=== PATIENT | male | born 1950 | race Caucasian/White ===

== ENCOUNTER 2021-09-26 15:50 | Outpatient (CLI) | payer MEDICARE, SELFPAY ==
--- OUTSIDE RECORDS SUMMARY | 2021-09-26 15:53 | XMS_ITS | Encounter Summary ---
:1950 Author Organization [facility] Address [address] [place] [address] Care Team Providers Name Role Phone Unavailable Primary Care Provider Unavailable Reason for Visit Reason Comments Skin Check Appointment Request (Routine) - Closed Specialty Diagnoses / Procedures Referred By Contact Refer red To Contact Family Medicine Referral ID Status Reason Start Date Expiration Date Visits Requ ested Visits Authorized [id number] Closed 11/08/2019 11/07/2020 1 1 Encounter Details Date Type Department Care Team Description 01/30/2020 Office Visit Department of Dwight Ortega Nevi Multi ple (Primary Dx); Dermatology in [place] Keratosis Seborrheic [place], [place] [address] [phone] Social History Tobacco Use Types Packs/Day Years Used Date Smoking Tobacco: Never Smokeless Tobacco: Never Alcohol Use Standard Drinks/Week Comments Yes 2 (1 standard drink = 0.6 oz pure alcoho l) caffeine - none Alcohol Habits Answer Date Recorded How often do you have a drink containing alcohol? 2-4 times a month 07/18/2021 How many drinks containing alcohol do you have on a 1 or 2 07/18/2021 typical day when you are drinking? How often do you have six or more drinks on one Never 07/18/2021 occasion? Comment: caffeine - none 12/22/2017 Social Isolation Answer Date Recorded In a typical week, how many times do you More than three robles es a week 07/18/2021 talk on the phone with family, friends, or neighbors? How often do you get together with friends Twice a week 07/18/2021 or relatives? How often do you attend gnosticism or More than 4 times per year 07/18/2021 hoahaoism services? Do you belong to any clubs or Yes 07/18/2021 organizations such as gnosticism groups, unions, fraternal or athletic groups, or school groups? How often do you attend meetings of the More than 4 times pe r year 07/18/2021 clubs or organizations you belong to? Are you now , , , 07/18/2021 , never or living with a partner? Physical Activity Answer Date Recorded On average, how many days per week do you engage in moderate to 6 days 07/18/2021 strenuous exercise (like walking fast, running, jogging, dancing, swimming, biking, or other activities that cause a light or heavy sweat)? On average, how many minutes do you engage in exercise at th is 40 min 07/18/2021 level? Stress Answer Date Recorded Do you feel stress - tense, restless, nervous, or Only a lit tle 07/18/2021 anxious, or unable to sleep at night because your mind is troubled all the time - these days? Financial Resource Strain Answer Date Recorded How hard is it for you to pay for the very basics like Not h elena at all 07/18/2021 food, housing, medical care, and heating? Intimate Partner Violence Answer Date Recorded Within the last year, have you been afraid of your partner o r No 07/18/2021 ex-partner? Within the last year, have you been humiliated or emotionall y No 07/18/2021 abused in other ways by your partner or ex-partner? Within the last year, have you been kicked, hit, slapped, or No 07/18/2021 otherwise physically hurt by your partner or ex-partner? Within the last year, have you been raped or forced to have any No 07/18/2021 kind of sexual activity by your partner or ex-partner? Food Insecurity Answer Date Recorded Within the past 12 months, you worried that your food would Never true 07/18/2021 run out before you got money to buy more. Within the past 12 months, the food you bought just didn't N ever true 07/18/2021 last and you didn't have money to get more. Transportation Needs Answer Date Recorded In the past 12 months, has lack of transportation kept you f rom No 07/18/2021 medical appointments or from getting medications? In the past 12 months, has lack of transportation kept you f rom No 07/18/2021 meetings, work, or getting things needed for daily living? Housing Stability Answer Date Recorded In the last 12 months, was there a time when you were not ab le No 07/18/2021 to pay the mortgage or rent on time? In the last 12 months, how many places have you lived? 1 07/18/2021 In the last 12 months, was there a time when you did not hav e a No 07/18/[address] sleep or slept in a nursing home (including now)? Sex Assigned at Date Recorded Male 07/17/2021 8:23 PM CDT documented as of this encounter Progress Notes Dwight Ortega M.D. - 01/30/2020 3:30 PM CST SUBJECTIVE CHIEF COMPLAINT / REASON FOR VISIT Skin cancer screening exam HISTORY OF PRESENT ILLNESS Mr. Darwin Woo is a 69 y.o. male who presents today for a full skin cancer screening examination. The patient was last seen by me in Dermatology clinic on 10/10/2019 for a re-evaluation of a lesion involving the left lower cheek which we felt was compatible with a benign lentigo vs SK. The patient denies a personal history of skin cancer or family history for melanoma. His father does have a history of squamous cell carcinoma. He reports regular use of sunscreen. The patient denies any lesions of concern. Allergies Allergen Reactions ??? Amoxicillin Hives ??? Latex Other (see comments) ??? Penicillins Itching ??? Sulfa (Sulfonamide Antibiotics) Other (see comments) MEDICAL HISTORY No history of skin cancer FAMILY HISTORY No family history for melanoma Father had squamous cell carcinoma due to large sun exposure OBJECTIVE PHYSICAL EXAMINATION General: Awake, alert, in no acute distress, and with appropriate affect. Eyes: No scleral injection or icterus. No eyelid abnormalities. Lymph: No lower extremity edema. Skin: I have examined the scalp, face, neck, chest, abdomen, back, bilateral upper extremities, and bilateral lower extremities. Examination of the left lower cheek today reveals a 5 x 3.5 mm brown macule with slight asymmetry and slight papillomatous change compatible with a benign lentigo vs SK. This lesion does not look worrisome for skin cancer on clinical exam for dermoscopy. Examination of the right mid parietal scalp reveals a 6 x 6 mm flesh colored dermal papule with focal telangiectasia compatible with a dermal nevus which the patient states has been present for 10-15 years. He states it has bled previously but only after irritation from a comb or brush. Examination of the lower posterior scalp reveals a brown, slightly scaly irritated SK. Examination of the forehead and face reveals several benign dermal nevi, benign lentigines and SKs. Examination of face, trunk, and extremities reveals multiple benign appearing nevi and lentigines, and multiple SKs. Examination today reveals no suspicious lesions for skin cancer. ASSESSMENT / PLAN #1 Face, trunk, and extremities: Multiple benign appearing nevi and lentigines The ABCDE criteria for melanoma was reviewed with the patient. None of the patient's nevi reach the clinical threshold for biopsy. I recommend continued sun protection, self-skin examinations, and observation. Should any of the patient's nevi change in size, color, texture, or shape or develop symptoms such as itching or bleeding, I recommend an immediate return visit for reassessment. In particular,we will continue to clinically monitor the lentigo vs SK involving the left lower cheek. Photographstaken today clinically and on dermoscopy. Follow up in 4 months for a recheck of this lesion. Patient will call and schedule an appointment. #2 Face, trunk, and extremities: Seborrheic keratosis The benign nature of the skin lesion(s) was discussed with the patient. No treatment is required. I recommend continued observation. Should symptoms or changes develop related to this condition, I would recommend a return visit for reassessment. PATIENT EDUCATION: Ready to learn. No apparent learning barriers were identified. Learning preferences include listening. Explained diagnosis and treatment plan; patient/guardian of patient expressed understanding of thecontent. By signing my name below, I, Chantal Sahu, attest that this documentation has been prepared underthe direction and in the presence of Dwight Ortega M.D. Electronically Signed: trev Will. 01/30/2020. I, Dwight Ortega M.D., personally performed the services described in this documentation. All medical record entries made by the scribe were at my direction and in my presence. I have reviewed the chart and discharge instructions (if applicable) and agree that the record reflects my personal performance and is accurate and complete. Dwight Ortega M.D. 01/29. APPLICATION SUPPORT SPECIALIST documented in this encounter Plan of Treatment Not on filedocumented as of this encounter Visit Diagnoses Diagnosis Nevi Multiple - Primary Keratosis Seborrheic documented in this encounter
--- OUTSIDE RECORDS SUMMARY | 2021-09-26 15:53 | XMS_ITS | Encounter Summary ---
:1950 Author Organization [facility] Address [address] [place] [id number] Care Team Providers Name Role Phone Unavailable Primary Care Provider Unavailable Reason for Referral Outpatient (Routine) - Closed Specialty Diagnoses / Procedures Referred By Contact Refer red To Contact Dermatology Dwight Ortega M.D . [facility] [address] [place] [phone] Referral ID Status Reason Start Date Expiration Date Visits Requ ested Visits Authorized [id number] Closed 07/04/2019 07/03/2020 1 1 Scheduling Instructions Recheck skin lesion involving left lower cheek in 3-4 months. Reason for Visit Reason Comments Follow-up Outpatient (Routine) - Closed Specialty Diagnoses / Procedures Referred By Contact Refer red To Contact Dermatology Dwight Ortega M.D . [facility] [address] [place] [phone] Referral ID Status Reason Start Date Expiration Date Visits Requ ested Visits Authorized [id number] Closed 01/03/2019 01/03/2020 1 1 Encounter Details Date Type Department Care Team Description 07/04/2019 Office Visit Department of Dwight Ortega, Keratosis Seborrheic Dermatology in [place] (Primary Dx) [place], [place] [address] [place] [phone] Social History Tobacco Use Types Packs/Day Years [...] or relatives? How often do you attend baptist or More than 4 times per year 07/18/2021 restorationist services? Do you belong to any clubs or Yes 07/18/2021 organizations such as baptist groups, unions, fraternal or athletic groups, or [...] place to sleep or slept in a fdc (including now)? Sex Assigned at Date Recorded Male 07/17/2021 8:23 PM CDT documented as of this encounter Progress Notes Dwight Ortega M.D. - 07/04/2019 1:15 PM CDT SUBJECTIVE CHIEF COMPLAINT / REASON FOR VISIT Skin lesion involving left lower cheek HISTORY OF PRESENT ILLNESS Mr. Darwin Woo is a 68 y.o. male who presents today for evaluation of a skin lesion involving his left lower cheek. This was noticed during a visit December 2018 felt to represent a benign nevus or lentigo. The patient denies a history of skin cancer or family history for melanoma. Allergies Allergen Reactions ??? Amoxicillin Hives ??? Latex Other (see comments) ??? Penicillins Itching ??? Sulfa (Sulfonamide Antibiotics) Other (see comments) MEDICAL HISTORY No history of skin cancer FAMILY HISTORY No family history for melanoma OBJECTIVE PHYSICAL EXAMINATION General: Awake, alert, in no acute distress, and with appropriate affect. Skin: Limited skin exam done today. Examination of his left lower cheek today reveals a 5 x 3 mm brown macule slight papillomatous change and slight darker jagged edge. ASSESSMENT / PLAN #1 Left lower cheek: Benign lentigo versus SK I discussed that his skin lesion has features of both a benign lentigo or early seborrheic keratosis. Given my low index of suspicion for this being atypical, I have recommended continued observation with recheck in approximately 3-4 months or immediately if any changes occur. I do not feel that a biopsy is warranted at this time. He is very comfortable with this plan. PATIENT EDUCATION: Ready to learn. No apparent learning barriers were identified. Learning preferences include listening. Explained diagnosis and treatment plan; patient/guardian of patient expressed understanding of thecontent. documented in this encounter Plan of Treatment Scheduled Referrals Name Type Priority Associated Order Schedule Diagnoses Dermatology office Outpatient Referral Routine Ex pected: visit (clinic) 10/04/2019 (Approximate), Expires: 07/03/2022 documented as of this encounter Visit Diagnoses Diagnosis Keratosis Seborrheic - Primary documented in this encounter
--- OUTSIDE RECORDS SUMMARY | 2021-09-26 15:53 | XMS_ITS | Encounter Summary ---
:1950 Author Organization [facility] Address [address] [place] [address] Care Team Providers Name Role Phone Unavailable Primary Care Provider Unavailable Encounter Details Date Type Department Care Team Description 04/17/2020 Orders Only [facility] Sa kiera Cobos M.D. [address] [place], [place] [phone] (Wo rk) Social History Tobacco Use Types Packs/Day Years [...] or relatives? How often do you attend hindu or More than 4 times per year 07/18/2021 catholic services? Do you belong to any clubs or Yes 07/18/2021 organizations such as hindu groups, unions, fraternal or athletic groups, or [...] PM CDT documented as of this encounter Plan of Treatment Not on filedocumented as of this encounter Visit Diagnoses Not on filedocumented in this encounter
--- OUTSIDE RECORDS SUMMARY | 2021-09-26 15:53 | XMS_ITS | Encounter Summary ---
:1950 Author Organization [facility] Address [address] [place] [address] Care Team Providers Name Role Phone Unavailable Primary Care Provider Unavailable Reason for Referral Outpatient (Routine) - Closed Specialty Diagnoses / Procedures Referred By Contact Refer red To Contact Dermatology Dwight Ortega M.D . [facility] [address] [place] [phone] Referral ID Status Reason Start Date Expiration Date Visits Requ ested Visits Authorized [id number] Closed 04/29/2020 04/29/2021 1 1 Scheduling Instructions Punch biopsy left lower cheek lentigo. 3 0 minutes Reason for Visit Reason Comments Suspicious Skin Lesion Appointment Request (Routine) - Closed Specialty Diagnoses / Procedures Referred By Contact Refer red To Contact Dermatology Referral ID Status Reason Start Date Expiration Date Visits Requ ested Visits Authorized [id number] Closed 02/20/2020 02/19/2021 1 1 Encounter Details Date Type Department Care Team Description 04/29/2020 Office Visit Department of Dwight Ortega, Tumor Skin Uncertain Behavior (Primary Dx); [place] [address] [phone] Social History Tobacco Use Types Packs/Day Years [...] or relatives? How often do you attend taoist or More than 4 times per year 07/18/2021 baptism services? Do you belong to any clubs or Yes 07/18/2021 organizations such as taoist groups, unions, fraternal or athletic groups, or [...] place to sleep or slept in a long-term (including now)? Sex Assigned at Date Recorded Male 07/17/2021 8:23 PM CDT documented as of this encounter Progress Notes Dwight Ortega M.D. - 04/29/2020 3:00 PM CDT SUBJECTIVE CHIEF COMPLAINT / REASON FOR VISIT Recheck lesion involving the left lower cheek Skin lesions HISTORY OF PRESENT ILLNESS Darwin Woo is a pleasant 69 y.o. male who follows up for a recheck of a lesion involving the left lower cheek and a lesion involving the right upper lateral cheek. The patient was last seen by me in Dermatology clinic on 01/30/2020 and at that time we felt the nevus was compatible with a benign appearing nevus. MEDICAL HISTORY No history of skin cancer ?? FAMILY HISTORY No family history for melanoma Father had squamous cell carcinoma due to large sun exposure ?? OBJECTIVE PHYSICAL EXAMINATION General: Awake, alert, in no acute distress, and with appropriate affect. Skin: Limited skin exam done today. Examination of the left lower cheek today reveals a 5 x 3 mm brown macule with slight asymmetry and slight irregular pigmentation compatible with a lentigo vs SK. The patient states its been present for at least 2 years and he has not noticed any significant change. Examination of the right upper lateral cheek reveals a light brown uniformly colored verrucous papule compatible with a SK. ASSESSMENT / PLAN #1 Left lower cheek: Lentigo vs SK Photographs taken today. I discussed with him that there is slight irregular pigmentation on dermoscopy and asymmetry and showed him the photo. We discussed potential removal with a 6 mm punch biopsy which would result in a small scar versus continued observation and he is comfortable with having it removed. The patient will make a follow up appointment and return to the procedure clinic for a 6 mm punch biopsy. #2 Right upper lateral cheek: Seborrheic keratosis The benign nature of the [...] Dwight Ortega M.D. Electronically Signed: trev Will. 04/29 IDwight M.D., personally performed the services described in this documentation. All medical record entries made by the scribe were at my direction and in my presence. I have reviewed the chart and discharge instructions (if applicable) and agree that the record reflects my personal performance and is accurate and complete. Dwight Ortega M.D. 04/29 documented in this encounter Plan of Treatment Scheduled Referrals Name Type Priority Associated Order Schedule Diagnoses Dermatology office Outpatient Referral Routine Ex pected: visit (clinic) 05/07/2020 (Approximate), Expires: 04/30/2023 documented as of this encounter Visit Diagnoses Diagnosis Tumor Skin Uncertain Behavior - Primary Keratosis Seborrheic documented in this encounter
--- OUTSIDE RECORDS SUMMARY | 2021-09-26 15:53 | XMS_ITS | Encounter Summary ---
:1950 Author Organization [facility] Address [address] [place] [address] Care Team Providers Name Role Phone Elsewhere, Pcp Primary Care Provider Unavailable Reason for Referral Outpatient (Routine) - Closed Specialty Diagnoses / Procedures Referred By Contact Refer red To Contact Dermatology Dwight Ortega M.D . [facility] Region [address] [place] [address] Referral ID Status Reason Start Date Expiration Date Visits Requ ested Visits Authorized [id number] Closed 04/21/2021 04/21/2022 1 1 Scheduling Instructions Recheck left lower leg lesion ATTENDANT Reason for Visit Reason Comments Skin Check Appointment Request (Routine) - Closed Specialty Diagnoses / Procedures Referred By Contact Refer red To Contact Family Medicine Referral ID Status Reason Start Date Expiration Date Visits Requ ested Visits Authorized [id number] Closed 01/27/2021 01/27/2022 1 1 Encounter Details Date Type Department Care Team Description 04/21/2021 Office Visit Department of Dwight Ortega Tumor Skin Un certain Behavior (Primary Dx); Dermatology in Andrea Nye M.D. Nevi Multiple; [place], [place] [address] [facility] Keratosis Seborrheic; [address] [place] [address] [place] [address] [phone] Social History Tobacco Use Types Packs/Day Years [...] or relatives? How often do you attend temple or More than 4 times per year 07/18/2021 yazidi services? Do you belong to any clubs or Tenebril 07/18/2021 organizations such as temple groups, unions, fraternal or athletic groups, or [...] place to sleep or slept in a care home (including now)? Sex Assigned at Date Recorded Male 07/17/2021 8:23 PM CDT documented as of this encounter Progress Notes Dwight Ortega M.D. - 04/21/2021 8:30 AM CST SUBJECTIVE CHIEF COMPLAINT / REASON FOR VISIT Full skin cancer screening HISTORY OF PRESENT ILLNESS Darwin Woo is a pleasant 70 y.o. male who presents for a full skin cancer screening. The patient was last seen by me in Dermatology clinic on 08/12/20. He denies a personal history of skin cancer or family history for melanoma. He uses sunscreen. He would particularly like us to evaluate a lesion on the left ankle. He states that the lesion is a sebaceous cyst that has been present since he was a teenager but has recently started bleeding. MEDICAL HISTORY Negative for skin cancer FAMILY HISTORY Melanoma in father OBJECTIVE PHYSICAL EXAMINATION General: Awake, alert, in no acute distress, and with appropriate affect. Eyes: No scleral injection or icterus. No eyelid abnormalities. Lymph: No lower extremity edema. Skin: I have examined the scalp, face, neck, chest, abdomen, back, bilateral upper extremities, and bilateral lower extremities. Examination of the face, trunk and extremities reveals multiple benign-appearing nevi, lentigines and seborrheic keratoses. Examination of the left upper central forehead reveals an actinic keratosis. Examination of the right upper central forehead reveals a 7 x 7 mm telangiectatic macule, rule out basal cell carcinoma. Examination of the left triceps reveals a small excoriation. I recommend applying Vaseline. Follow up if not resolving. Examination of the left distal lateral valenzuela reveals a 4.5 x 3.5 mm pinkish firm papule, compatible with a dermatofibroma. Examination of the left distal dorsal 5th finger reveals a 3.5 x 3 mm blue macule compatible with gregoria ink pen trauma 50+ years ago. No changes. ASSESSMENT / PLAN #1 Right upper central forehead: Rule out basal cell carcinoma We recommend a shave biopsy of the right upper central forehead. Photograph taken today with patient's verbal consent. We will correspond as to the results and if any further treatment is needed. PROCEDURAL PAUSE: Procedural pause conducted to verify: correct patient identity, procedure to be performed, and as applicable, correct side and site, correct patient position, and availability of implants, special equipment or special requirements. PROCEDURE DETAILS: Shave biopsy. We explained the potential diagnosis and recommended that we obtain a biopsy. The risks and benefitsof the procedure were discussed, and the patient consented to these procedures. The patient denies any allergies to local anesthetics. Using 1% lidocaine with epinephrine for local anesthesia, a shave biopsy was obtained from the right upper central forehead. Biopsy submitted to Dermatopathology for H&E. Special stains will be performed as indicated. The bleeding was well controlled with application of aluminum chloride. Dressing was applied, and wound care instructions were explained. Biopsy results and any further recommendations will be communicated to the patient by letter. Patient given pamphlet [id number]. Discussed the risks, benefits, alternatives, and the necessity of other members of the healthcare team participating in the procedure. All questions answered and consent given. #2 Left distal lateral valenzuela: Dermatofibroma I discussed with patient that I favor a dermatofibroma over a cyst. It probably got irritated and bled. We discussed potential of doing a 6 mm punch biopsy but given my low index of suspicion as well as the fact that it is near the ankle and if it gets infected could cause issues for him involving theankle as well, I prefer observation. He is in agreement. The benign nature of the skin lesion(s) wasdiscussed with the patient. No treatment is required. I recommend continued observation. Should thislesion change in size, color, texture, or shape or develop symptoms such as itching or bleeding, I recommend an immediate return visit for reassessment. Follow-up in 3 months for recheck. #4 Face, trunk and extremities: Multiple nevi and lentigines The ABCDE criteria for melanoma was reviewed with the patient. None of the patient's nevi reach the clinical threshold for biopsy. I recommend continued sun protection, self-skin examinations, and observation. Should any of the patient's nevi change in size, color, texture, or shape or develop symptoms such as itching or bleeding, I recommend an immediate return visit for reassessment. #5 Face, trunk and extremities: Seborrheic keratosis The benign nature of the skin lesion(s) was discussed with the patient. No treatment is required. I recommend continued observation. Should this lesion change in size, color, texture, or shape or develop symptoms such as itching or bleeding, I recommend an immediate return visit for reassessment. PATIENT EDUCATION: Ready to learn. No apparent learning barriers were identified. Learning preferences include listening. Explained diagnosis and treatment plan; patient/guardian of patient expressed understanding of thecontent. By signing my name below, I, Naomi hCapa, attest that this documentation has been prepared under the direction and in the presence of Dwight Ortega M.D. Electronically Signed: trev Bower. 04/15/2021. 11:01 AM DIET ATTENDANT. Dwight Matias M.D., personally performed the services described in this documentation. All medical record entries made by the scribe were at my direction and in my presence. I have reviewed the chart and discharge instructions (if applicable) and agree that the record reflects my personal performance and is accurate and complete. Dwight Ortega M.D. ATTENDANT documented in this encounter Miscellaneous Notes Result Encounter Note - Dwight Ortega M.D. 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 Please send letter ATTENDANT documented in this encounter Plan of Treatment Scheduled Referrals Name Type Priority Associated Order Schedule Diagnoses Dermatology office Outpatient Referral Routine Ex pected: visit (clinic) 07/22/2021 (Approximate), Expires: 07/22/2022 documented as of this encounter Procedures Procedure Name Priority Date/Time Associated Comments Diagnosis DERMATOPATHOLOGY CONSULT Routine 04/21/2021 9:02 Tumor Skin Results for this AM DIET ATTENDANT Uncertain Behavior procedure are in the results section. documented in this encounter Results Dermatopathology Consult (04/21/2021 9:02 AM DIET ATTENDANT) Component Value Ref Test Analysis Performed Pathologis t Range Method Time At Signature 04/25/2021 PDRM 10:33 AM DIET ATTENDANT Report Sal Reynolds 04/25/2021 ADI electronically Sonja Herrera 10:33 AM signed by DIET ATTENDANT Gross Received in formalin labeled with the patient's name, 04/25/2021 PDRM Description: medical record number, and right forehead, upper cent ral 10:33 AM is a 0.7 x 0.4 x 0.1 cm pale babcock-grimm skin shave biopsy. No DIET ATTENDANT discrete lesion is grossly identified on the skin surface. Specimen is bisected longitudinally and submitted entirely in cassette A1. Grossed by SEUN. Interpetation FINAL DIAGNOSIS 04/25/2021 PDRM A. 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 Dwight Ortega M.D. LAB PATH DERM ORDERABLES Performing Organization Address City/State/[facility] Code Phon e Number [facility] - [address] [place], [place] [address] [facility] [place] [address] Laboratories-[facility] [address] documented in this encounter Visit Diagnoses Diagnosis Tumor Skin Uncertain Behavior - Primary Nevi Multiple Keratosis Seborrheic Dermatofibroma documented in this encounter Care Teams Arcade Attendant Relationship Specialty Start Date End Date Elsewhere, Pcp PCP - General Family Medicine 05/24/20 documented as of this encounter
--- OUTSIDE RECORDS SUMMARY | 2021-09-26 15:53 | XMS_ITS | Clinical Summary ---
:1950 Author Organization [facility] Address [address] [place] [address] Care Team Providers Name Role Phone Elsewhere, Pcp Primary Care Provider Unavailable Source Comments Patient records contain information from all sites at [facility]. For routine questions regarding patient records, call [phone] during business hours, M-F 8:00 AM - 5:00 PM Central Time. Record requests for emergency care only can be directed to [phone] at any time.[facility] Allergies Active Allergy Reactions Severity Noted Date Comments Amoxicillin Hives Medium 12/18/2008 Latex Other (see comments) 08/06/2008 Penicillins Itching 08/06/2008 Sulfa (Sulfonamide Antibiotics) Other (see comments) 1 02/18/2008 Medications Medication Sig Dispensed Refills Start Date End Date Status finasteride (PROSCAR) Take 5 mg by mouth 5 8 Active 5 mg tablet every evening. metFORMIN (GLUCOPHAGE) 500 mg 2 (two) 0 11/10/2017 Active 500 mg tablet times a day. rosuvastatin (CRESTOR) Take 10 mg by 3 09/23/2017 Active 10 mg tablet mouth at bedtime. potassium citrate 10 mEq 2 (two) 9 10/04/2017 Active (UROCIT-K) 10 mEq times a day. (1,080 mg) ER tablet rOPINIRole (REQUIP) Take 0.5 mg by 3 09/23/2017 Active 0.5 mg tablet mouth at bedtime. tamsulosin (FLOMAX) TAKE ONE CAPSULE 5 09/23/2017 Active 0.4 mg 24 hr capsule BY MOUTH DAILY AFTER MEAL. TAKE WITHIN 30 MINUTES AFTER THE SAME MEAL DAILY ZOLMitriptan (ZOMIG) 5 Take by mouth as 0 Active mg tablet needed. rizatriptan CREDIT RISK ANALYTICS MANAGER Take 10 mg by 0 Active (MAXALT-CREDIT RISK ANALYTICS MANAGER) 10 mg mouth as needed. disintegrating tablet OMEGA-3 FATTY Take by mouth. 0 A ctive ZBOMW-YDI-QKE ORAL naratriptan (AMERGE) 1 Take 5 mg by mouth 0 Active mg tablet as needed. multivitamin chewable Chew 1 tablet 0 Active tablet daily. mometasone (NASONEX) Administer 1 spray 0 Active 50 mcg/actuation nasal into affected spray nostril(s) as needed. fluvastatin XL (LESCOL Take 80 mg by 0 Active XL) 80 mg 24 hr tablet mouth at bedtime. aspirin 81 mg chewable Chew 1 tablet (81 0 8 Active tablet mg total) at bedtime. May resume when no blood in urine or bowel movement IBUPROFEN ORAL Take by mouth as 0 Active needed. naproxen sodium 220 mg Take 220 mg by 0 Active capsule mouth as needed. 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); Sonja Mclaughlin Keratosis Actin ic 07/02/2021 Ancillary Procedure 06/30/2021 Lab Express or Urgent Dwight Ortega Preproced ural Lab Exam; Care Sonja Nye Contact With An d (Suspected) Exposure To COVID-19 from Last 3 Months Immunizations Name Administration Dates Next Due Influenza, Quadrivalent, Adjuvanted, 11/23/2019 Preservative Free PCV13 08/31/2014 PPSV23 03/25/2017 RZV (SHINGRIX) 04/18/2019, 12/19/2018 SARS-COV-2 (COVID-19) - PFIZER (12 years 04/06/2020, 021 or older) Td Preservative Free (TENIVAC, DECAVAC) 02/21/2015 Tdap 01/16/2016, 02/21/2015 influenza high dose (65 years or older) 11/24/2018, 12/02/19 17 (PF) influenza vaccine quad (FLUZONE/FLUARIX) 04/06/2018, 017, 01/16/2016 (6 months and older)(PF) Family History Medical History Relation Name Comments Squamous cell carcinoma Father Relation Name Status Comments Father Social History Tobacco Use Types Packs/Day Years [...] or relatives? How often do you attend baptism or More than 4 times per year 07/18/2021 advent services? Do you belong to any clubs or Yes 07/18/2021 organizations such as baptism groups, unions, fraternal or athletic groups, or [...] place to sleep or slept in a chcf (including now)? Education Answer Date Recorded What is the highest level of school Master's degree (e.g., M A, MS, 07/17/2021 you have completed or the highest Anisa, MEd, CONFECTIONERY MAKER, PAULA) degree you have received? Sex Assigned at Date Recorded Male 07/17/2021 8:23 PM CDT Last Filed Vital Signs Vital Sign Reading Time Taken Comments Blood Pressure 128/75 07/02/2021 8:04 AM CDT Pulse 75 07/02/2021 8:04 AM CDT Temperature 36.2 ??C (97.2 ??F) 05/24/2020 11:26 AM CDT Respiratory Rate 11 12/28/2017 10:30 AM BRONZER Oxygen Saturation 99% 05/24/2020 11:26 AM CDT Inhaled Oxygen Concentration - - Weight 114 kg (250 lb 10.6 oz) 05/24/2020 11:26 AM CDT Height 188.8 cm (6' 2.33) 12/28/2017 7:05 AM BRONZER Body Mass Index 31.9 12/28/2017 7:05 AM BRONZER Plan of Treatment Health Maintenance Due Date Last Done Comments CT Colonography 1950 Cologuard 1950 Colonoscopy 1950 Colorectal Cancer Screening 1950 FIT 1950 Hepatitis C Screening 1950 Fasting Glucose for Diabetes 12/22/2020 12/22/2017 Screening Depression Screening (Annual 02/15/2021 PHQ-2) Influenza Vaccine (#1) 2021 12/12/2020, 11/23/2019, 11/24/2018, Additional history exists DTaP,Tdap,and Td Vaccines (3 - Td 01/15/2026 01/16/2016, , or Tdap) 02/21/2015 Pneumococcal vaccine (65+ years) Completed 03/25/2017, Zoster Vaccines Completed 04/18/2019, 12/19/2018 Fall Risk Screen (Annual) Completed 04/21/2021 COVID-19 Vaccine Completed 05/22/2021, 11/09/2020, 04/06/2020, Additional history exists Medical Devices Implanted Type Area Concrete Paver Device Shelf Model / Identifier Expiration Date Ser ial / Lot Mesh Or Patch Mesh or Groin Patch Procedures Procedure Name Priority Date/Time Associated Diagnosis Comme nts DERMATOLOGY IMAGE Routine 07/02/2021 12:00 Result s for this EXAM AM CDT procedure are i n the results section. SARS CORONAVIRUS-2 STAT 06/30/2021 8:34 AM Preprocedural La b Results for this RNA, V CDT Exam procedure are in Contact With And the results (Suspected) Exposure section . To COVID-19 from Last 3 Months Results Forehead, right 8 Cryosurgery-Dermatology Image Exam (07/02/2021 12:00 AM CDT) Specimen (Source) Anatomical Location Collection Method / Collectio n Time Received Time / Laterality Volume Narrative IIMS - 07/02/2021 8:49 AM CDT This order has been created and auto-finalized to support the import of images acquired without order. The clini jama documentation to support these images can be found on the encounter oralia t produced images. Provider Not In System IMG NON RAD IMAGING PROCEDUR ES Performing Organization Address City/State/[facility] Code Phon e Number IITN IITN NA SARS Coronavirus-2 RNA, V Asymptomatic (06/30/2021 8:34 AM CDT) [facility] Method Time Signature SARS-CoV-2 Swab, 06/30/2021 MKTO Specimen Nasopharynx 8:20 PM CDT Source SARS CoV-2 Undetected Undetected 06/30/2021 MKTO RNA, TMA 8:20 PM CDT Comment: SARS-CoV-2 RNA absent. This result does not rule out COVID-19 in the patient, as the sensitivity of the test depends o n the timing of the specimen collection and the quality of the specim en. Result should be correlated with patient's history and clinical presentat ion. ----ADDITIONAL INFORMATION---- This molecular amplification test was pe rformed using the Aptima SARS-CoV-2 assay ([employer] on the [employer] tem under emergency use authorization (EUA) by the U.S. Food and Drug Administ ration. Fact sheets for this EUA assay can be fo und at the following links: For Healthcare Providers: https://www.fd a.gov/media/484854/download For Patients: https://www.fda.gov/media/ 090287/download Specimen Anatomical Collection Method Collection Time Receive d Time (Source) Location / / Volume Laterality Varies 06/30/2021 8:34 AM 2:52 (Nasopharynx) CDT PM CDT Dwight Ortega M.D. LAB MICROBIOLOGY - GENERAL O RDERABLES Performing Organization Address City/State/ZIP Code Phon e Number [facility]- [address] [place] [address] [place] [address] System in [place] [address] [place] [address] from Last 3 Months Insurance Payer Benefit Plan / Subscriber ID Effective Dates Phone Addre ss Type Group MEDICARE MEDICARE A AND [id number] 2016-Presen [address] Medicare B t [place] [id number] AARP AARP [id number] 2018-Presen [phone] [id number] [place] [address] Care Teams Customer Pricing Manager Relationship Specialty Start Date End Date Elsewhere, Pcp PCP - General Family Medicine 05/24/20
--- OUTSIDE RECORDS SUMMARY | 2021-09-26 15:53 | XMS_ITS | Encounter Summary ---
:1950 Author Organization [facility] Address [address] [place] [address] Care Team Providers Name Role Phone Elsewhere, Pcp Primary Care Provider Unavailable Encounter Details Date Type Department Care Team Description 07/02/2021 Ancillary Procedure Department of Dermatology Social History Tobacco Use Types Packs/Day Years [...] or relatives? How often do you attend catholic or More than 4 times per year 07/18/2021 yazidi services? Do you belong to any clubs or Yes 07/18/2021 organizations such as catholic groups, unions, fraternal or athletic groups, or [...] minutes do you engage in exercise at is 40 min 07/18/2021 level? Stress Answer [...] place to sleep or slept in a correction (including now)? Sex Assigned at Date Recorded Male 07/17/2021 8:23 PM CDT documented as of this encounter Plan of Treatment Not on filedocumented as of this encounter Procedures Procedure Name Priority Date/Time Associated Comments Diagnosis DERMATOLOGY IMAGE Routine 07/02/2021 12:00 Result s for this EXAM AM CDT procedure are i n the results section. documented in this encounter Results Forehead, right 8 Cryosurgery-Dermatology Image Exam [...] RAD IMAGING PROCEDUR ES Performing Organization Address City/State/ZIP Code Phon e Number IIMS IIMS NA documented in this encounter Visit Diagnoses Not on filedocumented in this encounter Care Teams Photographic Press Screwmaker Relationship Specialty Start Date End Date Elsewhere, Pcp PCP - General Family Medicine 05/24/20 documented as of this encounter
--- OUTSIDE RECORDS SUMMARY | 2021-09-26 15:53 | XMS_ITS | Encounter Summary ---
:1950 Author Organization [facility] Address [address] [place] [address] Care Team Providers Name Role Phone Elsewhere, Pcp Primary Care Provider Unavailable Encounter Details Date Type Department Care Team Description 06/30/2021 Lab Urgent Care in [place] Amer N, Preprocedural Lab Exam; [place] Sonja Contact With And (Suspected) Exposure To COVID-[address] [place] [address] [place], [place] [phone] Social History Tobacco Use Types Packs/Day Years [...] or relatives? How often do you attend scientology or More than 4 times per year 07/18/2021 catholic services? Do you belong to any clubs or Yes 07/18/2021 organizations such as scientology groups, unions, fraternal or athletic groups, or [...] encounter Procedures Procedure Name Priority Date/Time Associated Diagnosis Comme nts SARS CORONAVIRUS-2 STAT 06/30/2021 8:34 AM Preprocedu ral Lab Exam Results for this RNA, V CDT Contact With And procedure a re in (Suspected) Exposure the res ults To COVID-19 section. documented in this encounter Results SARS Coronavirus-2 RNA, V Asymptomatic (06/30/2021 8:34 AM CDT) [facility] gist Method Time Signature SARS-CoV-2 Swab, 06/30/2021 MKTO [...] pe rformed using the Aptima SARS-CoV-2 assay ([employer] on the [employer] tem under emergency use authorization (EUA) by the U.S. Food and Drug Administ ration. Fact sheets for this EUA assay can be fo und at the following links: For Healthcare Providers: https://www.fd a.gov/media/776242/download For Patients: https://www.fda.gov/media/ 155160/download Specimen Anatomical Collection Method Collection Time Receive d Time (Source) Location / / Volume Laterality Varies 06/30/2021 8:34 AM 2:52 (Nasopharynx) CDT PM CDT Dwight Ortega M.D. LAB MICROBIOLOGY - GENERAL O RDERABLES Performing Organization Address City/State/ZIP Code Phon e Number [facility]- [address] [place] [phone] [place] [address] [place] [address] System in [place] [address] [place] [address] documented in this encounter Visit Diagnoses Diagnosis Preprocedural Lab Exam Contact With And (Suspected) Exposure To COVID-19 documented in this encounter Additional Health Concerns Infection Onset Date Last Indicated Resolved Time COVID19 Pending 06/27/2021 06/30/2021 06/30/2021 8:21 PM CDT documented as of this encounter Care Teams Aircraft Inspection Record Clerk Relationship Specialty Start Date End Date Elsewhere, Pcp PCP - General Family Medicine 05/24/20 documented as of this encounter
--- OUTSIDE RECORDS SUMMARY | 2021-09-26 15:53 | XMS_ITS | Encounter Summary ---
:1950 Author Organization [facility] Address [address] [place] [address] Care Team Providers Name Role Phone Elsewhere, Pcp Primary Care Provider Unavailable Encounter Details Date Type Department Care Team Description 04/21/2021 Ancillary Procedure Department of Dermatology Social History [...] or relatives? How often do you attend jainism or More than 4 times per year 07/18/2021 methodist services? Do you belong to any clubs or Yes 07/18/2021 organizations such as jainism groups, unions, fraternal or athletic groups, or [...] place to sleep or slept in a usp (including now)? Sex Assigned at Date Recorded Male 07/17/2021 8:23 PM CDT documented as of this encounter Plan of Treatment Not on filedocumented as of this encounter Procedures Procedure Name Priority Date/Time Associated Comments Diagnosis DERMATOLOGY IMAGE Routine 04/21/2021 9:00 AM Resu lts for this EXAM MAIL CENSOR procedure are i n the results section. documented in this encounter Results forehead, right 8-Dermatology Image Exam (04/21/2021 9:00 AM MAIL CENSOR) Specimen (Source) Anatomical Collection Method Collection Time Re ceived Time Location / / Volume Laterality 04/21/2021 8:58 AM MAIL CENSOR Narrative [facility] - 04/21/2021 9:01 AM MAIL CENSOR This order has been created and auto-finalized [...] on filedocumented in this encounter Care Teams Personnel Supervisor Relationship Specialty Start Date End Date Elsewhere, Pcp PCP - General Family Medicine 05/24/20 documented as of this encounter
--- OUTSIDE RECORDS SUMMARY | 2021-09-26 15:53 | XMS_ITS | Encounter Summary ---
:1950 Author Organization [facility] Address [address] [place] [address] Care Team Providers Name Role Phone Elsewhere, Pcp Primary Care Provider Unavailable Reason for Visit Reason Comments Skin Check had a punch biopsy on left s derek of face clear liquid still, little redness and swelling Appointment Request (Routine) - Closed Specialty Diagnoses / Procedures Referred By Contact Refer red To Contact Family Medicine Referral ID Status Reason Start Date Expiration Date Visits Requ ested Visits Authorized [id number] Closed 05/24/2020 05/24/2021 1 1 Encounter Details Date Type Department Care Team Description 05/24/2020 Office Visit Department of [facility] Brittnee Cabrera Af [facility] Skin Surgery Medicine, [place] E[facility] C.N.PJason, ([facility], in [address] [phone] Social History Tobacco Use Types Packs/Day Years [...] or relatives? How often do you attend jehovah's witness or More than 4 times per year 07/18/2021 pentecostalism services? Do you belong to any clubs or Yes 07/18/2021 organizations such as jehovah's witness groups, unions, fraternal or athletic groups, or [...] or slept in a chcf (including now)? Sex Assigned at Date Recorded Male 07/17/2021 8:23 PM CDT documented as of this encounter Last Filed Vital Signs Vital Sign Reading Time Taken Comments Blood Pressure 112/69 05/24/2020 11:26 AM CDT Pulse 61 05/24/2020 11:26 AM CDT Temperature 36.2 ??C (97.2 ??F) 05/24/2020 11:26 AM CDT Respiratory Rate - - Oxygen Saturation 99% 05/24/2020 11:26 AM CDT Inhaled Oxygen Concentration - - Weight 114 kg (250 lb 10.6 oz) 05/24/2020 11:26 AM CDT Height - - Body Mass Index 31.9 12/28/2017 7:05 AM SUPERINTENDENT MEASUREMENT documented in this encounter Progress Notes Brittnee Cabrera, EJ, C.N.P., D.N.P. - 05/24/2020 11:30 AM CDT SUBJECTIVE CHIEF COMPLAINT/REASON FOR VISIT Darwin Woo is a 69 y.o. male who presents for evaluation of Skin Check (had a punch biopsy on leftside of face clear liquid still, little redness and swelling ). HISTORY OF PRESENT ILLNESS Darwin Woo presents for evaluation of left skin punch biopsy site. Procedure was done approximately two weeks ago. He reported that one week ago he had some purulent drainage from the site that has since resolved. In the past several days it has become increasingly more erythematous with clear drainage. It is mildly warm to the touch per his report. Does not have any pain. OBJECTIVE PHYSICAL EXAMINATION Vital Signs: BP 112/69 (BP Location: Left arm, Patient Position: Sitting, Cuff Size: Large) Pulse 61 Temp 36.2 ??C (Temporal) Wt 114 kg SpO2 99% BMI 31.90 kg/m?? Body mass index is 31.9 kg/m??. General: No acute distress. Skin: Pea-sized area of erythema on left lower cheek without drainage, swelling or ASSESSMENT / PLAN 1. Aftercare Skin Surgery Discussed with patient there is minimal erythema and no signs of infection. Due to the increase in erythema, did recommend warm wet washcloth 3 times daily followed by mupirocin ointment. He was advised to follow-up with any worsening erythema, pain or purulent drainage. Patient was instructed to follow up in primary care if symptoms are worsening or there is no improvement over the next several days. Plan was discussed with patient and is in agreement with plan. All questions were answered, side effects of any/all new medications were discussed. Patient left in no acute distress. Ready to learn. No apparent learning barriers were identified. Learning preferences include listening. Explained diagnosis and treatment plan. Patient/Child/Caregiver expressed understanding of the content. Brittnee Cabrera APRN, C.N.P., D.N.P. Total time: 11 minutes documented in this encounter Plan of Treatment Not on filedocumented as of this encounter Visit Diagnoses Diagnosis Aftercare Skin Surgery - Primary documented in this encounter Care Teams Teacher Industrial Arts Relationship Specialty Start Date End Date Elsewhere, Pcp PCP - General Family Medicine 05/24/20 documented as of this encounter
--- OUTSIDE RECORDS SUMMARY | 2021-09-26 15:53 | XMS_ITS | Encounter Summary ---
:1950 Author Organization [facility] Address [address] [place] [address] Care Team Providers Name Role Phone Elsewhere, Pcp Primary Care Provider Unavailable Reason for Visit Reason Comments COVID Nurse Line Puncture Wound Encounter Details Date Type Department Care Team Description 05/24/2020 Nurse Triage Department of [facility] Jenny Bolton COV ID Nurse Line; [facility], [facility], in [place], [facility] [address] [place], [place] [address] [place] [id number] [place] [address] Social History Tobacco Use Types Packs/Day Years [...] or relatives? How often do you attend confucianism or More than 4 times per year 07/18/2021 yarsanism services? Do you belong to any clubs or Yes 07/18/2021 organizations such as confucianism groups, unions, fraternal or athletic groups, or [...] place to sleep or slept in a prison (including now)? Sex Assigned at Date Recorded Male 07/17/2021 8:23 PM CDT documented as of this encounter Miscellaneous Notes Telephone Encounter - Jenny Bolton R.N. - 05/24/2020 10:33 AM CDT COVID-19 Nurse Line Screening ASSESSMENT Region Select appropriate region: : [place] Age Pathway Select approprite pathway: : Adult Have you had close contact* with a person who has a LABORATORY CONFIRMED case of COVID-19 in the past 14 days?: No (Continue Screening) In the last 48 hours, have you had a fever* OR symptoms that are unrelated to a preexisting illness?: No symptoms noted (Continue Screening) Have you tested positive for COVID-19 in the last 90 days?: No (Continue Screening) Have you been advised to undergo testing or are you requesting testing?: No, testing not recommended(End Screening) Testing Recommendation Endpoint Is testing recommended? : Not recommended to test PLAN Endpoint recommendation: Screening negative, testing not indicated at this time Care Points: -Wash hands frequently with soap and water for at least 20 seconds -If soap and water are not available, use a hand power screwdriver operator -Avoid touching your eyes, nose and mouth. -Clean and disinfect high-touch surfaces routinely. -Wear a mask over your nose and mouth. A cloth face cover is not a substitute for social distancing -Continue to keep about 6 feet between yourself and others. -Avoid public areas and public transportation. -Find new ways to connect with family and friends, get support and share feelings. -Seek emergent care if any of the following occur Trouble breathing Bluish lips or face Persistent pain or pressure in the chest New confusion or inability to rouse. -Notify your regular care provider of any new or worsening symptoms. Asymptomatic without exposure Carepoints: Testing is not recommended at this time. If you become symptomatic, please call back for additional screening. Education: Patient/caregiver able to teach back Patient agreeable to plan of care: Yes The following references were used: [facility] novel coronavirus (COVID- 19) resources Telephone Encounter - Jenny Bolton R.N. - 05/24/2020 10:22 AM CDT Chief Complaint / Reason for Call Patient is a 69 y.o. male calling regarding COVID Nurse Line and Puncture Wound. Assessment Concern: Caller had a punch biopsy on his cheek 05/07/20. Redness resolved and wound healed. Calling today because 2 days after suture removal redness and warmthstarted around healed site and he is having small amount of clear fluid. Present for: About 1 week Home cares tried: Is keeping area clean and dry. Calling to request: An appointment The recommended disposition is See a health care provider within 24 hours. Warm transfer to [employer] for Jay. COVID screening is negative. Reason for Disposition ??? [1] Looks infected (spreading redness, pus) AND [2] no fever Protocols used: CUTS AND [id number] Care Advice Patient/Caregiver understands and will follow care advice?: Yes, able to teach back SEE PCP WITHIN 24 HOURS: * IF OFFICE WILL BE OPEN: You need to be seen within the next 24 hours. Call your doctor (or LICENSED HOME INSPECTOR/PA) when the office opens and make an appointment. * IF OFFICE WILL BE CLOSED AND NO PCP (PRIMARY CARE PROVIDER) SECOND-LEVEL TRIAGE: You need to be seen within the next 24 hours. A clinic or an urgent care center is often a good source of care if yourdoctor's office is closed or you can't get an appointment. CLEANSING: Wash the infected area with warm water and an antibacterial soap twice daily. ANTIBIOTIC OINTMENT: * Apply an ANTIBIOTIC OINTMENT (e.g., OTC Bacitracin), covered by a Band-Aid or dressing. Change daily or if it becomes wet. * Option: A TELFA dressing won't stick to the wound when it is removed. - * Option: Another option is to use a LIQUID SKIN BANDAGE that only needs to be applied once. Don't use antibiotic ointment if you use a liquid skin bandage. CALL BACK IF: * Fever occurs * You become worse. CARE ADVICE given per Cuts and Lacerations (Adult) guideline. documented in this encounter Plan of Treatment Not on filedocumented as of this encounter Visit Diagnoses Not on filedocumented in this encounter Care Teams Acid Plant Helper Relationship Specialty Start Date End Date Elsewhere, Pcp PCP - General Family Medicine 05/24/20 documented as of this encounter
--- OUTSIDE RECORDS SUMMARY | 2021-09-26 15:53 | XMS_ITS | Encounter Summary ---
:1950 Author Organization [facility] Address [address] [place] [address] Care Team Providers Name Role Phone Unavailable Primary Care Provider Unavailable Reason for Referral Outpatient (Routine) - Closed Specialty Diagnoses / Procedures Referred By Contact Refer red To Contact Dermatology Dwight Ortega M.D . 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 Reason for Visit Reason Comments Skin Check Appointment Request (Routine) - Closed Specialty Diagnoses / Procedures Referred By Contact Refer red To Contact Dermatology Referral ID Status Reason Start Date Expiration Date Visits Requ ested Visits Authorized [id number] Closed 09/14/2018 09/14/2019 1 Encounter Details Date Type Department Care Team Description 01/03/2019 Office Visit Department of Dwight Ortega, Keratosis Actinic (Primary Dx); Dermatology in [place] Keratosis Seborrheic; [place], [place] [address] [facility] Nevus Dermal; [address] [place] [address] [place] [phone] Social History Tobacco Use Types Packs/Day Years [...] or relatives? How often do you attend zoroastrian or More than 4 times per year 07/18/2021 islam services? Do you belong to any clubs or Yes 07/18/2021 organizations such as zoroastrian groups, unions, fraternal or athletic groups, or [...] place to sleep or slept in a jail (including now)? Sex Assigned at Date Recorded Male 07/17/2021 8:23 PM CDT documented as of this encounter Progress Notes Dwight Ortega M.D. - 01/03/2019 1:30 PM CST CHIEF COMPLAINT/REASON FOR VISIT Full skin cancer screening HISTORY OF PRESENT ILLNESS Mr. Darwin Woo is a 68 y.o. male who presents for a full skin cancer screening examination. The patient denies a personal history of skin cancer or family history for melanoma. His father has had both basal cell carcinoma and squamous cell carcinoma. He uses sunscreen. The patient has no other concerns today. Allergies Allergen Reactions ??? Amoxicillin Hives ??? Latex Other (see comments) ??? Penicillins Itching ??? Sulfa (Sulfonamide Antibiotics) Other (see comments) MEDICAL HISTORY Negative for skin cancer FAMILY HISTORY 1. Negative for melanoma 2. Basal cell carcinoma and squamous cell carcinoma in father PHYSICAL EXAM General: Awake, alert, in no acute distress, and with appropriate affect. Eyes: No scleral injection or icterus. No eyelid abnormalities. Lymph: No lower extremity edema. Skin: I have examined the scalp, face, neck, chest, abdomen, back, bilateral upper extremities, and bilateral lower extremities. Examination of the right upper forehead reveals an actinic keratosis. Examination of the face reveals a few benign-appearing dermal nevi. Examination of the trunk and extremities reveals several benign-appearing nevi, lentigines and seborrheic keratoses. Examination of the left lower cheek reveals a 2.5 mm x 5 mm brown uniformly pigmented nevus with a slight jagged edge. No suspicious lesions for skin cancer today. IMPRESSION/REPORT/PLAN #1 Right upper forehead: Actinic keratosis x1 CONSENT Discussed the risks, benefits, alternatives, and the necessity of other members of the healthcare team participating in the procedure. All questions answered and consent given. PROCEDURE INFORMATION Given the precancerous nature of this lesion(s), treatment is medically indicated. After discussion of the risks, benefits and alternatives to treatment with cryotherapy, informed consent was obtained.We treated a total of 1 lesion(s) with two 10-second freeze-thaw cycles of liquid nitrogen cryotherapy. The patient tolerated the procedure well. Aftercare instructions were provided in written and verbal form to the patient. Should any of these lesions recur, the patient should return for biopsy or further evaluation. Follow up in 1-2 months for recheck if these areas do not complete resolve. #2 Trunk and extremities: Multiple nevi and lentigines The ABCDE criteria for melanoma was reviewed with the patient. None of the patient's nevi reach the clinical threshold for biopsy. We will monitor the lesion involving the left lower cheek. I recommendcontinued sun protection, self-skin examinations, and observation. Should any of the patient's nevi change in size, color, texture, or shape or develop symptoms such as itching or bleeding, I recommendan immediate return visit for reassessment. Follow up in 6 months for a recheck of the stated lesion, or immediately if any new or changing lesions are noted. Otherwise repeat a full skin cancer screening in one year. #3 Trunk and extremities: Seborrheic keratosis The benign nature [...] thecontent. By signing my name below, I, Kings Ragland, attest that this documentation has been prepared under thedirection and in the presence of Dwight Ortega M.D. Electronically Signed: trev Morales. 01/03/2019. 1:36 PM. I, Dwight Ortega M.D., personally performed the services described in this documentation. All medical record entries made by the scribe were at my direction and in my presence. I have reviewed the chart and discharge instructions (if applicable) and agree that the record reflects my personal performance and is accurate and complete. Dwight Ortega M.D. . 01/03/2019. 4:34 PM. SHING WHEEL REPAIRER documented in this encounter Plan of Treatment Scheduled Referrals Name Type Priority Associated Order Schedule Diagnoses Dermatology office Outpatient Referral Routine Ex pected: visit (clinic) 07/04/2019 (Approximate), Expires: 01/03/2022 documented as of this encounter Visit Diagnoses Diagnosis Keratosis Actinic - Primary Keratosis Seborrheic Nevus Dermal Nevi Multiple documented in this encounter
--- OUTSIDE RECORDS SUMMARY | 2021-09-26 15:53 | XMS_ITS | Encounter Summary ---
:1950 Author Organization [facility] Address [address] [place] [address] Care Team Providers Name Role Phone Unavailable Primary Care Provider Unavailable Reason for Visit Reason Comments Follow-up Outpatient (Routine) - Closed Specialty Diagnoses / Procedures Referred By Contact Refer red To Contact Dermatology Dwight Ortega M.D . [facility] Region [address] [place] [phone] Referral ID Status Reason Start Date Expiration Date Visits Requ ested Visits Authorized [id number] Closed 07/04/2019 07/03/2020 1 1 Encounter Details Date Type Department Care Team Description 10/10/2019 Office Visit Department of Dwight Ortega, Keratosis Seborrheic Dermatology in [place] (Primary Dx) [place], [place] [address] [phone] Social History Tobacco Use Types Packs/Day Years [...] More than 4 times per year 07/18/2021 buddhist services? Do you belong to any clubs [...] place to sleep or slept in a snf (including now)? Sex Assigned at Date Recorded Male 07/17/2021 8:23 PM CDT documented as of this encounter Progress Notes Dwight Ortega M.D. - 10/10/2019 1:30 PM CDT SUBJECTIVE CHIEF COMPLAINT / REASON FOR VISIT Recheck skin lesion involving the left lower cheek HISTORY OF PRESENT ILLNESS Mr. Darwin Woo is a 69 y.o. male who presents today for reevaluation of a skin lesion involving the left lower cheek.This was noticed during a visit December 2018 felt to represent a benign lentigo. At his previous visit on 07/04/2019, examination of the left lower cheek was compatible with both a benign lentigo or early seborrheic keratosis. At that time I did not think a biopsy was warranted. He returns today for a recheck of the lesion. He does not feel that the lesion has changed. The patient denies a history of skin cancer. He regularly uses SPF 30 and practices sun avoidance. Allergies Allergen Reactions ??? Amoxicillin Hives ??? [...] macule with slight asymmetry and slight papillomatous change. ASSESSMENT / PLAN #1 Left lower cheek: Benign lentigo versus SK I discussed with him that this lesion either represents a benign lentigo or early seborrheic keratosis both of which are benign. Discussed the ABCDEs of monitoring for lentigo. Follow up immediately ifchanges are noticed during monthly self examination. Otherwise followup in 3-4 months. He will also s chedule a full skin cancer screening exam at that time. PATIENT EDUCATION: Ready to learn. No apparent learning barriers were identified. Learning preferences include listening. Explained diagnosis and treatment plan; patient/guardian of patient expressed understanding of thecontent. By signing my name below, I, Chantal Sahu, attest that this documentation has been prepared underthe direction and in the presence of Dwight Ortega M.D. Electronically Signed: trev Will. 10/10/2019. At 1:35 PM . IDwight M.D., personally performed the services described in this documentation. All medical record entries made by the scribe were at my direction and in my presence. I have reviewed the chart and discharge instructions (if applicable) and agree that the record reflects my personal performance and is accurate and complete. Dwight Ortega M.D. October 09 at 1335 . documented in this encounter Plan of Treatment Not on filedocumented as of this encounter Visit Diagnoses Diagnosis Keratosis Seborrheic - Primary documented in this encounter
--- OUTSIDE RECORDS SUMMARY | 2021-09-26 15:53 | XMS_ITS | Encounter Summary ---
:1950 Author Organization [facility] Address [address] [place] [address] Care Team Providers Name Role Phone Elsewhere, Pcp Primary Care Provider Unavailable Reason for Visit Reason Comments Skin Check Outpatient (Routine) - Closed Specialty Diagnoses / Procedures Referred By Contact Refer red To Contact Dermatology Dwight Ortega M.D . [facility] Region [address] [place], [place] [phone] Referral ID Status Reason Start Date Expiration Date Visits Requ ested Visits Authorized [id number] Closed 05/07/2020 05/07/2021 1 1 Encounter Details Date Type Department Care Team Description 08/12/2020 Office Visit Department of Dwight Ortega, Keratosis Seborrheic Inflamed (Primary Dx); Dermatology in [place], [place] [address] [facility] Keratosis Seborrheic [address] [phone] Social History Tobacco Use Types Packs/Day Years [...] or relatives? How often do you attend christianity or More than 4 times per year 07/18/2021 roman catholic services? Do you belong to any clubs or Yes 07/18/2021 organizations such as christianity groups, unions, fraternal or athletic groups, or [...] place to sleep or slept in a mcc (including now)? Sex Assigned at Date Recorded Male 07/17/2021 8:23 PM CDT documented as of this encounter Progress Notes Dwight Ortega M.D. - 08/12/2020 9:45 AM CDT SUBJECTIVE CHIEF COMPLAINT / REASON FOR VISIT Skin cancer screening exam HISTORY OF PRESENT ILLNESS Mr. Darwin Woo is a 69 y.o. male who presents today for a full skin cancer screening examination. The patient was last seen by me in Dermatology clinic on 05/07/2020 and a 6 mm punch biopsy was done of a lesion involving the lentigo vs SK involving the left jawline. Pathology report showed a SK. The patient denies a personal history of skin cancer or family history for melanoma. Today he would like an evaluation of a lesion involving his scalp. He states this is a newly occurring lesion which has been present for about 6 weeks and is changing in size. Allergies Allergen Reactions ??? Amoxicillin Hives ??? [...] bilateral lower extremities. Examination of the right frontal scalp reveals a light brown verrucous papule compatible with a SK that was initially irritated. Examination of scalp, face, trunk, and extremities reveals multiple benign appearing nevi and lentigines, and multiple SKs. Examination today reveals no suspicious lesions for skin cancer. ASSESSMENT / PLAN #1 Scalp, face, trunk, and extremities: Multiple benign appearing nevi [...] recommend an immediate return visit for reassessment. #2 Right frontal scalp: Irritated SK Given the irritated nature of lesion(s), treatment is medically indicated. After discussion of the risks, benefits and alternatives to treatment with cryotherapy, informed consent was obtained. We treated a total of 1 lesion(s) with two 61-39-rnmlml freeze-thaw cycles of liquid nitrogen cryotherapy. The patient tolerated the procedure well. Aftercare instructions were provided in written and verbal form to the patient. Should any of these lesions recur, the patient should return for biopsy or further evaluation. Discussed the risks, benefits, alternatives, and the necessity of other members of the healthcare team participating in the procedure. All questions answered and consent given. Follow-up immediately if changes occur during monthly self-skin exam. Otherwise follow up in 1 month if not resolved #3 Face, trunk, and extremities: Seborrheic keratosis The [...] Dwight Ortega M.D. Electronically Signed: trev Will. I, Dwight Ortega M.D., personally performed the services described in this documentation. All medical record entries made by the scribe were at my direction and in my presence. I have reviewed the chart and discharge instructions (if applicable) and agree that the record reflects my personal performance and is accurate and complete. Dwight Ortega M.D. documented in this encounter Plan of Treatment Not on filedocumented as of this encounter Visit Diagnoses Diagnosis Keratosis Seborrheic Inflamed - Primary Nevi Multiple Keratosis Seborrheic documented in this encounter Care Teams Housekeeping/Laundry Supervisor Relationship Specialty Start Date End Date Elsewhere, Pcp PCP - General Family Medicine 05/24/20 documented as of this encounter
--- OUTSIDE RECORDS SUMMARY | 2021-09-26 15:53 | XMS_ITS | Encounter Summary ---
:[address] [facility] Address [address] [place] [address] Care Team Providers Name Role Phone Unavailable Primary Care Provider Unavailable Encounter Details Date Type Department Care Team Description 12/31/2017 Documentation Department of Urology in Taras Garza M.D. [place], [place] [address] [facility] [address] [place] [phone] (Wo rk) Social History Tobacco Use Types [...] or relatives? How often do you attend restoration or More than 4 times per year 07/18/2021 yazidism services? Do you belong to any clubs or Yes 07/18/2021 organizations such as restoration groups, unions, fraternal or athletic groups, or [...] place to sleep or slept in a long term (including now)? Sex Assigned at Date Recorded Male 07/17/2021 8:23 PM CDT documented as of this encounter Progress Notes Taras Garza M.D. - 12/31/2017 8:21 AM CST I spoke to Mr. Woo this morning and gave him the results of his recent targeted prostate biopsy.Came back benign. Recommended repeat PSA in 6 mo- 1 year. He and his were a little anxious, so they would prefer 6 mo. He is going to get this done locally. At 1 year, would recommend another PSA and a MONIKA. He will let us know if he wants this to be done here or locally. 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
--- OUTSIDE RECORDS SUMMARY | 2021-09-26 15:53 | XMS_ITS | Encounter Summary ---
:1950 Author Organization [facility] Address [address] [place] [address] Care Team Providers Name Role Phone Elsewhere, Pcp Primary Care Provider Unavailable Reason for Visit Outpatient (Routine) - Closed Specialty Diagnoses / Procedures Referred By Contact Refer red To Contact Dermatology Diagnoses Squamous Cell Carcinoma In Situ Dwight Ortega M.D. [facility] Procedures ELISABETH MOHS 1-[address] sites [address] [place] [phone] Referral ID Status Reason Start Date Expiration Date Visits Requ ested Visits Authorized [id number] Closed 04/28/2021 04/28/2022 1 1 Encounter Details Date Type Department Care Team Description 07/02/2021 Procedure visit Department of Mitesh Mcmillan, Squamous Cell Carcinoma In Situ (Primary Dx); Dermatology in [place] [facility] [place], [place] [address] [facility] [address] [place] [phone] Social History Tobacco Use Types Packs/Day Years [...] or relatives? How often do you attend mu-ism or More than 4 times per year 07/18/2021 rastafarian services? Do you belong to any clubs or Yes 07/18/2021 organizations such as mu-ism groups, unions, fraFototwics or athletic groups, or school groups? How [...] Pulse 75 07/02/2021 8:04 AM CDT Temperature - - Respiratory Rate - - Oxygen Saturation - - Inhaled Oxygen Concentration - - Weight - - Height - - Body Mass Index - - documented in this encounter Consult Notes Leo Christopher M.D., M.B.A. - 07/02/2021 8:00 AM CDT SUBJECTIVE REFERRAL SOURCE Dwight Ortega M.D. CHIEF COMPLAINT/REASON FOR VISIT Squamous cell carcinoma in situ, right forehead HISTORY OF PRESENT ILLNESS Mr. Woo is a very pleasant 70 y.o. 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 Biopsy was obtained on 04/21/2021. The dermatologic surgery preoperative information sheet was reviewed. Pertinent responses include: Family history of skin cancer, diabetes on metformin. Remainder preoperative sheet negative. Daily aspirin: Yes Anticoagulation: No Tobacco use: No Alcohol use: Occasionally OBJECTIVE PHYSICAL EXAMINATION Vitals: BP 128/75, HR 75 General: No acute distress. Pleasant and cooperative. Alert and oriented. Skin: Examination limited to the face per patient request. On the right upper forehead is an 8 mm light pink well-healed scar. Adjacent to this scar is a 4-5 mm erythematous macule with overlying thin scale. 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 After reviewing the histology and evaluating the patient clinically, we discussed treatment options including observation, cryotherapy, Efudex, ED&C, and Mohs surgery. After discussion, we elected to proceed with cryotherapy. ?? Treated the biopsy site and surrounding skin with 2 rounds of cryotherapy in the standard fashion. ?? Recommend continued observation moving forward. #2 Actinic keratosis x1 Treated 1 actinic keratosis on the right upper forehead with 2 rounds of cryotherapy in the standardfashion INFORMED CONSENT Discussed the risks, benefits, alternatives, and the necessity of other members of the healthcare team participating in the procedure. All questions answered and consent given. Associated attestation - Mitesh Mcmillan M.D. - 07/02/2021 3:21 PM CDT I was present during all critical and adler portions of the procedure(s) and immediately available to furnish services the entire duration. See resident/fellow note for details. Minimal residual was visible on clinical exam, healed very well since biopsy, so we recommended cryotherapy today as per Dr. Christopher's note. Electronically signed by: Mitesh Mcmillan M.D. 07/02/21 3:21 PM CDT documented in this encounter Plan of Treatment Not on filedocumented as of this encounter Visit Diagnoses Diagnosis Squamous Cell Carcinoma In Situ - Primar y Keratosis [facility]inic documented in this encounter Care Teams Erp Engineer Relationship Specialty Start Date End Date Elsewhere, Pcp PCP - General Family Medicine 05/24/20 documented as of this encounter
--- OUTSIDE RECORDS SUMMARY | 2021-09-26 15:53 | XMS_ITS | Encounter Summary ---
:1950 Author Organization [facility] Address [address] [place] [address] Care Team Providers Name Role Phone Unavailable Primary Care Provider Unavailable Reason for Referral Outpatient (Routine) - Closed Specialty Diagnoses / Procedures Referred By Contact Refer red To Contact Dermatology Dwight Ortega M.D . [facility] Region [address] [place] [phone] Referral ID Status Reason Start Date Expiration Date Visits Requ ested Visits Authorized [id number] Closed 05/07/2020 05/07/2021 1 1 Scheduling Instructions Recheck skin lesions 3 months utpatient (Routine) - Closed Specialty Diagnoses / Procedures Referred By Contact Refer red To Contact Diagnoses Tumor Skin Uncertain Behavior [facility]. [facility] Procedures ELISABETH Suture removal [address] [place] [phone] Referral ID Status Reason Start Date Expiration Date Visits Requ ested Visits Authorized [id number] Closed 05/07/2020 05/07/2021 1 1 utpatient (Routine) - Closed Specialty Diagnoses / Procedures Referred By Contact Refer red To Contact Dermatology Dwight Ortega M.D . [facility] Region [address] [place] [phone] Referral ID Status Reason Start Date Expiration Date Visits Requ ested Visits Authorized [id number] Closed 05/07/2020 05/07/2021 1 1 Scheduling Instructions Please schedule for suture removal. Reason for Visit Reason Comments Biopsy Outpatient (Routine) - Closed Specialty Diagnoses / Procedures Referred By Contact Refer red To Contact Dermatology Dwight Ortega M.D . [facility] [address] [place], [place] [phone] Referral ID Status Reason Start Date Expiration Date Visits Requ ested Visits Authorized [id number] Closed 04/29/2020 04/29/2021 1 1 Encounter Details Date Type Department Care Team Description 05/07/2020 Office Visit Department of Dwihgt Ortega, Tumor Skin Uncertain Dermatology in [place] (Primary Dx) [address] [phone] Social History Tobacco Use Types Packs/Day [...] or relatives? How often do you attend muslim or More than 4 times per year 07/18/2021 methodist services? Do you belong to any clubs or Yes 07/18/2021 organizations such as muslim groups, unions, fraternal or athletic groups, or [...] encounter Progress Notes Dwight Ortega M.D. - 05/07/2020 3:30 PM CDT SUBJECTIVE CHIEF COMPLAINT / REASON FOR VISIT Return for punch biopsy HISTORY OF PRESENT ILLNESS Darwin Woo is a pleasant 69 y.o. male who follows up for a 6 mm punch biopsy of a nevus involving the left lower cheek. The patient was last seen by me in Dermatology clinic on 04/29/2020 and photographs were taken at that time. MEDICAL HISTORY No history of skin cancer ?? FAMILY HISTORY No family history for melanoma Father had squamous cell carcinoma due to large sun exposure ?? OBJECTIVE PHYSICAL EXAMINATION General: Awake, alert, in no acute distress, and with appropriate affect. Skin: Limited skin exam done today. Examination of the left jawline today reveals a 5 x 3 mm brown macule with slight asymmetry and slight irregular pigmentation compatible with a lentigo vs SK.?? ASSESSMENT / PLAN #1 Left jawline: Lentigo vs SK A 6 mm punch biopsy removing the nevus was done in clinic and submitted for pathology. I will correspond with patient as to the results and if any further treatment is needed. CONSENT Discussed the risks, benefits, alternatives, and the necessity of other members of the healthcare team participating in the procedure. All questions answered and consent given. UNIVERSAL PROTOCOL Procedural pause conducted to verify: correct patient identity, procedure to be performed, and as applicable, correct side and site, correct patient position, and availability of implants, special equipment, or special requirements. PROCEDURE INFORMATION Punch biopsy. We explained the potential diagnosis and recommended that we obtain a biopsy. The risks and benefitsof the procedure were discussed, and the patient consented to these procedures. Using 1% lidocaine with epinephrine for local anesthesia, a 6 mm punch biopsy was obtained from the left jawline. Biopsy submitted to Dermatopathology. Biopsy site closed with a top layer of 2, 5-0 nylon superficial sutures. The skin sutures need to be removed in 5-7 days. Dressing was applied, and wound care instructionswere explained. Biopsy results and any further recommendations will be communicated to the patient by letter. Patient given pamphlet [id number]. PATIENT EDUCATION: Ready to learn. No apparent learning barriers were identified. Learning preferences include listening. Explained diagnosis and treatment plan; patient/guardian of patient expressed understanding of thecontent. By signing my name below, I, Chantal Sauh, attest that this documentation has been prepared underthe direction and in the presence of Dwight Ortega M.D. Electronically Signed: trev Will. 05/07/2020 IDwight M.D., personally performed the services described in this documentation. All medical record entries made by the scribe were at my direction and in my presence. I have reviewed the chart and discharge instructions (if applicable) and agree that the record reflects my personal performance and is accurate and complete. Dwight Ortega M.D. 05/07 documented in this encounter Miscellaneous Notes Result Encounter Note - Dwight Ortega M.D. - 05/10/2020 3:25 PM CDT Benign lesion letter. [place] patient. Please send letter documented in this encounter Plan of Treatment Scheduled Orders Name Type Priority Associated Diagnoses Order S chedule ELISABETH Suture removal Dermatology Routine Tumor Skin Uncertain E xpected: 05/13/2020 Behavior (Approximate), Expires: 2023 Scheduled Referrals Name Type Priority Associated Order Schedule Diagnoses Dermatology nurse Outpatient Referral Routine Exp ected: visit (clinic) 05/13/2020 (Approximate), Expires: 05/08/2023 Dermatology office Outpatient Referral Routine Ex pected: visit (clinic) 08/07/2020 (Approximate), Expires: 05/08/2023 documented as of this encounter Procedures Procedure Name Priority Date/Time Associated Comments Diagnosis DERMATOPATHOLOGY CONSULT Routine 05/07/2020 4:04 Tumor Skin Results for this PM CDT Uncertain Behavior procedure are in the results section. documented in this encounter Results Dermatopathology Consult (05/07/2020 4:04 PM CDT) Component Value Ref Test Analysis Performed At [facility] gist Range Method Time Signature 05/10/2020 [facility] 9:21 AM CDT Report Emil Nye. 05/10/2020 [facility] electronically Sonja Hoyt 9:21 AM CDT signed by Gross Description: Received in formalin labeled with the patient's name, 05/10/2020 [facility] medical record number, and left jawline is a 0.6 cm in 9:21 AM CDT diameter brown skin punch biopsy, excised to the depth of 0.2 cm. ??Encompassing almost the entire skin surface is a [id number] slightly bosselated lesion with ill-defined and irregular borders. ??The specimen is bisected and submitted entirely in cassette A1. Grossed by AF. Interpetation FINAL DIAGNOSIS 05/10/2020 [facility] A. ??DermPath Consult Wet Tissue; Left jawline, Skin punch 9:21 AM CDT biopsy: ??Seborrheic keratosis Specimen Anatomical Collection Method Collection Time Receive d Time (Source) Location / / Volume Laterality Tissue 05/07/2020 4:04 PM CDT 10:04 AM CDT Narrative This result has an attachment that is no t available. Dwight Ortega M.D. LAB PATH DERM ORDERABLES Performing Organization Address City/State/ZIP Code Phon e Number [facility] - [address] [place], [place] [address] [place] [address] [facility] [address] documented in this encounter Visit Diagnoses Diagnosis Tumor Skin Uncertain Behavior - Primary documented in this encounter
--- OUTSIDE RECORDS SUMMARY | 2021-09-26 15:53 | XMS_ITS | Encounter Summary ---
:1950 Author Organization [facility] Address [address] [place] [address] Care Team Providers Name Role Phone Unavailable Primary Care Provider Unavailable Reason for Referral Outpatient (Routine) - Closed Specialty Diagnoses / Procedures Referred By Contact Refer red To Contact Diagnoses Tumor Skin Uncertain Behavior Dwight Ortega M.D. Procedures Suture Removal [address] [place], [place] [phone] Referral ID Status Reason Start Date Expiration Date Visits Requ ested Visits Authorized [id number] Closed 05/13/2020 05/13/2021 1 1 Reason for Visit Reason Comments Suture / Staple Removal Outpatient (Routine) - Closed Specialty Diagnoses / Procedures Referred By Contact Refer red To Contact Dermatology Dwight Ortega M.D . [facility] Region [address] [place], [place] [phone] Referral ID Status Reason Start Date Expiration Date Visits Requ ested Visits Authorized [id number] Closed 05/07/2020 05/07/2021 1 1 Encounter Details Date Type Department Care Team Description 05/13/2020 Nurse Only Department of Dwight Ortega M.D. [address] [place] [phone] Suture / Staple Dermatology in [place] Jalil Malloy L.P.N. [address] [phone] Social History Tobacco Use Types Packs/Day [...] or relatives? How often do you attend rastafari or More than 4 times per year 07/18/2021 sikhism services? Do you belong to any clubs or Yes 07/18/2021 organizations such as rastafari groups, unions, fraternal or athletic groups, or [...] place to sleep or slept in a skilled nursing (including now)? Sex Assigned at Date Recorded Male 07/17/2021 8:23 PM CDT documented as of this encounter Procedure Notes Jalil Malloy L.P.N. - 05/13/2020 9:15 AM CDTAssociated Order(s): Suture Removal Post-Procedure Diagnose(s): Tumor Skin Uncertain Behavior Suture Removal Date/Time: 05/13/2020 9:15 AM Performed by: Jalil Malloy L.P.NJason Authorized by: Kalaaji, Amer N, M.D. PROCEDURE DETAILS Wound appearance: No signs of infection, good wound healing, clean, nontender and good approximationof wound edges Number of sutures removed: 2 CONSENT Consent obtained: verbal PRE PROCEDURE DETAILS Sutures were placed at [facility] facility: yes Indicaton: scheduled suture removal SEDATION / ANESTHESIA Anesthesia method: none POST PROCEDURE DETAILS Procedure completed successfully: yes Complications: no immediate complications Post-removal: No dressing applied documented in this encounter Plan of Treatment Not on filedocumented as of this encounter Procedures Procedure Name Priority Date/Time Associated Diagnosis Comme nts SUTURE REMOVAL Routine 05/13/2020 9:15 AM Tumor Skin Uncertain Results for this CDT Behavior procedure are i n the results section . documented in this encounter Results SUTURE REMOVAL (05/13/2020 9:15 AM CDT) Narrative [facility] - 05/13/2020 9:15 AM CDT Jalil Mlaloy L.P.N. ? 05/13/2020 ??9:16 AM Suture Removal Date/Time: 05/13/2020 9:15 AM Performed by: Jalil Malloy L.PJasonNJason Authorized by: Dwight Ortega M.D. PROCEDURE DETAILS Wound appearance: ??No signs of infectio n, good wound healing, clean, nontender and good approximation of woun d edges Number of sutures removed: ??2 CONSENT Consent obtained: verbal PRE PROCEDURE DETAILS Sutures were placed at [facility] facility: ye s ?? Indicaton: scheduled suture removal ?? SEDATION / ANESTHESIA Anesthesia method: none POST PROCEDURE DETAILS Procedure completed successfully: yes ?? Complications: no immediate complication s ?? Post-removal: ??No dressing applied Dwight Ortega M.D. PROCEDURE/MINOR SURGICAL ORD ERABLES Performing Organization Address City/State/ZIP Code Phon e Number [facility] NA documented in this encounter Visit Diagnoses Diagnosis Tumor Skin Uncertain Behavior - Primary documented in this encounter
--- OUTSIDE RECORDS SUMMARY | 2021-09-26 15:53 | XMS_ITS | Encounter Summary ---
:1950 Author Organization [facility] Address [address] [place] [address] Care Team Providers Name Role Phone Unavailable Primary Care Provider Unavailable Encounter Details Date Type Department Care Team Description 01/30/2020 Ancillary Procedure Department of Dermatology Social History [...] or relatives? How often do you attend anabaptist or More than 4 times per year 07/18/2021 mandaeism services? Do you belong to any clubs or Yes 07/18/2021 organizations such as anabaptist groups, unions, fraternal or athletic groups, or [...] place to sleep or slept in a senior care (including now)? Sex Assigned at Date Recorded Male 07/17/2021 8:23 PM CDT documented as of this encounter Plan of Treatment Not on filedocumented as of this encounter Procedures Procedure Name Priority Date/Time Associated Comments Diagnosis DERMATOLOGY IMAGE Routine 01/30/2020 4:10 PM Resu lts for this EXAM [facility] [employer] [facility]ER procedure are i n the results section. documented in this encounter Results cheek, left jawline 37-Dermatology Image Exam (01/30/2020 4:10 PM [facility]) Specimen (Source) Anatomical Collection Method Collection Time Re ceived Time Location / / Volume Laterality 01/30/2020 4:08 PM [facility] Narrative [facility] - 01/30/2020 4:10 PM [facility] This order has been created and auto-finalized [...]
--- OUTSIDE RECORDS SUMMARY | 2021-09-26 15:53 | XMS_ITS | Encounter Summary ---
:1950 Author Organization [facility] Address [address] [place] [id number] Care Team Providers Name Role Phone Elsewhere, Pcp Primary Care Provider Unavailable Reason for Visit Reason Comments Follow-up Outpatient (Routine) - Closed Specialty Diagnoses / Procedures Referred By Contact Refer red To Contact Dermatology Dwight Ortega M.D . [facility] [address] [place] [address] Referral ID Status Reason Start Date Expiration Date Visits Requ ested Visits Authorized [id number] Closed 04/21/2021 04/21/2022 1 1 Encounter Details Date Type Department Care Team Description 07/22/2021 Office Visit Department of Dwight Ortega Cyst Epide rmal Dermatology in [place] (Primary Dx) [place], [place] [address] [phone] Social History Tobacco Use Types Packs/Day Years [...] or relatives? How often do you attend jewish or More than 4 times per year 07/18/2021 rastafari services? Do you belong to any clubs or Yes 07/18/2021 organizations such as jewish groups, unions, fraternal or athletic groups, or [...] slept in a care home (including now)? Education Answer Date Recorded What is the highest level of school Master's degree (e.g., M A, MS, 07/17/2021 you have completed or the highest Anisa, MEd, MARKETING OPERATIONS INTERN, PAULA) degree you have received? Sex Assigned at Date Recorded Male 07/17/2021 8:23 PM CDT documented as of this encounter Progress Notes Dwight Ortega M.D. - 07/22/2021 1:30 PM CDT SUBJECTIVE CHIEF COMPLAINT / REASON FOR VISIT Recheck lesion x 1 HISTORY OF PRESENT ILLNESS Darwin Woo is a pleasant 70 y.o. male who presents for a recheck of a lesion x 1 involving the left distal lateral valenzuela. The patient was last seen by me in Dermatology clinic on 04/21/21. He has a history of squamous cell carcinoma in situ involving the right upper central forehead, status post curettage and cryotherapy on 07/02/[address] Mcmillan at [facility]. He denies a personal history for melanoma. His father had melanoma. He uses sunscreen. He denies any new or changing lesions today. MEDICAL HISTORY 1. Right upper central forehead: History of squamous cell carcinoma in situ, status post curettage and cryotherapy on 07/02/[address] Mcmillan at [facility] 2. Negative for melanoma ?? FAMILY HISTORY Melanoma in father OBJECTIVE PHYSICAL EXAMINATION General: Awake, alert, in no acute distress, and with appropriate affect. Skin: Limited skin exam done today. Examination of the left distal lateral valenzuela reveals a 1 x 0.8 cm superficial mobile cystic dermal nodule, compatible with a probable cyst. He reports that the lesion has been present for about 60 years. ASSESSMENT / PLAN #1 Left distal lateral valenzuela: Probable cyst The benign nature of the skin lesion(s) was discussed with the patient. No treatment is required. Hestates that this lesion has been present for 60 years and has not changed. It is asymptomatic. I recommend continued observation. Should this lesion change in size, color, texture, or shape or develop symptoms such as itching or bleeding, I recommend an immediate return visit for reassessment. Follow up in 6-12 months for a full skin cancer screening. PATIENT EDUCATION: Ready to learn. No apparent learning barriers were identified. Learning preferences include listening. Explained diagnosis and treatment plan; patient/guardian of patient expressed understanding of thecontent. By signing my name below, I, Naomi Chapa, attest that this documentation has been prepared under the direction and in the presence of Dwight Ortega M.D. Electronically Signed: trev Bower. 07/22/2021. 1:18 PM CDT. I, Dwight Ortega M.D., personally performed the [...] as of this encounter Visit Diagnoses Diagnosis Cyst Epidermal - Primary documented in this encounter Care Teams Needle Control Cheniller Relationship Specialty Start Date End Date Elsewhere, Pcp PCP - General Family Medicine 05/24/20 documented as of this encounter
--- OUTSIDE RECORDS SUMMARY | 2021-09-26 15:53 | XMS_ITS | Encounter Summary ---
:1950 Author Organization [facility] Address [address] [place] [address] Care Team Providers Name Role Phone Unavailable Primary Care Provider Unavailable Encounter Details Date Type Department Care Team Description 04/29/2020 Ancillary Procedure Department of Dermatology Social History [...] or relatives? How often do you attend confucianist or More than 4 times per year 07/18/2021 shinto services? Do you belong to any clubs or Yes 07/18/2021 organizations such as confucianist groups, unions, fraternal or athletic groups, or [...] place to sleep or slept in a detention (including now)? Sex Assigned at Date Recorded Male 07/17/2021 8:23 PM CDT documented as of this encounter Plan of Treatment Not on filedocumented as of this encounter Procedures Procedure Name Priority Date/Time Associated Comments Diagnosis DERMATOLOGY IMAGE Routine 04/29/2020 3:05 PM Resu lts for this EXAM CDT procedure are i n the results section. documented in this encounter Results Cheek, left 11 13 25 27 37-Dermatology Image Exam (04/29/2020 3:05 PM CDT) Specimen (Source) Anatomical Collection Method Collection Time Re ceived Time Location / / Volume Laterality 04/29/2020 3:04 PM CDT Narrative [facility] - 04/29/2020 3:06 PM CDT This order has been created and [...]
--- OUTSIDE RECORDS SUMMARY | 2021-09-26 15:53 | XMS_ITS | Encounter Summary ---
:1950 Author Organization [facility] Address [address] [place] [address] Care Team Providers Name Role Phone Elsewhere, Pcp Primary Care Provider Unavailable Reason for Referral Outpatient (Routine) - Closed Specialty Diagnoses / Procedures Referred By Contact Refer red To Contact Dermatology Diagnoses Squamous Cell Carcinoma In Situ Dwight Ortega M.D. [facility] Procedures [facility] 1-[address] [place] [phone] Referral ID Status Reason Start Date Expiration Date Visits Requ ested Visits Authorized [id number] Closed 04/28/2021 04/28/2022 1 1 Encounter Details Date Type Department Care Team Description 04/28/2021 Orders Only Department of Dwight Ortega Encounter For Preprocedural Laboratory Examination (COVID-19) (Primary Dx); Dermatology in [place] Squamous Cell Carcinoma In Situ; [place], [place] [address] [facility] Contact With And (Suspected) Exposure To COVID-19 [address] [place] [phone] Social History Tobacco Use Types Packs/Day Years [...] or relatives? How often do you attend caodaism or More than 4 times per year 07/18/2021 christianity services? Do you belong to any clubs or Yes 07/18/2021 organizations such as caodaism groups, unions, fraternal or athletic groups, or [...] place to sleep or slept in a [place] (including now)? Sex Assigned at Date Recorded Male 07/17/2021 8:23 PM CDT documented as of this encounter Plan of Treatment Scheduled Orders Name Type Priority Associated Diagnoses [facility]4 sites Dermatology Routine Squamous Cell Carcinom a Expected: 05/12/2021, In Situ Expires: 2022 documented as of this encounter Visit Diagnoses Diagnosis Encounter For Preprocedural Laboratory E xamination (COVID-19) - Primary Squamous Cell Carcinoma In Situ Contact With And (Suspected) Exposure To COVID-19 documented in this encounter Care Teams Station Baggage Porter Relationship Specialty Start Date End Date Elsewhere, Pcp PCP - General Family Medicine 05/24/20 documented as of this encounter
--- OUTSIDE RECORDS SUMMARY | 2021-09-26 15:54 | XMS_ITS | Encounter Summary ---
:1950 Author Organization [facility] Address [address] [place] [address] Care Team Providers Name Role Phone Unavailable Primary Care Provider Unavailable Reason for Visit Auth/Cert Specialty Diagnoses / Procedures Referred By Contact Refer red To Contact Diagnoses Elevated Prostate-Specific Antigen Elevated Prostate-Specific Antigen` Procedures BIOPSY PROSTATE; Transperineal biopsy; targeted based on MRI; proceed as indicated Referral ID Status Reason Start Date Expiration Date Visits Requ ested Visits Authorized [id number] 1 1 Encounter Details Date Type Department Care Team Description 12/28/2017 Surgery Outpatient Procedure Aurelio Mahajan B [facility] PROSTATE, Center in [place] Transperineal biopsy, [place] [address] targeted based on MRI, [address] [place], [place] [phone] Social History Tobacco Use Types Packs/Day Years [...] or relatives? How often do you attend mormonism or More than 4 times per year 07/18/2021 hindu services? Do you belong to any clubs or Yes 07/18/2021 organizations such as mormonism groups, unions, fraternal or athletic groups, or [...] Sign Reading Time Taken Comments Blood Pressure 121/73 12/28/2017 7:45 AM [employer]CIENCES [employer]ACULTY MEMBER Pulse 73 12/28/2017 7:48 AM GEOSCIENCES FACULTY MEMBER Temperature 36.6 ??C (97.9 ??F) 12/28/2017 7:05 AM GEOSCIENCES FACULTY MEMBER Respiratory Rate 8 12/28/2017 7:48 AM GEOSCIENCES FACULTY MEMBER Oxygen Saturation 96% 12/28/2017 7:48 AM GEOSCIENCES FACULTY MEMBER Inhaled Oxygen Concentration - - Weight 105 kg (231 lb 4.2 oz) 12/28/2017 7:05 AM [employer]CIENCES FACULTY MEMBER Height 188.8 cm (6' 2.33) 12/28/2017 7:05 AM [employer]OSCIENCES FACULTY MEMBER Body Mass Index 29.43 12/28/2017 7:05 AM GEOSCIENCES FACULTY MEMBER documented in this encounter Discharge Instructions AttachmentsThe following attachments cannot be sent through Care Everywhere. About Your Ultrasound-Guided Prostate Biopsy (Mexican)documented in this encounter Medications at Time of Discharge Medication Sig Dispensed Refills Start Date End Date aspirin 81 mg chewable Chew 1 tablet (81 mg 0 tablet total) at bedtime. May resume when no blood in urine or bowel movement finasteride (PROSCAR) 5 Take 5 mg by mouth 5 10/2017 mg tablet every evening. fluvastatin XL (LESCOL Take 80 mg by mouth 0 XL) 80 mg 24 hr tablet at bedtime. metFORMIN (GLUCOPHAGE) 500 mg 2 (two) times 0 500 mg tablet a day. mometasone (NASONEX) 50 Administer 1 spray 0 mcg/actuation nasal into affected spray nostril(s) as needed. multivitamin chewable Chew 1 tablet daily. 0 tablet naratriptan (AMERGE) 1 Take 5 mg by mouth 0 mg tablet as needed. OMEGA-3 FATTY Take by mouth. 0 [id number]-[id number]-[id number] ORAL potassium citrate 10 mEq 2 (two) times 9 10/05/19 18 (UROCIT-K) 10 mEq (1,080 a day. mg) ER tablet rizatriptan DICTIONARY EDITOR Take 10 mg by mouth 0 (MAXALT-DICTIONARY EDITOR) 10 mg as needed. disintegrating tablet rOPINIRole (REQUIP) 0.5 Take 0.5 mg by mouth 3 mg tablet at bedtime. rosuvastatin (CRESTOR) Take 10 mg by mouth 3 10/2017 10 mg tablet at bedtime. tamsulosin (FLOMAX) 0.4 TAKE ONE CAPSULE BY 5 10/2017 mg 24 hr capsule MOUTH DAILY AFTER MEAL. TAKE WITHIN 30 MINUTES AFTER THE SAME MEAL DAILY ZOLMitriptan (ZOMIG) 5 Take by mouth as 0 mg tablet needed. acetaminophen (TYLENOL) Take 2 capsules 30 capsule 0 018 01/07/2018 500 mg capsule (1,000 mg total) by mouth every 6 (six) hours as needed for pain for up to 10 days. ciprofloxacin (CIPRO) Take 1 by mouth 2 2 tablet 0 018 05/24/2020 500 mg hours prior to tabletIndications: biopsy and repeat 10 Elevated hours after biopsy Prostate-Specific Antigen sodium/chloride/potass/c Take 1 tablet by 0 07/04/2019 itrate mouth 2 (two) times ([id number] a day. RATE ORAL) documented as of this encounter OR Notes Op Note - Hussein Stinson M.D., Pharm.D. - 12/28/2017 8:28 AM CST FULL OP NOTE Procedure(s): BIOPSY PROSTATE, Transperineal biopsy, targeted based on MRI, proceed as indicated. Surgeon(s): Aurelio Mahajan M.D. Lomas, Derek J, M.D., Pharm.D. Anesthesia Type: General Pre-Operative Diagnosis: Elevated Prostate-Specific Antigen [R97.20]. Post-Operative Diagnosis: Same as pre-operative diagnosis Findings: As expected Complications: None Description of Procedure: ADDITIONAL PRE-OPERATIVE DIAGNOSIS: Elevated PSA suspicious but not diagnostic for prostate adenocarcinoma; Abnormal MRI of prostate. PROCEDURE AND FINDINGS: After appropriate informed consent, pause and identification of patient by name and number he was prepared and draped with sterile technique in the dorsal lithotomy position. The linear endo-cavitary ultrasound brachytherapy transducer was placed per rectum using the appropriate stepper for the procedure. A series of cine and static images were taken of axial and sagittal view of the prostate and saved to the network. The prostate measured 5.0 cm in transverse dimension, 4.4 cm in AP dimension, and 5.5 cm in longitudinal dimension. The ultrasound characteristics of the prostate included: the presence of BPH nodules in the transitional zone. Where seen, the bladder appeared normal. A three dimensional ultrasound data set was then acquired with a sagittal sweep from right to left and sent a separate workstation for volume rendering and segmentation. Once image fusion maneuvers were carried out each of the targets was identified and a series of biopsies were taken through the perineum and labeled right transitional zone. The needle location was captured on the work station and saved to a three dimensional data set file. Yarding And Folding Machine Operator systematic biopsies were also taken and sent for permanent section analysis; each core location was captures with the fusion planning software. The ultrasound transducer was removed, pressure was applied to the perineum followed by antibiotic ointment and fluffs.There was no obvious hematoma or bleeding. The patient tolerated the procedure well and was awakenedfrom anesthesia and taken to the post-operative area in satisfactory condition. Specimens ID Type Source Tests Collected by Time A : Right Prostate Lobe Tissue Prostate SURGICAL PATHOLOGY Hussein Stinson M.D., Pharm.D. 12/28/20170841 B : Left Prostate Lobe Tissue Prostate SURGICAL PATHOLOGY Hussein Stinson M.D., Pharm.D. 12/28/2017 0842 C : Right Transition Zone, Prostate Tissue Prostate SURGICAL PATHOLOGY Hussein Stinson M.D., Pharm.D. 12/28/2017 0842 Drains * No drains in log * Estimated Blood Loss 0 mL Implants * No implants in log * Hussein Stinson M.D., Pharm.D. CIENCES FACULTY MEMBER documented in this encounter Plan of Treatment Not on filedocumented as of this encounter Procedures Procedure Name Priority Date/Time Associated Diagnosis Comme nts SURGICAL PATHOLOGY Routine 12/28/2017 8:41 AM Elevated Res ults for this GEOSCIENCES FACULTY MEMBER Prostate-Specific procedure are in Antigen the results section. BIOPSY PROSTATE 12/28/2017 7:36 AM Elevated GEOSCIENCES FACULTY MEMBER Prostate-Specific Antigen Special Needs Listing: [employer]ettman service. Re quests early case, gets migraines if NPO for long. documented in this encounter Results Surgical Pathology (12/28/2017 8:41 AM GEOSCIENCES FACULTY MEMBER) Component Value Ref Test Analysis Performed At [facility] Obviousidea Range Method Time Signature Gross Description A: ?? Received in formalin labeled with the patie nt's name, 12/29/2017 [facility] medical record number, and prostate, right lobe are 2:15 PM [facility]OSCIENCES FACULTY MEMBER [facility]ATORIES - multiple pale babcock-pink soft tissue cores and fragments, [facility] ranging from 0.1-1.7 cm in length. ??The specimens are CAMPUS submitted en toto in cassettes A1, three cores and A2, three cores and fragments. Grossed by ESTELA B: ?? Received in formalin labeled with the patient's name, medical record number, and prostate, left lobe are multiple pale babcock-pink soft tissue cores and fragments, ranging from 0.1-2.1 cm in length. ?? Specimens are submitted en toto in cassettes B1, four cores and B2, three cores and fragments. ??Grossed by ESTELA C: ?? Received in formalin labeled with the patient's name, medical record number, and prostate, right transition zone are four pale babcock soft tissue cores, ranging from 0.8-1.6 cm in length. Specimens are submitted en toto in cassettes C1 and C2, two cores in each cassette. Grossed by ESTELA Gibbons in [place] 12/29/2017 [facility] jannette Smith, 2:15 PM [facility] - Interpretation Lorenza.Jennifer [facility] Res[facility] Report Binh Ford M.D. [phone] 12/30/19 [facility] electronically I verify that I have examined all relevant slides/ma terials 2:15 PM [facility] - signed by for the specimen(s) and rendered or confirmed the diagnosi s. [facility] 12/29/2017 [facility] 2:15 PM [facility]OSCIENCES FACULTY [facility]BER [facility] - [facility] Interpretation FINAL DIAGNOSIS 12/29/2017 [facility] A. ??Prostate, right lobe, needle core biopsy: ??Benign 2:15 PM [facility] - prostatic tissue. [facility] B. ??Prostate, left lobe, needle core biopsy: ??Benign CAMPUS prostatic tissue. C. ??Prostate, right transition zone, needle core biopsy: Benign prostatic tissue. Specimen (Source) Anatomical Collection Method Collection Time Re ceived Time Location / / Volume Laterality Tissue (Prostate) 12/28/2017 8:41 AM GEOSCIENCES FACULTY MEMBER Tissue (Prostate) 12/28/2017 8:42 AM GEOSCIENCES FACULTY MEMBER Tissue (Prostate) 12/28/2017 8:42 AM GEOSCIENCES FACULTY MEMBER Narrative This result has an attachment that is no t available. Aurelio Mahajan M.D. LAB SURG PATH ORDERABLES Performing Organization Address City/State/ZIP Code Phon e Number [facility] - [address] [id number] [facility] documented in this encounter Visit Diagnoses Diagnosis Elevated Prostate-Specific Antigen - [facility] Elevated Prostate-Specific Antigen documented in this encounter Admitting Diagnoses Diagnosis Elevated Prostate-Specific Antigen documented in this encounter Administered Medications Inactive Administered Medications - up to 3 most recent administrations Medication Order MAR Action Action Date Dose Rate Site acetaminophen tablet 1,000 mg Given 12/28/2017 7:48 AM GEOSCIENCES FACULTY MEMBER 1,000 mg (TYLENOL) 1,000 mg, oral, Once, On Wed12/28/17 at 0745, For 1 dose, Pre-Op insulin aspart U-100 injection 0-8 Units (NovoLOG) 0-8 Units, subcutaneous, Every 2 hour SD N, high blood sugar, Nurse to determine and administer dose., Starting on Wed at 0656, For 2 doses, Pre-Op, Nurse to administer Aspart (Novolog) Insulin subc utaneous as needed every 2 hours for up to 2 doses per correction scale. First dose STAT. Do not administer a correction Insulin dose if glucose is greater than 140 mg/dL and a) It is within 2 hours of any rapid acting or short acting Insulin and/or b) the patient has consumed sugar or carbohydrate containing food or beverage within the past 4 hours. Contact provider managing diabetes to assess if correction sca le insulin should be administered. For glucose less than or e qual to 70 mg/dL - initiate treatment of hypoglycemia., Insulin Aspart: Correction Scale Insuli n (For Diabetes Mellitus diagnosis), 71 - 139: 0 units, 140 - 179 : 2 units, 180 - 219: 4 units, 220 - 259: 6 units, 260 - 299: 8 units, Greater than or equal to 30 0: Call provider managing diabetes lactated ringers Rate/Dose Verify 12/28/2017 7:51 AM GEOSCIENCES FACULTY MEMBER 20 mL/hr, intravenous, Continuous, Starting on Wed12/28/17 at 0745 New Bag 12/28/2017 7:47 AM GEOSCIENCES FACULTY MEMBER 20 mL/hr 20 mL/hr awszdysq-aswdmtwknk-vvztlckua 3.5 mg-400 Given 12/28/2017 9:05 A M 2 packets Other unit-5,000 unit ointment packet GEOSCIENCES FACULTY MEMBER (NEOSPORIN) As needed, Starting on Wed12/28/17 at 0905, Intra-Op documented in this encounter Active and Recently Administered Medications Times are shown in GEOSCIENCES FACULTY MEMBER. Scheduled Medication Order 12/26/2017 12/27/2017 12/28/2017 acetaminophen tablet 1,000 mg (TYLENOL) (COMPLETED) 07 (Given - Provider: Jenniffer Jewell R.N.) 1,000 mg, oral, Once, Wed12/28/17 at 0745, For 1 dose, Pre-Op ciprofloxacin in D5W IVPB 400 mg (CIPRO) (COMPLETED) 0816 (Given - Provider: Andra Burrows APRN, CRNA) 400 mg, intravenous, at 200 mL/hr, Admin ister over 60 Minutes, Once, e 12/28/17 at 0715, For 1 dose, Intra-Op, premix bag, Drug Monitoring Program: Pharmacist to adjust medication dosing based on lee ann cation and drug clearance factors., Indications: Prophylaxis, Diaz rgical gentamicin in NaCl 0.9 % (iso-osm) IVPB 120 mg (GARAMYCIN) (COMP LETED) 0803 (Given - Provider: Andra Burrows APRN, CRNA) 120 mg, intravenous, at 200 mL/hr, Admin ister over 30 Minutes, Once, e 12/28/17 at 0715, For 1 dose, Intra-Op, Preoperatively within 1 hour prior to surgical incision premix bag, Drug Monitoring Progr am: Pharmacist to adjust medication dosi ng based on indication and drug clearance factors., Indications: Prophylaxis, Surgical sodium phosphates enema 1 enema (FLEET) 0700 (Due) 1 enema, rectal, Once, Wed12/28/17 at 0700, For 1 dose, Pre-Op Continuous Medication Order 12/26/2017 12/27/2017 12/28/2017 lactated ringers 0747 (New Bag - Provider: Jenniffer Jewell RJasonNJason)0751 (Rate/Dose Verify - Provider: Andra Burrows APRN, BRISSA)0900 (Anesthesia Volume Adjustment - Provider: Andra Burrows APRN, CRNA)1100 (Stopped - Provider: Ghulam Mahajan RJasonNJason) 20 mL/hr, intravenous, at 20 mL/hr, Continuous, Starting Wed at 0745 PRN Medication Order 12/26/2017 12/27/2017 12/28/2017 insulin aspart U-100 injection 0-8 Units (NovoLOG) 0-8 Units, subcutaneous, Every 2 hour SD N, high blood sugar, Nurse to determine and administer dose., Starting Wed12/28/17 at 0656, For 2 doses, Pre-Op, Nurse to administer Aspart (Novolog) Insulin sub cutaneous as needed every 2 hours for up to 2 doses per correction scale. First dose STAT. Do not administer a correction Insulin dose if glucose is greater than 140 mg/dL and a) It is within 2 hours of any rapid acting or short acting Insuli n and/or b) the patient has consumed sugar or carbohydrate containing food or beverage within the past 4 hours. Contact provider managing diabetes to assess if co rrection scale insulin should be adminis tered. For glucose less than or equal to 70 mg/dL - initiate treatment of hypoglycemia., Insulin Aspart: Correction Scale Insulin (For Diabetes Mellitus diagnosis ), 71 - 139: 0 units, 140 - 179: 2 units , 180 - 219: 4 units, 220 - 259: 6 units, 260 - 299: 8 units, Greater than or equal to 300: Call provider managing diabetes aejrvhiz-jilyiouqzv-lnmmknzcc 3.5 mg-400 unit-5,000 unit ointment packet (NEOSPORIN) (CANCELED) 904 (Given - Pro vider: Rakel Keenan RJasonNJason - Comment: perineum) As needed, Starting 12/28/17 at 0905, Intra-Op documented in this encounter
--- OUTSIDE RECORDS SUMMARY | 2021-09-26 15:54 | XMS_ITS | Encounter Summary ---
:1950 Author Organization [facility] Address [address] [place] [address] Care Team Providers Name Role Phone Unavailable Primary Care Provider Unavailable Reason for Visit Auth/Cert Specialty Diagnoses / Procedures Referred By Contact Refer red To Contact Diagnoses Elevated Prostate-Specific Antigen Elevated Prostate-Specific Antigen` Procedures BIOPSY PROSTATE; Transperineal biopsy; targeted based on MRI; proceed as indicated Referral ID Status Reason Start Date Expiration Date Visits Requ ested Visits Authorized [id number] 1 1 Encounter Details Date Type Department Care Team Description 12/28/2017 Hospital Encounter Outpatient Procedure [facility]re [facility] in [place] Rose M.D. Prostate-Specific [place] [address] [facility] Antigen [address] [place] [phone] Social History Tobacco Use Types Packs/Day Years [...] or relatives? How often do you attend religion or More than 4 times per year 07/18/2021 gnosticism services? Do you belong to any clubs or Yes 07/18/2021 organizations such as religion groups, unions, fraternal or athletic groups, or [...] to sleep or slept in a senior living (including now)? Sex Assigned at Date Recorded Male 07/17/2021 8:23 PM CDT documented as of this encounter Last Filed Vital Signs Vital Sign Reading Time Taken Comments Blood Pressure 120/63 12/28/2017 10:00 AM PREMIUM REPRESENTATIVE Pulse 61 12/28/2017 10:30 AM PREMIUM REPRESENTATIVE Temperature 36.4 ??C (97.5 ??F) 12/28/2017 9:18 AM PREMIUM REPRESENTATIVE Respiratory Rate 11 12/28/2017 10:30 AM PREMIUM REPRESENTATIVE Oxygen Saturation 98% 12/28/2017 10:30 AM PREMIUM REPRESENTATIVE Inhaled Oxygen Concentration - - Weight 105 kg (231 lb 4.2 oz) 12/28/2017 7:05 AM PREMIUM REPRESENTATIVE Height 188.8 cm (6' 2.33) 12/28/2017 7:05 AM PREMIUM REPRESENTATIVE Body Mass Index 29.43 12/28/2017 7:05 AM PREMIUM REPRESENTATIVE documented in this encounter Discharge Instructions AttachmentsThe following attachments cannot be sent through Care Everywhere. About Your Ultrasound-Guided Prostate Biopsy (Frisian)documented in this encounter Medications at Time of [...] needed. OMEGA-3 FATTY Take by mouth. 0 GPBOR-DHF-MRE ORAL potassium citrate 10 mEq 2 (two) times 9 10/05/19 18 (UROCIT-K) 10 mEq (1,080 a day. mg) ER tablet rizatriptan FOREPART RASPER Take 10 mg by mouth 0 (MAXALT-FOREPART RASPER) 10 mg as needed. disintegrating tablet rOPINIRole [...] 0 07/04/2019 itrate mouth 2 (two) times ([id number]-MP-[id number]-CIT a day. RATE ORAL) documented as of [...] to a three dimensional data set file. Field Reporter systematic biopsies were also taken and sent [...] * No implants in log * Hussein [place], M.D., Pharm.D. IUM REPRESENTATIVE documented in this encounter Plan of Treatment Not on filedocumented as of this encounter Procedures Procedure Name Priority Date/Time Associated Diagnosis Comme nts SURGICAL PATHOLOGY Routine 12/28/2017 8:41 AM Elevated Res ults for this PREMIUM REPRESENTATIVE Prostate-Specific procedure are in Antigen the results section. BIOPSY PROSTATE 12/28/2017 7:36 AM Elevated PREMIUM REPRESENTATIVE Prostate-Specific Antigen Special Needs Listing: [employer] service. Re quests early case, gets migraines if NPO for long. documented in this encounter Results Surgical Pathology (12/28/2017 8:41 AM PREMIUM REPRESENTATIVE) Component Value Ref Test Analysis Performed At [facility] [employer] Range Method Time Signature Gross Description A: ?? Received in formalin labeled with the patie nt's name, 12/29/2017 [facility] medical record number, and prostate, right lobe are 2:15 PM PREMIUM REPRESENTATIVE LABORATORIES - multiple pale babcock-pink soft tissue cores and fragments, [facility] ranging from 0.1-1.7 cm in length. [...] Grossed by ESTELA Gibbons in [place] 12/29/2017 [facility] jannette Smith, 2:15 PM PREMIUM REPRESENTATIVE LABORATORIES - Interpretation M.Adonis.[facility] -Pathology [facility] Resident Report Binh Ford M.D. [phone] 12/30/19 18 [facility] electronically I verify that I have examined all relevant slides/ma terials 2:15 PM PREMIUM REPRESENTATIVE LABORATORIES - signed by for the specimen(s) and rendered or confirmed the diagnosi s. [facility] 12/29/2017 [facility] 2:15 PM PREMIUM REPRESENTATIVE LABORATORIES - [facility] Interpretation FINAL DIAGNOSIS 12/29/2017 [facility] A. ??Prostate, right lobe, needle core biopsy: ??Benign 2:15 PM PREMIUM REPRESENTATIVE LABORATORIES - prostatic tissue. [facility] B. ??Prostate, left lobe, needle core biopsy: ??Benign CAMPUS prostatic tissue. C. ??Prostate, right transition zone, needle core biopsy: Benign prostatic tissue. Specimen (Source) Anatomical Collection Method Collection Time Re ceived Time Location / / Volume Laterality Tissue (Prostate) 12/28/2017 8:41 AM PREMIUM REPRESENTATIVE Tissue (Prostate) 12/28/2017 8:42 AM PREMIUM REPRESENTATIVE Tissue (Prostate) 12/28/2017 8:42 AM PREMIUM REPRESENTATIVE Narrative This result has an attachment that is no t available. Aurelio Mahajan M.D. LAB SURG PATH ORDERABLES Performing Organization Address City/State/ZIP Code Phon e Number [facility]ATORIES - [address] [address] 05 [facility] documented in this encounter Visit Diagnoses Diagnosis Elevated Prostate-Specific Antigen - Annmarie ronna documented in this encounter Admitting Diagnoses Diagnosis Elevated Prostate-Specific Antigen documented in this encounter Administered Medications Inactive Administered Medications - up to 3 most recent administrations Medication Order MAR Action Action Date Dose Rate Site acetaminophen tablet 1,000 mg Given 12/28/2017 7:48 AM PREMIUM REPRESENTATIVE 1,000 mg (TYLENOL) 1,000 mg, oral, Once, On Wed12/28/17 at 0745, For 1 dose, Pre-Op insulin aspart U-100 injection 0-8 Units (NovoLOG) 0-8 Units, subcutaneous, Every 2 hour IA N, high blood sugar, Nurse to determine [...] lactated ringers Rate/Dose Verify 12/28/2017 7:51 AM PREMIUM REPRESENTATIVE 20 mL/hr, intravenous, Continuous, Starting on Wed12/28/17 at 0745 New Bag 12/28/2017 7:47 AM PREMIUM REPRESENTATIVE 20 mL/hr 20 mL/hr documented in this encounter Active and Recently Administered Medications Times are shown in PREMIUM REPRESENTATIVE. Scheduled Medication Order 12/26/2017 12/27/2017 12/28/2017 acetaminophen tablet 1,000 mg (TYLENOL) (COMPLETED) 747 (Given - Provider: Jenniffer Jewell R.N.) 1,000 mg, oral, Once, Wed12/28/17 at 0745, For 1 dose, Pre-Op ciprofloxacin in D5W IVPB 400 mg (CIPRO) (COMPLETED) 815 (Given - Provider: Andra Burrows APRN, BRISSA) 400 mg, intravenous, at 200 mL/hr, Admin ister over 60 Minutes, Once, e 12/28/17 at 0715, For 1 dose, Intra-Op, premix bag, Drug Monitoring Program: Pharmacist to adjust medication dosing based on lee ann cation and drug clearance factors., Indications: Prophylaxis, Diaz rgical gentamicin in NaCl 0.9 % (iso-osm) IVPB 120 mg (GARAMYCIN) (COMP LETED) 08 (Given - Provider: Andra Burrows APRN, BRISSA) 120 mg, intravenous, at 200 mL/hr, Admin [...] 0747 (New Bag - Provider: Jenniffer Jewell R.N.)0751 (Rate/Dose Verify - Provider: Andra Burrows APRN, BRISSA)0900 (Anesthesia Volume Adjustment - Provider: Andra Burrows APRN, BRISSA)1100 (Stopped - Provider: Ghulam Mahajan R.N.) 20 mL/hr, intravenous, at 20 mL/hr, Continuous, Starting Wed at 0745 PRN Medication Order 12/26/2017 12/27/2017 12/28/2017 insulin aspart U-100 injection 0-8 Units (NovoLOG) 0-8 Units, subcutaneous, Every 2 hour IA N, high blood sugar, Nurse to determine [...] equal to 300: Call provider managing diabetes lulgwtao-qkxzdwayjw-ecguglnpw 3.5 mg-400 unit-5,000 unit ointment packet (NEOSPORIN) (CANCELED) 0905 (Given - Pro vider: Rakel Keenan R.N. - Comment: perineum) As needed, Starting Wed12/28/17 at 0905, Intra-Op documented in this encounter
--- OUTSIDE RECORDS SUMMARY | 2021-09-26 15:54 | XMS_ITS | Encounter Summary ---
:1950 Author Organization [facility] Address [address] [place] [address] Care Team Providers Name Role Phone Unavailable Primary Care Provider Unavailable Reason for Visit Reason Comments Skin Check Appointment Request (Routine) - Closed Specialty Diagnoses / Procedures Referred By Contact Refer red To Contact Dermatology Referral ID Status Reason Start Date Expiration Date Visits Requ ested Visits Authorized [id number] Closed 09/27/2017 09/27/2018 1 Encounter Details Date Type Department Care Team Description 11/16/2017 Office Visit Department of Dwight Ortega Nevi Multi ple (Primary Dx); Dermatology in [place] [facility] Keratosis Seborrheic [place], [place] [address] [phone] Social History Tobacco Use Types Packs/Day Years Used Date Smoking Tobacco: Never Smokeless Tobacco: Never Alcohol Habits Answer Date Recorded How often do you have a drink containing alcohol? 2-4 times a month 07/18/2021 How many drinks containing alcohol do you have on a 1 or 2 07/18/2021 typical day when you are drinking? How often do you have six or more drinks on one Never 07/18/2021 occasion? Comment: Not asked Social Isolation Answer Date Recorded In a typical week, how many times do you More than three robles es a week 07/18/2021 talk on the phone with family, friends, or neighbors? How often do you get together with friends Twice a week 07/18/2021 or relatives? How often do you attend latter day or More than 4 times per year 07/18/2021 zoroastrian services? Do you belong to any clubs or Yes 07/18/2021 organizations such as latter day groups, unions, fraternal or athletic groups, or [...] encounter Progress Notes Dwight Ortega M.D. - 11/16/2017 1:30 PM CDT CHIEF COMPLAINT/REASON FOR VISIT Skin cancer screening exam HISTORY OF PRESENT ILLNESS Mr. Darwin Woo is a 67 y.o. male who presents today for a full skin cancer screening examination. I last saw the patient on 01/20/17 at the [facility]. The patient denies a history of skin cancer. His father has a history of non-melanoma skin cancer however he has no family history for melanoma. A few months ago, the patient noticed he had some swelling, itching and peeling on his frontal scalp where a verrucal keratosis was previously treated with liquid nitrogen. The symptoms on his frontalscalp have since resolved. The patient denies any lesions of concern today. Allergies Allergen Reactions ??? Amoxicillin Hives ??? Latex Other (see comments) ??? Penicillins Itching ??? Sulfa (Sulfonamide Antibiotics) Other (see comments) PAST MEDICAL HISTORY No history of skin cancer FAMILY HISTORY Father history of non-melanoma skin cancer No family history for melanoma PHYSICAL EXAM General: Awake, alert, in no acute distress, and with appropriate affect. Eyes: No scleral injection or icterus. No eyelid abnormalities. Lymph: No lower extremity edema. Skin: I have examined the scalp, face, neck, chest, abdomen, back, bilateral upper extremities, and bilateral lower extremities. Examination of the face reveals some dermal nevi and the occasional seborrheic keratosis. Examination of the frontal scalp reveals no lesion today. Examination of the trunk and extremities reveals several seborrheic keratoses. IMPRESSION/REPORT/PLAN #1 Multiple nevi The ABCDE criteria for melanoma was reviewed [...] for reassessment. Follow up in 6-12 months or immediately if any new or changing lesions are noted. #2 Face, trunk and extremities: Seborrheic Keratosis The benign nature of the skin lesions was discussed with the patient. No treatment is required. I recommend continued observation. Should symptoms or changes develop related to this condition, I would recommend a return visit for reassessment. PATIENT EDUCATION Ready to learn. No apparent learning barriers were identified. Learning preferences include listening. Explained diagnosis and treatment plan; patient/guardian of patient expressed understanding of thecontent. By signing my name below, I, Surendra Jackson, attest that this documentation has been prepared underthe direction and in the presence of Dwight Ortega M.D.. Electronically Signed: trev Lara. 11/16/2017. 2:12 PM . IDwight M.D., personally performed the services described in this documentation. All medical record entries made by the scribe were at my direction and in my presence. I have reviewed the chart and discharge instructions (if applicable) and agree that the record reflects my personal performance and is accurate and complete. Dwight Ortega M.D. . 11/16/2017. 4:47 PM. documented in this encounter Plan of Treatment Not on filedocumented as of this encounter Visit Diagnoses Diagnosis Nevi Multiple - Primary Keratosis Seborrheic documented in this encounter
--- OUTSIDE RECORDS SUMMARY | 2021-09-26 15:54 | XMS_ITS | Encounter Summary ---
:1950 Author Organization [facility] Address [address] [place] [id number] Care Team Providers Name Role Phone Unavailable Primary Care Provider Unavailable Reason for Referral Outpatient (Routine) - Closed Specialty Diagnoses / Procedures Referred By Contact Refer red To Contact General Surgery Diagnoses Abnormal Magnetic Resonance Imaging Prostate Claude Santiago M.D. [address] [address] Referral ID Status Reason Start Date Expiration Date Visits Requ ested Visits Authorized [id number] Closed 11/30/2017 11/30/2018 1 1 Encounter Details Date Type Department Care Team Description 11/30/2017 Clinical Communication Department of Urology Nathen Alexander in [place] Rose M.D. [address] [phone] Social History Tobacco Use Types Packs/Day Years [...] or relatives? How often do you attend orthodox or More than 4 times per year 07/18/2021 synagogue services? Do you belong to any clubs or Yes 07/18/2021 organizations such as orthodox groups, unions, fraternal or athletic groups, or [...] this encounter Miscellaneous Notes Telephone Encounter - Yuliana Torre - 12/01/2017 1:13 PM CDT Looks like SHAWN is needed, please advise on add on time for 12/27 for listing visit if needed. Thank you! Telephone Encounter - Claude Santiago M.D. - 11/30/2017 4:45 PM CDT I spoke with Mr. Woo regarding his outside MRI interpretation. This demonstrated a abnormal prostate lesion that was marked for targeted biopsy. Per discussion in clinic, we will proceed with a MRIfusion transperineal prostate biopsy. Patient has chosen December 28 for the date. He will need a p reoperative evaluation and urine culture before his biopsy which we will arrange for. We will arrange for his preoperative antibiotics and enema. All questions answered, patient expressed understanding and agreement with the plan. Telephone Encounter - Yuliana Torre - 11/30/2017 4:13 PM CDT Pt called stating that he received a phone call earlier about some dates for his procedure. He is hoping that this can be rescheduled to 12/28. Please advise if SHAWN and Listing visit are also needed and place any needed orders. Thank you! documented in this encounter Plan of Treatment Scheduled Referrals Name Type Priority Associated Order Schedule Diagnoses Preoperative Outpatient Referral Routine Abnormal Magnetic Exp ected: Evaluation SHAWN Resonance Imaging 12/01/19 18 Consult (Clinic) Prostate (Approximat e), Expires: 11/30/2020 documented as of this encounter Results Bacterial Culture, Aerobic + Susc, Urine (12/22/2017 1:35 PM NUCLEAR POWERPLANT MECHANIC HELPER) Patholo gist Method Time Signature Urine Culture No growth 12/23/2017 [facility] after 1 8:14 AM NUCLEAR POWERPLANT MECHANIC HELPER LABORATORIES - day [facility] . Specimen Anatomical Collection Method Collection Time Receive d Time (Source) Location / / Volume Laterality Urine (Urine, 12/22/2017 1:35 PM 12/23/19 18 2:39 Midstream) NUCLEAR POWERPLANT MECHANIC HELPER PM NUCLEAR POWERPLANT MECHANIC HELPER Comment: Specimen Source Site: Urine Claude Santiago M.D. LAB MICROBIOLOGY - GENERAL O RDERABLES Performing Organization Address City/State/ZIP Code Phon e Number [facility] - [address] [place], [place] [address] [facility] documented in this encounter Visit Diagnoses Diagnosis Abnormal Magnetic Resonance Imaging Pros santo - Primary documented in this encounter
--- OUTSIDE RECORDS SUMMARY | 2021-09-26 15:54 | XMS_ITS | Encounter Summary ---
:1950 Author Organization [facility] Address [address] [place] [address] Care Team Providers Name Role Phone Unavailable Primary Care Provider Unavailable Encounter Details Date Type Department Care Team Description 12/22/2017 Hospital Encounter Department of Claude Santiago Magnetic Laboratory Medicine Sonja Hua Resonanc e Imaging and Pathology, [facility] in [place], [place] [address] [place] [address] Social History Tobacco Use Types Packs/Day Years [...] or relatives? How often do you attend jain or More than 4 times per year 07/18/2021 scientologist services? Do you belong to any clubs or Yes 07/18/2021 organizations such as jain groups, unions, fraternal or athletic groups, or [...] place to sleep or slept in a [facility] (including now)? Sex Assigned at Date Recorded Male 07/17/2021 8:23 PM CDT documented as of this encounter Medications at Time of Discharge [...] needed. OMEGA-3 FATTY Take by mouth. 0 AZDJL-KEF-XTG ORAL potassium citrate 10 mEq 2 (two) times 9 10/05/19 18 (UROCIT-K) 10 mEq (1,080 a day. mg) ER tablet rizatriptan LIQUOR CLERK Take 10 mg by mouth 0 (MAXALT-LIQUOR CLERK) 10 mg as needed. disintegrating tablet rOPINIRole [...] for pain for up to 10 days. aspirin 81 mg chewable Chew 81 mg at 0 12/28/2017 tablet bedtime. ciprofloxacin (CIPRO) Take 1 by mouth 2 2 tablet 0 018 05/24/2020 500 mg hours prior to tabletIndications: biopsy and repeat 10 Elevated hours after biopsy Prostate-Specific Antigen sodium/chloride/potass/c Take 1 tablet by 0 07/04/2019 itrate mouth 2 (two) times (RTPFKN-ED-KVBXBCDAD-CIT a day. RATE ORAL) documented as of this encounter Plan of Treatment Not on filedocumented as of this encounter Procedures Procedure Name Priority Date/Time Associated Diagnosis Comme nts BACTERIAL CULTURE, Routine 12/22/2017 1:35 PM Abnormal Magneti c Results for this AEROBIC + SUSC, STAMPING DIE MAKER BENCH Resonance Imaging procedu re are in URINE Prostate the results section. documented in this encounter Results Bacterial Culture, Aerobic + Susc, Urine (12/22/2017 1:35 PM STAMPING DIE MAKER BENCH) [facility] gist Method Time Signature Urine Culture No growth 12/23/2017 [facility] after 1 8:14 AM STAMPING DIE MAKER BENCH LABORATORIES - [facility] . Specimen Anatomical Collection Method Collection Time Receive d Time (Source) Location / / Volume Laterality Urine (Urine, 12/22/2017 1:35 PM 12/23/19 18 2:39 Midstream) STAMPING DIE MAKER BENCH PM STAMPING DIE MAKER BENCH Comment: Specimen Source Site: Urine Claude Santiago M.D. LAB MICROBIOLOGY - GENERAL O RDERABLES Performing Organization Address City/State/ZIP Code Phon e Number [facility] - [address] [place], [place] [address] [facility] documented in this encounter Visit Diagnoses Diagnosis Abnormal Magnetic Resonance Imaging Pros santo documented in this encounter
--- OUTSIDE RECORDS SUMMARY | 2021-09-26 15:54 | XMS_ITS | Encounter Summary ---
:1950 Author Organization [facility] Address [address] [place] [address] Care Team Providers Name Role Phone Unavailable Primary Care Provider Unavailable Reason for Visit Auth/Cert Specialty Diagnoses / Procedures Referred By Contact Refer red To Contact Diagnoses Elevated Prostate-Specific Antigen Elevated Prostate-Specific Antigen` Procedures BIOPSY PROSTATE; Transperineal biopsy; targeted based on MRI; proceed as indicated Referral ID Status Reason Start Date Expiration Date Visits Requ ested Visits Authorized [id number] 1 1 Encounter Details Date Type Department Care Team Description 12/28/2017 Anesthesia Event Outpatient Procedure Clay Macedo APRN, CORK CUTTER [facility] in [place], Jaime Marina M.D. [place] [address] [place] [address] Anesthesia Record Procedure Summary Procedure Name Responsible Anesthesia Start Anesthesia Stop Anesthesiologist Time Time BIOPSY PROSTATE, Clay Macedo APRN, 12/28/17 [phone] Transperineal biopsy, CORK CUTTER targeted based on MRI, proceed as indicated. Events Date Time Event Comment 12/28/2017 0751 An Start Machine/Equipmen t Checked Infection Precautions Foll owed Procedure/Site Verified NPO Sta tus Verified Supine Standard ASA Mon itors Applied 0751 In Room 0757 An Induction 0759 An Intubation 0805 Turnover to Proceduralist 0828 Proc Start 0901 Proc Fin 0907 Turnover to ANE Staff 0910 Airway Removal Criteria Met 0910 Extubation/Airway Removed 0912 an stop data 0915 Out of Room 0915 An End I completed my h andoff to the receiving staff during [facility] we 1. Identified the patient 2. Ident ified the responsible provider 3. Revi ewed the pertinent medical history 4. Discussed the surgical course 5. Review ed intra-op anesthesia management and i ssues during anesthesia 6. Set expectati ons for post-procedure period 7. Allowe d opportunity for questions and ac knowledgement of understanding. Name Total fentanyl injection 50 mcg/mL 100 mcg lidocaine 2% (mg) injection 60 mg propofol 10 mg/mL 200 mg ondansetron 4 mg/2 mL injection 4 mg ePHEDrine PF 5 mg/mL syringe injection 15 mg gentamicin in NaCl 0.9 % (iso-osm) IVPB 120 mg (GARAMY MALINI) 120 mg propofol 10 mg/mL infusion 653 mg ciprofloxacin in D5W IVPB 400 mg (CIPRO) 400 mg lactated ringers 500 mL Agents No agents on file. Blood No blood administrations on file. Lines, Drains, and Airways Type Details Placement Removal Peripheral IV Placement Date: 12/28/17 0711 by 12/28/17 1102 b y 12/28/17; Placement Jenniffer Jewell Knudsvig, Fredric J, Time: 07; Catheter R.N. R.N. Size: 22 G; Orientation: Left; Location: Hand; Site Prep: Alcohol; Technique: Anatomical landmarks; Insertion Attempts: 1; Removal Date: 12/28/17; Removal Time: 110; Removal Reason: Per protocol Supraglottic Airway Placement Date: 12/28/17 0759 by 12/28/17 09 10 by 12/28/17; Placement Andra Burrows Maiers, T homas A, Time: 758 (created DIALS SUPERVISOR, CORK CUTTER DIALS SUPERVISOR, CORK CUTTER via procedure documentation); Mask Ventilation: Easy mask; Removal Date: 12/28/17; Removal Time: 0910 (RETIRED) Incision 12/28/17; 08; 12/28/17 0830 by 11/05/20 141 8 by Perineum; Margo Lezama, [facility] -Background antibiotic, fluffs, R.N. , Scheduling Automated and athletic support Batch Job applied; DRSG GZ 16 PLY 4X4 (x1); 11/05/20 (Removed by background completion utility); 1418 (Removed by background completion utility) documented in this encounter Social History Tobacco Use Types Packs/Day Years [...] or relatives? How often do you attend shinto or More than 4 times per year 07/18/2021 restorationist services? Do you belong to any clubs or Yes 07/18/2021 organizations such as shinto groups, unions, fraternal or athletic groups, or [...] place to sleep or slept in a retirement (including now)? Sex Assigned at Date Recorded Male 07/17/2021 8:23 PM CDT documented as of this encounter OR Notes Anesthesia Postprocedure Evaluation - Clay Macedo APRN, CRNA - 12/28/2017 9:20 AM CST Patient: Darwin Woo Procedure Summary Date: 12/28/17 Room / Location: [address] / [facility] in [place], [place] Anesthesia Start: 750 Anesthesia Stop: 914 Procedure: BIOPSY PROSTATE, Transperineal biopsy, targeted based on MRI, proceed as indicated. (N/A) Diagnosis: Elevated Prostate-Specific Antigen (Elevated Prostate-Specific Antigen [R97.20].) Surgeon: Aurelio Mahajan M.D. Responsible Provider: Andra Burrows APRN, CRNA Anesthesia Type: general ASA Status: 2 Anesthesia Type: general Last vitals BP 121/73 (12/28/17 0745) Temp 36.4 ??C (12/28/17917) Pulse 70 (12/28/17917) Resp 11 (12/28/17917) SpO2 93 % (12/28/17917) Anesthesia Post Evaluation Patient Disposition: dismissal Cardiovascular status: hemodynamics (HR & BP) acceptable Respiratory status: patent airway with spontaneous effort Temperature: normothermic Oxygen requirements: room air Level of consciousness: awake Pain score: pain adequately controlled and/or at baseline Post Op nausea/vomiting: none Hydration status: euvolemic IL MANAGER Anesthesia Procedure Notes - Andra Burrows APRN, CRNA - 12/28/2017 8:07 AM CSTAssociated Order(s): AIRWAY MANAGEMENT Airway Date/Time: 12/28/2017 7:59 AM Patient location during procedure: OR / Procedure Area Performed by: ANDRA BURROWS Authorized by: ANDRA BURROWS Pre procedure details Pre evaluation for airway management: procedure Urgency: elective Preop assessment of probable difficulty: no difficulty anticipated Sedation level: anesthetized Preoxygenation: bag valve mask Procedure details Mask difficulty assessment: easy mask Final airway type: supraglottic airway Laryngeal Manipulation: no Supraglottic device: LMA unique Supraglottic device size: 5 Adult device size: 5 Number of attempt to successful placement: 1 Airway confirmation: bilateral breath sounds, positive ETCO2 and bilateral chest rise Other previous techniques attempted: none Post procedure details Procedure outcome: successful Airway event: no complications IL MANAGER Anesthesia Preprocedure Evaluation - Jaime Marina M.D. - 12/28/2017 7:43 AM CST Anesthesia Pre-Evaluation Pertinent components of the patient's history including current problem list, medical history, surgical history, family history, social history, medications and allergies were reviewed and updated as appropriate. The patient was examined and the Pre-op diagnosis, planned procedure, and H&P were reviewed and remain unchanged. PROBLEM LIST Relevant Problems No relevant active problems OBJECTIVE PHYSICAL EXAMINATION Airway (HEENT) Mallampati: I TM Distance: >3 FB Neck ROM: Full Mouth Opening: >3 cm Cardiovascular Rhythm: Regular Rate: Normal Cardiovascular Assessment: cardiovascular normal Functional Capacity: >4 METS Pulmonary Pulmonary Assessment: Clear Neurological Normal Dental Normal General / Constitutional Normal ASSESSMENT / PLAN ANESTHESIA PLAN ASA: 2 Anesthesia Plan: general Patient seen and allergies reviewed; anesthesia plan and risks discussed directly with patient / legal guardian, or through an cocoa butter filter operator; patient evaluated and approved for anesthesia / sedation. The use of blood products not discussed IL MANAGER documented in this encounter Plan of Treatment Not on filedocumented as of this encounter Procedures Procedure Name Priority Date/Time Associated Diagnosis Comme nts LDA ANE Routine 12/28/2017 8:07 AM Results f or this NON-SURGICAL AIRWAY RETAIL MANAGER procedur e are in the results section. documented in this encounter Results LDA ANE NON-SURGICAL AIRWAY (12/28/2017 8:07 AM RETAIL MANAGER) Narrative Andra Burrows APRN, CRNA - 12/29/19 18 8:07 AM RETAIL MANAGER Andra Burrows APRN, CRNA ? 12/28/2017 ??8:08 AM Airway Date/Time: 12/28/2017 7:59 AM Patient location during procedure: OR / Procedure Area Performed by: ANDRA BURROWS Authorized by: ANDRA BURROWS Pre procedure details ?? Pre evaluation for airway management : procedure ?? Urgency: elective ?? Preop assessment of probable difficu lty: no difficulty anticipated ?? Sedation level: anesthetized ?? Preoxygenation: bag valve mask Procedure details ??Mask difficulty assessment: easy mask ?? Final airway type: supraglottic airw ay Laryngeal Manipulation: no ? Supraglottic device: LMA unique ? Supraglottic device size: 5 ? Adult device size: 5 ?? Number of attempt to successful plac ement: 1 ?? Airway confirmation: bilateral breat h sounds, positive ETCO2 and bilateral chest rise ?? Other previous techniques attempted: none Post procedure details ?? Procedure outcome: successful ? Airway event: no complications Procedure Note Andra Burrows APRN, CRNA - 12/29/19 8:07 AM CST Airway Date/Time: 12/28/2017 7:59 AM Patient location during procedure: OR / Procedure Area Performed by: ANDRA BURROWS Authorized by: ANDRA BURROWS Pre procedure details Pre evaluation for airway management: p rocedure Urgency: elective Preop assessment of probable difficulty : no difficulty anticipated Sedation level: anesthetized Preoxygenation: bag valve mask Procedure details Mask difficulty assessment: easy mask Final airway type: supraglottic airway Laryngeal Manipulation: no Supraglottic device: LMA unique Supraglottic device size: 5 Adult device size: 5 Number of attempt to successful placeme nt: 1 Airway confirmation: bilateral breath s ounds, positive ETCO2 and bilateral chest rise Other previous techniques attempted: no ne Post procedure details Procedure outcome: successful Airway event: no complications Andra Burrows APRN, CRNA ANESTHESIA ORDERABLES documented in this encounter Visit Diagnoses Not on filedocumented in this encounter Administered Medications Inactive Administered Medications - up to 3 most recent administrations Medication Order MAR Action Action Date Dose Rate Site ciprofloxacin in D5W IVPB 400 mg Given 12/28/2017 8:16 AM RETAIL MANAGER 40 0 mg (CIPRO) 400 mg, intravenous, at 200 mL/hr, Administer over 60 Minutes, Once, On Wed12/28/17 at 0715, For 1 dose, Intra-Op, premix bag, Drug Monitoring Program: Pharmacist to adjust medication dosing based on indication and drug clearance factors., Indications: Prophylaxis, surgical ePHEDrine (PF) injection Given 12/28/2017 8:34 AM RETAIL MANAGER 5 mg intravenous, As needed, Starting on Wed12/28/17 at 0810, Anesthesia Intra-op Given 12/28/2017 8:22 AM RETAIL MANAGER 5 mg Given 12/28/2017 8:10 AM RETAIL MANAGER 5 mg fentaNYL injection (SUBLIMAZE) Given 12/28/2017 8:44 AM RETAIL MANAGER 50 mcg intravenous, As needed, severe pain or score 7-10 of 10, Starting on Wed12/28/17 at 0757, Anesthesia Intra-op Given 12/28/2017 7:57 AM RETAIL MANAGER 50 mcg gentamicin in NaCl 0.9 % (iso-osm) IVPB 120 Given 12/28/2017 8:03 AM RETAIL MANAGER 120 mg mg (GARAMYCIN) 120 mg, intravenous, at 200 mL/hr, Administer over 30 Minutes, Once, On Wed12/28/17 at 0715, For 1 dose, Intra-Op, Preoperatively within 1 hour prior to surgical incision premix bag, Drug Monitoring Program: Pharmacist to adjust medication dosing based on indication and drug clearance factors., Indications: Prophylaxis, surgical lactated ringers Rate/Dose Verify 12/28/2017 7:51 AM RETAIL MANAGER 20 mL/hr, intravenous, Continuous, Starting on Wed12/28/17 at 0745 New Bag 12/28/2017 7:47 AM RETAIL MANAGER 20 mL/hr 20 mL/hr lidocaine (PF) (cardiac) injection Given 12/28/2017 7:57 AM RETAIL MANAGER 60 mg intravenous, As needed, Starting on Wed12/28/17 at 0757, Anesthesia Intra-op ondansetron (PF) injection (ZOFRAN) Given 12/28/2017 8:05 AM RETAIL MANAGER 4 mg intravenous, As needed, nausea, vomiting, Starting on Wed12/28/17 at 0805, Anesthesia Intra-op propofol 10 mg/mL infusion Rate/Dose 12/28/2017 8:49 75 mcg/kg/min 4 7.2 mL/hr (DIPRIVAN) Change AM RETAIL MANAGER Continuous Infusion: Per Instructions PRN, Starting on Wed12/28/17 at 0757, Anesthesia Intra-op Rate/Dose Change 12/28/2017 8:05 AM RETAIL MANAGER 100 mcg/kg/min 62.9 mL/hr New Bag 12/28/2017 7:57 AM RETAIL MANAGER 125 mcg/kg/min 78.7 mL/hr propofol injection (DIPRIVAN) Given 12/28/2017 7:57 AM RETAIL MANAGER 200 mg intravenous, As needed, Starting on Wed12/28/17 at 0757, Anesthesia Intra-op documented in this encounter
--- OUTSIDE RECORDS SUMMARY | 2021-09-26 15:54 | XMS_ITS | Encounter Summary ---
:1950 Author Organization [facility] Address [address] [place] [address] Care Team Providers Name Role Phone Unavailable Primary Care Provider Unavailable Encounter Details Date Type Department Care Team Description 11/24/2017 Ancillary Procedure Department of [facility] Radiology jyotsna Hua M.D. Prostate-Specif ic [place], [place] Antigen [address] [place] [address] Social History Tobacco Use Types Packs/Day Years [...] or relatives? How often do you attend adventism or More than 4 times per year 07/18/2021 yarsani services? Do you belong to any clubs or Yes 07/18/2021 organizations such as adventism groups, unions, fraternal or athletic groups, or [...] place to sleep or slept in a group home (including now)? Sex Assigned at Date Recorded Male 07/17/2021 8:23 PM CDT documented as of this encounter Plan of Treatment Not on filedocumented as of this encounter Procedures Procedure Name Priority Date/Time Associated Comments Diagnosis INTERPRETATION OF RAD - Routine 11/24/2017 1:42 Elevated Result s for OUTSIDE MR ABDOMEN (most inpatients PM CDT Prostate-Specifi t his procedure AND OR PELVIS and all c Antigen are in the outpatients) results section. documented in this encounter Results Interpretation of Outside MR Abdomen and or Pelvis (11/24/2017 1:42 PM CDT) Anatomical Region Laterality Modality Abdominal RST LOS, Abdominal ARZ LOS, Abdominal FLA LOS N/A Magnetic Resonance Specimen (Source) Anatomical Collection Method Collection Time Re ceived Time Location / / Volume Laterality 11/25/2017 1:56 PM CDT Impressions 11/25/2017 3:02 PM CDT IMPRESSION: 1. PI-RADS 2 nodule right transition zon e at the apex of prostate measuring 6 mm. This is a very low suspicion nodule, but was specifically mentioned in the outside report. 2. Moderate inflammation surrounding the prostate gland. Narrative 11/25/2017 3:02 PM CDT EXAM: ??INTERPRETATION OF OUTSIDE MR ABDOMEN AND OR PELVIS dated 09/08/2017 1.5T prostate MRI without endorectal coi l, sequences include small gpnry-fp-hlnm axial coronal and sagittal nonfat sat T2 , large uvmym-gl-oqbx DWI, small pdvet-fs-zaaq axial T1 and T2 fat sat, l arge ljcxy-zf-ucwq coronal T2 fat sat, small uglgg-mf-endo axial dynamic imagin g. Outside MRI report was reviewed. COMPARISON: None. CLINICAL HISTORY: 67-year-old male with elevated PSA and negative prostate biopsies performed at outside facility. PSA 16 ng/mL. PROSTATE: Volume: 71 cc (PSA density 0.23) Exam quality: Good. Peripheral zone: Homogenous T2 hypointen sity within the peripheral zone with mild surrounding inflammation around the prostate. Transition zone: Enlarged transition zon e with numerous BPH nodules. A small focal T2 hypointensity within the right apex. A few scattered intrinsic T1 hyperintensities, may be related to hemo rrhage. Lesion # 1 Size: 6mm, 0.2cc Zone: Transition zone Location: Right posterior transition zon e at apex T2WI: Ill-defined T2 hypointensity (T2WI score 2) DWI: Absent diffusion restriction (DWI s core 1) DCE: Negative Overall category: PIRADS 2- Low (clinica lly significant cancer is unlikely to be present) LOCAL STAGING: Capsule: Intact Neurovascular bundle invasion: Absent Seminal vesicles invasion: Absent Other organ invasion: Absent LYMPH NODES: Negative for suspicious lym ph node(s). A few round internal iliac nodes are present bilaterally. Left inte rnal iliac node (series 501, image 23) 0.5 cm. BONES: Negative for suspicious bone lesi on(s). OTHER FINDINGS: None. Procedure Note Craig Olsen M.D. - 11/25/2017Forma tting of this note might be different from the original. EXAM: INTERPRETATION OF OUTSIDE MR ABDOM EN AND OR PELVIS dated 09/08/2017 1.5T prostate MRI without endorectal coi l, sequences include small tbodl-bk-slfu axial coronal and sagittal nonfat sat T2 , large kmamu-ns-gypi DWI, small sokyf-xo-kyhl axial T1 and T2 fat sat, l arge efqwl-dx-vpaz coronal T2 fat sat, small lxhau-lt-flfi axial dynamic imagin g. Outside MRI report was reviewed. COMPARISON: None. CLINICAL HISTORY: 67-year-old male with elevated PSA and negative prostate biopsies performed at outside facility. PSA 16 ng/mL. PROSTATE: Volume: 71 cc (PSA density 0.23) Exam quality: Good. Peripheral zone: Homogenous T2 hypointen sity within the peripheral zone with mild surrounding inflammation around the prostate. Transition zone: Enlarged transition zon e with numerous BPH nodules. A small focal T2 hypointensity within the right apex. A few scattered intrinsic T1 hyperintensities, may be related to hemo rrhage. Lesion # 1 Size: 6mm, 0.2cc Zone: Transition zone Location: Right posterior transition zon e at apex T2WI: Ill-defined T2 hypointensity (T2WI score 2) DWI: Absent diffusion restriction (DWI s core 1) DCE: Negative Overall category: PIRADS 2- Low (clinica lly significant cancer is unlikely to be present) LOCAL STAGING: Capsule: Intact Neurovascular bundle invasion: Absent Seminal vesicles invasion: Absent Other organ invasion: Absent LYMPH NODES: Negative for suspicious lym ph node(s). A few round internal iliac nodes are present bilaterally. Left inte rnal iliac node (series 501, image 23) 0.5 cm. BONES: Negative for suspicious bone lesi on(s). OTHER FINDINGS: None. IMPRESSION: 1. PI-RADS 2 nodule right transition zon e at the apex of prostate measuring 6 mm. This is a very low suspicion nodule, but was specifically mentioned in the outside report. 2. Moderate inflammation surrounding the prostate gland. Claude NERI MRI PROCEDURES documented in this encounter Visit Diagnoses Diagnosis Elevated Prostate-Specific Antigen documented in this encounter
--- OUTSIDE RECORDS SUMMARY | 2021-09-26 15:54 | XMS_ITS | Encounter Summary ---
:1950 Author Organization [facility] Address [address] [place] [address] Care Team Providers Name Role Phone Unavailable Primary Care Provider Unavailable Reason for Visit Appointment Request (Routine) - Closed Specialty Diagnoses / Procedures Referred By Contact Refer red To Contact Urology Referral ID Status Reason Start Date Expiration Date Visits Requ ested Visits Authorized [id number] Closed 12/02/2017 12/02/2018 1 1 Encounter Details Date Type Department Care Team Description 12/22/2017 Office Visit Department of Urology Nathen Alexander in [place] Rose M.D. Prostate-Specific [place] [address] [facility] Antigen (Primary Dx) [address] [place] [id number] [phone] Social History Tobacco Use Types Packs/Day Years [...] or relatives? How often do you attend zoroastrianism or More than 4 times per year 07/18/2021 presybeterian services? Do you belong to any clubs or Yes 07/18/2021 organizations such as zoroastrianism groups, unions, fraternal or athletic groups, or [...] PM CDT documented as of this encounter Consult Notes Makenzie Ochoa R.N. - 12/22/2017 2:[address] Alexander discussed the risks, benefits, and alternatives to an MRI targeted prostate biopsy whichinclude bleeding, infection, and damage to adjacent organs. He also discussed the risks of anesthesia itself including but not limited to heart attack, stroke, blood clots, pulmonary embolism, or even . He was educated that it is common to have hematuria, hematochezia, and hematospermia after hisprocedure. He was instructed to self-administer a Fleet enema two hours prior to the procedure. A antibiotic prescription was ordered, which should be initiated one hour prior to the procedure. Patientwas provided a surgical checklist pamphlet, which provides the number for him to call between the hours of 8:15 and midnight to obtain his report time. He is to remain n.p.o. 8 hours prior to his report time, and can have clear liquids up until two hours prior to his report time. The patient expressedunderstanding, and all questions were answered to patient satisfaction. We will be in contact with Mr. Woo once pathology results are available. Mr. Woo requests a morning report time, he gets migraines when he is unable to eat. TAILER Nathen Alexander M.D. - 12/22/2017 2:45 PM CST I have met the patient and discussed the issues at hand. I agree with the documentation provided by my colleague on the team. I have discussed the recommendations with the patient and answered all of the patient???s questions. Full documentation will be provided by my colleague on the team. TAILER documented in this encounter Plan of Treatment Not on filedocumented as of this encounter Visit Diagnoses Diagnosis Elevated Prostate-Specific Antigen - [facility] documented in this encounter
--- OUTSIDE RECORDS SUMMARY | 2021-09-26 15:54 | XMS_ITS | Encounter Summary ---
:1950 Author Organization [facility] Address [address] [place] [address] Care Team Providers Name Role Phone Unavailable Primary Care Provider Unavailable Encounter Details Date Type Department Care Team Description 12/28/2017 Ancillary Procedure Department of Urology Social History Tobacco Use Types Packs/Day Years [...] or relatives? How often do you attend scientologist or More than 4 times per year 07/18/2021 yazidism services? Do you belong to any clubs or Yes 07/18/2021 organizations such as scientologist groups, unions, fraternal or athletic groups, or [...] Name Priority Date/Time Associated Diagnosis Comme nts UROLOGY IMAGE EXAM Routine 12/28/2017 8:05 AM Res ults for this PATIENT ASSISTANT procedure are i n the results section. documented in this encounter Results UROLOGY IMAGE EXAM (12/28/2017 8:05 AM PATIENT ASSISTANT) Specimen (Source) Anatomical Collection Method Collection Time Re ceived Time Location / / Volume Laterality 12/28/2017 8:04 AM PATIENT ASSISTANT Narrative [facility] - 12/28/2017 9:02 AM PATIENT ASSISTANT This order has been created and auto-finalized [...]
--- OUTSIDE RECORDS SUMMARY | 2021-09-26 15:54 | XMS_ITS | Encounter Summary ---
:1950 Author Organization [facility] Address [address] [place] [address] Care Team Providers Name Role Phone Unavailable Primary Care Provider Unavailable Reason for Visit Appointment Request (Routine) - Closed Specialty Diagnoses / Procedures Referred By Contact Refer red To Contact Urology Referral ID Status Reason Start Date Expiration Date Visits Requ ested Visits Authorized [id number] Closed 11/02/2017 11/02/2018 1 1 Encounter Details Date Type Department Care Team Description 11/24/2017 Comprehensive Visit Department of Abdon Trimble M.D. [address] [place] [phone] Elevated Urology in Nathen Alexander M.D. [address] [place] [phone] Prostate-Specific Rose, Antigen (Primar y [place] Dx) [address] [place] [phone] Social History Tobacco Use Types Packs/Day Years [...] or relatives? How often do you attend orthodoxy or More than 4 times per year 07/18/2021 mosque services? Do you belong to any clubs or Yes 07/18/2021 organizations such as orthodoxy groups, unions, fraternal or athletic groups, or [...] place to sleep or slept in a halfway (including now)? Sex Assigned at Date Recorded Male 07/17/2021 8:23 PM CDT documented as of this encounter H&P Notes Nathen Alexander M.D. - 11/24/2017 10:00 AM CDT REFERRAL SOURCE The patient is being seen in consultation at the request of No referring provider defined for this encounter. for recommendations regarding No chief complaint on file. HISTORY OF PRESENT ILLNESS Mr. Woo is a pleasant 67 y.o. male who presents today for evaluation of elevated PSA. The patient has a long history of elevated PSA and has previously undergone 4-prostate biopsies. His last biopsy was in July of 2016. The patient had his recent evaluation of the prostate including an MRI in 2017. This showed some scattered PI-RADS 2 lesions the patient. The patient has not had any targeted biopsy of any prostate lesions to date. His current PSA is 16. Of note the patient does take finasteride and Flomax for lower urinary tract symptoms. His PSA was 20 prior to initiating finasteride. AUA symptom score: Total Symptom score: Total Quality of Life score: 2 Urology AUA total: 18 PAST MEDICAL/SURGICAL HISTORY MEDICAL Patient Active Problem List Diagnosis Date Noted ??? Elevated Prostate-Specific Antigen 11/24/2017 Past Medical History: Diagnosis Date ??? Keratosis Actinic SURGICAL No past surgical history on file. MEDICATIONS Current Outpatient Prescriptions: ??? aspirin 81 mg chewable tablet, Chew 81 mg., Disp: , Rfl: ??? finasteride (PROSCAR) 5 mg tablet, Take 5 mg by mouth once daily., Disp: , Rfl: 5 ??? metFORMIN (GLUCOPHAGE) 500 mg tablet, , Disp: , Rfl: 0 ??? mometasone (NASONEX) 50 mcg/actuation nasal spray, Administer 1 spray into affected nostril(s).,Disp: , Rfl: ??? multivitamin chewable tablet, Chew., Disp: , Rfl: ??? naratriptan (AMERGE) 1 mg tablet, Take 5 mg by mouth., Disp: , Rfl: ??? OMEGA-3 FATTY KVRUV-EMU-HLY ORAL, Take by mouth., Disp: , Rfl: ??? potassium citrate (UROCIT-K) 10 mEq (1,080 mg) ER tablet, , Disp: , Rfl: 9 ??? rizatriptan CLAIMS TECHNICIAN (MAXALT-CLAIMS TECHNICIAN) 10 mg disintegrating tablet, Take 10 mg by mouth., Disp: , Rfl: ??? rOPINIRole (REQUIP) 0.5 mg tablet, Take 0.5 mg by mouth at bedtime., Disp: , Rfl: 3 ??? rosuvastatin (CRESTOR) 10 mg tablet, Take 10 mg by mouth at bedtime., Disp: , Rfl: 3 ??? tamsulosin (FLOMAX) 0.4 mg 24 hr capsule, TAKE ONE CAPSULE BY MOUTH DAILY AFTER MEAL. TAKE WITHIN 30 MINUTES AFTER THE SAME MEAL DAILY, Disp: , Rfl: 5 ??? ZOLMitriptan (ZOMIG) 5 mg tablet, Take by mouth., Disp: , Rfl: ALLERGIES Allergies Allergen Reactions ??? Amoxicillin Hives ??? Latex Other (see comments) ??? Penicillins Itching ??? Sulfa (Sulfonamide Antibiotics) Other (see comments) SOCIAL HISTORY Social History Social History ??? Marital status: Spouse name: N/A ??? Number of children: N/A ??? Years of education: N/A Occupational History ??? Not on file. Social History Main Topics ??? Smoking status: Never Smoker ??? Smokeless tobacco: Never Used ??? Alcohol use Not on file ??? Drug use: Unknown ??? Sexual activity: Not on file Other Topics Concern ??? Not on file Social History Narrative ??? No narrative on file FAMILY HISTORY Family History Problem Relation Age of Onset ??? Squamous cell carcinoma Father SYSTEMS REVIEW Additionally, a complete 10 point review of systems was conducted and was negative except for what was mentioned above in the HPI and/or endorsed on the patient survey. PHYSICAL EXAMINATION There were no vitals taken for this visit. General: NAD Mental status: AAOx3 Psychiatric: appropriate disposition HEENT: NCAT, conjugate gaze Respiratory: non-labored breathing Cardiovascular: RRR, upper extremities warm Abdomen: soft, no CVA tenderness Musculoskeletal: moves all 4 extremities Skin: no visible rashes Neurologic: intake sensation to the upper extremities Prostate: No appreciable nodules were identified grade 2 enlarged LABS No results found for: CREATININE No results found for: PSA MICROBIOLOGY/CULTURE DATA Microbiology Results (last 30 days) No results found for the last 720 hours. PATHOLOGY No results found for this or any previous visit (from the past 720 hour(s)). IMAGING AND TESTS No results found. IMPRESSION/REPORT/PLAN #1 Elevated Prostate-Specific Antigen I have discussed with the patient the issue of elevated PSA. I would recommend the patient consider a fusion biopsy and specifically targeting the PI-RADS 2 lesions as well as having a thorough sampling of the prostate. The patient does have some concerns about risk of infection after biopsy. He did have a urinary tract infection after his last biopsy in 2017. We discussed the possibility of perinealbiopsy. We will have Dr. Cunha and Dr. Mahajan provide inpu on the best biopsy strategy. All questions were answered. I spent 30 min with the patient greater than 50% counseling documented in this encounter Plan of Treatment Not on filedocumented as of this encounter Results Interpretation of Outside MR [...] without endorectal coi l, sequences include small stcni-ol-gvbn axial coronal and sagittal nonfat sat T2 , large xshtq-dc-mgpg DWI, small ucqbg-aw-uskm axial T1 and T2 fat sat, l arge rshzh-vl-bqxe coronal T2 fat sat, small wsskn-df-sdjo axial dynamic imagin g. Outside MRI report [...] without endorectal coi l, sequences include small wjxzf-be-ztjm axial coronal and sagittal nonfat sat T2 , large nijjf-py-aiyi DWI, small swdtv-ax-yuxx axial T1 and T2 fat sat, l arge mdtrd-gp-ciwr coronal T2 fat sat, small rmxhm-ln-kyrf axial dynamic imagin g. Outside MRI report [...] Diagnoses Diagnosis Elevated Prostate-Specific Antigen - Annmarie friend Elevated Prostate-Specific Antigen documented in this encounter
--- OUTSIDE RECORDS SUMMARY | 2021-09-26 15:54 | XMS_ITS | Encounter Summary ---
:1950 Author Organization [facility] Address [address] [place] [address] Care Team Providers Name Role Phone Unavailable Primary Care Provider Unavailable Encounter Details Date Type Department Care Team Description 11/02/2017 Abstract DATA ABSTRACTION Provider, Historical Social History Tobacco Use Types Packs/Day Years Used Date Smoking Tobacco: Never Assessed Alcohol Habits Answer Date Recorded How often [...] or relatives? How often do you attend evangelical or More than 4 times per year 07/18/2021 gnosticist services? Do you belong to any clubs or Yes 07/18/2021 organizations such as evangelical groups, unions, fraternal or athletic groups, or [...]
--- OUTSIDE RECORDS SUMMARY | 2021-09-26 15:54 | XMS_ITS | Encounter Summary ---
:1950 Author Organization [facility] Address [address] [place] [id number] Care Team Providers Name Role Phone Unavailable Primary Care Provider Unavailable Reason for Visit Outpatient (Routine) - Closed Specialty Diagnoses / Procedures Referred By Contact Refer red To Contact General Surgery Diagnoses Abnormal Magnetic Resonance Imaging Prostate Claude Santiago M.D. [place] [address] [place] [address] Referral ID Status Reason Start Date Expiration Date Visits Requ ested Visits Authorized [id number] Closed 11/30/2017 11/30/2018 1 1 Encounter Details Date Type Department Care Team Description 12/22/2017 Comprehensive Visit Preoperative Claude Santiago M. D. Preoperative Exam (Primary Dx); Evaluation Center in Tamara Llamas APRN, C.N.P., R.N. Abnormal Magnetic Resonance Imaging Prostate; [facility] [place], [place] Cardiac Vascular Disease Scr eening; [address] [place] [address] [place] [address] Social History Tobacco Use Types Packs/Day Years [...] place to sleep or slept in a longterm (including now)? Sex Assigned at Date Recorded Male 07/17/2021 8:23 PM CDT documented as of this encounter Last Filed Vital Signs Vital Sign Reading Time Taken Comments Blood Pressure 124/68 12/22/2017 1:01 PM [facility] DIST[facility]ER Pulse 71 12/22/2017 1:01 PM [facility]MONIA DISTILLER Temperature 36.4 ??C (97.5 ??F) 12/22/2017 1:01 PM [facility] DISTILLER Respiratory Rate - - Oxygen Saturation 98% 12/22/2017 1:01 PM [facility] DISTILLER Inhaled Oxygen Concentration - - Weight 107 kg (236 lb 1.8 oz) 12/22/2017 1:01 PM [facility] DISTILLER Height 187.9 cm (6' 1.98) 12/22/2017 1:01 PM [facility] DISTILLER Body Mass Index 30.33 12/22/2017 1:01 PM [facility] DISTILLER documented in this encounter H&P Notes Tamara Llamas APRN, C.N.P. - 12/22/2017 1:00 PM CST Preoperative Medical Evaluation Patient Name: Darwin Woo Age: 67 y.o. Date of : 1950 Patient [address]: [address] [place] [phone] Primary Care Provider: No primary care provider on file. Referring Physician: Claude Santiago M.D. Pending Procedure: Prostate biopsy; trans perineal biopsy; targeted based on MRI, proceed is indicated Surgeon: Aurelio Mahajan M.D. HISTORY OF PRESENT ILLNESS Patient here for a 3rd opinion regarding elevated PSA. He has undergone 4 previous biopsies, most recently, 06. Most recent MRI demonstrated PI-RADS 2 lesions. He denies urologic symptoms. The following portions of the patient's history were reviewed and updated as appropriate: current medications, outpatient medications, family history, medical history, social history, surgical history and problem list. Preoperative assessment questions reviewed and completed The following systems were negative: Constitutional, CV, Respiratory, Neuro OBJECTIVE PHYSICAL EXAMINATION Airway (HEENT) Mallampati: II TM Distance: >3 FB Neck ROM: Full Cardiovascular Rhythm: Regular Rate: Normal Cardiovascular Assessment: Normal Functional Capacity: >4 METS Pulmonary Pulmonary Assessment: Clear Neurological Neurologic Assessment: Alert and oriented X 3 Dental Dental Assessment: Dentition intact General / Constitutional Constitutional Assessment: Normal Additional information available in Care Everywhere. ASSESSMENT/PLAN Patient medically optimized for planned procedure: Yes Surgery Specific Risk Classification: Low Risk / Elevated Risk: Low Risk Further Recommendations: None Reviewed NPO and preoperative medication guidelines with patient. Additional co-morbidity information can be found in the overview section of the problem list. 67 y.o. male, retired from his work called [employer], [place], meeting 4 METS here for preanesthetic medical examination prior to the planned procedure as listed above. Patient denies previous anesthesia related complications. Airway Hx (aka airway management): Not available #1 Preoperative Exam Baseline CBC and creatinine drawn in [facility]. #2 Abnormal Magnetic Resonance Imaging Prostate #3 Elevated Prostate-Specific Antigen #4 PreDiabetes Baseline hemoglobin A1c obtained in [facility]. He was instructed to withhold his usual dose of metformin on the day of the procedure. #5 Migraine headaches NIA DISTILLER documented in this encounter Plan of Treatment Not on filedocumented as of this encounter Procedures Procedure Name Priority Date/Time Associated Diagnosis Comme nts CBC WITH Routine 12/22/2017 2:00 PM Preoperative Exam Results for this DIFFERENTIAL, B [facility]ER Abnormal Magnetic procedu re are in Resonance Imaging the result s Prostate section. HEMOGLOBIN A1C, B Routine 12/22/2017 2:00 PM Preoperativ e Exam Results for this [facility] DISTILLER Abnormal Magnetic procedure are in Resonance Imaging the result s Prostate section. PreDiabetes CREATININE WITH Routine 12/22/2017 2:00 PM Preoperative Exam Results for this EGFR, S/P [facility]ER Abnormal Magnetic procedure are in Resonance Imaging the result s Prostate section. ECG Routine 12/22/2017 1:32 PM Abnormal Magnetic Resu lts for this [facility]IA DISTILLER Resonance Imaging procedure are in Prostate the results Cardiac Vascular section. Disease Screenin g Preoperative Exam documented in this encounter Results Hemoglobin A1c (12/22/2017 2:00 PM AMMONIA DISTILLER) Analysis Performed At Patho logist Time Signature Hemoglobin A1c, 5.6 4.0 - 5.6 12/22/2017 [facility] B % 2:42 PM [facility] Specimen Anatomical Collection Method Collection Time Receive d Time (Source) Location / / Volume Laterality Blood (Blood, 12/22/2017 2:00 PM 12/23/19 18 2:06 Venous) [facility]IA DISTILLER PM [facility] Joi Sharma APRN.Magdiel., R.N. LAB BLOOD ADD-ON Performing Organization Address City/[facility] Code Phon e Number [facility] Adimab - [address] [place], [place] [address] [facility] Creatinine with Estimated GFR (12/22/2017 2:00 PM AMMONIA DISTILLER) P athologist Signature Creatinine, S 0.98 0.74 - 12/22/2017 [facility] 1.35 mg/dL 2:49 PM [facility] eGFR-Non 80 >=60 12/22/2017 [facility] Black/ mL/min/BSA 2:49 PM [facility] Comment: ----ADDITIONAL INFORMATION---- Estimated GFR calculated using the 2009 CKD_EPI creatinine equation. eGFR-Black/ >90 >=60 mL/min/BSA 12/22/2017 2:49 [facility] [place] PM [facility] DIST[facility] Comment: ----ADDITIONAL INFORMATION---- Estimated GFR calculated using the 2009 CKD_EPI creatinine equation. Specimen Anatomical Collection Method Collection Time Receive d Time (Source) Location / / Volume Laterality Blood (Blood, 12/22/2017 2:00 PM 12/23/19 18 2:06 Venous) [facility] DIST[facility]ER PM [facility] DISTILLER Naveen Sharma APRN.N.P., R.N. LAB BLOOD ADD-ON Performing Organization Address City/[facility] Code Phon e Number [facility] LABORATORIES - [address] [facility], [place] [address] [facility] CBC with Differential, Blood (12/22/2017 2:00 PM AMMONIA DISTILLER) [facility] Method Time Signature Hemoglobin 15.4 13.2 - 12/22/2017 [facility] 16.6 g/dL 2:22 PM [facility] DISTILLER [facility] - [facility] Hematocrit 45.5 38.3 - 12/22/2017 [facility] 48.6 % 2:22 PM [facility] - [facility] Erythrocytes 4.95 4.35 - 12/22/2017 [facility] 5.65 2:22 PM [facility]ER LABORATORIES - x10(12)/L [facility] MCV 91.9 78.2 - 12/22/2017 [facility] 97.9 fL 2:22 PM [facility] - [facility] RBC Distrib Width 12.8 11.8 - 12/22/2017 [facility] 14.5 % 2:22 PM [facility] - [facility] Platelet Count 186 135 - 317 12/22/2017 [facility] x10(9)/L 2:22 PM [facility]ER [facility] - [facility] Leukocytes 8.8 3.4 - 9.6 12/22/2017 [facility] x10(9)/L 2:22 PM [facility]ER [facility] - [facility] Neutrophils 5.68 1.56 - 12/22/2017 [facility] 6.45 2:22 PM [facility] DISTILLER LAB[facility]ATORIES - x10(9)/L [facility] Lymphocytes 2.25 0.95 - 12/22/2017 [facility] 3.07 2:22 PM [facility]ER [facility]IES - x10(9)/L [facility] Monocytes 0.68 0.26 - 12/22/2017 [facility] 0.81 2:22 PM [facility]ER [facility]IES - x10(9)/L [facility] Eosinophils 0.10 0.03 - 12/22/2017 [facility] 0.48 2:22 PM [facility]ER [facility]IES - x10(9)/L [facility] Basophils 0.04 0.01 - 12/22/2017 [facility] 0.08 2:22 PM [facility]ER [facility]IES - x10(9)/L [facility] Specimen Anatomical Collection Method Collection Time Receive d Time (Source) Location / / Volume Laterality Blood (Blood, 12/22/2017 2:00 PM 12/23/19 18 2:06 Venous) [facility]IA DISTILLER PM [facility]IA DISTILLER Tamara Llamas APRN, C.N.P., R.N. LAB BLOOD ADD-ON Performing Organization Address City/State/ZIP Code Phon e Number [facility] LABORATORIES - [address] [place], [place] [address] [facility] ECG 12 Lead (12/22/2017 1:32 PM AMMONIA DISTILLER) P athologist Signature Ventricular Rate 66 BPM MUSE ECG/Min RI Interval 156 ms MUSE QRSD Interval 90 ms MUSE QT Interval 398 ms MUSE QTC Interval 417 ms MUSE P Rye 64 degrees MUSE R Rye 43 degrees MUSE T Wave Rye 34 degrees MUSE Specimen Anatomical Collection Method Collection Time Receive d Time (Source) Location / / Volume Laterality 12/22/2017 1:32 PM 8 1:47 [facility] DISTILLER PM [facility]MONIA DISTILLER Impressions MUSE - 12/22/2017 1:47 PM AMMONIA DISTILLER Normal sinus rhythm Normal ECG No previous ECGs available Narrative This result has an attachment that is no t available. Procedure Note Juan J Limon M.D. - 12/22/2017Formatt ing of this note might be different from the original. IMPRESSION: Normal sinus rhythm Normal ECG No previous ECGs available Jaime Marina M.D. ECG ORDERABLES Performing Organization Address City/State/ZIP Code Phon e Number MUSE MUSE NA documented in this encounter Visit Diagnoses Diagnosis Preoperative Exam - Primary Abnormal Magnetic Resonance Imaging [facility] Cardiac Vascular Disease Screening PreDiabetes documented in this encounter
--- NOTE | 2021-09-26 16:00 | CRLHL7_ITS ---
For Patients: As a result of the Century Cures Act, medical imaging exams and procedure reports are released immediately into your electronic medical record. You may view this report before your referring provider. If you have questions, please contact your health care provider. Indication: Paresthesias. Technique: CT of the cervical spine performed without IV contrast. Comparison: None available. Findings: The cervical vertebral body heights are maintained without fracture. Moderate to severe multilevel disc height loss. Mild reversal of the cervical lordosis. C2-3: Disc osteophyte complex with mild spinal canal narrowing. Moderately severe right and moderate left neural foraminal narrowing secondary to uncovertebral joint and facet hypertrophy. Potential impingement of the right C3 nerve. C3-4: Severe disc height loss. Disc bulge with minimal spinal canal narrowing. Moderately severe right and moderate left neural foraminal narrowing. Potential impingement of the right C4 nerve. C4-5: Trace anterolisthesis. No spinal canal narrowing. Moderately severe right with mild left neural foraminal narrowing. Potential impingement of the right C5 nerve. C5-6: Degenerative retrolisthesis. Retrolisthesis with disc osteophyte complex results in severe spinal canal stenosis. Severe right and moderately severe left neural foraminal narrowing secondary to uncovertebral and facet hypertrophy. Potential impingement of the C6 nerves. C6-7: Disc osteophyte complex with exuberant osteophytes toward the left. Moderate spinal canal narrowing. Severe bilateral neural foraminal stenosis. Likely impingement of the bilateral C7 nerves. C7-T1: No spinal canal or neural foraminal narrowing. No prevertebral soft tissue swelling. Impression: 1. At C2-3, moderately severe right and moderate left neural foraminal narrowing. Potential impingement of the right C3 nerve. 2. At C3-4 and C4-5, moderately severe right neural foraminal narrowing with potential impingement of the right C4 nerve. 3. At C5-6, retrolisthesis with degenerative change resulting in severe spinal canal stenosis. Severe right with moderately severe left neural foraminal narrowing. Potential impingement of the C6 nerves. 4. At C6-7, moderate spinal canal with severe bilateral neural foraminal narrowing. Likely impingement of the C7 nerves. Please note that all CT scans at this facility use dose modulation, iterative reconstruction, and/or weight-based dosing when appropriate to reduce radiation dose to as low as reasonably achievable. Dictated by Farooq Silveira MD @ 09/26/2021 4:49:56 PM (Electronically Signed)
== END 2021-09-26 15:51 | disposition home or self-care (01) ==
LOC: CT 15:51
PROVIDERS: PCP Family Medicine; Visit Provider Family Medicine
DX: R20.2 Paresthesia of skin (principal); M50.21 Other cervical disc displacement, high cervical region; M50.223 Other cervical disc displacement at C6-C7 level; M79.609 Pain in unspecified limb
CPT/HCPCS: 72125

== ENCOUNTER 2021-10-17 15:21 | Outpatient (CLI) | payer MEDICARE, SELFPAY ==
--- OUTSIDE RECORDS SUMMARY | 2021-10-17 15:29 | XMS_ITS | Clinical Summary ---
:1950 Author Organization [facility] Address [address] [place] [address] Care Team Providers Name Role Phone Elsewhere, Pcp Primary Care Provider Unavailable Source Comments Patient records contain information from all sites at [facility]. For routine questions regarding patient records, call [phone] during business hours, M-F 8:00 AM - 5:00 PM Central Time. Record requests for emergency care only can be directed to [phone] at any time.[facility] Allergies Active Allergy Reactions Severity Noted Date [...] as 0 Active mg tablet needed. rizatriptan COMPRESS TRUCKER Take 10 mg by 0 Active (MAXALT-COMPRESS TRUCKER) 10 mg mouth as needed. disintegrating tablet OMEGA-3 FATTY Take by mouth. 0 A ctive [id number] ORAL naratriptan (AMERGE) 1 Take 5 mg [...] Overview: Added automatically from request for zhane tripletty [id number] Encounters Date Type Specialty Care Team Description 07/22/2021 Office Visit Dermatology Dwight Ortega M.D. Cyst E pidermal (Primary Dx) from Last 3 Months Immunizations Name Administration [...] or relatives? How often do you attend mandaen or More than 4 times per year 07/18/2021 temple services? Do you belong to any clubs or Yes 07/18/2021 organizations such as mandaen groups, unions, fraternal or athletic groups, or [...] for the very basics like Not h leena at all 07/18/2021 food, housing, medical care, [...] or slept in a usp (including now)? Education Answer Date Recorded What is the highest level of school Master's degree (e.g., M A, MS, 07/17/2021 you have completed or the highest Anisa, MEd, EVP MANAGING DIRECTOR, PAULA) degree you have received? Sex Assigned at Date Recorded Male 07/17/2021 8:23 PM CDT Last Filed Vital Signs Vital Sign Reading Time Taken Comments Blood Pressure 128/75 07/02/2021 8:04 AM CDT Pulse 75 07/02/2021 8:04 AM CDT Temperature 36.2 ??C (97.2 ??F) 05/24/2020 11:26 AM CDT Respiratory Rate 11 12/28/2017 10:30 AM PRODUCT SUPPORT SPECIALIST Oxygen Saturation 99% 05/24/2020 11:26 AM CDT Inhaled Oxygen Concentration - - Weight 114 kg (250 lb 10.6 oz) 05/24/2020 11:26 AM CDT Height 188.8 cm (6' 2.33) 12/28/2017 7:05 AM PRODUCT SUPPORT SPECIALIST Body Mass Index 31.9 12/28/2017 7:05 AM PRODUCT SUPPORT SPECIALIST Plan of Treatment Health Maintenance Due Date [...] history exists Medical Devices Implanted Type Area Digital Music Instructor Device Shelf Model / Identifier Expiration Date Ser ial / Lot Mesh Or Patch Mesh or Groin Patch Insurance Payer Benefit Plan / Subscriber ID Effective Dates Phone Addre ss Type Group MEDICARE MEDICARE A AND [id number] 2016-Presen [address] Medicare B t SIENNA Pro[place] [phone] AAR AAR [id number] 2018-Presen [phone] [id number] [place] [address] Care Teams Downstairs Maid Relationship Specialty Start Date End Date Elsewhere, Pcp PCP - General Family Medicine 05/24/20
--- OUTSIDE RECORDS SUMMARY | 2021-10-17 15:29 | XMS_ITS | Encounter Summary ---
:1950 Author Organization [facility] Address [address] [place] [address] Care Team Providers Name Role Phone Elsewhere, [...] More than 4 times per year 07/18/2021 evangelical services? Do you belong to any clubs [...] on filedocumented in this encounter Care Teams Paraffiner Relationship Specialty Start Date End Date Elsewhere, Pcp PCP - General Family Medicine 05/24/20 documented as of this encounter
--- OUTSIDE RECORDS SUMMARY | 2021-10-17 15:29 | XMS_ITS | Encounter Summary ---
:1950 Author Care Team Providers Name Role Phone Jaime Allan MD Primary Care Provider [phone] [facility] Referring Provider [phone] Reason for Visit New Patient Assessment and Plan 1. Spinal stenosis in cervical region severe C5-6 need MRI to look at spinal cord. currently he is neuro intact ? cervical traction collar ? MRI, cervical spine, w/o contrast - p lease call pateint ? physical therapist referral 2. Cervical spondylosis needs PT and possible injection more wo rried about stenosis at C5-6 Discussion Note: None recorded.Patient educational handouts: No information available. Plan of Care Reminders Provider Appointments Telehealth 15 on or around Nathen guthrie MD 10/22/2021 Lab None recorded. ? ? Referral Physical Therapist 10/08/2021 [place] [facility] Procedures None recorded. ? ? Surgeries None recorded. ? ? Imaging MRI, Cervical Spine, W/o 10/08/2021 [facility] Contrast Radiology Depart ment Medications Name Start Date ? ? BinaxNOW COVID-19 Ag Self Test kit ? TEST DIRECTED TODAY finasteride 5 mg tablet ? metformin ER 500 mg tablet,extended release 24 hr ? TAKE 4 TABLETS BY MOUTH EVERY DAY potassium citrate ER 10 mEq (1,080 mg) tablet,extended release ? TAKE 2 TABLETS BY MOUTH TWICE DAILY ropinirole 0.5 mg tablet ? TAKE 1 TABLET BY MOUTH AT BEDTIME rosuvastatin 10 mg tablet ? TAKE 1 TABLET BY MOUTH AT BEDTIME tamsulosin 0.4 mg capsule ? Medications Administered None recorded. Vitals Blood Pressure 137/62 mm[Hg] Results Lab Results None recorded. Allergies Code Code System Name Reaction Severity Onset 5936498 RxNorm Latex ? ? ? Penicillins ? ? ? Sulfa (Sulfonamide Antibiotics) ? ? ? Problems Name Status Onset Date Source ? Diabetes Mellitus Active 10/08/2021 ? Cervical Spondylosis Active 10/08/2021 ? Spinal Stenosis in Cervical Region Active 10/08/2021 ? Procedures Date Name Performed by ? ? Appendectomy Information not avai lable ? Hernia Repair Information not avai lable 10/08/2021 MRI, Cervical Spine, W/o Contrast [facility] Radiology Department [address] [place] [address] (Work Place) Vaccine List None recorded. Social History What is your level of alcohol consumption? Occasional What is your level of caffeine consumption? Moderate Are you currently employed? N How much tobacco do you chew? none Family History Relation Problem Onset Age of Age Notes Father Back problem (No Information) N/A (No Notes) Functional Status Unknown. Past Encounters 10/08/2021 Spinal Stenosis in Cervical Region; Cerv ical Spondylosis Nathen Crespo MD: [id number] [facility], [place] [address], Ph. History of Present Illness Note: <div>The patient is here to establish care. The patient was referred by Dr. Garcia </div><div>
History of pain: </div><div>-neck pain started suddenly about 3 weeks ago </div><div>-pain is on the right side, between base of neck and shoulder </div><div>-causes trouble sleeping </div><div>-30 years ago he had something similar on the left side that caused pain and tingling all the way down to the hands, he was going to have surgery but pain resolved on its own </div><div>- Patient states after about 5 days of heat and nsaids the pain resolved but patient has concerns about findings in the CT scan and is wan ting to see what we can do to prevent flare ups in the future </div><div>
Characteristics of pain:</div><div>-pain between base of neck and shoulder, tingling/numbness between finger and thumb </div><div>
</div><div>
Pain scoretoday: {{02/24* 210 305/25 5 6 709/24}}.
Imaging findings:</div><div>Cervical CT scan 8/12/22 </div><div>Impression: </div><div>1. atC2-3 moderately severe right and moderate left neural foraminal narrowing, Potential impingement of the right c3 nerve </div><div>2. at c3-4 and c4-5 moderately severe right neural foraminal narrowing with potential impingement of the right c4 nerve </div><div>3. at c5-6 retrolisthesis with degenerative change resulting in severe spinal canal stenosis. Severe right with moderately severe left neural foraminal narrowing. Potential impingement at C6 nerves </div><div>4. at C6-7 moderate spinal canal with severe bilateral neural foraminal narrowing, likely impingement of the c7 nerves </div><div>
Current pain medications: </div><div>-nsaids </div><div>-heat </div><div>
Does the patient experience any problems with sedation or constipation with current medications? {{yes no*}}

Other pertinent medical history: </div><div>

Social history:
Smoking status {{Never smoker* Current smoker Past smoker}}
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

</div><div>
</di v><p><strong>Pain</strong></p><div>
</div><p>&a mp;nbsp; Chief Complaint</p><p> &nbsp ; Neck</p><div>
</div>&lt ;p> Pain Locations</p><p> &a mp;nbsp; Right Shoulder</p><div><br&g t;</div><p> Symptom Description</p><p> Dull</p><div >
</div><p> Pain Onset</p><p& gt; Suddenly</p> <div>
</div><p> Pain Scale - Today& lt;/p><p> 1&l t;/p><div>
</div><p> Pain Scale Least</p><p> &nb sp;0</p><div>
</div><p> PainScale Worst</p><p> & amp;nbsp;6</p><div>
</div><p> Associated Symptoms</p><p> &a mp;nbsp; Numbness</p><p> &n bsp; Tingling</p><div>
</div><p> Symptom Frequency</p><p> &a mp;nbsp; Intermittent</p><div>
</div><p&gt ; Symptom Duration</p><p> & nbsp; A few weeks</p><div>
< /div><p> Date Symptoms Started</p><p>&amp ;nbsp; 09/17/2021</p><d iv>
</div><p> Symptom Context</p&gt ;<p> Unsure</ p><div>
</div><p> Alleviating Fa ctors</p><p> &nb sp;Heat</p><p> & nbsp;Other</p><div>
</div><p> Aggravating Factors</p><p> Lying flat</p><div>
</div><p> Past Treatments</p><p> &nbs p; Other</p><p> & nbsp; Physical Therapy</p><div>
</div><p>Imported from [facility] on 10/08/2021</p><div>
</div><div>
</div> Review of Systems ? Comprehensive General Adult ROS Reported By: Patient Constitutional: Constitutional: no fever, no night sweats, no significant weight gain, no significant weight loss, no exercise intolerance Eyes: Eyes: no dry eyes, no vision change, no irritation ENMT: Ears: no difficulty hearing, no ear pain. Nose: no frequent nosebleeds, no nose problems , no sinus problems. Mouth/Throat: no sore throat, no bleeding gums, no snoring, no dry mouth, no mouth ulcers, no oral abnorm alities, no teeth problems Cardiovascular: Cardiovascular: no chest aubrey n, no arm pain on exertion, no shortness of breath when wal jun, no shortness of breath when lying down, no palpitations, no known heart murmur Respiratory: Respiratory: no cough, no wh eezing, no shortness of breath, no coughing up blood, no sleep apnea Gastrointestinal: Gastrointestinal: no abdomin al pain, no nausea, no vomiting, no constipation, normal appe tite, no diarrhea, not vomiting blood, no dyspepsia, no GERD Genitourinary: Genitourinary: no incontinen ce, no difficulty urinating, no hematuria, no increased freq uency Musculoskeletal: Musculoskeletal: no back aubrey n, no swelling in the extremities, no muscle spasms, muscle ach es, muscle weakness, arthralgias/joint pain, neck pain Integumentary: Skin: no abnormal mole, no j aundice, no rashes, no laceration Neurologic: Neurologic: no loss of consc iousness, no seizures, no dizziness, no migraines, no headaches, no tremor, weakness, numbness Psychiatric: Psych: no depression, no sle ep disturbances, feeling safe in a relationship, no substance a buse, no anxiety, no hallucinations, no suicidal thoughts Endocrine: Endocrine: no fatigue Hematologic/Lymphatic: Hematologic/Lymphatic no swo llen glands, no bruising, no excessive bleeding Allergic/Immunologic: Allergy/Immunologic: no runn y nose, no sinus pressure, no itching, no hives, no freque nt sneezing Physical Exam ? Zak Exam Reported By: Patient Constitutional: General Appearance: healthy- appearing, well-nourished, well-developed, overweight. Level of Distress: mild distress Eyes: Pupils: PERRLA. EOM: Extra O ccular Movements are Intact. Pupils are equal, round and reactive to light and accomodation Neurologic: Gait and Station: Alert and Oriented x 3, normal gait, normal station. Cranial Nerves: Nurses' Registry Director nial nerves 2-12 are intact. Coordination and Cerebellum: dsfexb-ix-torn intact, no tremor. MARY Reflexes: Left Biceps ; 2/4 normal. MARY Reflexes: Right Biceps ; 2/4 normal Cardiovascular: Cardiovascular appears to be well perfused Lungs: Pulmonary no respiratory dis tress, no wheezing, no accessory muscle use Skin: Inspection no significant sk in changes or lesions Head: Head: normocephalic, atrauma tic Musculoskeletal:: Motor Strength and Tone: nor mal, normal tone. Joints, Bones, and Muscles: normal movement of all extremities. Extremities: The upper and lower extremities are no rmal in touch, color and temperature. Normal ROM Neck: Neck: No Spurling's, muscle spasms; forward posture of the spine Thoracic Spine: Inspection: no ecchymosis, n o induration, no swelling, kyphosis. Bony Palpation: no tendernes s of the sternum, no tenderness of the ribs and costal cartilage, n o tenderness of the spinous process, no tenderness of the transverse process. Soft Tissue Palpation: no tenderness of the paraspinal s on the left, no tenderness of the paraspinals on the right. Ra nge of Motion: flexion normal, extension normal, lateral fl exion normal, rotation normal Psychiatric: Insight: good judgement. Men susan Status: good eye contact, normal mood and affect, normal inte raction, No Pain Behaviors Exhibited. Orientation: to time, to francis ce, to person. Memory: recent memory normal, remote memory normal
--- OUTSIDE RECORDS SUMMARY | 2021-10-17 15:29 | XMS_ITS | Encounter Summary ---
:1950 Author Organization [facility] Address [address] [place] [address] Care Team Providers Name Role Phone Elsewhere, [...] or relatives? How often do you attend jew or More than 4 times per year 07/18/2021 religion services? Do you belong to any clubs or Yes 07/18/2021 organizations such as jew groups, unions, fraternal or athletic groups, or [...] 9:00 AM Resu lts for this EXAM SLUBBER OPERATOR procedure are i n the results section. documented in this encounter Results forehead, right 8-Dermatology Image Exam (04/21/2021 9:00 AM SLUBBER OPERATOR) Specimen (Source) Anatomical Collection Method Collection Time Re ceived Time Location / / Volume Laterality 04/21/2021 8:58 AM SLUBBER OPERATOR Narrative IIMS - 04/21/2021 9:01 AM SLUBBER OPERATOR This order has been created and auto-finalized [...] on filedocumented in this encounter Care Teams Crop Consultant Relationship Specialty Start Date End Date Elsewhere, Pcp PCP - General Family Medicine 05/24/20 documented as of this encounter
--- OUTSIDE RECORDS SUMMARY | 2021-10-17 15:29 | XMS_ITS | Encounter Summary ---
:1950 Author Organization [facility] Address [address] [place] [address] Care Team Providers Name Role Phone Elsewhere, Pcp Primary Care Provider Unavailable Reason for Visit Reason Comments Follow-up Outpatient (Routine) - Closed Specialty Diagnoses / Procedures Referred By Contact Refer red To Contact Dermatology Dwight Ortega M.D . [facility] Region [address] [place] [address] Referral ID Status Reason Start Date Expiration Date Visits Requ ested Visits Authorized [id number] Closed 04/21/2021 04/21/2022 1 1 Encounter Details Date Type Department Care Team Description 07/22/2021 Office Visit Department of Dwight Ortega Cyst Epide rmal Dermatology in [place] (Primary Dx) [place], [place] [address] [id number] Social History Tobacco Use Types Packs/Day Years [...] or relatives? How often do you attend congregation or More than 4 times per year 07/18/2021 church services? Do you belong to any clubs or Yes 07/18/2021 organizations such as congregation groups, unions, fraternal or athletic groups, or [...] slept in a nursing home (including now)? Education Answer Date Recorded What is the highest level of school Master's degree (e.g., M A, MS, 07/17/2021 you have completed or the highest Anisa, MEd, COMMISSIONING SPECIALIST, PAULA) degree you have received? Sex Assigned [...] cryotherapy on 07/02/[address] Mcmillan at [facility]. He denies a personal history for melanoma. His father had melanoma. He uses sunscreen. He denies any new or changing lesions today. MEDICAL HISTORY 1. Right upper central forehead: History of squamous cell carcinoma in situ, status post curettage and cryotherapy on 07/02/[address] Mcmillan at [facility] 2. Negative for melanoma ?? FAMILY HISTORY [...] Primary documented in this encounter Care Teams Accounts Payable Or Receivable Clerk Relationship Specialty Start Date End Date Elsewhere, Pcp PCP - General Family Medicine 05/24/20 documented as of this encounter
--- OUTSIDE RECORDS SUMMARY | 2021-10-17 15:29 | XMS_ITS ---
:1950 Author Care Team Providers Name Role Phone HEIDI DOHERTY MD Primary Care Provider [phone] [facility] Referring Provider [phone] Allergies Code Code System Name Reaction Severity Status Onset [id number] RxNorm Latex ? ? Active ? Penicillins ? ? Active ? Sulfa (Sulfonamide ? ? Active ? Antibiotics) Medications Name Status Start Date Stop Date ? ? BinaxNOW COVID-19 Ag Self Test kit Active ? Not available TEST DIRECTED TODAY finasteride 5 mg tablet Active ? Not avai lable metformin ER 500 mg tablet,extended release 24 hr Active ? Not available TAKE 4 TABLETS BY MOUTH EVERY DAY potassium citrate ER 10 mEq (1,080 mg) tablet,extended release A ctive ? Not available TAKE 2 TABLETS BY MOUTH TWICE DAILY ropinirole 0.5 mg tablet Active ? Not aquiles ilable TAKE 1 TABLET BY MOUTH AT BEDTIME rosuvastatin 10 mg tablet Active ? Not av ailable TAKE 1 TABLET BY MOUTH AT BEDTIME tamsulosin 0.4 mg capsule Active ? Not av ailable Problems Name Status Onset Date Source ? Diabetes Mellitus Active 10/08/2021 ? Cervical Spondylosis Active 10/08/2021 ? Spinal Stenosis in Cervical Region Active 10/08/2021 ? Procedures Date Name Performed by ? ? Appendectomy Information not avai lable ? Hernia Repair Information not avai lable 10/08/2021 MRI, Cervical Spine, W/o Contrast [facility] Radiology Department [address] [place] [address] (Work Place) Results Lab Results None recorded. Past Encounters 10/08/2021 Spinal Stenosis in Cervical Region; Cerv ical Spondylosis Nathen Crespo MD: [address] [facility], [place] [address], Ph. Social History None recorded. Vaccine List None recorded. Plan of Care Reminders Provider Appointments None recorded. ? ? Lab None recorded. ? ? Referral None recorded. ? ? Procedures None recorded. ? ? Surgeries None recorded. ? ? Imaging None recorded. ? ? Vitals Blood Pressure 137/62 mm[Hg]
--- OUTSIDE RECORDS SUMMARY | 2021-10-17 15:29 | XMS_ITS | Encounter Summary ---
:1950 Author Organization [facility] Address [address] [place] [address] Care Team Providers Name Role Phone Elsewhere, Pcp Primary Care Provider Unavailable Reason for Referral Outpatient (Routine) - Closed Specialty Diagnoses / Procedures Referred By Contact Refer red To Contact Dermatology Dwight Ortega M.D . [facility] Region [address] [place] [address] Referral ID Status Reason Start Date Expiration Date Visits Requ ested Visits Authorized [id number] Closed 04/21/2021 04/21/2022 1 1 Scheduling Instructions Recheck left lower leg lesion OR LINUX UNIX ENGINEER Reason for Visit Reason Comments Skin Check Appointment Request (Routine) - Closed Specialty Diagnoses / Procedures Referred By Contact Refer red To Contact Family Medicine Referral ID Status Reason Start Date Expiration Date Visits Requ ested Visits Authorized [id number] Closed 01/27/2021 01/27/2022 1 1 Encounter Details Date Type Department Care Team Description 04/21/2021 Office Visit Department of Dwight Ortega Tumor Skin Un certain Behavior (Primary Dx); Dermatology in [place] Nye M.D. Nevi Multiple; [place], [place] [address] [facility] Keratosis Seborrheic; [address] [place] [address] [place] [phone] Social History Tobacco Use Types Packs/Day Years [...] or relatives? How often do you attend gnosticist or More than 4 times per year 07/18/2021 gnosticist services? Do you belong to any clubs or Lessonwriter 07/18/2021 organizations such as gnosticist groups, unions, fraternal or athletic groups, or [...] the patient by letter. Patient given pamphlet [id number]. Discussed the risks, benefits, alternatives, and the [...] Electronically Signed: trev Bower. 04/15/2021. 11:01 AM SENIOR LINUX UNIX ENGINEER. Dwight Matias M.D., personally performed the services described in this documentation. All medical record entries made by the scribe were at my direction and in my presence. I have reviewed the chart and discharge instructions (if applicable) and agree that the record reflects my personal performance and is accurate and complete. Dwight Ortega M.D. OR LINUX UNIX ENGINEER documented in this encounter Miscellaneous Notes Result Encounter Note - Dwight Ortega M.D. - 04/25/2021 4:33 PM CST Right upper central forehead: SCC in Situ involving biopsy border - needs Mohs surgery letter [place] patient. Please send letter OR LINUX UNIX ENGINEER documented in this encounter Plan of Treatment Scheduled Referrals Name Type Priority Associated Order Schedule Diagnoses Dermatology office Outpatient Referral Routine Ex pected: visit (clinic) 07/22/2021 (Approximate), Expires: 07/22/2022 documented as of this encounter Procedures Procedure Name Priority Date/Time Associated Comments Diagnosis DERMATOPATHOLOGY CONSULT Routine 04/21/2021 9:02 Tumor Skin Results for this AM SENIOR LINUX UNIX ENGINEER Uncertain Behavior procedure are in the results section. documented in this encounter Results Dermatopathology Consult (04/21/2021 9:02 AM SENIOR LINUX UNIX ENGINEER) Component Value Ref Test Analysis Performed Pathologis t Range Method Time At Signature 04/25/2021 PDRM 10:33 AM SENIOR LINUX UNIX ENGINEER Report Sal Reynolds 04/25/2021 ADI electronically Sonja Herrera 10:33 AM signed by SENIOR LINUX UNIX ENGINEER Gross Received in formalin labeled with the patient's name, 04/25/2021 PDRM Description: medical record number, and right forehead, upper cent ral 10:33 AM is a 0.7 x 0.4 x 0.1 cm pale babcock-grimm skin shave biopsy. No SENIOR LINUX UNIX ENGINEER discrete lesion is grossly identified on the skin surface. Specimen is bisected longitudinally and submitted entirely in cassette A1. Grossed by SEUN. Interpetation FINAL DIAGNOSIS 04/25/2021 PDRM A. ??DermPath Consult Wet Tissue; Right forehead, upper 10:33 AM central, Skin shave biopsy: ??Squamous cell carcinoma in SENIOR LINUX UNIX ENGINEER situ arising in an actinic keratosis, involving biopsy border Specimen Anatomical Collection Method Collection Time Receive d Time (Source) Location / / Volume Laterality Tissue 04/21/2021 9:02 AM 9:42 SENIOR LINUX UNIX ENGINEER AM SENIOR LINUX UNIX ENGINEER Narrative This result has an attachment that is no t available. Dwight Ortega M.D. LAB PATH DERM ORDERABLES Performing Organization Address City/State/[facility] Code Phon e Number [facility] - [address] [place], [place] [address] [place] [place] [address] Laboratories-[facility] [address] documented in this encounter Visit Diagnoses Diagnosis Tumor Skin Uncertain Behavior - Primary Nevi Multiple Keratosis Seborrheic Dermatofibroma documented in this encounter Care Teams Lead Consultant Relationship Specialty Start Date End Date Elsewhere, Pcp PCP - General Family Medicine 05/24/20 documented as of this encounter
--- OUTSIDE RECORDS SUMMARY | 2021-10-17 15:29 | XMS_ITS | Clinical Summary ---
:1950 Author Organization [facility] [place] [address] Care Team Providers Name Role Phone Iam Romero MD Primary Care Provider Allergies Active Allergy Reactions Severity Noted Date Comments Amoxicillin Hives Medium 12/18/2008 Latex Erythema Medium 12/18/2008 Sulfa (Sulfonamide Antibiotics) *Unknown - Childhood Rxn 12/18/2008 Medications Medication Sig Dispensed Refills Start Date End Date Status fexofenadine (TINO) Take 1 tablet by 0 11/21/2010 Active 180 mg mouth once daily tabletIndications: with a meal. Migraines aspirin enteric coated Take 1 tablet by 0 11/21/2010 Active 81 mg tablet mouth once daily with a meal. naproxen (ALEVE) 220 mg Take 1 tablet by 0 1 Active tablet mouth 2 times daily with meals. rizatriptan (MAXALT) 5 Take 1 tablet by 0 11/21/2010 Active mg tabletIndications: mouth every 2 Allergic rhinitis, cause hours if needed unspecified for Migraine. Max dose: 30mg per 24 hrs. fluvastatin sodium Take 1 capsule 0 11/21/2010 Active (LESCOL) 40 mg by mouth at capsuleIndications: bedtime. Other and unspecified hyperlipidemia potassium citrate Take 2 tablets 0 06/19/2014 Active (UROCIT-K) 10 mEq (1,080 by mouth 2 times mg) tablet daily. Active Problems Problem Noted Date Migraines 11/21/2010 Allergic rhinitis, cause unspecified 11/21/2010 Other and unspecified hyperlipidemia 11/21/2010 Personal history of colonic polyps 12/18/2008 Overview: Colonoscopy 11/2008 normal repeat in 5 y ears Colonoscopy 06/2014 normal repeat in 5 ye ars Immunizations Name Administration Dates Next Due AMB Influenza, IIV3 (Age >=3 years)(Flu Clinic Only) 008 Social History Tobacco Use Types Packs/Day Years Used Date Never Smoker Tobacco Cessation: Counseling Given: Yes Alcohol Use Standard Drinks/Week Comments Not Asked 0 (1 standard drink = 0.6 oz pure alcoho l) Sex Assigned at Date Recorded Not on file Obstetrics History Last Filed Vital Signs Vital Sign Reading Time Taken Comments Blood Pressure 120/71 06/19/2014 7:59 AM CDT Pulse 71 06/19/2014 7:59 AM CDT Temperature - - Respiratory Rate - - Oxygen Saturation 98% 06/19/2014 7:59 AM CDT Inhaled Oxygen Concentration - - Weight 108.5 kg (239 lb 3.2 oz) 11/21/2010 5:54 PM CDT Height - - Body Mass Index - - Plan of Treatment Health Maintenance Due Date Last Done Comments COVID-19 vaccine series (#1) 02/13/1952 Tdap 08/13/1962 Depression screening for age 12+ 1963 BMI (ht and wt on same day) for 08/13/1969 age 18+ Hepatitis C screening for age 0608/13/1969 18-79 Tetanus booster 1971 Lipids for age 45-75 08/13/1996 Zoster (shingles) series for age 0608/13/2001 50+ (1 of 2) Pneumococcal series for age 65+ (1 08/13/2016 - PCV) Colonoscopy through age 75 06/20/2019 06/19/2014, 5, 12/18/2008, Additional history exists Influenza for age 65+ 10/16/2021 01/20/2008 Results Not on filefrom Last 3 Months Care Teams Small Wind Energy Installer Relationship Specialty Start Date End Date Iam Romero MD PCP - General 05/01/04 [address] [place] [address]
--- OUTSIDE RECORDS SUMMARY | 2021-10-17 15:29 | XMS_ITS | Encounter Summary ---
:1950 Author Organization [facility] Address [address] [place] [address] Care Team Providers Name Role Phone Elsewhere, Pcp Primary Care Provider Unavailable Reason for Referral Outpatient (Routine) - Closed Specialty Diagnoses / Procedures Referred By Contact Refer red To Contact Dermatology Diagnoses Squamous Cell Carcinoma In Situ Dwight Ortega M.D. [facility] Procedures [facility] 1-4 sites [address] [place] [phone] Referral ID Status Reason Start Date Expiration Date Visits Requ ested Visits Authorized [id number] Closed 04/28/2021 04/28/2022 1 1 Encounter Details Date Type Department Care Team Description 04/28/2021 Orders Only Department of Dwight Ortega Encounter For Preprocedural Laboratory Examination (COVID-19) (Primary Dx); Dermatology in [place] Squamous Cell Carcinoma In Situ; [place], [place] [address] [facility] Contact With And (Suspected) Exposure To COVID-19 [address] [place] [phone] Social History Tobacco Use Types Packs/Day Years [...] or relatives? How often do you attend anabaptism or More than 4 times per year 07/18/2021 rastafarian services? Do you belong to any clubs or Yes 07/18/2021 organizations such as anabaptism groups, unions, fraternal or athletic groups, or [...] Name Type Priority Associated Diagnoses [facility] 1-4 sites Dermatology Routine Squamous Cell Carcinom a Expected: 05/12/2021, In Situ Expires: 2022 documented as of this encounter Visit Diagnoses Diagnosis Encounter For Preprocedural Laboratory E xamination (COVID-19) - Primary Squamous Cell Carcinoma In Situ Contact With And (Suspected) Exposure To COVID-19 documented in this encounter Care Teams Brassiere Cup Mold Cutter Relationship Specialty Start Date End Date Elsewhere, Pcp PCP - General Family Medicine 05/24/20 documented as of this encounter
--- OUTSIDE RECORDS SUMMARY | 2021-10-17 15:29 | XMS_ITS | Encounter Summary ---
:1950 Author Organization [facility] Address [address] [place] [address] Care Team Providers Name Role Phone Elsewhere, Pcp Primary Care Provider Unavailable Encounter Details Date Type Department Care Team Description 06/30/2021 Lab Urgent [facility] in [place] evangelista Amer N, Preprocedural Lab Exam; [place] Contact With And (Suspected) Exposure To COVID-[address] [place] [address] [place], [place] [phone] Social History Tobacco Use Types Packs/Day Years [...] or relatives? How often do you attend yazdanism or More than 4 times per year 07/18/2021 christian services? Do you belong to any clubs or Yes 07/18/2021 organizations such as yazdanism groups, unions, fraternal or athletic groups, or [...] place to sleep or slept in a penitentiary (including now)? Sex Assigned at Date Recorded [...] RNA, V Asymptomatic (06/30/2021 8:34 AM CDT) [facility] gist Method Time Signature SARS-CoV-2 Swab, 06/30/2021 [...] pe rformed using the Aptima SARS-CoV-2 assay ([employer] on the [place] [employer] tem under emergency use authorization (EUA) by the U.S. Food and Drug Administ ration. Fact sheets for this EUA assay can be fo und at the following links: For Healthcare Providers: https://www.fd a.gov/media/277615/download For Patients: https://www.fda.gov/media/ 245938/download Specimen Anatomical Collection Method Collection Time Receive d Time (Source) Location / / Volume Laterality Varies 06/30/2021 8:34 AM 2:52 (Nasopharynx) CDT PM CDT Dwight Ortega M.D. LAB MICROBIOLOGY - GENERAL O RDERABLES Performing Organization Address City/State/ZIP Code Phon e Number [facility] [address] [place] [phone] [place] [address] [place] [address] System in [place] [address] [place] [address] documented in this encounter Visit Diagnoses Diagnosis Preprocedural Lab Exam Contact With And (Suspected) Exposure To COVID-19 documented in this encounter Additional Health Concerns Infection Onset Date Last Indicated Resolved Time COVID19 Pending 06/27/2021 06/30/2021 06/30/2021 8:21 PM CDT documented as of this encounter Care Teams Groundskeeper Relationship Specialty Start Date End Date Elsewhere, Pcp PCP - General Family Medicine 05/24/20 documented as of this encounter
--- OUTSIDE RECORDS SUMMARY | 2021-10-17 15:29 | XMS_ITS | Encounter Summary ---
:1950 Author Organization [facility] Address [address] [place] [address] Care Team Providers Name Role Phone Elsewhere, Pcp Primary Care Provider Unavailable Reason for Visit Outpatient (Routine) - Closed Specialty Diagnoses / Procedures Referred By Contact Refer red To Contact Dermatology Diagnoses Squamous Cell Carcinoma In Situ Dwight Ortega M.D. [facility] Procedures ELISABETH [facility] 1-4 sites [address] [place] [address] [phone] Referral ID Status Reason Start Date Expiration Date Visits Requ ested Visits Authorized [id number] Closed 04/28/2021 04/28/2022 1 1 Encounter Details Date Type Department Care Team Description 07/02/2021 Procedure visit Department of Mitesh Mcmillan, Squamous Cell Carcinoma In Situ (Primary Dx); Dermatology in [place] Keratosis [facility] [place], [place] [address] [facility] [address] [place] [phone] Social History Tobacco Use Types Packs/Day Years [...] or relatives? How often do you attend congregational or More than 4 times per year 07/18/2021 sikhism services? Do you belong to any clubs or Yes 07/18/2021 organizations such as congregational groups, unions, [employer] or athletic groups, or school groups? How [...] place to sleep or slept in a residential (including now)? Sex Assigned at Date Recorded [...] [facility] documented in this encounter Care Teams Shore Working Supervisor Relationship Specialty Start Date End Date Elsewhere, Pcp PCP - General Family Medicine 05/24/20 documented as of this encounter
--- NOTE | 2021-10-17 15:30 | CRLHL7_ITS ---
For Patients: As a result of the Century Cures Act, medical imaging exams and procedure reports are released immediately into your electronic medical record. You may view this report before your referring provider. If you have questions, please contact your health care provider. INDICATION: Neck pain. TECHNIQUE: Noncontrast MRI of the cervical spine is performed in the usual fashion and compared to prior CT of the cervical spine from September 26, 2021. FINDINGS: Degenerative anterior/posterior C3-4 fusion. Mild edema seen within the right C4-5 facet that may be due to reactive or advanced degenerative phenomenon. Mild degenerative retrolisthesis of C5 on 6. Remainder of the cervical spine demonstrates normal stature, alignment and intrinsic marrow signal. No abnormal signal within the cervical cord. C2-3: Asymmetric uncovertebral joint and facet arthropathy results in stable moderate to severe right and moderate left foraminal narrowing. Mild central canal narrowing. C3-4: Lower endplate osteophyte results in mild central canal narrowing. Moderate bilateral foraminal narrowing is less pronounced than on the prior study due to differences in imaging technique. C4-5: Central canal is patent. Moderate to severe right and moderate left foraminal narrowing due to asymmetric uncovertebral joint and facet arthropathy. C5-6: Degenerative retrolisthesis of C5 on C6 with mild broad-based posterior disc bulge results in moderate central canal narrowing with no evidence of edema within the cord. Severe right and moderate to severe left foraminal narrowing due to asymmetric uncovertebral joint and facet arthropathy. C6-7: Uncovertebral joints the results in spinal severe left and moderate to severe right foraminal narrowing. Central canal is patent. C7-T1: Unremarkable. IMPRESSION: 1. Mild edema within the right C4-5 facet that may be due to reactive or advanced degenerative phenomenon. 2. Moderate central canal narrowing at the C5-6 with severe right and moderate to severe left foraminal narrowing. The degree of central canal narrowing appears less pronounced than on the prior study due to differences in imaging modality. 3. Severe left C6-7 foraminal narrowing with moderate to severe right foraminal narrowing. 4. Moderate to severe right and moderate left foraminal narrowing at C2-3 and C4-5. 5. Milder degenerative changes within the remainder of the cervical spine as outlined above. Dictated by Rehan Jfef MD @ 10/18/2021 8:34:04 AM (Electronically Signed)
--- OUTSIDE RECORDS SUMMARY | 2021-10-17 15:30 | XMS_ITS | Encounter Summary ---
:1950 Author Organization [facility] Address [address] [place] [address] Care Team Providers Name Role Phone Unavailable Primary Care Provider Unavailable Reason for Visit Reason Comments Follow-up Outpatient (Routine) - Closed Specialty Diagnoses / Procedures Referred By Contact Refer red To Contact Dermatology Dwight Ortega M.D . [facility] Region [address] [place] [phone] Referral ID Status Reason Start Date Expiration Date Visits Requ ested Visits Authorized [id number] Closed 07/04/2019 07/03/2020 1 1 Encounter Details Date Type Department Care Team Description 10/10/2019 Office Visit Department of Dwight Ortega, Keratosis Seborrheic Dermatology in [place] (Primary Dx) [place], [place] [address] [phone] Social History Tobacco Use Types Packs/Day Years [...] or relatives? How often do you attend episcopalian or More than 4 times per year 07/18/2021 gnosticist services? Do you belong to any clubs or Yes 07/18/2021 organizations such as episcopalian groups, unions, fraternal or athletic groups, or [...] place to sleep or slept in a half-way (including now)? Sex Assigned at Date Recorded [...]
--- OUTSIDE RECORDS SUMMARY | 2021-10-17 15:30 | XMS_ITS | Encounter Summary ---
:1950 Author Organization [facility] Address [address] [place] [address] Care Team Providers Name Role Phone Unavailable [...] 4:10 PM Resu lts for this EXAM PHOTOENGRAVING SUPERVISOR procedure are i n the results section. documented in this encounter Results cheek, left jawline 37-Dermatology Image Exam (01/30/2020 4:10 PM PHOTOENGRAVING SUPERVISOR) Specimen (Source) Anatomical Collection Method Collection Time Re ceived Time Location / / Volume Laterality 01/30/2020 4:08 PM PHOTOENGRAVING SUPERVISOR Narrative IIMS - 01/30/2020 4:10 PM PHOTOENGRAVING SUPERVISOR This order has been created and auto-finalized [...]
--- OUTSIDE RECORDS SUMMARY | 2021-10-17 15:30 | XMS_ITS | Encounter Summary ---
:[address] [facility] Address [address] [place] [address] Care Team Providers Name Role Phone Unavailable Primary Care Provider Unavailable Encounter Details Date Type Department Care Team Description 12/31/2017 Documentation Department of Urology in Taras Garza M.D. [place], [place] [address] [facility] [address] [place] [phone] (Wo rk) Social History Tobacco Use Types [...] or relatives? How often do you attend bahai or More than 4 times per year 07/18/2021 denominational services? Do you belong to any clubs or Yes 07/18/2021 organizations such as bahai groups, unions, fraternal or athletic groups, or [...] place to sleep or slept in a fci (including now)? Sex Assigned at Date Recorded [...] this to be done here or locally. CAL DIR documented in this encounter Plan of Treatment Not on filedocumented as of this encounter Visit Diagnoses Not on filedocumented in this encounter
--- OUTSIDE RECORDS SUMMARY | 2021-10-17 15:30 | XMS_ITS | Encounter Summary ---
:1950 Author Organization [facility] Address [address] [place] [address] Care Team Providers Name Role Phone Unavailable Primary Care Provider Unavailable Reason for Visit Reason Comments Skin Check Appointment Request (Routine) - Closed Specialty Diagnoses / Procedures Referred By Contact Refer red To Contact Dermatology Referral ID Status Reason Start Date Expiration Date Visits Requ ested Visits Authorized [id number] Closed 09/27/2017 09/27/2018 1 Encounter Details Date Type Department Care Team Description 11/16/2017 Office Visit Department of Dwight Ortega Nevi Multi ple (Primary Dx); Dermatology in [place] Keratosis Seborrheic [place], [place] [address] [phone] Social History Tobacco Use Types Packs/Day Years [...] More than 4 times per year 07/18/2021 latter-day services? Do you belong to any clubs [...] saw the patient on 01/20/17 at the [facility]. The patient denies a history of skin [...]
--- OUTSIDE RECORDS SUMMARY | 2021-10-17 15:30 | XMS_ITS | Encounter Summary ---
:1950 Author Organization [facility] Address [address] [place] [address] Care Team Providers Name Role Phone Unavailable Primary Care Provider Unavailable Reason for Referral Outpatient (Routine) - Closed Specialty Diagnoses / Procedures Referred By Contact Refer red To Contact Dermatology Dwight Ortega M.D . [facility] Region [address] [place] [phone] Referral ID Status Reason Start Date Expiration Date Visits Requ ested Visits Authorized [id number] Closed 07/04/2019 07/03/2020 1 1 Scheduling Instructions Recheck skin lesion involving left lower cheek in 3-4 months. Reason for Visit Reason Comments Follow-up Outpatient (Routine) - Closed Specialty Diagnoses / Procedures Referred By Contact Refer red To Contact Dermatology Dwight Ortega M.D . [facility] Region [address] [place] [phone] Referral ID Status Reason Start Date Expiration Date Visits Requ ested Visits Authorized [id number] Closed 01/03/2019 01/03/2020 1 1 Encounter Details Date Type Department Care Team Description 07/04/2019 Office Visit Department of Dwight Ortega, Keratosis Seborrheic Dermatology in [place] (Primary Dx) [place], [place] [address] [place] [phone] Social History Tobacco Use Types Packs/Day Years [...] or relatives? How often do you attend nondenominational or More than 4 times per year 07/18/2021 islam services? Do you belong to any clubs or Yes 07/18/2021 organizations such as nondenominational groups, unions, fraternal or athletic groups, or [...]
--- OUTSIDE RECORDS SUMMARY | 2021-10-17 15:30 | XMS_ITS | Encounter Summary ---
:1950 Author Organization [facility] Address [address] [place] [address] Care Team Providers Name Role Phone Unavailable Primary Care Provider Unavailable Encounter Details Date Type Department Care Team Description 11/24/2017 Ancillary Procedure Department of Claude Santiago Radiology jyotsna Hua M.D. Prostate-Specif ic [place], [place] Antigen [address] [place] [address] Social History Tobacco Use Types Packs/Day Years [...] or relatives? How often do you attend hinduism or More than 4 times per year 07/18/2021 sikhism services? Do you belong to any clubs or Yes 07/18/2021 organizations such as hinduism groups, unions, fraternal or athletic groups, or [...] without endorectal coi l, sequences include small jinej-ep-swis axial coronal and sagittal nonfat sat T2 , large iueao-bb-ysjx DWI, small qyfsv-bm-zfif axial T1 and T2 fat sat, l arge gxrnd-wz-yvju coronal T2 fat sat, small fztxg-kr-dsya axial dynamic imagin g. Outside MRI report [...] without endorectal coi l, sequences include small dgkqt-oq-olpo axial coronal and sagittal nonfat sat T2 , large lzdbd-bq-pruw DWI, small gdoov-sg-yoof axial T1 and T2 fat sat, l arge mrwwr-ol-zedd coronal T2 fat sat, small todsw-zf-thfn axial dynamic imagin g. Outside MRI report [...]
--- OUTSIDE RECORDS SUMMARY | 2021-10-17 15:30 | XMS_ITS | Encounter Summary ---
:1950 Author Organization [facility] Address [address] [place] [address] Care Team Providers Name Role Phone Unavailable Primary Care Provider Unavailable Reason for Referral Outpatient (Routine) - Closed Specialty Diagnoses / Procedures Referred By Contact Refer red To Contact Dermatology Dwight Ortega M.D . [facility] Region [address] [place] [phone] Referral ID Status Reason Start Date Expiration Date Visits Requ ested Visits Authorized [id number] Closed 05/07/2020 05/07/2021 1 1 Scheduling Instructions Recheck skin lesions 3 months utpatient (Routine) - Closed Specialty Diagnoses / Procedures Referred By Contact Refer red To Contact Diagnoses Tumor Skin Uncertain Behavior Dwight [facility]. [facility] Procedures [facility]ETH Suture removal [address] [place] [phone] Referral ID Status Reason Start Date Expiration Date Visits Requ ested Visits Authorized [id number] Closed 05/07/2020 05/07/2021 1 1 utpatient (Routine) - Closed Specialty Diagnoses / Procedures Referred By Contact Refer red To Contact Dermatology Dwight Ortega M.D . [facility] Region [address] [place] [phone] Referral ID Status Reason Start Date Expiration Date Visits Requ ested Visits Authorized [id number] Closed 05/07/2020 05/07/2021 1 1 Scheduling Instructions Please schedule for suture removal. Reason for Visit Reason Comments Biopsy Outpatient (Routine) - Closed Specialty Diagnoses / Procedures Referred By Contact Refer red To Contact Dermatology Dwight Ortega M.D . [facility] [address] [place], [place] [phone] Referral ID Status Reason Start Date Expiration Date Visits Requ ested Visits Authorized [id number] Closed 04/29/2020 04/29/2021 1 1 Encounter Details Date Type Department Care Team Description 05/07/2020 Office Visit Department of Dwight Ortega, Tumor Skin Uncertain Dermatology in [place] Behavior (Primary Dx) [address] [phone] Social History Tobacco Use Types Packs/Day [...] or relatives? How often do you attend taoism or More than 4 times per year 07/18/2021 zoroastrianism services? Do you belong to any clubs or Yes 07/18/2021 organizations such as taoism groups, unions, fraternal or athletic groups, or [...] the patient by letter. Patient given pamphlet [id number]. PATIENT EDUCATION: Ready to learn. No apparent [...] 05/10/2020 3:25 PM CDT Benign lesion letter. Perry patient. Please send letter documented in this [...] Component Value Ref Test Analysis Performed At [facility] gist Range Method Time Signature 05/10/2020 [facility] 9:21 AM CDT Report Emil Nye. 05/10/2020 [facility] electronically Sonja Hoyt 9:21 AM CDT signed by Gross Description: Received in formalin labeled with the patient's name, 05/10/2020 [facility] medical record number, and left jawline is a 0.6 cm in 9:21 AM CDT diameter brown skin punch biopsy, excised to the depth of 0.2 cm. ??Encompassing almost the entire skin surface is a mjwe-acq-cmbix slightly bosselated lesion with ill-defined and irregular borders. ??The specimen is bisected and submitted entirely in cassette A1. Grossed by AF. Interpetation FINAL DIAGNOSIS 05/10/2020 [facility] A. ??DermPath Consult Wet Tissue; Left jawline, [...] Organization Address City/State/ZIP Code Phon e Number [facility] - [address] [place], [place] [address] [place] [address] [facility] [address] documented in this encounter Visit Diagnoses Diagnosis Tumor Skin Uncertain Behavior - Primary documented in this encounter
--- OUTSIDE RECORDS SUMMARY | 2021-10-17 15:30 | XMS_ITS | Encounter Summary ---
:1950 Author Organization [facility] Address [address] [place] [address] Care Team Providers Name Role Phone Unavailable Primary Care Provider Unavailable Reason for Referral Outpatient (Routine) - Closed Specialty Diagnoses / Procedures Referred By Contact Refer red To Contact Dermatology Dwight Ortega M.D . [facility] Region [address] [place] [address] Referral ID Status Reason Start Date Expiration Date Visits Requ ested Visits Authorized [id number] Closed 04/29/2020 04/29/2021 1 1 Scheduling Instructions Punch biopsy left lower cheek lentigo. 3 0 minutes Reason for Visit Reason Comments Suspicious Skin Lesion Appointment Request (Routine) - Closed Specialty Diagnoses / Procedures Referred By Contact Refer red To Contact Dermatology Referral ID Status Reason Start Date Expiration Date Visits Requ ested Visits Authorized [id number] Closed 02/20/2020 02/19/2021 1 1 Encounter Details Date Type Department Care Team Description 04/29/2020 Office Visit Department of Dwight Ortega, Tumor Skin Uncertain Behavior (Primary Dx); Dermatology in [place] [address] [phone] Social History Tobacco Use Types Packs/Day Years [...] More than 4 times per year 07/18/2021 hinduism services? Do you belong to any clubs [...] Skin lesions HISTORY OF PRESENT ILLNESS Darwin oWo is a pleasant 69 y.o. male who [...]
--- OUTSIDE RECORDS SUMMARY | 2021-10-17 15:30 | XMS_ITS | Encounter Summary ---
:1950 Author Organization [facility] Address [address] [place] [address] Care Team Providers Name Role Phone Unavailable [...] or relatives? How often do you attend tenriism or More than 4 times per year 07/18/2021 lutheran services? Do you belong to any clubs or Yes 07/18/2021 organizations such as tenriism groups, unions, fraternal or athletic groups, or [...]
--- OUTSIDE RECORDS SUMMARY | 2021-10-17 15:30 | XMS_ITS | Encounter Summary ---
:1950 Author Organization [facility] Address [address] [place] [address] Care Team Providers Name Role Phone Unavailable Primary Care Provider Unavailable Reason for Visit Auth/Cert Specialty Diagnoses / Procedures Referred By Contact Refer red To Contact Diagnoses Elevated Prostate-Specific Antigen Elevated Prostate-Specific Antigen` Procedures BIOPSY PROSTATE; Transperineal biopsy; targeted based on MRI; proceed as indicated Referral ID Status Reason Start Date Expiration Date Visits Requ ested Visits Authorized [id number] 1 1 Encounter Details Date Type Department Care Team Description 12/28/2017 Hospital Encounter Outpatient Procedure Deondre Cunha [facility] in [place] M.D. Prostate-Specific [place] [address] [facility] Antigen [address] [place] [id number] [phone] Social History Tobacco Use Types Packs/Day Years [...] place to sleep or slept in a fpc (including now)? Sex Assigned at Date Recorded Male 07/17/2021 8:23 PM CDT documented as of this encounter Last Filed Vital Signs Vital Sign Reading Time Taken Comments Blood Pressure 120/63 12/28/2017 10:00 AM VEHICLE OPERATOR Pulse 61 12/28/2017 10:30 AM VEHICLE OPERATOR Temperature 36.4 ??C (97.5 ??F) 12/28/2017 9:18 AM VEHICLE OPERATOR Respiratory Rate 11 12/28/2017 10:30 AM VEHICLE OPERATOR Oxygen Saturation 98% 12/28/2017 10:30 AM VEHICLE OPERATOR Inhaled Oxygen Concentration - - Weight 105 kg (231 lb 4.2 oz) 12/28/2017 7:05 AM VEHICLE OPERATOR Height 188.8 cm (6' 2.33) 12/28/2017 7:05 AM VEHICLE OPERATOR Body Mass Index 29.43 12/28/2017 7:05 AM VEHICLE OPERATOR documented in this encounter Discharge Instructions AttachmentsThe following attachments cannot be sent through Care Everywhere. About Your Ultrasound-Guided Prostate Biopsy (Lao)documented in this encounter Medications at Time of Discharge Medication Sig Dispensed Refills Start Date End Date finasteride (PROSCAR) 5 Take 5 mg by mouth 5 10/2017 mg tablet every evening. fluvastatin XL (LESCOL Take 80 mg by mouth 0 XL) 80 mg 24 hr tablet at bedtime. metFORMIN (GLUCOPHAGE) 500 mg 2 (two) times 0 500 mg tablet a day. multivitamin chewable Chew 1 tablet daily. 0 tablet OMEGA-3 FATTY Take by mouth. 0 WEPTM-PYJ-BEC ORAL potassium citrate 10 mEq 2 (two) times 9 10/05/19 18 (UROCIT-K) 10 mEq (1,080 a day. mg) ER tablet rOPINIRole (REQUIP) 0.5 Take 0.5 mg by mouth 3 mg tablet at bedtime. rosuvastatin (CRESTOR) Take 10 mg by mouth 3 10/2017 10 mg tablet at bedtime. tamsulosin (FLOMAX) 0.4 TAKE ONE CAPSULE BY 5 10/2017 mg 24 hr capsule MOUTH DAILY AFTER MEAL. TAKE WITHIN 30 MINUTES AFTER THE SAME MEAL DAILY aspirin 81 mg chewable Chew 1 tablet (81 mg 0 tablet total) at bedtime. May resume when no blood in urine or bowel movement mometasone (NASONEX) 50 Administer 1 spray 0 mcg/actuation nasal into affected spray nostril(s) as needed. naratriptan (AMERGE) 1 Take 5 mg by mouth 0 mg tablet as needed. rizatriptan GREENS OR GROUNDS SUPERINTENDENT Take 10 mg by mouth 0 (MAXALT-GREENS OR GROUNDS SUPERINTENDENT) 10 mg as needed. disintegrating tablet ZOLMitriptan (ZOMIG) 5 Take by mouth as 0 mg tablet needed. ciprofloxacin (CIPRO) Take 1 by mouth 2 2 tablet 0 018 05/24/2020 500 mg hours prior to tabletIndications: biopsy and repeat 10 Elevated hours after biopsy Prostate-Specific Antigen sodium/chloride/potass/c Take 1 tablet by 0 07/04/2019 itrate mouth 2 (two) times (YBJBYZ-HS-STTOXBWMD-CIT a day. RATE ORAL) acetaminophen (TYLENOL) Take 2 capsules 30 capsule 0 018 01/07/2018 500 mg capsule (1,000 mg total) by mouth every 6 (six) hours as needed for pain for up to 10 days. documented as of this encounter OR Notes [...] to a three dimensional data set file. Finishing And Shipping Supervisor systematic biopsies were also taken and sent [...] * No implants in log * Hussein Slayton, M.D., Pharm.D. CLE OPERATOR documented in this encounter Plan of Treatment Not on filedocumented as of this encounter Procedures Procedure Name Priority Date/Time Associated Diagnosis Comme nts SURGICAL PATHOLOGY Routine 12/28/2017 8:41 AM Elevated Res ults for this VEHICLE OPERATOR Prostate-Specific procedure are in Antigen the results section. BIOPSY PROSTATE 12/28/2017 7:36 AM Elevated VEHICLE OPERATOR Prostate-Specific Antigen Special Needs Listing: [place]ettman service. Re quests early case, gets migraines if NPO for long. documented in this encounter Results Surgical Pathology (12/28/2017 8:41 AM VEHICLE OPERATOR) Component Value Ref Test Analysis Performed At [facility] TrialBee Range Method Time Signature Gross Description A: ?? Received in formalin labeled with the patie nt's name, 12/29/2017 [facility] medical record number, and prostate, right lobe are 2:15 PM VEHICLE OPERATOR LABORATORIES - multiple pale babcock-pink soft tissue cores and fragments, [facility] ranging from 0.1-1.7 cm in length. ??The [...] two cores in each cassette. Grossed by SETELA Gibbons in [place] 12/29/2017 [facility] jannette Smith, 2:15 PM VEHICLE OPERATOR LABORATORIES - Interpretation M.Adonis.B.S. [facility] Resident Report Binh Ford M.D. [phone] 12/30/19 18 [facility] electronically I verify that I have examined all relevant slides/ma terials 2:15 PM VEHICLE OPERATOR LABORATORIES - signed by for the specimen(s) and rendered or confirmed the diagnosi s. [facility] 12/29/2017 [facility] 2:15 PM VEHICLE OPERATOR LABORATORIES - [facility] Interpretation FINAL DIAGNOSIS 12/29/2017 [facility] A. ??Prostate, right lobe, needle core biopsy: ??Benign 2:15 PM VEHICLE OPERATOR LABORATORIES - prostatic tissue. [facility] IN B. ??Prostate, left lobe, needle core biopsy: ??Benign CAMPUS prostatic tissue. C. ??Prostate, right transition zone, needle core biopsy: Benign prostatic tissue. Specimen (Source) Anatomical Collection Method Collection Time Re ceived Time Location / / Volume Laterality Tissue (Prostate) 12/28/2017 8:41 AM VEHICLE OPERATOR Tissue (Prostate) 12/28/2017 8:42 AM VEHICLE OPERATOR Tissue (Prostate) 12/28/2017 8:42 AM VEHICLE OPERATOR Narrative This result has an attachment that is no t available. Aurelio Mahajan M.D. LAB SURG PATH ORDERABLES Performing Organization Address City/State/ZIP Code Phon e Number [facility] - [address] [address] [facility] documented in this encounter Visit Diagnoses Diagnosis Elevated Prostate-Specific Antigen - Annmarie ronna documented in this encounter Admitting Diagnoses Diagnosis Elevated Prostate-Specific Antigen documented in this encounter Administered Medications Inactive Administered Medications - up to 3 most recent administrations Medication Order MAR Action Action Date Dose Rate Site acetaminophen tablet 1,000 mg Given 12/28/2017 7:48 AM VEHICLE OPERATOR 1,000 mg (TYLENOL) 1,000 mg, oral, Once, On Wed12/28/17 at 0745, For 1 dose, Pre-Op insulin aspart U-100 injection 0-8 Units (NovoLOG) 0-8 Units, subcutaneous, Every 2 hour FL N, high blood sugar, Nurse to determine [...] lactated ringers Rate/Dose Verify 12/28/2017 7:51 AM VEHICLE OPERATOR 20 mL/hr, intravenous, Continuous, Starting on Wed12/28/17 at 0745 New Bag 12/28/2017 7:47 AM VEHICLE OPERATOR 20 mL/hr 20 mL/hr documented in this encounter Active and Recently Administered Medications Times are shown in VEHICLE OPERATOR. Scheduled Medication Order 12/26/2017 12/27/2017 12/28/2017 acetaminophen tablet 1,000 mg (TYLENOL) (COMPLETED) 747 (Given - Provider: Jenniffer Jewell R.N.) 1,000 mg, oral, Once, On Wed12/28/17 at 0745, For 1 dose, Pre-O p ciprofloxacin in D5W IVPB 400 mg (CIPRO) (COMPLETED) 815 (Given - Provider: Andra Burrows APRN, BRISSA) 400 mg, intravenous, at 200 mL/hr, Admin ister over 60 Minutes, Once, On Wed12/28/17 at 0715, For 1 dose, Intra-Op, premix bag, Drug Monitoring Program: Pharmacist to adjust medication dosing based on i ndication and drug clearance factors., Indications: Prophylaxis, surgical gentamicin in NaCl 0.9 % (iso-osm) IVPB 120 mg (GARAMYCIN) (COMP LETED) 802 (Given - Provider: Andra Burrows APRN, BRISSA) 120 mg, intravenous, at 200 mL/hr, Admin ister over 30 Minutes, Once, On Wed12/28/17 at 0715, For 1 dose, Intra-Op, Preoperatively within 1 hour prior to surgical incision premix bag, Drug Monitoring Pr ogram: Pharmacist to adjust medication d osing based on indication and drug clearance factors., Indications: Prophylaxis, surgical sodium phosphates enema 1 enema (FLEET) 0700 (Due) 1 enema, rectal, Once, Wed12/28/17 at 0700, For 1 dose, Pre-Op Continuous Medication Order 12/26/2017 12/27/2017 12/28/2017 lactated ringers 0747 (New Bag - Provider: Jenniffer Jewell R.N.)0751 (Rate/Dose Verify - Provider: Andra Burrows APRN, BRISSA)0900 (Anesthesia Volume Adjustment - Provider: Andra Burrows APRN, BRISSA)1100 (Stopped - Provider: Ghulam Mahajan R.N.) 20 mL/hr, intravenous, Continuous, Starting on Wed12/28/17 at 0 745 PRN Medication Order 12/26/2017 12/27/2017 12/28/2017 insulin aspart U-100 injection 0-8 Units (NovoLOG) 0-8 Units, subcutaneous, Every 2 hour FL N, high blood sugar, Nurse to determine and administer dose., Starting on Wed12/28/17 at 0656, For 2 doses, Pre-Op, Nurse to administer Aspart (Novolog) Insulin subcutaneous as needed every 2 hours for up to 2 doses per correction scale. First dose STAT. Do not administer a correction Insulin dose if glucose is greater than 140 mg/dL and a) It is within 2 hours of any rapid acting or short acting Ins ulin and/or b) the patient has consumed sugar or carbohydrate containing food or beverage within the past 4 hours. Contact provider managing diabetes to assess if correction scale insulin should be admi nistered. For glucose less than or equal to 70 mg/dL - initiate treatment of hypoglycemia., Insulin Aspart: Correction Scale Insulin (For Diabetes Mellitus diagno sis), 71 - 139: 0 units, 140 - 179: 2 un its, 180 - 219: 4 units, 220 - 259: 6 units, 260 - 299: 8 units, Greater than or equal to 300: Call provider managing diabetes xyipqhtd-zcxeagrqbn-eguqotoxu 3.5 mg-400 unit-5,000 unit ointment packet (NEOSPORIN) (CANCELED) 09 (Given - Pro vider: Rakel Keenan R.N. - Comment: perineum) As needed, Starting on Wed12/28/17 at 0905, Intra-Op documented in this encounter
--- OUTSIDE RECORDS SUMMARY | 2021-10-17 15:30 | XMS_ITS | Encounter Summary ---
:1950 Author Organization [facility] Address [address] [place] [address] Care Team Providers Name Role Phone Elsewhere, Pcp Primary Care Provider Unavailable Reason for Visit Reason Comments COVID Nurse Line Puncture Wound Encounter Details Date Type Department Care Team Description 05/24/2020 Nurse Triage Department of [facility] Jenny Bolton COV ID Nurse Line; [facility], [facility] P[facility]ound [facility], in [place], [facility] [address] [place], [place] [address] [place] [phone] [place] [address] Social History Tobacco Use Types Packs/Day Years [...] or relatives? How often do you attend hoahaoism or More than 4 times per year 07/18/2021 jain services? Do you belong to any clubs or Yes 07/18/2021 organizations such as hoahaoism groups, unions, fraternal or athletic groups, or [...] Screening ASSESSMENT Region Select appropriate region: : [place] Age Pathway Select approprite pathway: : Adult [...] water are not available, use a hand community nutrition educator -Avoid touching your eyes, nose and mouth. [...] care: Yes The following references were used: [facility] novel coronavirus (COVID- 19) resources Telephone Encounter [...] provider within 24 hours. Warm transfer to Heel Lift Gouger for [place]. COVID screening is negative. Reason for Disposition ??? [1] Looks infected (spreading redness, pus) AND [2] no fever Protocols used: CUTS AND [id number] Care Advice Patient/Caregiver understands and will follow care advice?: Yes, able to teach back SEE PCP WITHIN 24 HOURS: * IF OFFICE WILL BE OPEN: You need to be seen within the next 24 hours. Call your doctor (or MARKETING MANAGER HEALTH COMMUNICATIONS/PA) when the office opens and make an [...] on filedocumented in this encounter Care Teams Full Roll Inspector Relationship Specialty Start Date End Date Elsewhere, Pcp PCP - General Family Medicine 05/24/20 documented as of this encounter
--- OUTSIDE RECORDS SUMMARY | 2021-10-17 15:30 | XMS_ITS | Encounter Summary ---
:1950 Author Organization [facility] Address [address] [place] [address] Care Team Providers Name Role Phone Elsewhere, Pcp Primary Care Provider Unavailable Reason for Visit Reason Comments Skin Check Outpatient (Routine) - Closed Specialty Diagnoses / Procedures Referred By Contact Refer red To Contact Dermatology Dwight Ortega M.D . [facility] Region [address] [place], [place] [address] Referral ID Status Reason Start Date Expiration Date Visits Requ ested Visits Authorized [id number] Closed 05/07/2020 05/07/2021 1 1 Encounter Details Date Type Department Care Team Description 08/12/2020 Office Visit Department of Dwight Ortega, Keratosis Seborrheic Inflamed (Primary Dx); Dermatology in [place], [place] [address] [facility] Keratosis Seborrheic [address] [phone] Social History Tobacco Use Types Packs/Day [...] More than 4 times per year 07/18/2021 anglican services? Do you belong to any clubs [...] a total of 1 lesion(s) with two 40-88-nvfadz freeze-thaw cycles of liquid nitrogen cryotherapy. The [...] Seborrheic documented in this encounter Care Teams Patternmaker Grader Relationship Specialty Start Date End Date Elsewhere, Pcp PCP - General Family Medicine 05/24/20 documented as of this encounter
--- OUTSIDE RECORDS SUMMARY | 2021-10-17 15:30 | XMS_ITS | Encounter Summary ---
:1950 Author Organization [facility] Address [address] [place] [address] Care Team Providers Name Role Phone Unavailable Primary Care Provider Unavailable Encounter Details Date Type Department Care Team Description 12/22/2017 Hospital Encounter Department of Claude Santiago Magnetic Laboratory Medicine Sonja Hua Resonanc e Imaging and Pathology, [facility] in [place], [place] [address] [place] [address] Social History Tobacco Use Types Packs/Day Years [...] needed. OMEGA-3 FATTY Take by mouth. 0 QUPRD-IAN-VSF ORAL potassium citrate 10 mEq 2 (two) times 9 10/05/19 18 (UROCIT-K) 10 mEq (1,080 a day. mg) ER tablet rizatriptan COMPUTING TUTOR Take 10 mg by mouth 0 (MAXALT-COMPUTING TUTOR) 10 mg as needed. disintegrating tablet rOPINIRole [...] 0 07/04/2019 itrate mouth 2 (two) times (MOACZU-ES-FWNMUDFUK-CIT a day. RATE ORAL) documented as of this encounter Plan of Treatment Not on filedocumented as of this encounter Procedures Procedure Name Priority Date/Time Associated Diagnosis Comme nts BACTERIAL CULTURE, Routine 12/22/2017 1:35 PM Abnormal Magneti c Results for this AEROBIC + SUSC, WEB SITE SPECIALIST Resonance Imaging procedu re are in URINE Prostate the results section. documented in this encounter Results Bacterial Culture, Aerobic + Susc, Urine (12/22/2017 1:35 PM WEB SITE SPECIALIST) [facility] gist Method Time Signature Urine Culture No growth 12/23/2017 [facility] after 1 8:14 AM WEB SITE SPECIALIST LABORATORIES - [facility] . Specimen Anatomical Collection Method Collection Time Receive d Time (Source) Location / / Volume Laterality Urine (Urine, 12/22/2017 1:35 PM 12/23/19 18 2:39 Midstream) WEB SITE SPECIALIST PM WEB SITE SPECIALIST Comment: Specimen Source Site: Urine Claude Santiago M.D. LAB MICROBIOLOGY - GENERAL O RDERABLES Performing Organization Address City/State/ZIP Code Phon e Number [facility] - [address] [place], [place] [address] [facility] documented in this encounter Visit Diagnoses Diagnosis Abnormal Magnetic Resonance Imaging Pros santo documented in this encounter
--- OUTSIDE RECORDS SUMMARY | 2021-10-17 15:30 | XMS_ITS | Encounter Summary ---
:1950 Author Organization [facility] Address [address] [place] [address] Care Team Providers Name Role Phone Unavailable Primary Care Provider Unavailable Reason for Visit Auth/Cert Specialty Diagnoses / Procedures Referred By Contact Refer red To Contact Diagnoses Elevated Prostate-Specific Antigen Elevated Prostate-Specific Antigen` Procedures BIOPSY PROSTATE; Transperineal biopsy; targeted based on MRI; proceed as indicated Referral ID Status Reason Start Date Expiration Date Visits Requ ested Visits Authorized [id number] 1 1 Encounter Details Date Type Department Care Team Description 12/28/2017 Surgery Outpatient Procedure Aurelio Mahajan B [facility] PROSTATE, Center in [place] Transperineal biopsy, [place] [address] targeted based on MRI, [address] [place], [place] [phone] Social History Tobacco Use Types Packs/Day Years [...] or relatives? How often do you attend druze or More than 4 times per year 07/18/2021 episcopalian services? Do you belong to any clubs or Yes 07/18/2021 organizations such as druze groups, unions, fraternal or athletic groups, or [...] Comments Blood Pressure 121/73 12/28/2017 7:45 AM CHIEF NURSING EXECUTIVE Pulse 73 12/28/2017 7:48 AM CHIEF NURSING EXECUTIVE Temperature 36.6 ??C (97.9 ??F) 12/28/2017 7:05 AM CHIEF NURSING EXECUTIVE Respiratory Rate 8 12/28/2017 7:48 AM CHIEF NURSING EXECUTIVE Oxygen Saturation 96% 12/28/2017 7:48 AM CHIEF NURSING EXECUTIVE Inhaled Oxygen Concentration - - Weight 105 kg (231 lb 4.2 oz) 12/28/2017 7:05 AM CHIEF NURSING EXECUTIVE Height 188.8 cm (6' 2.33) 12/28/2017 7:05 AM CHIEF NURSING EXECUTIVE Body Mass Index 29.43 12/28/2017 7:05 AM CHIEF NURSING EXECUTIVE documented in this encounter Discharge Instructions AttachmentsThe following attachments cannot be sent through Care Everywhere. About Your Ultrasound-Guided Prostate Biopsy (Japanese)documented in this encounter Medications at Time of [...] tablet OMEGA-3 FATTY Take by mouth. 0 DLGCJ-DUL-JSU ORAL potassium citrate 10 mEq 2 (two) [...] mouth 0 mg tablet as needed. rizatriptan PRODUCT DEVELOPMENT ENGINEER Take 10 mg by mouth 0 (MAXALT-PRODUCT DEVELOPMENT ENGINEER) 10 mg as needed. disintegrating tablet ZOLMitriptan (ZOMIG) 5 Take by mouth as 0 mg tablet needed. ciprofloxacin (CIPRO) Take 1 by mouth 2 2 tablet 0 018 05/24/2020 500 mg hours prior to tabletIndications: biopsy and repeat 10 Elevated hours after biopsy Prostate-Specific Antigen sodium/chloride/potass/c Take 1 tablet by 0 07/04/2019 itrate mouth 2 (two) times (OOAKBA-UI-CHSXUKERO-CIT a day. RATE ORAL) acetaminophen (TYLENOL) Take [...] to a three dimensional data set file. New Car Inspector systematic biopsies were also taken and sent [...] in log * Hussein Stinson M.D., Pharm.D. F NURSING EXECUTIVE documented in this encounter Plan of Treatment Not on filedocumented as of this encounter Procedures Procedure Name Priority Date/Time Associated Diagnosis Comme nts SURGICAL PATHOLOGY Routine 12/28/2017 8:41 AM Elevated Res ults for this CHIEF NURSING EXECUTIVE Prostate-Specific procedure are in Antigen the results section. BIOPSY PROSTATE 12/28/2017 7:36 AM Elevated CHIEF NURSING EXECUTIVE Prostate-Specific Antigen Special Needs Listing: [employer] service. Re quests early case, gets migraines if NPO for long. documented in this encounter Results Surgical Pathology (12/28/2017 8:41 AM CHIEF NURSING EXECUTIVE) Component Value Ref Test Analysis Performed At [facility] [employer] Range Method Time Signature Gross Description A: ?? Received in formalin labeled with the patie nt's name, 12/29/2017 [facility] medical record number, and prostate, right lobe are 2:15 PM CHIEF NURSING EXECUTIVE LABORATORIES - multiple pale babcock-pink soft tissue cores and fragments, [facility] ranging from 0.1-1.7 cm in length. [...] by ESTELA Gibbons in [place] 12/29/2017 [facility] jannette Smith, 2:15 PM CHIEF NURSING EXECUTIVE LABORATORIES - Interpretation Lorenza.[facility] Resident Report Binh Ford M.D. [phone] 12/30/19 [facility] electronically I verify that I have examined all relevant slides/ma terials 2:15 PM CHIEF NURSING EXECUTIVE LABORATORIES - signed by for the specimen(s) and rendered or confirmed the diagnosi s. [facility] 12/29/2017 [facility] 2:15 PM CHIEF NURSING EXECUTIVE LABORATORIES - [facility] Interpretation FINAL DIAGNOSIS 12/29/2017 [facility] A. ??Prostate, right lobe, needle core biopsy: ??Benign 2:15 PM CHIEF NURSING EXECUTIVE LABORATORIES - prostatic tissue. [facility] B. ??Prostate, left lobe, needle core biopsy: ??Benign CAMPUS prostatic tissue. C. ??Prostate, right transition zone, needle core biopsy: Benign prostatic tissue. Specimen (Source) Anatomical Collection Method Collection Time Re ceived Time Location / / Volume Laterality Tissue (Prostate) 12/28/2017 8:41 AM CHIEF NURSING EXECUTIVE Tissue (Prostate) 12/28/2017 8:42 AM CHIEF NURSING EXECUTIVE Tissue (Prostate) 12/28/2017 8:42 AM CHIEF NURSING EXECUTIVE Narrative This result has an attachment that is no t available. Aurelio Mahajan M.D. LAB SURG PATH ORDERABLES Performing Organization Address City/State/ZIP Code Phon e Number [facility] LABORATORIES - [address] [id number] [facility] documented in this encounter Visit Diagnoses Diagnosis Elevated Prostate-Specific Antigen - [facility] Elevated Prostate-Specific Antigen documented in this encounter Admitting Diagnoses Diagnosis Elevated Prostate-Specific Antigen documented in this encounter Administered Medications Inactive Administered Medications - up to 3 most recent administrations Medication Order MAR Action Action Date Dose Rate Site acetaminophen tablet 1,000 mg Given 12/28/2017 7:48 AM CHIEF NURSING EXECUTIVE 1,000 mg (TYLENOL) 1,000 mg, oral, Once, [...] lactated ringers Rate/Dose Verify 12/28/2017 7:51 AM CHIEF NURSING EXECUTIVE 20 mL/hr, intravenous, Continuous, Starting on Wed12/28/17 at 0745 New Bag 12/28/2017 7:47 AM CHIEF NURSING EXECUTIVE 20 mL/hr 20 mL/hr belbeato-sdlfzgrpmn-pneouxdbx 3.5 mg-400 Given 12/28/2017 9:05 A M 2 packets Other unit-5,000 unit ointment packet CHIEF NURSING EXECUTIVE (NEOSPORIN) As needed, Starting on Wed12/28/17 at 0905, Intra-Op documented in this encounter Active and Recently Administered Medications Times are shown in CHIEF NURSING EXECUTIVE. Scheduled Medication Order 12/26/2017 12/27/2017 12/28/2017 acetaminophen [...] APRN, CRNA)1100 (Stopped - Provider: Ghulam Mahajan R.N.) 20 [...] equal to 300: Call provider managing diabetes egyrrxyf-wzknwpkfml-qvpdfcqzi 3.5 mg-400 unit-5,000 unit ointment packet (NEOSPORIN) (CANCELED) 904 (Given - Pro vider: Rakel Keenan RJasonNJason - Comment: perineum) As needed, Starting on Wed12/28/17 at 0905, Intra-Op documented in this encounter
--- OUTSIDE RECORDS SUMMARY | 2021-10-17 15:30 | XMS_ITS | Encounter Summary ---
:1950 Author Organization [facility] Address [address] [place] [address] Care Team Providers Name Role Phone Unavailable [...] or relatives? How often do you attend holiness or More than 4 times per year 07/18/2021 jewish services? Do you belong to any clubs or Yes 07/18/2021 organizations such as holiness groups, unions, fraternal or athletic groups, or [...]
--- OUTSIDE RECORDS SUMMARY | 2021-10-17 15:30 | XMS_ITS | Encounter Summary ---
:1950 Author Organization [facility] Address [address] [place] [address] Care Team Providers Name Role Phone Unavailable Primary Care Provider Unavailable Reason for Visit Appointment Request (Routine) - Closed Specialty Diagnoses / Procedures Referred By Contact Refer red To Contact Urology Referral ID Status Reason Start Date Expiration Date Visits Requ ested Visits Authorized [id number] Closed 11/02/2017 11/02/2018 1 1 Encounter Details Date Type Department Care Team Description 11/24/2017 Comprehensive Visit Department of Abdon Trimble M.D. [address] [place] [phone] Elevated Urology in Nathen Alexander M.D. [address] [place] [phone] Prostate-Specific Rose, Antigen (Primar y [place] Dx) [address] [place] [phone] Social History Tobacco Use Types Packs/Day Years [...] More than 4 times per year 07/18/2021 muslim services? Do you belong to any clubs [...] mouth., Disp: , Rfl: ??? OMEGA-3 FATTY FUNHB-MON-EMO ORAL, Take by mouth., Disp: , Rfl: ??? potassium citrate (UROCIT-K) 10 mEq (1,080 mg) ER tablet, , Disp: , Rfl: 9 ??? rizatriptan MAJOR GIFTS MANAGER (MAXALT-MAJOR GIFTS MANAGER) 10 mg disintegrating tablet, Take 10 mg [...] without endorectal coi l, sequences include small ezzap-zd-wkvc axial coronal and sagittal nonfat sat T2 , large qhpwv-nf-vhqs DWI, small pegxz-bf-pmgo axial T1 and T2 fat sat, l arge duxhe-vc-kvru coronal T2 fat sat, small ffspf-hp-xtwf axial dynamic imagin g. Outside MRI report [...] without endorectal coi l, sequences include small aetts-iy-lefu axial coronal and sagittal nonfat sat T2 , large ihmap-xl-kztr DWI, small yjwum-km-elcc axial T1 and T2 fat sat, l arge wkznp-iq-tane coronal T2 fat sat, small svyhe-fx-rdwo axial dynamic imagin g. Outside MRI report [...]
--- OUTSIDE RECORDS SUMMARY | 2021-10-17 15:30 | XMS_ITS | Encounter Summary ---
:1950 Author Organization [facility] Address [address] [place] [address] Care Team Providers Name Role Phone Unavailable Primary Care Provider Unavailable Reason for Referral Outpatient (Routine) - Closed Specialty Diagnoses / Procedures Referred By Contact Refer red To Contact Dermatology Dwight Ortega M.D . [facility] Region [address] [place] [phone] Referral ID Status Reason Start Date Expiration Date Visits Requ ested Visits Authorized [id number] Closed 01/03/2019 01/03/2020 1 1 Scheduling Instructions Recheck nevus left cheek in 6 months MER SORTER Reason for Visit Reason Comments Skin Check Appointment Request (Routine) - Closed Specialty Diagnoses / Procedures Referred By Contact Refer red To Contact Dermatology Referral ID Status Reason Start Date Expiration Date Visits Requ ested Visits Authorized [id number] Closed 09/14/2018 09/14/2019 1 Encounter Details Date Type Department Care Team Description 01/03/2019 Office Visit Department of Dwight Ortega, Keratosis Actinic (Primary Dx); Dermatology in Andrea Casillas Keratosis Seborrheic; [place], [place] [address] [facility] Nevus Dermal; [address] [place] [address] [place] [phone] Social History Tobacco Use Types Packs/Day Years [...] More than 4 times per year 07/18/2021 restorationism services? Do you belong to any clubs [...] Dwight Ortega M.D. . 01/03/2019. 4:34 PM. MER SORTER documented in this encounter Plan of Treatment Scheduled Referrals Name Type Priority Associated Order Schedule Diagnoses Dermatology office Outpatient Referral Routine Ex pected: visit (clinic) 07/04/2019 (Approximate), Expires: 01/03/2022 documented as of this encounter Visit Diagnoses Diagnosis Keratosis Actinic - Primary Keratosis Seborrheic Nevus Dermal Nevi Multiple documented in this encounter
--- OUTSIDE RECORDS SUMMARY | 2021-10-17 15:30 | XMS_ITS | Encounter Summary ---
:1950 Author Organization [facility] Address [address] [place] [address] Care Team Providers Name Role Phone Unavailable Primary Care Provider Unavailable Encounter Details Date Type Department Care Team Description 04/17/2020 Orders Only [facility] Sa kiera Cobos M.D. [address] [place], [place] [phone] (Wo rk) Social History [...] or relatives? How often do you attend faith or More than 4 times per year 07/18/2021 zoroastrian services? Do you belong to any clubs or Yes 07/18/2021 organizations such as faith groups, unions, fraternal or athletic groups, or [...]
--- OUTSIDE RECORDS SUMMARY | 2021-10-17 15:30 | XMS_ITS | Encounter Summary ---
:[address] [facility] Address [address] [place] [address] Care Team Providers Name Role Phone Unavailable Primary Care Provider Unavailable Reason for Visit Appointment Request (Routine) - Closed Specialty Diagnoses / Procedures Referred By Contact Refer red To Contact Urology Referral ID Status Reason Start Date Expiration Date Visits Requ ested Visits Authorized [id number] Closed 12/02/2017 12/02/2018 1 1 Encounter Details Date Type Department Care Team Description 12/22/2017 Office Visit Department of Urology Nathen Alexander in Nieves Rsoe M.D. Prostate-Specific [place] [address] [facility] Antigen (Primary Dx) [address] [place] [phone] Social History Tobacco Use Types Packs/Day Years [...] or relatives? How often do you attend uatsdin or More than 4 times per year 07/18/2021 worship services? Do you belong to any clubs or Yes 07/18/2021 organizations such as uatsdin groups, unions, fraternal or athletic groups, or [...] migraines when he is unable to eat. TS TRAINER Nathen Alexander M.D. - 12/22/2017 2:45 PM CST I have met the patient and discussed the issues at hand. I agree with the documentation provided by my colleague on the team. I have discussed the recommendations with the patient and answered all of the patient???s questions. Full documentation will be provided by my colleague on the team. TS TRAINER documented in this encounter Plan of Treatment Not on filedocumented as of this encounter Visit Diagnoses Diagnosis Elevated Prostate-Specific Antigen - [facility] documented in this encounter
--- OUTSIDE RECORDS SUMMARY | 2021-10-17 15:30 | XMS_ITS | Encounter Summary ---
:1950 Author Organization [facility] Address [address] [place] [address] Care Team Providers Name Role Phone Unavailable Primary Care Provider Unavailable Reason for Visit Outpatient (Routine) - Closed Specialty Diagnoses / Procedures Referred By Contact Refer red To Contact General Surgery Diagnoses Abnormal Magnetic Resonance Imaging Prostate Claude Santiago M.D. [place] [address] [place] [address] Referral ID Status Reason Start Date Expiration Date Visits Requ ested Visits Authorized [id number] Closed 11/30/2017 11/30/2018 1 1 Encounter Details Date Type Department Care Team Description 12/22/2017 Comprehensive Visit Preoperative Claude Santiago M. D. Preoperative Exam (Primary Dx); Evaluation Center in Tamara Llamas M.S.N., R.N. [address] [place] [phone] Abnormal Magnetic Resonance Imaging Pros santo; [place], [place] Cardiac Vascular Disease Scr eening; [address] [place] [address] [place] [phone] Social History Tobacco Use Types Packs/Day Years [...] More than 4 times per year 07/18/2021 spiritism services? Do you belong to any clubs [...] Comments Blood Pressure 124/68 12/22/2017 1:01 PM MANAGER ADMINISTRATIVE Pulse 71 12/22/2017 1:01 PM MANAGER ADMINISTRATIVE Temperature 36.4 ??C (97.5 ??F) 12/22/2017 1:01 PM MANAGER ADMINISTRATIVE Respiratory Rate - - Oxygen Saturation 98% 12/22/2017 1:01 PM MANAGER ADMINISTRATIVE Inhaled Oxygen Concentration - - Weight 107 kg (236 lb 1.8 oz) 12/22/2017 1:01 PM MANAGER ADMINISTRATIVE Height 187.9 cm (6' 1.98) 12/22/2017 1:01 PM MANAGER ADMINISTRATIVE Body Mass Index 30.33 12/22/2017 1:01 PM MANAGER ADMINISTRATIVE documented in this encounter H&P Notes Tamara Llamas APRN, C.N.P. - 12/22/2017 1:00 PM CST Preoperative Medical Evaluation Patient Name: Darwin Woo Age: 67 y.o. Date of : 1950 Patient [address]: [address] [place] [phone] Primary Care Provider: No primary care provider on file. Referring Physician: Claude Santiago M.D. Pending Procedure: Prostate biopsy; trans perineal biopsy; targeted based on MRI, proceed is indicated Surgeon: Aurelio Mahajan M.D. HISTORY OF PRESENT ILLNESS Patient here for a 3rd opinion regarding elevated PSA. He has undergone 4 previous biopsies, most recently, . Most recent MRI demonstrated PI-RADS 2 lesions. [...] y.o. male, retired from his work called [place], [place], meeting 4 METS here for preanesthetic medical examination prior to the planned procedure as listed above. Patient denies previous anesthesia related complications. Airway Hx (aka airway management): Not available #1 Preoperative Exam Baseline CBC and creatinine drawn in [facility]. #2 Abnormal Magnetic Resonance Imaging Prostate #3 Elevated Prostate-Specific Antigen #4 PreDiabetes Baseline hemoglobin A1c obtained in [facility]. He was instructed to withhold his usual dose of metformin on the day of the procedure. #5 Migraine headaches GER ADMINISTRATIVE documented in this encounter Plan of Treatment Not on filedocumented as of this encounter Procedures Procedure Name Priority Date/Time Associated Diagnosis Comme nts CBC WITH Routine 12/22/2017 2:00 PM Preoperative Exam Results for this DIFFERENTIAL, B MANAGER ADMINISTRATIVE Abnormal Magnetic procedu re are in Resonance Imaging the result s Prostate section. HEMOGLOBIN A1C, B Routine 12/22/2017 2:00 PM Preoperativ e Exam Results for this MANAGER ADMINISTRATIVE Abnormal Magnetic procedure are in Resonance Imaging the result s Prostate section. PreDiabetes CREATININE WITH Routine 12/22/2017 2:00 PM Preoperative Exam Results for this EGFR, S/P MANAGER ADMINISTRATIVE Abnormal Magnetic procedure are in Resonance Imaging the result s Prostate section. ECG Routine 12/22/2017 1:32 PM Abnormal Magnetic Resu lts for this MANAGER ADMINISTRATIVE Resonance Imaging procedure are in Prostate the results Cardiac Vascular section. Disease Screenin g Preoperative Exam documented in this encounter Results Hemoglobin A1c (12/22/2017 2:00 PM MANAGER ADMINISTRATIVE) Analysis Performed At [facility] Signature Hemoglobin A1c, 5.6 4.0 - 5.6 12/22/2017 [facility] B % 2:42 PM MANAGER ADMINISTRATIVE LABORATORIES [facility] Specimen Anatomical Collection Method Collection Time Receive d Time (Source) Location / / Volume Laterality Blood (Blood, 12/22/2017 2:00 PM 12/23/19 18 2:06 Venous) MANAGER ADMINISTRATIVE PM MANAGER ADMINISTRATIVE Tamara Chen., R.N. LAB BLOOD ADD-ON Performing Organization Address City/[facility] Code Phon e Number [facility] - [address] Creatinine with Estimated GFR (12/22/2017 2:00 PM MANAGER ADMINISTRATIVE) Analysis Performed At [facility] Signature Creatinine 0.98 0.74 - 12/22/2017 [facility] 1.35 mg/dL 2:49 PM MANAGER ADMINISTRATIVE LABORATORIES [facility] eGFR-Non 80 >=60 12/22/2017 [facility] Black/ mL/min/BSA 2:49 PM MANAGER ADMINISTRATIVE LABORATORIES [facility] Comment: ----ADDITIONAL INFORMATION---- Estimated GFR calculated using the 2009 CKD_EPI creatinine equation. eGFR-Black/ >90 >=60 mL/min/BSA 12/22/2017 2:49 [facility] Zimbabwean PM MANAGER ADMINISTRATIVE LABORATORIES [facility] Comment: ----ADDITIONAL INFORMATION---- Estimated GFR calculated using the 2009 CKD_EPI creatinine equation. Specimen Anatomical Collection Method Collection Time Receive d Time (Source) Location / / Volume Laterality Blood (Blood, 12/22/2017 2:00 PM 12/23/19 18 2:06 Venous) MANAGER ADMINISTRATIVE PM MANAGER ADMINISTRATIVE Tamara Chen., R.N. LAB BLOOD ADD-ON Performing Organization Address City/[facility]/ZIP Code Phon e Number [facility]ATORIES - [address] [place], [place] [address] [facility] CBC with Differential, Blood (12/22/2017 2:00 PM MANAGER ADMINISTRATIVE) [facility] Method Time Signature Hemoglobin 15.4 13.2 - 12/22/2017 [facility] 16.6 g/dL 2:22 PM MANAGER ADMINISTRATIVE LABORATORIES - [facility] Hematocrit 45.5 38.3 - 12/22/2017 [facility] 48.6 % 2:22 PM MANAGER ADMINISTRATIVE LABORATORIES - [facility] Erythrocytes 4.95 4.35 - 12/22/2017 [facility] 5.65 2:22 PM MANAGER ADMINISTRATIVE LABORATORIES - x10(12)/L [facility] MCV 91.9 78.2 - 12/22/2017 [facility] 97.9 fL 2:22 PM MANAGER ADMINISTRATIVE LABORATORIES - [facility] RBC Distrib Width 12.8 11.8 - 12/22/2017 [facility] 14.5 % 2:22 PM MANAGER ADMINISTRATIVE LABORATORIES - [facility] Platelet Count 186 135 - 317 12/22/2017 [facility] x10(9)/L 2:22 PM MANAGER ADMINISTRATIVE LABORATORIES - [facility] Leukocytes 8.8 3.4 - 9.6 12/22/2017 [facility] x10(9)/L 2:22 PM MANAGER ADMINISTRATIVE LABORATORIES - [facility] Neutrophils 5.68 1.56 - 12/22/2017 [facility] 6.45 2:22 PM MANAGER ADMINISTRATIVE LABORATORIES - x10(9)/L [facility] Lymphocytes 2.25 0.95 - 12/22/2017 [facility] 3.07 2:22 PM MANAGER ADMINISTRATIVE LABORATORIES - x10(9)/L [facility] Monocytes 0.68 0.26 - 12/22/2017 [facility] 0.81 2:22 PM MANAGER ADMINISTRATIVE LABORATORIES - x10(9)/L [facility] Eosinophils 0.10 0.03 - 12/22/2017 [facility] 0.48 2:22 PM MANAGER ADMINISTRATIVE LABORATORIES - x10(9)/L [facility] Basophils 0.04 0.01 - 12/22/2017 [facility] 0.08 2:22 PM MANAGER ADMINISTRATIVE LABORATORIES - x10(9)/L [facility] Specimen Anatomical Collection Method Collection Time Receive d Time (Source) Location / / Volume Laterality Blood (Blood, 12/22/2017 2:00 PM 12/23/19 18 2:06 Venous) MANAGER ADMINISTRATIVE PM MANAGER ADMINISTRATIVE Tamara Chinchilla, R.N. LAB BLOOD ADD-ON Performing Organization Address City/State/ZIP Code Phon e Number [facility] - [address] [place], [place] [address] [facility] ECG 12 Lead (12/22/2017 1:32 PM MANAGER ADMINISTRATIVE) P athologist Signature Ventricular Rate 66 BPM MUSE ECG/Min PA Interval 156 ms MUSE QRSD Interval 90 ms MUSE QT Interval 398 ms MUSE QTC Interval 417 ms MUSE P [place] 64 degrees MUSE R [place] 43 degrees MUSE T Wave [place] 34 degrees MUSE Specimen Anatomical Collection Method Collection Time Receive d Time (Source) Location / / Volume Laterality 12/22/2017 1:32 PM 8 1:47 MANAGER ADMINISTRATIVE PM MANAGER ADMINISTRATIVE Impressions MUSE - 12/22/2017 1:47 PM MANAGER ADMINISTRATIVE Normal sinus rhythm Normal ECG No previous [...]
--- OUTSIDE RECORDS SUMMARY | 2021-10-17 15:30 | XMS_ITS | Encounter Summary ---
:1950 Author Organization [facility] Address [address] [place] [address] Care Team Providers Name Role Phone Unavailable [...] or relatives? How often do you attend buddhism or More than 4 times per year 07/18/2021 uatsdin services? Do you belong to any clubs or Yes 07/18/2021 organizations such as buddhism groups, unions, fraternal or athletic groups, or [...] 12/28/2017 8:05 AM Res ults for this POWDER CARRIER procedure are i n the results section. documented in this encounter Results UROLOGY IMAGE EXAM (12/28/2017 8:05 AM POWDER CARRIER) Specimen (Source) Anatomical Collection Method Collection Time Re ceived Time Location / / Volume Laterality 12/28/2017 8:04 AM POWDER CARRIER Narrative [facility] - 12/28/2017 9:02 AM POWDER CARRIER This order has been created and auto-finalized [...]
--- OUTSIDE RECORDS SUMMARY | 2021-10-17 15:30 | XMS_ITS | Encounter Summary ---
:1950 Author Organization [facility] Address [address] [place] [address] Care Team Providers Name Role Phone Elsewhere, [...] Expiration Date Visits Requ ested Visits Authorized [id number] Closed 05/24/2020 05/24/2021 1 1 Encounter Details Date Type Department Care Team Description 05/24/2020 Office Visit Department of [facility] Brittnee Cabrera Af [facility] Skin Surgery Medicine, [place] EJ C.N.PJason, ([facility], in [address] [phone] Social History Tobacco Use Types Packs/Day Years [...] or relatives? How often do you attend samaritan or More than 4 times per year 07/18/2021 temple services? Do you belong to any clubs or Yes 07/18/2021 organizations such as samaritan groups, unions, fraternal or athletic groups, or [...] Body Mass Index 31.9 12/28/2017 7:05 AM RECRUITMENT DIRECTOR documented in this encounter Progress Notes Brittnee [...] Primary documented in this encounter Care Teams Chief Order Dispatcher Relationship Specialty Start Date End Date Elsewhere, Pcp PCP - General Family Medicine 05/24/20 documented as of this encounter
--- OUTSIDE RECORDS SUMMARY | 2021-10-17 15:30 | XMS_ITS | Encounter Summary ---
:1950 Author Organization [facility] Address [address] [place] [address] Care Team Providers Name Role Phone Unavailable Primary Care Provider Unavailable Reason for Referral Outpatient (Routine) - Closed Specialty Diagnoses / Procedures Referred By Contact Refer red To Contact Diagnoses Tumor Skin Uncertain Behavior Dwigth Ortega M.D. Procedures Suture Removal [address] [place], [place] [phone] Referral ID Status Reason Start Date Expiration Date Visits Requ ested Visits Authorized [id number] Closed 05/13/2020 05/13/2021 1 1 Reason for Visit Reason Comments Suture / Staple Removal Outpatient (Routine) - Closed Specialty Diagnoses / Procedures Referred By Contact Refer red To Contact Dermatology Dwight Ortega M.D . [facility] Region [address] [place], [place] [address] Referral ID Status Reason Start Date Expiration Date Visits Requ ested Visits Authorized [id number] Closed 05/07/2020 05/07/2021 1 1 Encounter Details Date Type Department Care Team Description 05/13/2020 Nurse Only Department of Dwight Ortega M.D. [address] [place] [phone] Suture / Staple Dermatology in [place] Jalil Malloy L.P.N. [address] [phone] Social History Tobacco Use Types [...] More than 4 times per year 07/18/2021 sabianist services? Do you belong to any clubs or Yes 07/18/2021 organizations such as gnosticist groups, unions, [...] Removal Date/Time: 05/13/2020 9:15 AM Performed by: Jalli Malloy L.P.NJason Authorized by: Kalaaji, Amer N, M.D. PROCEDURE DETAILS Wound appearance: No signs of infection, good wound healing, clean, nontender and good approximationof wound edges Number of sutures removed: 2 CONSENT Consent obtained: verbal PRE PROCEDURE DETAILS Sutures were placed at [facility] facility: yes Indicaton: scheduled suture removal SEDATION [...] MMODAL - 05/13/2020 9:15 AM CDT Jalil Malloy L.P.N. ? 05/13/2020 ??9:16 AM Suture Removal Date/Time: 05/13/2020 9:15 AM Performed by: Jalil Malloy L.PJasonNJason Authorized by: Dwight Ortega M.D. PROCEDURE DETAILS Wound appearance: ??No signs of infectio n, good wound healing, clean, nontender and good approximation of woun d edges Number of sutures removed: ??2 CONSENT Consent obtained: verbal PRE PROCEDURE DETAILS Sutures were placed at [facility] facility: ye s ?? Indicaton: scheduled suture [...]
--- OUTSIDE RECORDS SUMMARY | 2021-10-17 15:30 | XMS_ITS | Encounter Summary ---
:1950 Author Organization [facility] Address [address] [place] [address] Care Team Providers Name Role Phone Unavailable Primary Care Provider Unavailable Reason for Referral Outpatient (Routine) - Closed Specialty Diagnoses / Procedures Referred By Contact Refer red To Contact General Surgery Diagnoses Abnormal Magnetic Resonance Imaging Prostate Claude Santiago M.D. [address] [address] Referral ID Status Reason Start Date Expiration Date Visits Requ ested Visits Authorized [id number] Closed 11/30/2017 11/30/2018 1 1 Encounter Details Date Type Department Care Team Description 11/30/2017 Clinical Communication Department of Urology Nathen Alexander in [place] Rose M.D. [address] [phone] Social History Tobacco Use Types Packs/Day Years [...] Aerobic + Susc, Urine (12/22/2017 1:35 PM DRAFTER ASSISTANT) Patholo gist Method Time Signature Urine Culture No growth 12/23/2017 [facility] after 1 8:14 AM DRAFTER ASSISTANT LABORATORIES - day [facility] . Specimen Anatomical Collection Method Collection Time Receive d Time (Source) Location / / Volume Laterality Urine (Urine, 12/22/2017 1:35 PM 12/23/19 18 2:39 Midstream) DRAFTER ASSISTANT PM DRAFTER ASSISTANT Comment: Specimen Source Site: Urine Claude Santiago M.D. LAB MICROBIOLOGY - GENERAL O RDERABLES Performing Organization Address City/State/ZIP Code Phon e Number [facility] - [address] [place], [place] [address] [facility] documented in this encounter Visit Diagnoses Diagnosis Abnormal Magnetic Resonance Imaging Pros santo - Primary documented in this encounter
--- OUTSIDE RECORDS SUMMARY | 2021-10-17 15:30 | XMS_ITS | Encounter Summary ---
:1950 Author Organization [facility] Address [address] [place] [address] Care Team Providers Name Role Phone Unavailable Primary Care Provider Unavailable Reason for Visit Reason Comments Skin Check Appointment Request (Routine) - Closed Specialty Diagnoses / Procedures Referred By Contact Refer red To Contact Family Medicine Referral ID Status Reason Start Date Expiration Date Visits Requ ested Visits Authorized [id number] Closed 11/08/2019 11/07/2020 1 1 Encounter Details Date Type Department Care Team Description 01/30/2020 Office Visit Department of Dwight Ortega Nevi Multi ple (Primary Dx); Dermatology in [place] Keratosis Seborrheic [place], [place] [address] [phone] Social History Tobacco Use Types Packs/Day Years [...] or relatives? How often do you attend moravian or More than 4 times per year 07/18/2021 orthodox services? Do you belong to any clubs or Yes 07/18/2021 organizations such as moravian groups, unions, fraternal or athletic groups, or [...] accurate and complete. Dwight Ortega M.D. 01/29. OF DESIGN documented in this encounter Plan of Treatment Not on filedocumented as of this encounter Visit Diagnoses Diagnosis Nevi Multiple - Primary Keratosis Seborrheic documented in this encounter
--- OUTSIDE RECORDS SUMMARY | 2021-10-17 15:30 | XMS_ITS | Encounter Summary ---
:1950 Author Organization [facility] Address [address] [place] [address] Care Team Providers Name Role Phone Unavailable Primary Care Provider Unavailable Reason for Visit Auth/Cert Specialty Diagnoses / Procedures Referred By Contact Refer red To Contact Diagnoses Elevated Prostate-Specific Antigen Elevated Prostate-Specific Antigen` Procedures BIOPSY PROSTATE; Transperineal biopsy; targeted based on MRI; proceed as indicated Referral ID Status Reason Start Date Expiration Date Visits Requ ested Visits Authorized [id number] 1 1 Encounter Details Date Type Department Care Team Description 12/28/2017 Anesthesia Event Outpatient Procedure Clay Macedo APRN, VEHICLE DISMANTLER Center in [place], Jaime Marina M.D. [place] [address] [place] [phone] Anesthesia Record Procedure Summary Procedure Name Responsible Anesthesia Start Anesthesia Stop Anesthesiologist Time Time BIOPSY PROSTATE, Clay Macedo APRN, 12/28/17 [phone] Transperineal biopsy, VEHICLE DISMANTLER targeted based on MRI, proceed as indicated. [...] h andoff to the receiving staff during [facility] we 1. Identified the patient 2. [...] Maiers, T homas A, Time: 758 (created CASH PROCESSOR, VEHICLE DISMANTLER CASH PROCESSOR, VEHICLE DISMANTLER via procedure documentation); Mask Ventilation: Easy mask; Removal Date: 12/28/17; Removal Time: 0910 (RETIRED) Incision 12/28/17; 08; 12/28/17 0830 by 11/05/20 141 8 by Perineum; Margo Lezama, [facility] -Background antibiotic, fluffs, R.N. , Scheduling Automated [...] More than 4 times per year 07/18/2021 moravian services? Do you belong to any clubs [...] Procedure Summary Date: 12/28/17 Room / Location: [address] / [facility] in [place], [place] Anesthesia Start: 750 Anesthesia Stop: 914 [...] Post Op nausea/vomiting: none Hydration status: euvolemic IMEN ACCESSIONER Anesthesia Procedure Notes - Andra Burrows APRN, [...] Procedure outcome: successful Airway event: no complications IMEN ACCESSIONER Anesthesia Preprocedure Evaluation - Jaime Marina M.D. [...] patient / legal guardian, or through an security compliance specialist; patient evaluated and approved for anesthesia / sedation. The use of blood products not discussed IMEN ACCESSIONER documented in this encounter Plan of Treatment Not on filedocumented as of this encounter Procedures Procedure Name Priority Date/Time Associated Diagnosis Comme nts LDA ANE Routine 12/28/2017 8:07 AM Results f or this NON-SURGICAL AIRWAY SPECIMEN ACCESSIONER procedur e are in the results section. documented in this encounter Results LDA ANE NON-SURGICAL AIRWAY (12/28/2017 8:07 AM SPECIMEN ACCESSIONER) Narrative Andra Burrows APRN, CRNA - 12/29/19 18 8:07 AM SPECIMEN ACCESSIONER Andra Burrows APRN, CRNA ? 12/28/2017 ??8:08 [...] IVPB 400 mg Given 12/28/2017 8:16 AM SPECIMEN ACCESSIONER 40 0 mg (CIPRO) 400 mg, intravenous, at 200 mL/hr, Administer over 60 Minutes, Once, On Wed12/28/17 at 0715, For 1 dose, Intra-Op, premix bag, Drug Monitoring Program: Pharmacist to adjust medication dosing based on indication and drug clearance factors., Indications: Prophylaxis, surgical ePHEDrine (PF) injection Given 12/28/2017 8:34 AM SPECIMEN ACCESSIONER 5 mg intravenous, As needed, Starting on Wed12/28/17 at 0810, Anesthesia Intra-op Given 12/28/2017 8:22 AM SPECIMEN ACCESSIONER 5 mg Given 12/28/2017 8:10 AM SPECIMEN ACCESSIONER 5 mg fentaNYL injection (SUBLIMAZE) Given 12/28/2017 8:44 AM SPECIMEN ACCESSIONER 50 mcg intravenous, As needed, severe pain or score 7-10 of 10, Starting on Wed12/28/17 at 0757, Anesthesia Intra-op Given 12/28/2017 7:57 AM SPECIMEN ACCESSIONER 50 mcg gentamicin in NaCl 0.9 % (iso-osm) IVPB 120 Given 12/28/2017 8:03 AM SPECIMEN ACCESSIONER 120 mg mg (GARAMYCIN) 120 mg, intravenous, at 200 mL/hr, Administer over 30 Minutes, Once, On Wed12/28/17 at 0715, For 1 dose, Intra-Op, Preoperatively within 1 hour prior to surgical incision premix bag, Drug Monitoring Program: Pharmacist to adjust medication dosing based on indication and drug clearance factors., Indications: Prophylaxis, surgical lactated ringers Rate/Dose Verify 12/28/2017 7:51 AM SPECIMEN ACCESSIONER 20 mL/hr, intravenous, Continuous, Starting on Wed12/28/17 at 0745 New Bag 12/28/2017 7:47 AM SPECIMEN ACCESSIONER 20 mL/hr 20 mL/hr lidocaine (PF) (cardiac) injection Given 12/28/2017 7:57 AM SPECIMEN ACCESSIONER 60 mg intravenous, As needed, Starting on Wed12/28/17 at 0757, Anesthesia Intra-op ondansetron (PF) injection (ZOFRAN) Given 12/28/2017 8:05 AM SPECIMEN ACCESSIONER 4 mg intravenous, As needed, nausea, vomiting, Starting on Wed12/28/17 at 0805, Anesthesia Intra-op propofol 10 mg/mL infusion Rate/Dose 12/28/2017 8:49 75 mcg/kg/min 4 7.2 mL/hr (DIPRIVAN) Change AM SPECIMEN ACCESSIONER Continuous Infusion: Per Instructions PRN, Starting on Wed12/28/17 at 0757, Anesthesia Intra-op Rate/Dose Change 12/28/2017 8:05 AM SPECIMEN ACCESSIONER 100 mcg/kg/min 62.9 mL/hr New Bag 12/28/2017 7:57 AM SPECIMEN ACCESSIONER 125 mcg/kg/min 78.7 mL/hr propofol injection (DIPRIVAN) Given 12/28/2017 7:57 AM SPECIMEN ACCESSIONER 200 mg intravenous, As needed, Starting on Wed12/28/17 at 0757, Anesthesia Intra-op documented in this encounter
== END 2021-10-17 15:22 | disposition home or self-care (01) ==
LOC: MRI 15:22
PROVIDERS: PCP Family Medicine
DX: M54.2 Cervicalgia (principal); M50.223 Other cervical disc displacement at C6-C7 level; M50.21 Other cervical disc displacement, high cervical region
CPT/HCPCS: 72141

== ENCOUNTER 2021-11-16 11:32 | Emergency (ER) | payer MEDICARE, SELFPAY ==
[2021-11-16 11:38] VITALS: BP 133/72; PULSE 85; RESP 16; TEMP 36.4; O2SAT 97; BMI 30.8
--- NOTE | 2021-11-16 11:49 | CRLHL7_ITS ---
For Patients: As a result of the Cures Act, medical imaging exams and procedure reports are released immediately into your electronic medical record. You may view this report before your referring provider. If you have questions, please contact your health care provider. INDICATION: Right calf pain. Comparison : None. Technique: Duplex ultrasound evaluation venous system right lower extremity; color Doppler duplex assessment. Findings: Noncompressible right popliteal vein indicating occlusive thrombosis. Also appreciated is evidence of thrombosis involving the right short saphenous vein which is superficial thrombophlebitis. A 3.1 x 0.9 x 1.5 cm popliteal cyst. An 8.4 x 1.7 x 5.8 cm complex fluid collection medially extending into the calf ; Rule out dissected popliteal cyst. No other abnormalities are identified. Contralateral left common femoral vein is unremarkable. IMPRESSION: 1. DVT right popliteal vein. 2. Superficial thrombophlebitis involving the right short saphenous vein. 3. Popliteal cyst. 4. Complex fluid collection right calf extending from the medial knee; rule out dissecting popliteal cyst. 5. Findings were communicated to Dr. Merline Holman Dictated by Danielle Qureshi MD @ 11/16/2021 2:28:02 PM (Electronically Signed)
--- NOTE | 2021-11-16 11:52 | ED.GENADULT ---
HPI - General Adult General Date Seen: 11/16/21 Chief complaint: Extremity Pain/Injury, Lower Stated complaint: RT leg swelling Time Seen by Provider: 11/16/21 11:48 Source: patient History of Present Illness HPI narrative: Patient is a 71-year-old sent here for evaluation of his right leg. He noted onset of swelling and some discomfort in his calf on Wednesday, 2 days ago. Swelling has worsened since then. No chest pain or shortness of breath. No history DVT or PE. Family history of the same. No recent travel, surgery or other significant events. Generally healthy, does have a history of diabetes. Does not take any anticoagulants aside from baby aspirin. Has not noted any redness, no fevers or other systemic complaints. Related Data Home Medications Medication Instructions Recorded Confirmed finasteride 5 mg tablet 5 mg PO QDAY 08/20/21 11/16/21 multivitamin 1 tab PO QDAY 08/20/21 11/16/21 rizatriptan 10 mg tablet See Rx Instructions PO .COMPLEX 08/20/21 11/16/21 aspirin 81 mg tablet,delayed 81 mg PO QDAY 09/01/21 11/16/21 release naproxen sodium 220 mg tablet 220 mg PO Q8H PRN 09/01/21 11/16/21 omega-3 fatty acids 500 mg capsule 500 mg PO QDAY 09/01/21 11/16/21 fexofenadine 60 mg tablet (Kristen 60 mg PO DAILY 11/16/21 11/16/21 Allergy) Previous Rx's Medication Instructions Recorded metformin 500 mg tablet,extended 2,000 mg PO QDAY #360 tabs 09/01/21 release 24hr potassium citrate 10 mEq (1,080 10 meq PO BID #180 tabs 09/01/21 mg) tablet,extended release ropinirole 0.5 mg tablet 0.5 mg PO .QHS #90 tabs 09/01/21 rosuvastatin 10 mg tablet 10 mg PO QDAY #90 tabs 09/01/21 tamsulosin 0.4 mg capsule 0.4 mg PO QDAY #90 caps 09/01/21 apixaban 5 mg (74 tabs) tablets in See Rx Instructions PO .COMPLEX 11/16/21 a dose pack (Eliquis DVT-PE Treat #74 ea 30D Start) Allergies Allergy/AdvReac Type Severity Reaction Status Date / Time latex Allergy Mild Redness of Verified 11/16/21 11:41 Skin penicillin V Allergy Mild Hives Verified 11/16/21 11:41 Sulfa (Sulfonamide Allergy Unknown Verified 11/16/21 11:41 Antibiotics) Review of Systems Status of ROS: Reports: 10 or more systems reviewed and unremarkable except as noted in History and below [facility] Medical History BPH (benign prostatic hyperplasia) Elevated PSA History of kidney stones Hyperlipidemia Hypertension Restless leg syndrome Type 2 diabetes mellitus Social History Smoking Status: Never smoker Do you use any of these nicotine containing products: None How often do you have a drink containing alcohol: never How often do you have six or more drinks on one occasion: Never AUDIT-C Alcohol total score: 0 Non-prescribed substance use: denies use Little interest or pleasure in doing things: not at all Feeling down, depressed, or hopeless: not at all service: No Exam Narrative: Exam Narrative: Vital signs as noted above. In general, an alert, well-appearing patient. Head: Normocephalic, atraumatic. Eyes: Pupils are equal reactive. Extraocular movements are full. Conjunctivae are normal. ENT: Mucous membranes are moist. Throat is normal. Neck: Supple without lymphadenopathy. Heart: Regular rate and rhythm. No murmur or rub. Lungs: Clear bilaterally. No increased work of breathing, crackles or wheezes. Extremities: Well perfused. On the right there is significant pitting edema, some tenderness of the posterior calf. No erythema or warmth. Pulses intact bilaterally. Neurologic: Patient is alert and oriented to person and place. Speech is fluent. Face is symmetric. Moves all extremities equally. Affect: Normal. Skin: Warm and dry. Well perfused. Const: Vital Signs, click to edit/add: Vital Signs - 24 hr 11/16/21 11:38 Temperature 97.5 F L Pulse Rate [Pulse Oximeter] 85 Respiratory Rate 16 Blood Pressure [Ri ght Upper Arm] 133/72 Pulse Oximetry 97 Oxygen Delivery Me thod Room Air Documenting provider has reviewed patient's vital signs: yes Course Course Hospital Course: Patient did have right lower extremity ultrasound. I have reviewed these images, there does appear to be clot in the popliteal vein there is also a fluid collection in the calf. I talked with the radiologist and he does feel that the popliteal vein represents DVT. The fluid collection he thinks is probably coming from the Clemente's cyst. There is also superficial clot in the saphenous vein. I have reviewed all this with the patient. I have recommended [facility], primary care follow-up in the next 1-2 weeks to recheck. I have asked him to hold his baby aspirin. He takes naproxen twice a day right now for his neck pain. He has been taking that for the past couple of weeks along with PT. He says he has never had any stomach problems. I can tell he is a little hesitant to discontinue that. We have reviewed that ideally we do not use nonsteroidals when people are on anticoagulation. I have asked him to try Tylenol and see if he can get away with that. If he is going to take the naproxen, I have asked him to take a medication like Prilosec to protect his stomach, and to discontinue the naproxen right away if he has any discomfort. Return at any time to the emergency department for chest pain, shortness of breath, lightheadedness or fainting or other significant changes. Vital Signs Vital signs: Initial Vital Signs Temperature 97.5 F L 11/16/21 11:38 Temperature Source Temporal Artery Scan 11/16/21 11:38 Pulse Rate 85 11/16/21 11:38 Respiratory Rate 16 11/16/21 11:38 Blood Pressure 133/72 11/16/21 11:38 Blood Pressure Mean 92 11/16/21 11:38 Blood Pressure Position Sitting 11/16/21 11:38 Pulse Oximetry 97 11/16/21 11:38 Oxygen Delivery Method 11/16/21 11:38 Vital Signs Temperature 97.5 F L 11/16/21 11:38 Pulse Rate 85 11/16/21 11:38 Respiratory Rate 16 11/16/21 11:38 Blood Pressure 133/72 11/16/21 11:38 Pulse Oximetry 97 11/16/21 11:38 Oxygen Delivery Method 11/16/21 11:38 Temperature 97.5 F L 11/16/21 11:38 Pulse Rate 85 11/16/21 11:38 Respiratory Rate 16 11/16/21 11:38 Blood Pressure 133/72 11/16/21 11:38 Pulse Oximetry 97 11/16/21 11:38 Oxygen Delivery Method 11/16/21 11:38 Discharge Plan Discharge Clinical Impression: Synovial cyst of popliteal space [Clemente], right knee, Acute deep vein thrombosis of right popliteal vein Patient Disposition: Home, Self-Care Condition: Stable Instructions: Deep Vein Thrombosis (ED) Additional Instructions: Anticoagulation as prescribed. If you have significant shortness of breath, chest pain, lightheadedness or fainting, or other acute worsening, return for re-evaluation. Otherwise, recheck with primary care in 1-2 weeks. For now, discontinue baby aspirin. This medication also should not be combined with nonsteroidal anti-inflammatories like naproxen. Prescriptions: New JimboLover.ly DVT-PE Treat 30D Start 5 mg (74 tabs) tablets,dose pack See Rx Instructions .ROUTE .COMPLEX Qty: 74 0RF Rx Instructions: orally per package directions No Action naproxen sodium 220 mg tablet 220 mg PO Q8H PRN aspirin 81 mg tablet,delayed release (DR/EC) 81 mg PO QDAY omega-3 fatty acids 500 mg capsule 500 mg PO QDAY metformin 500 mg tablet extended release 24hr 2,000 mg PO QDAY Qty: 360 3RF potassium citrate 10 mEq (1,080 mg) tablet extended release 10 meq PO BID Qty: 180 3RF ropinirole 0.5 mg tablet 0.5 mg PO .QHS Qty: 90 3RF rosuvastatin 10 mg tablet 10 mg PO QDAY Qty: 90 3RF tamsulosin 0.4 mg capsule 0.4 mg PO QDAY Qty: 90 3RF fexofenadine [Kristen Allergy] 60 mg tablet 60 mg PO DAILY rizatriptan 10 mg tablet See Rx Instructions PO .COMPLEX Rx Instructions: take 1 tab at onset of headache; if no relief may repeat 1 tab after at least 2 hrs; max = 3 tabs/24 hr PO finasteride 5 mg tablet 5 mg PO QDAY multivitamin Tablet 1 tab PO QDAY Follow Up/Referrals: Jaime Allan MD [Primary Care Provider] - Stand Alone Forms: Pocketbook Info Instructions
--- OUTSIDE RECORDS SUMMARY | 2021-11-16 11:59 | XMS_ITS ---
:1950 Author Care Team Providers Name Role Phone HEIDI DOHERTY MD Primary Care Provider [phone] [facility] Referring Provider [phone] Allergies Code Code System Name Reaction Severity Status Onset [id number] RxNorm Latex ? ? Active ? Penicillins [...] lable 10/08/2021 MRI, Cervical Spine, W/o Contrast [facility] Radiology Department [address] [place] [address] (Work Place) Results Lab Results None recorded. Past Encounters 10/08/2021 Spinal Stenosis in Cervical Region; Cerv ical Spondylosis Nathen Crespo MD: [id number] [facility], [place] [address], Ph. Social History None recorded. Vaccine List None recorded. Plan of Care Reminders Provider Appointments None recorded. ? ? Lab None recorded. ? ? Referral None recorded. ? ? Procedures None recorded. ? ? Surgeries None recorded. ? ? Imaging None recorded. ? ? Vitals Blood Pressure 137/62 mm[Hg]
--- OUTSIDE RECORDS SUMMARY | 2021-11-16 11:59 | XMS_ITS | Clinical Summary ---
:1950 Author Organization [facility] Address [address] [place] [address] Care Team Providers Name Role Phone Elsewhere, Pcp Primary Care Provider Unavailable Source Comments Patient records contain information from all sites at [facility]. For routine questions regarding patient records, call [phone] during business hours, M-F 8:00 AM - 5:00 PM Central Time. Record requests for emergency care only can be directed to [phone] at any time.[facility] Allergies Active Allergy Reactions Severity Noted Date [...] as 0 Active mg tablet needed. rizatriptan GOSPEL SINGER Take 10 mg by 0 Active (MAXALT-GOSPEL SINGER) 10 mg mouth as needed. disintegrating tablet OMEGA-3 FATTY Take by mouth. 0 A ctive [id number] ORAL naratriptan (AMERGE) 1 Take 5 mg [...] Added automatically from request for zhane tripletty [id number] Immunizations Name Administration Dates Next Due Influenza, [...] or relatives? How often do you attend adventist or More than 4 times per year 07/18/2021 jainism services? Do you belong to any clubs or Yes 07/18/2021 organizations such as adventist groups, unions, fraternal or athletic groups, or [...] slept in a skilled nursing (including now)? Education Answer Date Recorded What is the highest level of school Master's degree (e.g., M A, MS, 07/17/2021 you have completed or the highest Anisa, MEd, MATERIAL REQUIREMENTS PLANNING MANAGER, PAULA) degree you have received? Sex Assigned at Date Recorded Male 07/17/2021 8:23 PM CDT Last Filed Vital Signs Vital Sign Reading Time Taken Comments Blood Pressure 128/75 07/02/2021 8:04 AM CDT Pulse 75 07/02/2021 8:04 AM CDT Temperature 36.2 ??C (97.2 ??F) 05/24/2020 11:26 AM CDT Respiratory Rate 11 12/28/2017 10:30 AM EDUCATION PROGRAM MANAGER Oxygen Saturation 99% 05/24/2020 11:26 AM CDT Inhaled Oxygen Concentration - - Weight 114 kg (250 lb 10.6 oz) 05/24/2020 11:26 AM CDT Height 188.8 cm (6' 2.33) 12/28/2017 7:05 AM EDUCATION PROGRAM MANAGER Body Mass Index 31.9 12/28/2017 7:05 AM EDUCATION PROGRAM MANAGER Plan of Treatment Upcoming Encounters Date Type Specialty Care Team Description 02/02/2022 Office Visit Dermatology Dwight Ortega M.D. [address] [place], [place] [phone] (Wo rk) Health Maintenance Due Date Last Done Comments CT Colonography 1950 Cologuard 1950 Colonoscopy 1950 Colorectal Cancer Screening 1950 FIT 1950 Hepatitis C Screening 1950 Fasting Glucose for Diabetes 12/22/2020 12/22/2017 Screening Depression Screening (Annual 02/15/2021 PHQ-2) COVID-19 Vaccine (5 - Booster for 07/17/2021 05/22/2021, , Pfizer series) 04/06/2020, Additional history exists Influenza Vaccine (#1) 2021 12/12/2020, 11/23/2019, 11/24/2018, Additional history exists DTaP,Tdap,and Td Vaccines (3 - Td 01/15/2026 01/16/2016, , or Tdap) 02/21/2015 Pneumococcal vaccine (65+ years) Completed 03/25/2017, Zoster Vaccines Completed 04/18/2019, 12/19/2018 Fall Risk Screen (Annual) Completed 04/21/2021 Medical Devices Implanted Type Area Certifed Refrigeration Operator Device Shelf Model / Identifier Expiration Date Ser ial / Lot Mesh Or Patch Mesh or Groin Patch Insurance Payer Benefit Plan / Subscriber ID Effective Dates Phone Addre ss Type Group MEDICARE MEDICARE A AND [id number] 2016-Presen [address] [place] [address] [facility] [id number] 2018-Presen [phone] [id number] [place] [address] Care Teams Pressure Control Supervisor Relationship Specialty Start Date End Date Elsewhere, Pcp PCP - General Family Medicine 05/24/20
--- OUTSIDE RECORDS SUMMARY | 2021-11-16 11:59 | XMS_ITS | Clinical Summary ---
:1950 Author Organization [facility] [place] [address] Care Team Providers Name Role Phone Iam [...] on filefrom Last 3 Months Care Teams Battery Tester Relationship Specialty Start Date End Date Iam Romero MD PCP - General 05/01/04 [address] [place] [address]
--- OUTSIDE RECORDS SUMMARY | 2021-11-16 11:59 | XMS_ITS | Encounter Summary ---
:1950 Author Organization [facility] Address [address] [place] [address] Care Team Providers Name Role Phone Elsewhere, Pcp Primary Care Provider Unavailable Reason for Visit Reason Comments Follow-up Outpatient (Routine) - Closed Specialty Diagnoses / Procedures Referred By Contact Refer red To Contact Dermatology Dwight Ortega M.D . [facility] Region [address] [place] [address] Referral ID Status Reason Start Date Expiration Date Visits Requ ested Visits Authorized [id number] Closed 04/21/2021 04/21/2022 1 1 Encounter Details Date Type Department Care Team Description 07/22/2021 Office Visit Department of Dwight Ortega Cyst Epide rmal Dermatology in [place] (Primary Dx) [place], [place] [address] [phone] Social History Tobacco Use Types Packs/Day Years [...] or relatives? How often do you attend judaism or More than 4 times per year 07/18/2021 buddhism services? Do you belong to any clubs or Yes 07/18/2021 organizations such as judaism groups, unions, fraternal or athletic groups, or [...] or slept in a long-term (including now)? Education Answer Date Recorded What is the highest level of school Master's degree (e.g., M A, MS, 07/17/2021 you have completed or the highest Anisa, MEd, BAT CARRIER, PAULA) degree you have received? Sex Assigned at Date Recorded Male 07/17/2021 8:23 PM CDT documented as of this encounter Progress Notes Dwight rOtega M.D. - 07/22/2021 1:30 PM CDT SUBJECTIVE [...] cryotherapy on 07/02/[address] Mcmillan at [facility]. He denies a personal history for melanoma. His father had melanoma. He uses sunscreen. He denies any new or changing lesions today. MEDICAL HISTORY 1. Right upper central forehead: History of squamous cell carcinoma in situ, status post curettage and cryotherapy on 07/02/[address] Mcmillan at [facility] 2. Negative for melanoma ?? [...] documented in this encounter Plan of Treatment Upcoming Encounters Date Type Specialty Care Team Description 02/02/2022 Office Visit Dermatology Dwight Ortega M.D. [address] [place], [place] [phone] (Wo rk) documented as of this encounter Visit Diagnoses Diagnosis Cyst Epidermal - Primary documented in this encounter Care Teams Cycle Touring Guide Relationship Specialty Start Date End Date Elsewhere, Pcp PCP - General Family Medicine 05/24/20 documented as of this encounter
--- OUTSIDE RECORDS SUMMARY | 2021-11-16 11:59 | XMS_ITS | Encounter Summary ---
:1950 Author Care Team Providers Name Role Phone aJime Allan MD Primary Care Provider [phone] [facility] Referring Provider [phone] Reason for Visit New Patient Assessment and [...] available. Plan of Care Reminders Provider Appointments None recorded. ? ? Lab None recorded. ? ? Referral Physical Therapist 10/08/2021 [facility] Referral Procedures None recorded. ? ? Surgeries None recorded. ? ? Imaging MRI, Cervical Spine, W/o 10/08/2021 [facility] Contrast Radiology Depart ment Medications Name Start [...] Code Code System Name Reaction Severity Onset 8450330 RxNorm Latex ? ? ? Penicillins ? [...] lable 10/08/2021 MRI, Cervical Spine, W/o Contrast [facility] Radiology Department [address] [place] [address] (Work Place) Vaccine List None [...] Spondylosis Nathen Crespo MD: [address] [facility], [place] [address], Ph. History of Present Illness Note: <div>The [...] and thumb </div><div>
</div><div>
Pain scoretoday: {{02/24* 03/27 04/24 05/25 06/24 07/25 08/24 09/24 10/25 11/24}}.
Imaging findings:</div><div>Cervical CT scan 09/26/21 </div><div>Impression: </div><div>1. atC2-3 moderately severe right and [...] Past smoker}}
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

</div><div>
</di v><p><strong>Pain</strong></p><div>
</div><p>&a mp;nbsp; Chief [...] Other</p><p> & nbsp; Physical Therapy</p><div>
</div><p>Imported from [facility] on 10/08/2021</p><div>
</div><div>
</div> Review of Systems [...] 3, normal gait, normal station. Cranial Nerves: Electronic Warfare Linguist nial nerves 2-12 are intact. Coordination and Cerebellum: [id number]-[id number] intact, no tremor. MARY Reflexes: Left Biceps [...]
--- OUTSIDE RECORDS SUMMARY | 2021-11-16 12:00 | XMS_ITS | Encounter Summary ---
:1950 Author Organization [facility] Address [address] [place] [address] Care Team Providers Name Role Phone Elsewhere, [...] More than 4 times per year 07/18/2021 latter day services? Do you belong to any clubs [...] as of this encounter Plan of Treatment Upcoming Encounters Date Type Specialty Care Team Description 02/02/2022 Office Visit Dermatology Dwight Ortega M.D. [address] [place] [phone] (Wo rk) documented as of this encounter Procedures Procedure Name Priority Date/Time Associated Comments Diagnosis DERMATOLOGY IMAGE Routine 04/21/2021 9:00 AM Resu lts for this EXAM PROGRAM SERVICES PLANNER procedure are i n the results section. documented in this encounter Results forehead, right 8-Dermatology Image Exam (04/21/2021 9:00 AM PROGRAM SERVICES PLANNER) Specimen (Source) Anatomical Collection Method Collection Time Re ceived Time Location / / Volume Laterality 04/21/2021 8:58 AM PROGRAM SERVICES PLANNER Narrative [facility] - 04/21/2021 9:01 AM PROGRAM SERVICES PLANNER This order has been created and auto-finalized [...] on filedocumented in this encounter Care Teams Classroom Technology Coach Relationship Specialty Start Date End Date Elsewhere, Pcp PCP - General Family Medicine 05/24/20 documented as of this encounter
--- OUTSIDE RECORDS SUMMARY | 2021-11-16 12:00 | XMS_ITS | Encounter Summary ---
:1950 Author Organization [facility] Address [address] [place] [address] Care Team Providers Name Role Phone Unavailable [...] More than 4 times per year 07/18/2021 jew services? Do you belong to any clubs [...] Visit Dermatology Dwight Ortega M.D. [address] [place] [phone] (Wo rk) documented as of this encounter Procedures Procedure Name Priority Date/Time Associated Diagnosis Comme nts UROLOGY IMAGE EXAM Routine 12/28/2017 8:05 AM Res ults for this CMV DRIVER procedure are i n the results section. documented in this encounter Results UROLOGY IMAGE EXAM (12/28/2017 8:05 AM CMV DRIVER) Specimen (Source) Anatomical Collection Method Collection Time Re ceived Time Location / / Volume Laterality 12/28/2017 8:04 AM CMV DRIVER Narrative [facility] - 12/28/2017 9:02 AM CMV DRIVER This order has been created and auto-finalized [...]
--- OUTSIDE RECORDS SUMMARY | 2021-11-16 12:00 | XMS_ITS | Encounter Summary ---
:1950 Author Organization [facility] Address [address] [place] [address] Care Team Providers Name Role Phone Elsewhere, Pcp Primary Care Provider Unavailable Reason for Visit Outpatient (Routine) - Closed Specialty Diagnoses / Procedures Referred By Contact Refer red To Contact Dermatology Diagnoses Squamous Cell Carcinoma In Situ Dwight Ortega M.D. [facility] Procedures ELISABETH MOHS 1-[address] [place] [phone] Referral ID Status Reason Start Date Expiration Date Visits Requ ested Visits Authorized [id number] Closed 04/28/2021 04/28/2022 1 1 Encounter Details Date Type Department Care Team Description 07/02/2021 Procedure visit Department of Mitesh Mcmillan, Squamous Cell Carcinoma In Situ (Primary Dx); Dermatology in [place] [facility]atosis [facility] [place], [place] [address] [facility] [address] [place] [phone] Social History Tobacco Use Types Packs/Day Years [...] More than 4 times per year 07/18/2021 episcopal services? Do you belong to any clubs or Yes 07/18/2021 organizations such as religion groups, unions, fraCobase or athletic groups, or school groups? How [...] Visit Dermatology Dwight Ortega M.D. [address] [place], [place] [phone] (Wo rk) documented as of this encounter Visit Diagnoses Diagnosis Squamous Cell Carcinoma In Situ - Primar y Keratosis [facility]inic documented in this encounter Care Teams Bicycle Service Technician Relationship Specialty Start Date End Date Elsewhere, Pcp PCP - General Family Medicine 05/24/20 documented as of this encounter
--- OUTSIDE RECORDS SUMMARY | 2021-11-16 12:00 | XMS_ITS | Encounter Summary ---
:[address] [facility] Address [address] [place] [address] Care Team Providers Name Role Phone Unavailable Primary Care Provider Unavailable Reason for Visit Appointment Request (Routine) - Closed Specialty Diagnoses / Procedures Referred By Contact Refer red To Contact Urology Referral ID Status Reason Start Date Expiration Date Visits Requ ested Visits Authorized [id number] Closed 12/02/2017 12/02/2018 1 1 Encounter Details Date Type Department Care Team Description 12/22/2017 Office Visit Department of Urology Nathen Alexander in [place] M.D. Prostate-Specific [place] [address] [facility] Antigen (Primary Dx) [address] [place] [phone] Social History Tobacco Use Types Packs/Day Years [...] migraines when he is unable to eat. UCER Nathen Alexander M.D. - 12/22/2017 2:45 PM CST I have met the patient and discussed the issues at hand. I agree with the documentation provided by my colleague on the team. I have discussed the recommendations with the patient and answered all of the patient???s questions. Full documentation will be provided by my colleague on the team. UCER documented in this encounter Plan of Treatment Upcoming Encounters Date Type Specialty Care Team Description 02/02/2022 Office Visit Dermatology Dwight Ortega M.D. [address] [place], [place] [phone] (Wo rk) documented as of this encounter Visit Diagnoses Diagnosis Elevated Prostate-Specific Antigen - [facility] documented in this encounter
--- OUTSIDE RECORDS SUMMARY | 2021-11-16 12:00 | XMS_ITS | Encounter Summary ---
:1950 Author Organization [facility] Address [address] [place] [address] Care Team Providers Name Role Phone Unavailable [...] Visit Dermatology Dwight Ortega M.D. [address] [place] [phone] (Wo rk) documented as of this encounter Procedures Procedure Name Priority Date/Time Associated Comments Diagnosis DERMATOLOGY IMAGE Routine 01/30/2020 4:10 PM Resu lts for this EXAM JOB MOLDER procedure are i n the results section. documented in this encounter Results cheek, left jawline 37-Dermatology Image Exam (01/30/2020 4:10 PM JOB MOLDER) Specimen (Source) Anatomical Collection Method Collection Time Re ceived Time Location / / Volume Laterality 01/30/2020 4:08 PM JOB MOLDER Narrative [facility] - 01/30/2020 4:10 PM JOB MOLDER This order has been created and auto-finalized [...]
--- OUTSIDE RECORDS SUMMARY | 2021-11-16 12:00 | XMS_ITS | Encounter Summary ---
:1950 Author Organization [facility] Address [address] [place] [address] Care Team Providers Name Role Phone Unavailable Primary Care Provider Unavailable Encounter Details Date Type Department Care Team Description 04/17/2020 Orders Only [facility] Sa kiera Cobos M.D. [address] [place], [place] [phone] (Wo rk) Social History [...] Visit Dermatology Dwight Ortega M.D. [address] [place], [place] [phone] (Wo rk) documented as of this encounter Visit Diagnoses Not on filedocumented in this encounter
--- OUTSIDE RECORDS SUMMARY | 2021-11-16 12:00 | XMS_ITS | Encounter Summary ---
:1950 Author Organization [facility] Address [address] [place] [address] Care Team Providers Name Role Phone Unavailable Primary Care Provider Unavailable Reason for Referral Outpatient (Routine) - Closed Specialty Diagnoses / Procedures Referred By Contact Refer red To Contact Dermatology Dwight Ortega M.D . [facility] Region [address] [place] [phone] Referral ID Status Reason Start Date Expiration Date Visits Requ ested Visits Authorized [id number] Closed 07/04/2019 07/03/2020 1 1 Scheduling Instructions Recheck skin lesion involving left lower cheek in 3-4 months. Reason for Visit Reason Comments Follow-up Outpatient (Routine) - Closed Specialty Diagnoses / Procedures Referred By Contact Refer red To Contact Dermatology Dwight Ortega M.D . [facility] Region [address] [place] [phone] Referral ID Status Reason Start Date Expiration Date Visits Requ ested Visits Authorized [id number] Closed 01/03/2019 01/03/2020 1 1 Encounter Details Date Type Department Care Team Description 07/04/2019 Office Visit Department of Dwight Ortega, Keratosis Seborrheic Dermatology in [place] (Primary Dx) [place], [place] [address] [place] [phone] Social History Tobacco Use Types Packs/Day Years [...] or relatives? How often do you attend protestant or More than 4 times per year 07/18/2021 quaker services? Do you belong to any clubs or Yes 07/18/2021 organizations such as protestant groups, unions, fraternal or athletic groups, or [...] place to sleep or slept in a assisted (including now)? Sex Assigned at Date Recorded [...] Visit Dermatology Dwight Ortega M.D. [address] [place], [place] [phone] (Wo rk) Scheduled Referrals Name Type Priority Associated Order Schedule Diagnoses Dermatology office Outpatient Referral Routine Ex pected: visit (clinic) 10/04/2019 (Approximate), Expires: 07/03/2022 documented as of this encounter Visit Diagnoses Diagnosis Keratosis Seborrheic - Primary documented in this encounter
--- OUTSIDE RECORDS SUMMARY | 2021-11-16 12:00 | XMS_ITS | Encounter Summary ---
:1950 Author Organization [facility] Address [address] [place] [address] Care Team Providers Name Role Phone Elsewhere, Pcp Primary Care Provider Unavailable Reason for Referral Outpatient (Routine) - Closed Specialty Diagnoses / Procedures Referred By Contact Refer red To Contact Dermatology Diagnoses Squamous Cell Carcinoma In Situ Dwight Ortega M.D. [facility] Procedures [facility] 1-[address] [place] [phone] Referral ID Status Reason Start Date Expiration Date Visits Requ ested Visits Authorized [id number] Closed 04/28/2021 04/28/2022 1 1 Encounter Details Date Type Department Care Team Description 04/28/2021 Orders Only Department of Dwight Ortega Encounter For Preprocedural Laboratory Examination (COVID-19) (Primary Dx); Dermatology in [place] Squamous Cell Carcinoma In Situ; [place], [place] [address] [facility] Contact With And (Suspected) Exposure To COVID-19 [address] [place] [phone] Social History Tobacco Use Types Packs/Day Years [...] or relatives? How often do you attend lutheran or More than 4 times per year 07/18/2021 religion services? Do you belong to any clubs or Yes 07/18/2021 organizations such as lutheran groups, unions, fraternal or athletic groups, or [...] Visit Dermatology Dwight Ortega M.D. [address] [place], [place] [phone] (Wo rk) Scheduled Orders Name Type Priority Associated Diagnoses Order S chedule ELISABETH MOHS 1-4 sites Dermatology Routine Squamous Cell Carcinom a Expected: 05/12/2021, In Situ Expires: 2022 documented as of this encounter Visit Diagnoses Diagnosis Encounter For Preprocedural Laboratory E xamination (COVID-19) - Primary Squamous Cell Carcinoma In Situ Contact With And (Suspected) Exposure To COVID-19 documented in this encounter Care Teams Stock Control Supervisor Relationship Specialty Start Date End Date Elsewhere, Pcp PCP - General Family Medicine 05/24/20 documented as of this encounter
--- OUTSIDE RECORDS SUMMARY | 2021-11-16 12:00 | XMS_ITS | Encounter Summary ---
:1950 Author Organization [facility] Address [address] [place] [address] Care Team Providers Name Role Phone Elsewhere, Pcp Primary Care Provider Unavailable Reason for Visit Reason Comments COVID Nurse Line Puncture Wound Encounter Details Date Type Department Care Team Description 05/24/2020 Nurse Triage Department of [facility] Jenny Bolton COV ID Nurse Line; [facility], [facility] P[facility] W[facility], in [place], [facility] [address] [place], [place] [address] [place] [phone] [place] [address] Social History Tobacco Use Types Packs/Day Years [...] Screening ASSESSMENT Region Select appropriate region: : [place] Age Pathway Select approprite pathway: : Adult [...] water are not available, use a hand corner cutter -Avoid touching your eyes, nose and mouth. [...] The following references were used: [facility] novel coronavirus (COVID- 19) resources Telephone Encounter [...] provider within 24 hours. Warm transfer to Records Management Director for [place]. COVID screening is negative. Reason for Disposition ??? [1] Looks infected (spreading redness, pus) AND [2] no fever Protocols used: CUTS AND [id number] Care Advice Patient/Caregiver understands and will follow care advice?: Yes, able to teach back SEE PCP WITHIN 24 HOURS: * IF OFFICE WILL BE OPEN: You need to be seen within the next 24 hours. Call your doctor (or GAS FURNACE INSTALLER/PA) when the office opens and make an [...] Visit Dermatology Dwight Ortega M.D. [address] [place] [phone] (Wo rk) documented as of this encounter Visit Diagnoses Not on filedocumented in this encounter Care Teams Mix Crusher Operator Relationship Specialty Start Date End Date Elsewhere, Pcp PCP - General Family Medicine 05/24/20 documented as of this encounter
--- OUTSIDE RECORDS SUMMARY | 2021-11-16 12:00 | XMS_ITS | Encounter Summary ---
:1950 Author Organization [facility] Address [address] [place] [address] Care Team Providers Name Role Phone Unavailable Primary Care Provider Unavailable Encounter Details Date Type Department Care Team Description 12/22/2017 Hospital Encounter Department of Claude Santiago Magnetic Laboratory Medicine Sonja Hua Resonanc e Imaging and Pathology, [facility] in [place], [place] [address] [place] [address] Social History Tobacco Use Types Packs/Day Years [...] needed. OMEGA-3 FATTY Take by mouth. 0 IVMRP-ZFW-PEV ORAL potassium citrate 10 mEq 2 (two) times 9 10/05/19 18 (UROCIT-K) 10 mEq (1,080 a day. mg) ER tablet rizatriptan PIT HOIST OPERATOR Take 10 mg by mouth 0 (MAXALT-PIT HOIST OPERATOR) 10 mg as needed. disintegrating tablet rOPINIRole [...] 0 07/04/2019 itrate mouth 2 (two) times ([id number]-[id number]-[id number]-CIT a day. RATE ORAL) documented as of this encounter Plan of Treatment Upcoming Encounters Date Type Specialty Care Team Description 02/02/2022 Office Visit Dermatology Dwight Ortega M.D. [address] [place], [place] [phone] (Wo rk) documented as of this encounter Procedures Procedure Name Priority Date/Time Associated Diagnosis Comme nts BACTERIAL CULTURE, Routine 12/22/2017 1:35 PM Abnormal Magneti c Results for this AEROBIC + SUSC, PROGRAM REP Resonance Imaging procedu re are in URINE Prostate the results section. documented in this encounter Results Bacterial Culture, Aerobic + Susc, Urine (12/22/2017 1:35 PM PROGRAM REP) [facility] gist Method Time Signature Urine Culture No growth 12/23/2017 [facility] after 1 8:14 AM PROGRAM REP LABORATORIES - [facility] . Specimen Anatomical Collection Method Collection Time Receive d Time (Source) Location / / Volume Laterality Urine (Urine, 12/22/2017 1:35 PM 12/23/19 18 2:39 Midstream) PROGRAM REP PM PROGRAM REP Comment: Specimen Source Site: Urine Claude Santiago M.D. LAB MICROBIOLOGY - GENERAL O RDERABLES Performing Organization Address City/State/ZIP Code Phon e Number [facility] - [address] [place], [place] [address] [facility] documented in this encounter Visit Diagnoses Diagnosis Abnormal Magnetic Resonance Imaging [place] documented in this encounter
--- OUTSIDE RECORDS SUMMARY | 2021-11-16 12:00 | XMS_ITS | Encounter Summary ---
:[address] [facility] Address [address] [place] [address] Care Team Providers Name Role Phone Unavailable Primary Care Provider Unavailable Reason for Visit Outpatient (Routine) - Closed Specialty Diagnoses / Procedures Referred By Contact Refer red To Contact General Surgery Diagnoses Abnormal Magnetic Resonance Imaging Prostate Claude Santiago M.D. [place] [address] [place] [address] Referral ID Status Reason Start Date Expiration Date Visits Requ ested Visits Authorized [id number] Closed 11/30/2017 11/30/2018 1 1 Encounter Details Date Type Department Care Team Description 12/22/2017 Comprehensive Visit Preoperative Claude Santiago M. D. Preoperative Exam (Primary Dx); Evaluation Center in Tamara Llamas M.S.N., R.N. [address] [place] [phone] Abnormal Magnetic Resonance Imaging Pros s[place]; [place], [place] Cardiac Vascular Disease Scr eening; [address] [place] [address] [place] [address] Social History Tobacco Use Types Packs/Day Years [...] More than 4 times per year 07/18/2021 scientology services? Do you belong to any clubs [...] Comments Blood Pressure 124/68 12/22/2017 1:01 PM [place] Pulse 71 12/22/2017 1:01 PM [place] Temperature 36.4 ??C (97.5 ??F) 12/22/2017 1:01 PM [place] Respiratory Rate - - Oxygen Saturation 98% 12/22/2017 1:01 PM [place] Inhaled Oxygen Concentration - - Weight 107 kg (236 lb 1.8 oz) 12/22/2017 1:01 PM [place] Height 187.9 cm (6' 1.98) 12/22/2017 1:01 PM [place] Body Mass Index 30.33 12/22/2017 1:01 PM [place] documented in this encounter H&P Notes Tamara Llamas APRN, C.N.P. - 12/22/2017 1:00 PM CST Preoperative Medical Evaluation Patient Name: Darwin Woo Age: 67 y.o. Date of : 1950 Patient [address]: [address] [place] [phone] Primary Care Provider: No primary care provider [...] y.o. male, retired from his work called [place], [place], meeting 4 METS here for preanesthetic [...] day of the procedure. #5 Migraine headaches [place] documented in this encounter Plan of Treatment Upcoming Encounters Date Type Specialty Care Team Description 02/02/2022 Office Visit Dermatology Dwight Ortega M.D. [address] [place], [place] [phone] (Wo rk) documented as of this encounter Procedures Procedure Name Priority Date/Time Associated Diagnosis Comme nts CBC WITH Routine 12/22/2017 2:00 PM Preoperative Exam Results for this DIFFERENTIAL, B [place] Abnormal Magnetic procedu re are in Resonance Imaging the result s Prostate section. HEMOGLOBIN A1C, B Routine 12/22/2017 2:00 PM Preoperativ e Exam Results for this [place] Abnormal Magnetic procedure are in Resonance Imaging the result s Prostate section. PreDiabetes CREATININE WITH Routine 12/22/2017 2:00 PM Preoperative Exam Results for this EGFR, S/P [place] Abnormal Magnetic procedure are in Resonance Imaging the result s Prostate section. ECG Routine 12/22/2017 1:32 PM Abnormal Magnetic Resu lts for this [place] Resonance Imaging procedure are in Prostate the results Cardiac Vascular section. Disease Screenin g Preoperative Exam documented in this encounter Results Hemoglobin A1c (12/22/2017 2:00 PM [place]) Analysis Performed At [facility] Signature Hemoglobin A1c, 5.6 4.0 - 5.6 12/22/2017 [facility] B % 2:42 PM [place] LABORATORIES [facility] Specimen Anatomical Collection Method Collection Time Receive d Time (Source) Location / / Volume Laterality Blood (Blood, 12/22/2017 2:00 PM 12/23/19 18 2:06 Venous) [place] PM [place] Tamara Chincihlla, R.N. LAB BLOOD ADD-ON Performing Organization Address City/State/ZIP Code Phon e Number [facility] - [address] [place] [phone] [facility] Creatinine with Estimated GFR (12/22/2017 2:00 PM [place]) Analysis Performed At [facility] Signature Creatinine 0.98 0.74 - 12/22/2017 [facility] 1.35 mg/dL 2:49 PM [place] [place] [facility] eGFR-Non 80 >=60 12/22/2017 [facility] Black/ mL/min/BSA 2:49 PM [place] [facility] Comment: ----ADDITIONAL INFORMATION---- Estimated GFR calculated using the 2009 CKD_EPI creatinine equation. eGFR-Black/ >90 >=60 mL/min/BSA 12/22/2017 2:49 [facility] Colombian PM [facility] [place] [facility] Comment: ----ADDITIONAL INFORMATION---- Estimated GFR calculated using the 2009 CKD_EPI creatinine equation. Specimen Anatomical Collection Method Collection Time Receive d Time (Source) Location / / Volume Laterality Blood (Blood, 12/22/2017 2:00 PM 12/23/19 18 2:06 Venous) [place] PM [place] Tamara Chinchilla, RJasonN. LAB BLOOD ADD-ON Performing Organization Address City/State/ZIP Code Phon e Number [facility] - [address] [place], [place] [address] [facility] CBC with Differential, Blood (12/22/2017 2:00 PM [place]) [facility] Method Time Signature Hemoglobin 15.4 13.2 - 12/22/2017 [facility] 16.6 g/dL 2:22 PM [place] LABORATORIES - [facility] Hematocrit 45.5 38.3 - 12/22/2017 [facility] 48.6 % 2:22 PM [facility] [place] [facility]ATORIES - [facility] Erythrocytes 4.95 4.35 - 12/22/2017 [facility] 5.65 2:22 PM [facility] [place] LABORATORIES - x10(12)/L [facility] MCV 91.9 78.2 - 12/22/2017 [facility] 97.9 fL 2:22 PM [facility] [place] [facility] - [facility] RBC Distrib Width 12.8 11.8 - 12/22/2017 [facility] 14.5 % 2:22 PM [facility] [place] [facility] - [facility] Platelet Count 186 135 - 317 12/22/2017 [facility] x10(9)/L 2:22 PM [facility] [place] [facility] - [facility] Leukocytes 8.8 3.4 - 9.6 12/22/2017 [facility] x10(9)/L 2:22 PM [facility] [place] [facility] - [facility] Neutrophils 5.68 1.56 - 12/22/2017 [facility] 6.45 2:22 PM [facility] [place] [facility]IES - x10(9)/L [facility] Lymphocytes 2.25 0.95 - 12/22/2017 [facility] 3.07 2:22 PM [facility] [place] [facility]ATORIES - x10(9)/L [facility] Monocytes 0.68 0.26 - 12/22/2017 [facility] 0.81 2:22 PM [facility] [place] LABORATORIES - x10(9)/L [facility] Eosinophils 0.10 0.03 - 12/22/2017 [facility] 0.48 2:22 PM [facility] [place] LAB[facility]ATORIES - x10(9)/L [facility] Basophils 0.04 0.01 - 12/22/2017 [facility] 0.08 2:22 PM [facility] [place] [facility]ATORIES - x10(9)/L [facility] Specimen Anatomical Collection Method Collection Time Receive d Time (Source) Location / / Volume Laterality Blood (Blood, 12/22/2017 2:00 PM 12/23/19 18 2:06 Venous) [place] PM [place] Tamara Chinchilla, R.N. LAB BLOOD ADD-ON Performing Organization Address City/[facility]/ZIP Code Phon e Number [facility] - [address] [place], [place] [address] [facility] ECG 12 Lead (12/22/2017 1:32 PM [place]) P athologist Signature Ventricular Rate 66 BPM MUSE ECG/Min [place] Interval 156 ms MUSE QRSD Interval 90 ms MUSE QT Interval 398 ms MUSE QTC Interval 417 ms MUSE P [place] 64 degrees MUSE R [place] 43 degrees MUSE T Wave [place] 34 degrees MUSE Specimen Anatomical Collection Method Collection Time Receive d Time (Source) Location / / Volume Laterality 12/22/2017 1:32 PM 8 1:47 [place] PM [place] Impressions MUSE - 12/22/2017 1:47 PM [place] Normal sinus rhythm Normal ECG No previous ECGs available Narrative This result has an attachment that is no t available. Procedure Note Juan J Limon M.D. - 12/22/2017Formatt ing of this note might be different from the original. IMPRESSION: Normal sinus rhythm Normal ECG No previous ECGs available Jaime Marina M.D. ECG ORDERABLES Performing Organization Address [facility] Phon e Number MUSE MUSE NA documented in this encounter Visit Diagnoses Diagnosis Preoperative Exam - Primary Abnormal Magnetic Resonance Imaging Pros [place] Cardiac Vascular Disease Screening PreDiabetes documented in this encounter
--- OUTSIDE RECORDS SUMMARY | 2021-11-16 12:00 | XMS_ITS | Encounter Summary ---
:[address] [facility] Address [address] [place] [address] Care Team Providers Name Role Phone Elsewhere, Pcp Primary Care Provider Unavailable Encounter Details Date Type Department Care Team Description 06/30/2021 [place] [facility] [place], Preprocedural Lab Exam; [place] Sonja Contact With And (Suspected) Exposure To COVID-[address] [place] [address] [place], [place] [phone] Social History Tobacco Use Types Packs/Day Years [...] Dermatology Dwight Ortega M.D. [address] [place], [place] [phone] (Wo rk) documented as [...] RNA, V Asymptomatic (06/30/2021 8:34 AM CDT) [facility] Method Time Signature SARS-CoV-2 Swab, 06/30/2021 [...] pe rformed using the Aptima SARS-CoV-2 assay ([employer] on the adQs tem under emergency use authorization (EUA) by the U.S. Food and Drug Administ ration. Fact sheets for this EUA assay can be fo und at the following links: For Healthcare Providers: https://www.fd a.gov/media/614255/download For Patients: https://www.fda.gov/media/ 902686/download Specimen Anatomical Collection Method Collection Time Receive d Time (Source) Location / / Volume Laterality Varies 06/30/2021 8:34 AM 2:52 (Nasopharynx) CDT PM CDT Dwight Ortega M.D. LAB MICROBIOLOGY - GENERAL O RDERABLES Performing Organization Address City/State/[facility] Phon e Number [facility]- [address] [place] [address] [place] [address] [address] documented in this encounter Visit Diagnoses Diagnosis Preprocedural Lab Exam Contact With And (Suspected) Exposure To COVID-19 documented in this encounter Additional Health Concerns Infection Onset Date Last Indicated Resolved Time COVID19 Pending 06/27/2021 06/30/2021 06/30/2021 8:21 PM CDT documented as of this encounter Care Teams Billet Straightener Relationship Specialty Start Date End Date Elsewhere, Pcp PCP - General Family Medicine 05/24/20 documented as of this encounter
--- OUTSIDE RECORDS SUMMARY | 2021-11-16 12:00 | XMS_ITS | Encounter Summary ---
:1950 Author Organization [facility] Address [address] [place] [address] Care Team Providers Name Role Phone Unavailable Primary Care Provider Unavailable Reason for Referral Outpatient (Routine) - Closed Specialty Diagnoses / Procedures Referred By Contact Refer red To Contact Dermatology Dwight Ortega M.D . [facility] Region [address] [place] [address] Referral ID Status Reason Start Date Expiration Date Visits Requ ested Visits Authorized [id number] Closed 01/03/2019 01/03/2020 1 1 Scheduling Instructions Recheck nevus left cheek in [address] Reason for Visit Reason Comments Skin Check Appointment Request (Routine) - Closed Specialty Diagnoses / Procedures Referred By Contact Refer red To Contact Dermatology Referral ID Status Reason Start Date Expiration Date Visits Requ ested Visits Authorized [id number] Closed 09/14/2018 09/14/2019 1 Encounter Details Date Type Department Care Team Description 01/03/2019 Office Visit Department of Dwight Ortega, Keratosis Actinic (Primary Dx); Dermatology in [place] Keratosis Seborrheic; [place], [place] [address] [facility] Nevus Dermal; [address] [place] [address] [place] [phone] Social History Tobacco Use Types Packs/Day Years [...] Dwight Ortega M.D. . 01/03/2019. 4:[address]IC documented in this encounter Plan of Treatment Upcoming Encounters Date Type Specialty Care Team Description 02/02/2022 Office Visit Dermatology Dwight Ortega M.D. [address] [place], [place] [phone] (Wo rk) Scheduled Referrals Name Type Priority Associated Order Schedule Diagnoses Dermatology office Outpatient Referral Routine Ex pected: visit (clinic) 07/04/2019 (Approximate), Expires: 01/03/2022 documented as of this encounter Visit Diagnoses Diagnosis Keratosis Actinic - Primary Keratosis Seborrheic Nevus Dermal Nevi Multiple documented in this encounter
--- OUTSIDE RECORDS SUMMARY | 2021-11-16 12:00 | XMS_ITS | Encounter Summary ---
:1950 Author Organization [facility] Address [address] [place] [address] Care Team Providers Name Role Phone Unavailable Primary Care Provider Unavailable Reason for Visit Reason Comments Follow-up Outpatient (Routine) - Closed Specialty Diagnoses / Procedures Referred By Contact Refer red To Contact Dermatology Dwight Ortega M.D . [facility] Region [address] [place] [phone] Referral ID Status Reason Start Date Expiration Date Visits Requ ested Visits Authorized [id number] Closed 07/04/2019 07/03/2020 1 1 Encounter Details Date Type Department Care Team Description 10/10/2019 Office Visit Department of Dwight Ortega, Keratosis Seborrheic Dermatology in [place] (Primary Dx) [place], [place] [address] [phone] Social History Tobacco Use Types Packs/Day Years [...] or relatives? How often do you attend oriental orthodox or More than 4 times per year 07/18/2021 rastafarian services? Do you belong to any clubs or Yes 07/18/2021 organizations such as oriental orthodox groups, unions, fraternal or athletic groups, [...] Visit Dermatology Dwight Ortega M.D. [address] [place] [phone] (Wo rk) documented as of this encounter Visit Diagnoses Diagnosis Keratosis Seborrheic - Primary documented in this encounter
--- OUTSIDE RECORDS SUMMARY | 2021-11-16 12:00 | XMS_ITS | Encounter Summary ---
:1950 Author Organization [facility] Address [address] [place] [address] Care Team Providers Name Role Phone Unavailable Primary Care Provider Unavailable Reason for Referral Outpatient (Routine) - Closed Specialty Diagnoses / Procedures Referred By Contact Refer red To Contact Dermatology Dwight Ortega M.D . [facility] Region [address] [place] [phone] Referral ID Status Reason Start Date Expiration Date Visits Requ ested Visits Authorized [id number] Closed 05/07/2020 05/07/2021 1 1 Scheduling Instructions Recheck skin lesions 3 months utpatient (Routine) - Closed Specialty Diagnoses / Procedures Referred By Contact Refer red To Contact Diagnoses Tumor Skin Uncertain Behavior Dwight Ortega M.D. [facility] Procedures ELISABETH Suture removal [address] [place] [phone] Referral ID Status Reason Start Date Expiration Date Visits Requ ested Visits Authorized [id number] Closed 05/07/2020 05/07/2021 1 1 utpatient (Routine) - Closed Specialty Diagnoses / Procedures Referred By Contact Refer red To Contact Dermatology Dwight Ortega M.D . [facility] Region [address] [place] [phone] Referral ID Status Reason Start Date Expiration Date Visits Requ ested Visits Authorized [id number] Closed 05/07/2020 05/07/2021 1 1 Scheduling Instructions Please schedule for suture removal. Reason for Visit Reason Comments Biopsy Outpatient (Routine) - Closed Specialty Diagnoses / Procedures Referred By Contact Refer red To Contact Dermatology Dwight Ortega M.D . [facility] [address] [place], [place] [phone] Referral ID Status Reason Start Date Expiration Date Visits Requ ested Visits Authorized [id number] Closed 04/29/2020 04/29/2021 1 1 Encounter Details Date Type Department Care Team Description 05/07/2020 Office Visit Department of Dwight Ortega, Tumor Skin Uncertain Dermatology in [place] Behavior (Primary Dx) [address] [phone] Social History Tobacco Use Types Packs/Day [...] the patient by letter. Patient given pamphlet [id number]. PATIENT EDUCATION: Ready to learn. No apparent [...] 05/10/2020 3:25 PM CDT Benign lesion letter. Goodell patient. Please send letter documented in this encounter Plan of Treatment Upcoming Encounters Date Type Specialty Care Team Description 02/02/2022 Office Visit Dermatology Dwight Ortega M.D. [address] [place], [place] [phone] (Wo rk) Scheduled Orders [...] Component Value Ref Test Analysis Performed At [facility] Range Method Time Signature 05/10/2020 [facility] 9:21 AM CDT Report Emil Nye. 05/10/2020 [facility] electronically Sonja Hoyt 9:21 AM CDT signed by Gross Description: Received in formalin labeled with the patient's name, 05/10/2020 [facility] medical record number, and left jawline is a 0.6 cm in 9:21 AM CDT diameter brown skin punch biopsy, excised to the depth of 0.2 cm. ??Encompassing almost the entire skin surface is a [id number]-rbt-[id number] slightly bosselated lesion with ill-defined and irregular borders. ??The specimen is bisected and submitted entirely in cassette A1. Grossed by AF. Interpetation FINAL DIAGNOSIS 05/10/2020 [facility] A. ??DermPath Consult Wet Tissue; Left jawline, [...] Organization Address City/State/ZIP Code Phon e Number [facility] - [address] [place], [place] [address] [place] [address] [facility] [address] documented in this encounter Visit Diagnoses Diagnosis Tumor Skin Uncertain Behavior - Primary documented in this encounter
--- OUTSIDE RECORDS SUMMARY | 2021-11-16 12:00 | XMS_ITS | Encounter Summary ---
:1950 Author Organization [facility] Address [address] [place] [address] Care Team Providers Name Role Phone Unavailable Primary Care Provider Unavailable Reason for Referral Outpatient (Routine) - Closed Specialty Diagnoses / Procedures Referred By Contact Refer red To Contact Dermatology Dwight Ortega M.D . [facility] Region [address] [place] [phone] Referral ID Status Reason Start Date Expiration Date Visits Requ ested Visits Authorized [id number] Closed 04/29/2020 04/29/2021 1 1 Scheduling Instructions Punch biopsy left lower cheek lentigo. 3 0 minutes Reason for Visit Reason Comments Suspicious Skin Lesion Appointment Request (Routine) - Closed Specialty Diagnoses / Procedures Referred By Contact Refer red To Contact Dermatology Referral ID Status Reason Start Date Expiration Date Visits Requ ested Visits Authorized [id number] Closed 02/20/2020 02/19/2021 1 1 Encounter Details Date Type Department Care Team Description 04/29/2020 Office Visit Department of Dwight Ortega, Tumor Skin Uncertain Behavior (Primary Dx); Dermatology in [place] Keratosis [place], [place] [address] [phone] Social History Tobacco Use Types Packs/Day Years [...] Visit Dermatology Dwight Ortega M.D. [address] [place], [place] [phone] (Wo rk) Scheduled Referrals Name Type Priority Associated Order Schedule Diagnoses Dermatology office Outpatient Referral Routine Ex pected: visit (clinic) 05/07/2020 (Approximate), Expires: 04/30/2023 documented as of this encounter Visit Diagnoses Diagnosis Tumor Skin Uncertain Behavior - Primary Keratosis Seborrheic documented in this encounter
--- OUTSIDE RECORDS SUMMARY | 2021-11-16 12:00 | XMS_ITS | Encounter Summary ---
:1950 Author Organization [facility] Address [address] [place] [address] Care Team Providers Name Role Phone Unavailable Primary Care Provider Unavailable Encounter Details Date Type Department Care Team Description 12/31/2017 Documentation Department of Urology in Taras Garza M.D. [place], [place] [address] [facility] [address] [place] [phone] (Wo rk) Social History Tobacco Use Types [...] or relatives? How often do you attend roman catholic or More than 4 times per year 07/18/2021 church services? Do you belong to any clubs or Yes 07/18/2021 organizations such as roman catholic groups, unions, fraternal or athletic groups, [...] this to be done here or locally. CONSULTANT documented in this encounter Plan of Treatment Upcoming Encounters Date Type Specialty Care Team Description 02/02/2022 Office Visit Dermatology Dwight Ortega M.D. [address] [place], [place] [phone] (Wo rk) documented as of this encounter Visit Diagnoses Not on filedocumented in this encounter
--- OUTSIDE RECORDS SUMMARY | 2021-11-16 12:00 | XMS_ITS | Encounter Summary ---
:1950 Author Organization [facility] Address [address] [place] [address] Care Team Providers Name Role Phone Elsewhere, [...] Expiration Date Visits Requ ested Visits Authorized [id number] Closed 05/24/2020 05/24/2021 1 1 Encounter Details Date Type Department Care Team Description 05/24/2020 Office Visit Department of [facility] Brittnee Cabrera Af [facility] Skin Surgery Medicine, [place] EJ C.N.PJason, [facility], in [address] [phone] Social History Tobacco Use Types Packs/Day Years [...] Body Mass Index 31.9 12/28/2017 7:05 AM MANAGER USER INTERFACE documented in this encounter Progress Notes Brittnee [...] Patient/Child/Caregiver expressed understanding of the content. Brittnee Cbarera APRN, C.N.P., D.N.P. Total time: 11 minutes documented in this encounter Plan of Treatment Upcoming Encounters Date Type Specialty Care Team Description 02/02/2022 Office Visit Dermatology Dwight Ortega M.D. [address] [place], [place] [phone] (Wo rk) documented as of this encounter Visit Diagnoses Diagnosis Aftercare Skin Surgery - Primary documented in this encounter Care Teams Structural Mill Supervisor Relationship Specialty Start Date End Date Elsewhere, Pcp PCP - General Family Medicine 05/24/20 documented as of this encounter
--- OUTSIDE RECORDS SUMMARY | 2021-11-16 12:00 | XMS_ITS | Encounter Summary ---
:1950 Author Organization [facility] [place] Address [address] [place] [address] Care Team Providers Name Role Phone Unavailable Primary Care Provider Unavailable Reason for Visit Auth/Cert Specialty Diagnoses / Procedures Referred By Contact Refer red To Contact Diagnoses Elevated Prostate-Specific Antigen Elevated Prostate-Specific Antigen` Procedures BIOPSY PROSTATE; Transperineal biopsy; targeted based on MRI; proceed as indicated Referral ID Status Reason Start Date Expiration Date Visits Requ ested Visits Authorized [id number] 1 1 Encounter Details Date Type Department Care Team Description 12/28/2017 Surgery Outpatient Procedure Aurelio Mahajan B [facility] PROSTATE, Center in [place] Transperineal biopsy, [place] [address] targeted based on MRI, [address] [place], [place] [phone] Social History Tobacco Use Types Packs/Day Years [...] or relatives? How often do you attend spiritism or More than 4 times per year 07/18/2021 bahai services? Do you belong to any clubs or Yes 07/18/2021 organizations such as spiritism groups, unions, fraternal or athletic groups, or [...] Comments Blood Pressure 121/73 12/28/2017 7:45 AM DIRECTOR OF SCIENTIFIC RESEARCH Pulse 73 12/28/2017 7:48 AM DIRECTOR OF SCIENTIFIC RESEARCH Temperature 36.6 ??C (97.9 ??F) 12/28/2017 7:05 AM DIRECTOR OF SCIENTIFIC RESEARCH Respiratory Rate 8 12/28/2017 7:48 AM DIRECTOR OF SCIENTIFIC RESEARCH Oxygen Saturation 96% 12/28/2017 7:48 AM DIRECTOR OF SCIENTIFIC RESEARCH Inhaled Oxygen Concentration - - Weight 105 kg (231 lb 4.2 oz) 12/28/2017 7:05 AM DIRECTOR OF SCIENTIFIC RESEARCH Height 188.8 cm (6' 2.33) 12/28/2017 7:05 AM DIRECTOR OF SCIENTIFIC RESEARCH Body Mass Index 29.43 12/28/2017 7:05 AM DIRECTOR OF SCIENTIFIC RESEARCH documented in this encounter Discharge Instructions AttachmentsThe following attachments cannot be sent through Care Everywhere. About Your Ultrasound-Guided Prostate Biopsy (Burmese)documented in this encounter Medications at Time of [...] tablet OMEGA-3 FATTY Take by mouth. 0 HPVMU-FIG-NHM ORAL potassium citrate 10 mEq 2 (two) [...] mouth 0 mg tablet as needed. rizatriptan PHARMACY OPERATIONS MANAGER Take 10 mg by mouth 0 (MAXALT-PHARMACY OPERATIONS MANAGER) 10 mg as needed. disintegrating tablet ZOLMitriptan (ZOMIG) 5 Take by mouth as 0 mg tablet needed. ciprofloxacin (CIPRO) Take 1 by mouth 2 2 tablet 0 018 05/24/2020 500 mg hours prior to tabletIndications: biopsy and repeat 10 Elevated hours after biopsy Prostate-Specific Antigen sodium/chloride/potass/c Take 1 tablet by 0 07/04/2019 itrate mouth 2 (two) times ([id number]-JT-[id number]-CIT a day. RATE ORAL) acetaminophen (TYLENOL) Take [...] to a three dimensional data set file. Spine Nurse systematic biopsies were also taken and sent [...] in log * Hussein Stinson M.D., Pharm.D. CTOR OF SCIENTIFIC RESEARCH documented in this encounter Plan of Treatment Upcoming Encounters Date Type Specialty Care Team Description 02/02/2022 Office Visit Dermatology Dwight Ortega M.D. [address] [place], [place] [phone] (Wo rk) documented as of this encounter Procedures Procedure Name Priority Date/Time Associated Diagnosis Comme nts SURGICAL PATHOLOGY Routine 12/28/2017 8:41 AM Elevated Res ults for this DIRECTOR OF SCIENTIFIC RESEARCH Prostate-Specific procedure are in Antigen the results section. BIOPSY PROSTATE 12/28/2017 7:36 AM Elevated DIRECTOR OF SCIENTIFIC RESEARCH Prostate-Specific Antigen Special Needs Listing: Gettman service. Re quests early case, gets migraines if NPO for long. documented in this encounter Results Surgical Pathology (12/28/2017 8:41 AM DIRECTOR OF SCIENTIFIC RESEARCH) Component Value Ref Test Analysis Performed At [facility] gist Range Method Time Signature Gross Description A: ?? Received in formalin labeled with the patie nt's name, 12/29/2017 [facility] medical record number, and prostate, right lobe are 2:15 PM DIRECTOR OF SCIENTIFIC RESEARCH LABORATORIES - multiple pale babcock-pink soft tissue cores and fragments, [facility] ranging from 0.1-1.7 cm in length. ??The [...] ESTELA Gibbons in [place] 12/29/2017 [facility] jannette Smith, 2:15 PM DIRECTOR OF SCIENTIFIC RESEARCH LABORATORIES - Interpretation [facility] Resident Report Binh Ford M.D. [id number] 12/30/19 [facility] electronically I verify that I have examined all relevant slides/ma terials 2:15 PM DIRECTOR OF SCIENTIFIC RESEARCH LABORATORIES - signed by for the specimen(s) and rendered or confirmed the diagnosi s. [facility] 12/29/2017 [facility] 2:15 PM DIRECTOR OF SCIENTIFIC RESEARCH LABORATORIES - [facility] Interpretation FINAL DIAGNOSIS 12/29/2017 [place] A. ??Prostate, right lobe, needle core biopsy: ??Benign 2:15 PM DIRECTOR OF SCIENTIFIC RESEARCH LABORATORIES - prostatic tissue. [facility] B. ??Prostate, left lobe, needle core biopsy: ??Benign CAMPUS prostatic tissue. C. ??Prostate, right transition zone, needle core biopsy: Benign prostatic tissue. Specimen (Source) Anatomical Collection Method Collection Time Re ceived Time Location / / Volume Laterality Tissue (Prostate) 12/28/2017 8:41 AM DIRECTOR OF SCIENTIFIC RESEARCH Tissue (Prostate) 12/28/2017 8:42 AM DIRECTOR OF SCIENTIFIC RESEARCH Tissue (Prostate) 12/28/2017 8:42 AM DIRECTOR OF SCIENTIFIC RESEARCH Narrative This result has an attachment that is no t available. Aurelio Mahajan M.D. LAB SURG PATH ORDERABLES Performing Organization Address City/State/ZIP Code Phon e Number [facility] - [address] documented in this encounter Visit Diagnoses Diagnosis Elevated Prostate-Specific Antigen - [facility] Elevated Prostate-Specific Antigen documented in this encounter Admitting Diagnoses Diagnosis Elevated Prostate-Specific Antigen documented in this encounter Administered Medications Inactive Administered Medications - up to 3 most recent administrations Medication Order MAR Action Action Date Dose Rate Site acetaminophen tablet 1,000 mg Given 12/28/2017 7:48 AM DIRECTOR OF SCIENTIFIC RESEARCH 1,000 mg (TYLENOL) 1,000 mg, oral, Once, On Wed12/28/17 at 0745, For 1 dose, Pre-Op insulin aspart U-100 injection 0-8 Units (NovoLOG) 0-8 Units, subcutaneous, Every 2 hour ME N, high blood sugar, Nurse to determine [...] lactated ringers Rate/Dose Verify 12/28/2017 7:51 AM DIRECTOR OF SCIENTIFIC RESEARCH 20 mL/hr, intravenous, Continuous, Starting on Wed12/28/17 at 0745 New Bag 12/28/2017 7:47 AM DIRECTOR OF SCIENTIFIC RESEARCH 20 mL/hr 20 mL/hr vdapakzr-ewffhwpnnr-wnfjdccfi 3.5 mg-400 Given 12/28/2017 9:05 A M 2 packets Other unit-5,000 unit ointment packet DIRECTOR OF SCIENTIFIC RESEARCH (NEOSPORIN) As needed, Starting on Wed12/28/17 at 0905, Intra-Op documented in this encounter Active and Recently Administered Medications Times are shown in DIRECTOR OF SCIENTIFIC RESEARCH. Scheduled Medication Order 12/26/2017 12/27/2017 12/28/2017 acetaminophen tablet 1,000 mg (TYLENOL) (COMPLETED) 0748 (Given - Provider: Jenniffer Jewell R.N.) 1,000 mg, oral, Once, On Wed12/28/17 at 0745, For 1 dose, Pre-O p ciprofloxacin in D5W IVPB 400 mg (CIPRO) (COMPLETED) 0816 (Given - Provider: Andra Burrows APRN, TEXTILE TECHNICAL OFFICER) 400 mg, intravenous, at 200 mL/hr, Admin ister over 60 Minutes, Once, On Wed12/28/17 at 0715, For 1 dose, Intra-Op, premix bag, Drug Monitoring Program: Pharmacist to adjust medication dosing based on i ndication and drug clearance factors., Indications: Prophylaxis, surgical gentamicin in NaCl 0.9 % (iso-osm) IVPB 120 mg (GARAMYCIN) (COMP LETED) 0803 (Given - Provider: Andra Burrows APRN, BRISSA) [...] Provider: Ghulam Mahajan RJasonNJason) 20 mL/hr, intravenous, Continuous, Starting on Wed12/28/17 at 0 745 PRN Medication Order 12/26/2017 12/27/2017 12/28/2017 insulin aspart U-100 injection 0-8 Units (NovoLOG) 0-8 Units, subcutaneous, Every 2 hour ME N, high blood sugar, Nurse to determine [...] equal to 300: Call provider managing diabetes yyjojlth-tqnmqvmqbu-ektzzcgph 3.5 mg-400 unit-5,000 unit ointment packet (NEOSPORIN) (CANCELED) 09 (Given - Pro vider: Rakel Keenan R.N. - Comment: perineum) As needed, Starting on Wed12/28/17 at 0905, Intra-Op documented in this encounter
--- OUTSIDE RECORDS SUMMARY | 2021-11-16 12:00 | XMS_ITS | Encounter Summary ---
:1950 Author Organization [facility] Address [address] [place] [phone] Care Team Providers Name Role Phone Unavailable Primary Care Provider Unavailable Reason for Referral Outpatient (Routine) - Closed Specialty Diagnoses / Procedures Referred By Contact Refer red To Contact Diagnoses Tumor Skin Uncertain Behavior Dwight Ortega M.D. Procedures Suture Removal [address] [place], [place] [phone] Referral ID Status Reason Start Date Expiration Date Visits Requ ested Visits Authorized [id number] Closed 05/13/2020 05/13/2021 1 1 Reason for Visit Reason Comments Suture / Staple Removal Outpatient (Routine) - Closed Specialty Diagnoses / Procedures Referred By Contact Refer red To Contact Dermatology Dwight Ortega M.D . [facility] [address] [place], [place] [phone] Referral ID Status Reason Start Date Expiration Date Visits Requ ested Visits Authorized [id number] Closed 05/07/2020 05/07/2021 1 1 Encounter Details Date Type Department Care Team Description 05/13/2020 Nurse Only Department of Dwight Ortega M.D. [address] [place] [phone] Suture / Staple Dermatology in [place] Jalil Malloy L.P.N. [address] [phone] Social History Tobacco Use Types [...] or relatives? How often do you attend yarsanism or More than 4 times per year 07/18/2021 nondenominational services? Do you belong to any clubs or Yes 07/18/2021 organizations such as yarsanism groups, unions, fraternal or athletic groups, or [...] Performed by: Jalil Malloy L.P.NJason Authorized by: Dwight Ortega M.D. PROCEDURE DETAILS Wound appearance: No signs of infection, good wound healing, clean, nontender and good approximationof wound edges Number of sutures removed: 2 CONSENT Consent obtained: verbal PRE PROCEDURE DETAILS Sutures were placed at [facility] facility: yes Indicaton: scheduled suture removal SEDATION / ANESTHESIA Anesthesia method: none POST PROCEDURE DETAILS Procedure completed successfully: yes Complications: no immediate complications Post-removal: No dressing applied documented in this encounter Plan of Treatment Upcoming Encounters Date Type Specialty Care Team Description 02/02/2022 Office Visit Dermatology Dwight Ortega M.D. [address] [place] [phone] (Wo rk) documented as of this [...] 05/13/2020 9:15 AM Performed by: Jalil Malloy LJasonP.NJason Authorized by: Dwight Ortega M.D. PROCEDURE DETAILS Wound appearance: ??No signs of infectio n, good wound healing, clean, nontender and good approximation of woun d edges Number of sutures removed: ??2 CONSENT Consent obtained: verbal PRE PROCEDURE DETAILS Sutures were placed at [facility] facility: ye s ?? Indicaton: scheduled suture [...]
--- OUTSIDE RECORDS SUMMARY | 2021-11-16 12:00 | XMS_ITS | Encounter Summary ---
:1950 Author Organization [facility] Address [address] [place] [address] Care Team Providers Name Role Phone Unavailable [...] Visit Dermatology Dwight Ortega M.D. [address] [place] [phone] (Wo rk) documented as of this [...]
--- OUTSIDE RECORDS SUMMARY | 2021-11-16 12:00 | XMS_ITS | Encounter Summary ---
:1950 Author Organization [facility] Address [address] [place] [address] Care Team Providers Name Role Phone Unavailable Primary Care Provider Unavailable Reason for Visit Reason Comments Skin Check Appointment Request (Routine) - Closed Specialty Diagnoses / Procedures Referred By Contact Refer red To Contact Family Medicine Referral ID Status Reason Start Date Expiration Date Visits Requ ested Visits Authorized [id number] Closed 11/08/2019 11/07/2020 1 1 Encounter Details Date Type Department Care Team Description 01/30/2020 Office Visit Department of Dwight Ortega Nevi Multi ple (Primary Dx); Dermatology in [place] Keratosis Seborrheic [place], [place] [address] [phone] Social History Tobacco Use Types Packs/Day Years [...] or relatives? How often do you attend mosque or More than 4 times per year 07/18/2021 mu-ism services? Do you belong to any clubs or Yes 07/18/2021 organizations such as mosque groups, unions, fraternal or athletic groups, or [...] accurate and complete. Dwight Ortega M.D. 01/29. EL CONSULTANT documented in this encounter Plan of Treatment Upcoming Encounters Date Type Specialty Care Team Description 02/02/2022 Office Visit Dermatology Dwight Ortega M.D. [address] [place], [place] [phone] (Wo rk) documented as of this encounter Visit Diagnoses Diagnosis Nevi Multiple - Primary Keratosis Seborrheic documented in this encounter
--- OUTSIDE RECORDS SUMMARY | 2021-11-16 12:00 | XMS_ITS | Encounter Summary ---
:1950 Author Organization [facility] Address [address] [place] [address] Care Team Providers Name Role Phone Elsewhere, Pcp Primary Care Provider Unavailable Reason for Visit Reason Comments Skin Check Outpatient (Routine) - Closed Specialty Diagnoses / Procedures Referred By Contact Refer red To Contact Dermatology Dwight Ortega M.D . [facility] [address] [place], [place] [phone] Referral ID Status Reason Start Date Expiration Date Visits Requ ested Visits Authorized [id number] Closed 05/07/2020 05/07/2021 1 1 Encounter Details Date Type Department Care Team Description 08/12/2020 Office Visit Department of Dwight Ortega, Keratosis Seborrheic Inflamed (Primary Dx); Dermatology in [place], [place] [address] [facility] Keratosis Seborrheic [address] [phone] Social History Tobacco Use Types Packs/Day [...] or relatives? How often do you attend restorationist or More than 4 times per year 07/18/2021 rastafari services? Do you belong to any clubs or Yes 07/18/2021 organizations such as restorationist groups, unions, fraternal or athletic groups, or [...] a total of 1 lesion(s) with two 14-58-qbkqqz freeze-thaw cycles of liquid nitrogen cryotherapy. The [...] Visit Dermatology Dwight Ortega M.D. [address] [place], [place] [phone] (Wo rk) documented as of this encounter Visit Diagnoses Diagnosis Keratosis Seborrheic Inflamed - Primary Nevi Multiple Keratosis Seborrheic documented in this encounter Care Teams Pot Liner Relationship Specialty Start Date End Date Elsewhere, Pcp PCP - General Family Medicine 05/24/20 documented as of this encounter
--- OUTSIDE RECORDS SUMMARY | 2021-11-16 12:00 | XMS_ITS | Encounter Summary ---
:1950 Author Organization [facility] Address [address] [place] [address] Care Team Providers Name Role Phone Elsewhere, [...] More than 4 times per year 07/18/2021 protestant services? Do you belong to any clubs [...] Visit Dermatology Dwight Ortega M.D. [address] [place] [phone] (Wo rk) documented as of this [...] on filedocumented in this encounter Care Teams Collarette Separator Relationship Specialty Start Date End Date Elsewhere, Pcp PCP - General Family Medicine 05/24/20 documented as of this encounter
--- OUTSIDE RECORDS SUMMARY | 2021-11-16 12:00 | XMS_ITS | Encounter Summary ---
:1950 Author Organization [facility] Address [address] [place] [address] Care Team Providers Name Role Phone Unavailable Primary Care Provider Unavailable Reason for Visit Auth/Cert Specialty Diagnoses / Procedures Referred By Contact Refer red To Contact Diagnoses Elevated Prostate-Specific Antigen Elevated Prostate-Specific Antigen` Procedures BIOPSY PROSTATE; Transperineal biopsy; targeted based on MRI; proceed as indicated Referral ID Status Reason Start Date Expiration Date Visits Requ ested Visits Authorized [id number] 1 1 Encounter Details Date Type Department Care Team Description 12/28/2017 Hospital Encounter Outpatient Procedure Deondre Cunha Elevated Center in [place] Rose M.D. Prostate-Specific [place] [address] [facility] Antigen [address] [place] [phone] Social History Tobacco Use Types Packs/Day Years [...] Comments Blood Pressure 120/63 12/28/2017 10:00 AM TRIGONOMETRY TUTOR Pulse 61 12/28/2017 10:30 AM TRIGONOMETRY TUTOR Temperature 36.4 ??C (97.5 ??F) 12/28/2017 9:18 AM TRIGONOMETRY TUTOR Respiratory Rate 11 12/28/2017 10:30 AM TRIGONOMETRY TUTOR Oxygen Saturation 98% 12/28/2017 10:30 AM TRIGONOMETRY TUTOR Inhaled Oxygen Concentration - - Weight 105 kg (231 lb 4.2 oz) 12/28/2017 7:05 AM TRIGONOMETRY TUTOR Height 188.8 cm (6' 2.33) 12/28/2017 7:05 AM TRIGONOMETRY TUTOR Body Mass Index 29.43 12/28/2017 7:05 AM TRIGONOMETRY TUTOR documented in this encounter Discharge Instructions AttachmentsThe following attachments cannot be sent through Care Everywhere. About Your Ultrasound-Guided Prostate Biopsy (Pashto)documented in this encounter Medications at Time of [...] tablet OMEGA-3 FATTY Take by mouth. 0 SYVAK-RDI-EOF ORAL potassium citrate 10 mEq 2 (two) [...] mouth 0 mg tablet as needed. rizatriptan SLOT EDITOR Take 10 mg by mouth 0 (MAXALT-SLOT EDITOR) 10 mg as needed. disintegrating tablet ZOLMitriptan (ZOMIG) 5 Take by mouth as 0 mg tablet needed. ciprofloxacin (CIPRO) Take 1 by mouth 2 2 tablet 0 018 05/24/2020 500 mg hours prior to tabletIndications: biopsy and repeat 10 Elevated hours after biopsy Prostate-Specific Antigen sodium/chloride/potass/c Take 1 tablet by 0 07/04/2019 itrate mouth 2 (two) times (IBIHMC-TS-SKHFXADBX-CIT a day. RATE ORAL) acetaminophen (TYLENOL) Take [...] to a three dimensional data set file. Environmental Protection Economist systematic biopsies were also taken and sent [...] * No implants in log * Hussein [place], M.D., Pharm.D. ONOMETRY TUTOR documented in this encounter Plan of Treatment Upcoming Encounters Date Type Specialty Care Team Description 02/02/2022 Office Visit Dermatology Dwight Ortega M.D. [address] [place], [place] [phone] (Wo rk) documented as of this encounter Procedures Procedure Name Priority Date/Time Associated Diagnosis Comme nts SURGICAL PATHOLOGY Routine 12/28/2017 8:41 AM Elevated Res ults for this TRIGONOMETRY TUTOR Prostate-Specific procedure are in Antigen the results section. BIOPSY PROSTATE 12/28/2017 7:36 AM Elevated TRIGONOMETRY TUTOR Prostate-Specific Antigen Special Needs Listing: Gettman service. Re quests early case, gets migraines if NPO for long. documented in this encounter Results Surgical Pathology (12/28/2017 8:41 AM TRIGONOMETRY TUTOR) Component Value Ref Test Analysis Performed At [facility] gist Range Method Time Signature Gross Description A: ?? Received in formalin labeled with the patie nt's name, 12/29/2017 [facility] medical record number, and prostate, right lobe are 2:15 PM TRIGONOMETRY TUTOR LABORATORIES - multiple pale babcock-pink soft tissue cores and fragments, [facility] ranging from 0.1-1.7 cm in length. ??The [...] Grossed by ESTELA Gibbons in [place] 12/29/2017 [facility] jannette Smith, 2:15 PM TRIGONOMETRY TUTOR LABORATORIES - Interpretation [facility] Resident Report Binh Ford M.D. [phone] 12/30/19 [facility] electronically I verify that I have examined all relevant slides/ma terials 2:15 PM TRIGONOMETRY TUTOR LABORATORIES - signed by for the specimen(s) and rendered or confirmed the diagnosi s. [facility] 12/29/2017 [facility] 2:15 PM TRIGONOMETRY TUTOR LABORATORIES - [facility] Interpretation FINAL DIAGNOSIS 12/29/2017 [facility] A. ??Prostate, right lobe, needle core biopsy: ??Benign 2:15 PM TRIGONOMETRY TUTOR LABORATORIES - prostatic tissue. [facility] IN B. ??Prostate, left lobe, needle core biopsy: ??Benign CAMPUS prostatic tissue. C. ??Prostate, right transition zone, needle core biopsy: Benign prostatic tissue. Specimen (Source) Anatomical Collection Method Collection Time Re ceived Time Location / / Volume Laterality Tissue (Prostate) 12/28/2017 8:41 AM TRIGONOMETRY TUTOR Tissue (Prostate) 12/28/2017 8:42 AM TRIGONOMETRY TUTOR Tissue (Prostate) 12/28/2017 8:42 AM TRIGONOMETRY TUTOR Narrative This result has an attachment that is no t available. Aurelio Mahajan M.D. LAB SURG PATH ORDERABLES Performing Organization Address City/State/ZIP Code Phon e Number [facility] LABORATORIES - [address] [phone] [facility] documented in this encounter Visit Diagnoses Diagnosis Elevated Prostate-Specific Antigen - Annmarie ronna documented in this encounter Admitting Diagnoses Diagnosis Elevated Prostate-Specific Antigen documented in this encounter Administered Medications Inactive Administered Medications - up to 3 most recent administrations Medication Order MAR Action Action Date Dose Rate Site acetaminophen tablet 1,000 mg Given 12/28/2017 7:48 AM TRIGONOMETRY TUTOR 1,000 mg (TYLENOL) 1,000 mg, oral, Once, On Wed12/28/17 at 0745, For 1 dose, Pre-Op insulin aspart U-100 injection 0-8 Units (NovoLOG) 0-8 Units, subcutaneous, Every 2 hour [place] N, high blood sugar, Nurse to determine [...] lactated ringers Rate/Dose Verify 12/28/2017 7:51 AM TRIGONOMETRY TUTOR 20 mL/hr, intravenous, Continuous, Starting on Wed12/28/17 at 0745 New Bag 12/28/2017 7:47 AM TRIGONOMETRY TUTOR 20 mL/hr 20 mL/hr documented in this encounter Active and Recently Administered Medications Times are shown in TRIGONOMETRY TUTOR. Scheduled Medication Order 12/26/2017 12/27/2017 12/28/2017 acetaminophen tablet 1,000 mg (TYLENOL) (COMPLETED) 747 (Given - Provider: Jenniffer Jewell R.N.) 1,000 mg, oral, Once, On Wed12/28/17 at 0745, For 1 dose, Pre-O p ciprofloxacin in D5W IVPB 400 mg (CIPRO) (COMPLETED) 815 (Given - Provider: Andra Burrows APRN, CRNA) [...] 802 (Given - Provider: Andra Burrows APRN, CRNA) [...] (NovoLOG) 0-8 Units, subcutaneous, Every 2 hour [place] N, high blood sugar, Nurse to determine [...] equal to 300: Call provider managing diabetes qhjigale-jzlgrpdkpx-hbwuaotlr 3.5 mg-400 unit-5,000 unit ointment packet (NEOSPORIN) (CANCELED) 09 (Given - Pro vider: Rakel Keenan R.N. - Comment: perineum) As needed, Starting on Wed12/28/17 at 0905, Intra-Op documented in this encounter
--- OUTSIDE RECORDS SUMMARY | 2021-11-16 12:00 | XMS_ITS | Encounter Summary ---
:1950 Author Organization [facility] Address [address] [place] [address] Care Team Providers Name Role Phone Unavailable Primary Care Provider Unavailable Reason for Visit Auth/Cert Specialty Diagnoses / Procedures Referred By Contact Refer red To Contact Diagnoses Elevated Prostate-Specific Antigen Elevated Prostate-Specific Antigen` Procedures BIOPSY PROSTATE; Transperineal biopsy; targeted based on MRI; proceed as indicated Referral ID Status Reason Start Date Expiration Date Visits Requ ested Visits Authorized [id number] 1 1 Encounter Details Date Type Department Care Team Description 12/28/2017 Anesthesia Event Outpatient Procedure Clay Macedo APRN, HORSE TREKKING GUIDE Center in [place], Jaime Marina M.D. [place] [address] [place] [phone] Anesthesia Record Procedure Summary Procedure Name Responsible Anesthesia Start Anesthesia Stop Anesthesiologist Time Time BIOPSY PROSTATE, Clay Macedo APRN, 12/28/17 [phone] Transperineal biopsy, HORSE TREKKING GUIDE targeted based on MRI, proceed as indicated. [...] h andoff to the receiving staff during [facility] we 1. Identified the patient 2. [...] by 12/28/17 1102 b y 12/28/17; Placement Jennifefr Jewell Knudsvig, Fredric J, Time: 07; Catheter R.N. R.N. Size: 22 G; Orientation: Left; Location: Hand; Site Prep: Alcohol; Technique: Anatomical landmarks; Insertion Attempts: 1; Removal Date: 12/28/17; Removal Time: 110; Removal Reason: Per protocol Supraglottic Airway Placement Date: 12/28/17 0759 by 12/28/17 09 10 by 12/28/17; Placement Andra Burrows Maiers, T homas A, Time: 758 (created STEAM OVEN OPERATOR, HORSE TREKKING GUIDE STEAM OVEN OPERATOR, HORSE TREKKING GUIDE via procedure documentation); Mask Ventilation: Easy mask; Removal Date: 12/28/17; Removal Time: 0910 (RETIRED) Incision 12/28/17; 08; 12/28/17 0830 by 11/05/20 141 8 by Perineum; Margo Lezama, [facility] -Background antibiotic, fluffs, R.N. , Scheduling Automated [...] Procedure Summary Date: 12/28/17 Room / Location: [address] / [facility] in [place], [place] Anesthesia Start: 750 Anesthesia Stop: 914 [...] Post Op nausea/vomiting: none Hydration status: euvolemic OAT ENGINEER Anesthesia Procedure Notes - Andra Burrows APRN, [...] Procedure outcome: successful Airway event: no complications OAT ENGINEER Anesthesia Preprocedure Evaluation - Jaime Marina M.D. [...] patient / legal guardian, or through an business continuity planner; patient evaluated and approved for anesthesia / sedation. The use of blood products not discussed OAT ENGINEER documented in this encounter Plan of Treatment Upcoming Encounters Date Type Specialty Care Team Description 02/02/2022 Office Visit Dermatology Dwight Ortega M.D. [address] [place], [place] [phone] (Wo rk) documented as of this encounter Procedures Procedure Name Priority Date/Time Associated Diagnosis Comme nts LDA ANE Routine 12/28/2017 8:07 AM Results f or this NON-SURGICAL AIRWAY TOWBOAT ENGINEER procedur e are in the results section. documented in this encounter Results LDA ANE NON-SURGICAL AIRWAY (12/28/2017 8:07 AM TOWBOAT ENGINEER) Narrative Andra Burrows APRN, CRNA - 12/29/19 18 8:07 AM TOWBOAT ENGINEER Andra Burrows APRN, CRNA ? 12/28/2017 ??8:08 [...] IVPB 400 mg Given 12/28/2017 8:16 AM TOWBOAT ENGINEER 40 0 mg (CIPRO) 400 mg, intravenous, at 200 mL/hr, Administer over 60 Minutes, Once, On Wed12/28/17 at 0715, For 1 dose, Intra-Op, premix bag, Drug Monitoring Program: Pharmacist to adjust medication dosing based on indication and drug clearance factors., Indications: Prophylaxis, surgical ePHEDrine (PF) injection Given 12/28/2017 8:34 AM TOWBOAT ENGINEER 5 mg intravenous, As needed, Starting on Wed12/28/17 at 0810, Anesthesia Intra-op Given 12/28/2017 8:22 AM TOWBOAT ENGINEER 5 mg Given 12/28/2017 8:10 AM TOWBOAT ENGINEER 5 mg fentaNYL injection (SUBLIMAZE) Given 12/28/2017 8:44 AM TOWBOAT ENGINEER 50 mcg intravenous, As needed, severe pain or score 7-10 of 10, Starting on Wed12/28/17 at 0757, Anesthesia Intra-op Given 12/28/2017 7:57 AM TOWBOAT ENGINEER 50 mcg gentamicin in NaCl 0.9 % (iso-osm) IVPB 120 Given 12/28/2017 8:03 AM TOWBOAT ENGINEER 120 mg mg (GARAMYCIN) 120 mg, intravenous, at 200 mL/hr, Administer over 30 Minutes, Once, On Wed12/28/17 at 0715, For 1 dose, Intra-Op, Preoperatively within 1 hour prior to surgical incision premix bag, Drug Monitoring Program: Pharmacist to adjust medication dosing based on indication and drug clearance factors., Indications: Prophylaxis, surgical lactated ringers Rate/Dose Verify 12/28/2017 7:51 AM TOWBOAT ENGINEER 20 mL/hr, intravenous, Continuous, Starting on Wed12/28/17 at 0745 New Bag 12/28/2017 7:47 AM TOWBOAT ENGINEER 20 mL/hr 20 mL/hr lidocaine (PF) (cardiac) injection Given 12/28/2017 7:57 AM TOWBOAT ENGINEER 60 mg intravenous, As needed, Starting on Wed12/28/17 at 0757, Anesthesia Intra-op ondansetron (PF) injection (ZOFRAN) Given 12/28/2017 8:05 AM TOWBOAT ENGINEER 4 mg intravenous, As needed, nausea, vomiting, Starting on Wed12/28/17 at 0805, Anesthesia Intra-op propofol 10 mg/mL infusion Rate/Dose 12/28/2017 8:49 75 mcg/kg/min 4 7.2 mL/hr (DIPRIVAN) Change AM TOWBOAT ENGINEER Continuous Infusion: Per Instructions PRN, Starting on Wed12/28/17 at 0757, Anesthesia Intra-op Rate/Dose Change 12/28/2017 8:05 AM TOWBOAT ENGINEER 100 mcg/kg/min 62.9 mL/hr New Bag 12/28/2017 7:57 AM TOWBOAT ENGINEER 125 mcg/kg/min 78.7 mL/hr propofol injection (DIPRIVAN) Given 12/28/2017 7:57 AM TOWBOAT ENGINEER 200 mg intravenous, As needed, Starting on Wed12/28/17 at 0757, Anesthesia Intra-op documented in this encounter
--- OUTSIDE RECORDS SUMMARY | 2021-11-16 12:00 | XMS_ITS | Encounter Summary ---
:1950 Author Organization [facility] Address [address] [place] [address] Care Team Providers Name Role Phone Elsewhere, Pcp Primary Care Provider Unavailable Reason for Referral Outpatient (Routine) - Closed Specialty Diagnoses / Procedures Referred By Contact Refer red To Contact Dermatology Dwight Ortega M.D . [facility] Region [address] [place] [address] Referral ID Status Reason Start Date Expiration Date Visits Requ ested Visits Authorized [id number] Closed 04/21/2021 04/21/2022 1 1 Scheduling Instructions Recheck left lower leg lesion MAKER Reason for Visit Reason Comments Skin Check Appointment Request (Routine) - Closed Specialty Diagnoses / Procedures Referred By Contact Refer red To Contact Family Medicine Referral ID Status Reason Start Date Expiration Date Visits Requ ested Visits Authorized [id number] Closed 01/27/2021 01/27/2022 1 1 Encounter Details Date Type Department Care Team Description 04/21/2021 Office Visit Department of Dwight Ortega Tumor Skin Un certain Behavior (Primary Dx); Dermatology in Andrea Nye M.D. Nevi Multiple; [place], [place] [address] [facility] Keratosis Seborrheic; [address] [place] [address] [place] [phone] Social History Tobacco Use Types Packs/Day Years [...] or relatives? How often do you attend pentecostal or More than 4 times per year 07/18/2021 zoroastrian services? Do you belong to any clubs or Clikthrough 07/18/2021 organizations such as pentecostal groups, unions, fraternal or athletic groups, or [...] the patient by letter. Patient given pamphlet [id number]. Discussed the risks, benefits, alternatives, and the [...] Electronically Signed: trev Bower. 04/15/2021. 11:01 AM SPARMAKER. Dwight Matias M.D., personally performed the services described in this documentation. All medical record entries made by the scribe were at my direction and in my presence. I have reviewed the chart and discharge instructions (if applicable) and agree that the record reflects my personal performance and is accurate and complete. Dwight Ortega M.D. MAKER documented in this encounter Miscellaneous Notes Result Encounter Note - Dwight Ortega M.D. - 04/25/2021 4:33 PM CST Right upper central forehead: SCC in Situ involving biopsy border - needs Mohs surgery letter Wil[place] patient. Please send letter MAKER documented in this encounter Plan of Treatment Upcoming Encounters Date Type Specialty Care Team Description 02/02/2022 Office Visit Dermatology Dwight Ortega M.D. [address] [place] [phone] (Wo rk) Scheduled Referrals Name Type Priority Associated Order Schedule Diagnoses Dermatology office Outpatient Referral Routine Ex pected: visit (clinic) 07/22/2021 (Approximate), Expires: 07/22/2022 documented as of this encounter Procedures Procedure Name Priority Date/Time Associated Comments Diagnosis DERMATOPATHOLOGY CONSULT Routine 04/21/2021 9:02 Tumor Skin Results for this AM SPARMAKER Uncertain Behavior procedure are in the results section. documented in this encounter Results Dermatopathology Consult (04/21/2021 9:02 AM SPARMAKER) Component Value Ref Test Analysis Performed Pathologis t Range Method Time At Signature 04/25/2021 PDRM 10:33 AM SPARMAKER Report CanJason 04/25/2021 ADI electronically Sonja Herrera 10:33 AM signed by KI Gross Received in formalin labeled with the patient's name, 04/25/2021 PDRM Description: medical record number, and right forehead, upper cent ral 10:33 AM is a 0.7 x 0.4 x 0.1 cm pale babcock-grimm skin shave biopsy. No SPARMAKER discrete lesion is grossly identified on the skin surface. Specimen is bisected longitudinally and submitted entirely in cassette A1. Grossed by SEUN. Interpetation FINAL DIAGNOSIS 04/25/2021 PDRM A. 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 Dwight Ortega M.D. LAB PATH DERM ORDERABLES Performing Organization Address City/State/[facility] Code Phon e Number [facility] - [address] [place], [place] [address] [facility] [place] [address] [facility] [address] documented in this encounter Visit Diagnoses Diagnosis Tumor Skin Uncertain Behavior - Primary Nevi Multiple Keratosis Seborrheic Dermatofibroma documented in this encounter Care Teams Shipping And Receiving Specialist Relationship Specialty Start Date End Date Elsewhere, Pcp PCP - General Family Medicine 05/24/20 documented as of this encounter
--- OUTSIDE RECORDS SUMMARY | 2021-11-16 12:01 | XMS_ITS | Encounter Summary ---
:1950 Author Organization [facility] Address [address] [place] [address] Care Team Providers Name Role Phone Unavailable [...] Visit Dermatology Dwight Ortega M.D. [address] [place], [place] [phone] (Wo rk) documented as of this encounter Visit Diagnoses Not on filedocumented in this encounter
--- OUTSIDE RECORDS SUMMARY | 2021-11-16 12:01 | XMS_ITS | Encounter Summary ---
:1950 Author Organization [facility] Address [address] [place] [address] Care Team Providers Name Role Phone Unavailable Primary Care Provider Unavailable Reason for Referral Outpatient (Routine) - Closed Specialty Diagnoses / Procedures Referred By Contact Refer red To Contact General Surgery Diagnoses Abnormal Magnetic Resonance Imaging Prostate Claude Santiago M.D. [address] [address] Referral ID Status Reason Start Date Expiration Date Visits Requ ested Visits Authorized [id number] Closed 11/30/2017 11/30/2018 1 1 Encounter Details Date Type Department Care Team Description 11/30/2017 Clinical Communication Department of Urology Nathen Alexander in Nieves Rose M.D. [address] [phone] Social History Tobacco Use Types Packs/Day Years [...] or relatives? How often do you attend sabianist or More than 4 times per year 07/18/2021 anabaptism services? Do you belong to any clubs or Yes 07/18/2021 organizations such as sabianist groups, unions, fraternal or athletic groups, or [...] Dermatology Dwight Ortega M.D. [address] [place], [place] [phone] (Wo rk) Scheduled Referrals Name Type Priority Associated Order Schedule Diagnoses Preoperative Outpatient Referral Routine Abnormal Magnetic Exp ected: Evaluation [facility] Resonance Imaging 12/01/19 18 Consult (Clinic) Prostate (Approximat e), Expires: 11/30/2020 documented as of this encounter Results Bacterial Culture, Aerobic + Susc, Urine (12/22/2017 1:35 PM FLIGHT CREW ORDNANCEMAN) [facility] gist Method Time Signature Urine Culture No growth 12/23/2017 [facility] after 1 8:14 AM FLIGHT CREW ORDNANCEMAN LABORATORIES - [facility] . Specimen Anatomical Collection Method Collection Time Receive d Time (Source) Location / / Volume Laterality Urine (Urine, 12/22/2017 1:35 PM 12/23/19 18 2:39 Midstream) FLIGHT CREW ORDNANCEMAN PM FLIGHT CREW ORDNANCEMAN Comment: Specimen Source Site: Urine Claude Santiago M.D. LAB MICROBIOLOGY - GENERAL O RDERABLES Performing Organization Address City/State/ZIP Code Phon e Number [facility] - [address] [place], [place] [address] [facility] documented in this encounter Visit Diagnoses Diagnosis Abnormal Magnetic Resonance Imaging Pros santo - Primary documented in this encounter
--- OUTSIDE RECORDS SUMMARY | 2021-11-16 12:01 | XMS_ITS | Encounter Summary ---
:1950 Author Organization [facility] Address [address] [place] [address] Care Team Providers Name Role Phone Unavailable Primary Care Provider Unavailable Encounter Details Date Type Department Care Team Description 11/24/2017 Ancillary Procedure Department of Claude Santiago Radiology jyotsna Hua M.D. Prostate-Specif ic [place], [place] Antigen [address] [place] [address] Social History Tobacco Use Types Packs/Day Years [...] or relatives? How often do you attend latter-day or More than 4 times per year 07/18/2021 restorationist services? Do you belong to any clubs or Yes 07/18/2021 organizations such as latter-day groups, unions, fraternal or athletic groups, or [...] Visit Dermatology Dwight Ortega M.D. [address] [place] [phone] (Wo rk) documented as of this [...] without endorectal coi l, sequences include small ljpxv-tv-xtqr axial coronal and sagittal nonfat sat T2 , large deyhx-xb-gagi DWI, small ucymy-ey-bztf axial T1 and T2 fat sat, l arge hvuac-xc-mcil coronal T2 fat sat, small arpgd-yw-wrdh axial dynamic imagin g. Outside MRI report [...] without endorectal coi l, sequences include small egrmu-vh-vipz axial coronal and sagittal nonfat sat T2 , large mqhgv-au-vrwr DWI, small qpvmy-mj-svgj axial T1 and T2 fat sat, l arge wdpdq-fn-mxhd coronal T2 fat sat, small pwctp-mw-pibs axial dynamic imagin g. Outside MRI report [...]
--- OUTSIDE RECORDS SUMMARY | 2021-11-16 12:01 | XMS_ITS | Encounter Summary ---
:1950 Author Organization [facility] Address [address] [place] [address] Care Team Providers Name Role Phone Unavailable Primary Care Provider Unavailable Reason for Visit Appointment Request (Routine) - Closed Specialty Diagnoses / Procedures Referred By Contact Refer red To Contact Urology Referral ID Status Reason Start Date Expiration Date Visits Requ ested Visits Authorized [id number] Closed 11/02/2017 11/02/2018 1 1 Encounter Details Date Type Department Care Team Description 11/24/2017 Comprehensive Visit Department of Abdon Trimble M.D. [address] [place] [phone] Elevated Urology in Nathen Alexander M.D. [address] [place] [phone] Prostate-Specific Rose, Antigen (Primar y [place] Dx) [address] [place] [phone] Social History Tobacco Use Types Packs/Day Years [...] or relatives? How often do you attend mandaeism or More than 4 times per year 07/18/2021 sikhism services? Do you belong to any clubs or Yes 07/18/2021 organizations such as mandaeism groups, unions, fraternal or athletic groups, or [...] documented as of this encounter H&P Notes Nathne Alexander M.D. - 11/24/2017 10:00 AM CDT [...] mouth., Disp: , Rfl: ??? OMEGA-3 FATTY ABMDF-RWM-CFE ORAL, Take by mouth., Disp: , Rfl: ??? potassium citrate (UROCIT-K) 10 mEq (1,080 mg) ER tablet, , Disp: , Rfl: 9 ??? rizatriptan PETROLEUM PRODUCTION ENGINEER (MAXALT-PETROLEUM PRODUCTION ENGINEER) 10 mg disintegrating tablet, Take 10 mg [...] Visit Dermatology Dwight Ortega M.D. [address] [place], [place] [phone] (Wo rk) documented as of this encounter Results Interpretation of [...] without endorectal coi l, sequences include small ezttj-mo-kofz axial coronal and sagittal nonfat sat T2 , large tuhyn-zf-sttf DWI, small eggke-pk-iihh axial T1 and T2 fat sat, l arge oiqhn-bn-nnzo coronal T2 fat sat, small ctiig-ke-piij axial dynamic imagin g. Outside MRI report [...] without endorectal coi l, sequences include small utzti-ql-ixtb axial coronal and sagittal nonfat sat T2 , large brmht-ir-vkxj DWI, small lzwre-pw-fofq axial T1 and T2 fat sat, l arge yxrth-ts-oeml coronal T2 fat sat, small gabun-lq-rjig axial dynamic imagin g. Outside MRI report [...] Diagnosis Elevated Prostate-Specific Antigen - Annmarie ronna Elevated Prostate-Specific Antigen documented in this encounter
--- OUTSIDE RECORDS SUMMARY | 2021-11-16 12:01 | XMS_ITS | Encounter Summary ---
:1950 Author Organization [facility] Address [address] [place] [address] Care Team Providers Name Role Phone Unavailable Primary Care Provider Unavailable Reason for Visit Reason Comments Skin Check Appointment Request (Routine) - Closed Specialty Diagnoses / Procedures Referred By Contact Refer red To Contact Dermatology Referral ID Status Reason Start Date Expiration Date Visits Requ ested Visits Authorized [id number] Closed 09/27/2017 09/27/2018 1 Encounter Details Date Type Department Care Team Description 11/16/2017 Office Visit Department of Dwight Ortega Nevi Multi ple (Primary Dx); Dermatology in Andrea Casillas Keratosis Seborrheic [place], [place] [address] [phone] Social History Tobacco Use Types Packs/Day Years [...] 07/18/2021 organizations such as mu-ism groups, unions, fraternal or athletic groups, or [...] saw the patient on 01/20/17 at the [facility]. The patient denies a history of skin [...] Office Visit Dermatology Dwight Ortega M.D. [address] [place] [phone] (Wo rk) documented as of this encounter Visit Diagnoses Diagnosis Nevi Multiple - Primary Keratosis Seborrheic documented in this encounter
== END 2021-11-16 14:48 | disposition home or self-care (01) ==
PROVIDERS: Emergency Provider Emergency Medicine; PCP Family Medicine
DX: M71.21 Synovial cyst of popliteal space [Baker], right knee (principal); I82.431 Acute embolism and thrombosis of right popliteal vein
CPT/HCPCS: 93971; 99283

== ENCOUNTER 2022-03-13 10:12 | Outpatient (CLI) | payer MEDICARE, SELFPAY ==
[2022-03-14 23:14] LABS: Prostate Specific Antigen Free 1.1 ng/mL; Prostate Specific Antigen%Free 13 %; Prostate Specific AntigenTotal 8.2 ng/mL (0.0-4.0)
== END 2022-03-13 10:13 | disposition home or self-care (01) ==
LOC: NFLDREF 10:13
PROVIDERS: PCP Family Medicine; Visit Provider Family Medicine
DX: R97.20 Elevated prostate specific antigen [PSA] (principal); N40.0 Benign prostatic hyperplasia without lower urinary tract symptoms
CPT/HCPCS: 84153; 84154

== ENCOUNTER 2022-04-03 15:24 | Outpatient (CLI) | payer MEDICARE, SELFPAY ==
--- NOTE | 2022-04-03 15:30 | MR_ITS ---
[facility] [address] [facility] [address] Phone:?[phone] Fax:?[phone] Referring Physician Information: Jasper Samuels M.D. ED [address] [address] Phone:?[phone] Fax:?[phone] Patient:?Darwin Woo D.O.B:?1950 Sex:?Male Phone:?[phone] [facility] MRN:?[id number] Exam Date:?04/03/2022 ? EXAM: 1.5 MER MRI EXAM OF THE PROSTATE WITH AND WITHOUT IV CONTRAST WITH DYNACAD IMAGING CLINICAL INFORMATION: 71-year-old man with elevated PSA. COMPARISON: 07/24/2019 CT TECHNICAL INFORMATION: Examination was performed on a 1.5 Mer magnet. High- resolution T1 axial, T2 axial, T2 FSE sagittal and T2 FSE coronal images were obtained through the prostate gland and seminal vesicles. Diffusion images were obtained in the axial plane. 15 mL of Dotarem were injected with dynamic enhanced images of the prostate gland in the axial plane. T1 fat saturation sagittal and coronal images were obtained postinjection. Images were analyzed with 3-D postprocessing online under concurrent physician supervision using a separate [employer] workstation. INTERPRETATION: The prostate gland measures 5.3 x 5.1 x 5.9 cm (TV by AP by SI), for a volume of 82.8 mL. Transitional and central zones: Marked stromal and glandular hyperplasia with numerous BPH nodules and median lobe hypertrophy indenting bladder base. Lesion 1: Equivocal right posterior transitional zone lesion towards 5 o'clock near base of gland, axial T2 series 6 images 20 and 21. Centered approximately 10 mm lateral right from prostatic urethra and approximately 35 mm above the bulbomembranous junction. T2 hypointense with obscured margins, mild diffusion restriction and positive enhancement, measuring approximately 1.3 x 0.9 x 0.7 cm (0.62 mL volume). Partially encapsulated BPH nodule versus neoplasia. PI-RADS: 3. Peripheral zones: Prominently compressed by enlarged TZ/CZ. Mild heterogeneity were seen. No suspicious focal PZ lesions seen to suggest clinically significant malignant disease. Pelvis: Prostate capsule and seminal vesicles appear intact. No pelvic lymphadenopathy or evident bone marrow disease. CONCLUSION: 1. BPH. Equivocal small lesion right posterior transitional zone near base. PI- RADS 3. 2. No caryn transcapsular, kp or skeletal disease. PI-RADS Assessment Categories: Score 1 = very low; clinically significant disease highly unlikely Score 2 = low; clinically significant disease is unlikely Score 3 = intermediate; clinically significant disease is equivocal Score 4 = high; clinically significant disease is likely Score 5 = very high; clinically significant disease is highly likely Electronically signed on 04/07/2022 2:29:[address] M.D.
== END 2022-04-03 15:25 | disposition home or self-care (01) ==
LOC: MRI 15:26
PROVIDERS: PCP Family Medicine
DX: R97.20 Elevated prostate specific antigen [PSA] (principal)
CPT/HCPCS: 72197; A9575

== ENCOUNTER 2022-06-05 14:30 | Outpatient (CLI) | payer MEDICARE, SELFPAY | END 2022-06-05 14:31 | disposition home or self-care (01) | PROVIDERS: PCP Family Medicine; Visit Provider Family Medicine | DX: E11.9 Type 2 diabetes mellitus without complications (principal); E78.5 Hyperlipidemia, unspecified; I10 Essential (primary) hypertension; R97.20 Elevated prostate specific antigen [PSA]; N40.0 Benign prostatic hyperplasia without lower urinary tract symptoms; G62.9 Polyneuropathy, unspecified | CPT/HCPCS: 80048; 80061; 82607; 82746; 84460 ==

== ENCOUNTER 2022-11-20 07:55 | Outpatient (CLI) | payer MEDICARE, SELFPAY ==
--- NOTE | 2022-11-20 08:25 | W.ANESCHARGE ---
Anesthesia Charges Start Date/Time Anesthesia Start Date: 11/20/22 Anesthesia Start Time: 08:35 Stop Date/Time Anesthesia Stop Date: 11/20/22 Anesthesia Stop Time: 08:55 Summary Extremes of Age - Over 70 or under 1: MDA
--- NOTE | 2022-11-20 08:59 | W.ANESCHARGE ---
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
== END 2022-11-20 07:56 | disposition home or self-care (01) ==
LOC: OP CLINIC 07:56
PROVIDERS: PCP Family Medicine; Visit Provider Internal Medicine
DX: R93.3 Abnormal findings on diagnostic imaging of other parts of digestive tract (principal); K64.9 Unspecified hemorrhoids; K57.30 Diverticulosis of large intestine without perforation or abscess without bleeding
CPT/HCPCS: 00812; 45378; 99100; J2704

== ENCOUNTER 2023-09-01 09:00 | Outpatient (CLI) | payer MEDICARE, SELFPAY ==
--- OUTSIDE RECORDS SUMMARY | 2023-09-01 09:02 | XMS_ITS | Clinical Summary ---
Author Organization [facility] Address [address] [place] [phone] Phone Care Team Providers Care Five Piece Expansion Maker Hand Name Role Phone Jaime Allan MD Primary Care Provider Unavail able Allergies Active Allergy Reactions Criticality Noted Date Comments Latex Medium 08/06/2008 Other reaction(s): Erythema, Other (see comments) Penicillins Hives,Itching Medium 08/06/2008 Sulfa Antibiotics 12/18/2008 Other reaction(s): *Unknown - Childhood Rxn, Other (see comments) Medications Medication Sig Dispensed Refills Start Date End Date Status Eliquis 5 MG tablet Take 5 mg by mouth in the morning and 5 mg before bedtime. 01/06/2022 Active finasteride (PROSCAR) 5 MG tablet finasteride 5 mg tablet 09/23/2017 Active metFORMIN XR 500 MG 24 hr tablet metformin ER 500 mg tablet,extended release 24 hr TAKE 4 TABLETS BY MOUTH EVERY DAY Active mometasone (NASONEX) 50 MCG/ACT nasal spray Administer 1 spray into affected nostril(s) once daily as needed Active Naproxen Sodium 220 MG capsule Take 220 mg by mouth if needed Active naratriptan (AMERGE) 1 MG tablet Take 5 mg by mouth once daily as needed Active Pediatric Multiple Vitamins (Chewable [facility]) chewable tablet Chew 1 tablet in the morning. Active rizatriptan MATERIAL REQUISITIONER (MAXALT-MATERIAL REQUISITIONER) 10 MG dispersible tablet Take 10 mg by mouth once daily as needed Active rOPINIRole (REQUIP) 0.5 MG tablet ropinirole 0.5 mg tablet TAKE 1 TABLET BY MOUTH AT BEDTIME 09/23/2017 Active rosuvastatin (CRESTOR) 10 MG tablet Take 10 mg by mouth every night 11/20/2021 Active tamsulosin (FLOMAX) 0.4 MG 24 hr capsule Take 0.4 mg by mouth 1 (one) time each day 11/20/2021 Active ZOLMitriptan (ZOMIG) 5 MG tablet Take by mouth once daily as needed Active fexofenadine (TINO) 180 MG tablet Take 180 mg by mouth if needed seasonal 11/21/2010 Active Fiber 500 MG capsule Take 1 tablet by mouth 1 (one) time each day Active potassium citrate (UROCIT-K) 10 MEQ (1080 MG) CR tablet Take 2 tablets (20 mEq total) by mouth in the morning and 2 tablets (20 mEq total) in the evening. 360 tablet 3 02/11/2023 Active Active Problems Problem Noted Date Diagnosed Date Cervical spondylosis 10/08/2021 Diabetes mellitus 10/08/2021 Raised prostate specific antigen 11/24/2017 Overview (01/28/2022): Added automatically from request for surgery [id number] Allergic rhinitis, cause unspecified 11/21/2010 Migraine 11/21/2010 Other and unspecified hyperlipidemia 11/21/2010 History of polyp of colon 12/18/2008 Overview (01/28/2022): Colonoscopy 11/2008 normal repeat in 5 years Colonoscopy 06/2014 normal repeat in 5 years Immunizations Name Administration Dates Next Due Influenza Split High Dose Pr eservative Free IM 11/24/2018,12/01/2016 Influenza TIV (IM) 01/20/2008 Influenza, Injectable, Quadr ivalent, Preservative Free 04/06/2018,12/01/2016,01/16/2016 Influenza, Quadrivalent 11/23/2019 Pneumococcal Conjugate 13-Valent 08/31/2014 Pneumococcal, Unspecified 03/25/2017 TD Preservative Free 02/21/2015 Tdap 01/16/2016,02/21/2015 Zoster Recombinant 04/18/2019,12/19/2018 Family History Medical History Relation Comments Arthritis Brother Alcohol abuse Father Arthritis Father Cancer Father Depression Father Stroke Father Arthritis Mother Cancer Mother Hypertension Mother ADD / ADHD Son Relation Status Comments Brother Father Mother Son Social History Tobacco Use Types Packs/Day Years Used Date Smoking Tobacco: Never Passive Smoke Exposure: Never Smokeless Tobacco: Never Tobacco Cessation:Counseling Given: No Alcohol Use Standard Drinks/Week Comments Yes 0 (1 standard drink = 0.6 oz pur e alcohol) Occasional Sex and Gender Information Value Date Recorded Sex Assigned at Not on file Gender Identity Not on file Sexual Orientation Not on file Last Filed Vital Signs Vital Sign Reading Time Taken Comments Blood Pressure 130/64 01/28/2022 9:11 AM QUICKBOOKS BOOKKEEPER Pulse 75 01/28/2022 9:11 AM QUICKBOOKS BOOKKEEPER Temperature 36.3 ??C (97.4 ??F) 01/28/2022 9:11 AM CS T Respiratory Rate - - Oxygen Saturation - - Inhaled Oxygen Concentration - - Weight 110 kg (242 lb 6.4 oz) 01/28/2022 9:11 AM QUICKBOOKS BOOKKEEPER Height 189.2 cm (6' 2.5) 01/28/2022 9:11 AM QUICKBOOKS BOOKKEEPER Body Mass Index 30.71 01/28/2022 9:11 AM QUICKBOOKS BOOKKEEPER Plan of Treatment Health Maintenance Due Date Last Done Comments Diabetic Foot Exam 08/13/1961 Ophthalmology Exam 08/13/1961 Pneumococcal PPSV23/PCV13 65 + Years / High and Highest Risk (2 of 4 - PPSV23 or PCV20) 10/26/2014 08/31/2014 COVID-19 Vaccine (3 - 2022-2 4 season) 2022 04/06/2020, 03/16/2020 Influenza Vaccine (#1) 2023 9, 12/01/2016, 01/16/2016, Additional history exists Care Teams Five Piece Expansion Maker Hand Relationship Specialty Start Date End Date Jaime Allan MD PCP - General 12/16/21
--- OUTSIDE RECORDS SUMMARY | 2023-09-01 09:03 | XMS_ITS | Clinical Summary ---
Author Organization [employer] [facility] Address [place], [place] [address] Care Team Providers Care Pet Care Technician Name Role Phone Iam Romero MD Primary Care Provider Allergies Active Allergy Reactions Criticality Noted Date Comments Amoxicillin Hives Medium 12/18/2008 Latex Erythema Medium 12/18/2008 Sulfa (Sulfonamide Antibiotics) *Unknown - Childhood Rxn 12/18/2008 Medications Medication Sig Dispensed Refills Start Date End Date Status fexofenadine (TINO) 180 mg tabletIndications:Migrai mitra Take 1 tablet by mouth once daily with a meal. 0 11/21/2010 Active aspirin enteric coated 81 mg tablet Take 1 tablet by mouth once daily with a meal. 0 11/21/2010 Active naproxen (ALEVE) 220 mg tablet Take 1 tablet by mouth 2 times daily with meals. 0 11/21/2010 Active rizatriptan (MAXALT) 5 mg tabletIndications:Allerg ic rhinitis, cause unspecified Take 1 tablet by mouth every 2 hours if needed for Migraine. Max dose: 30mg per 24 hrs. 0 11/21/2010 Active fluvastatin sodium (LESCOL) 40 mg capsuleIndications:Other and unspecified hyperlipidemia Take 1 capsule by mouth at bedtime. 0 11/21/2010 Active potassium citrate (UROCIT-K) 10 mEq (1,080 mg) tablet Take 2 tablets by mouth 2 times daily. 0 06/19/2014 Active Active Problems Problem Noted Date Diagnosed Date Migraines 11/21/2010 Allergic rhinitis, cause unspecified 11/21/2010 Other and unspecified hyperlipidemia 11/21/2010 Personal history of colonic polyps 12/18/2008 Overview: Colonoscopy 11/2008 normal repeat in 5 years Colonoscopy 06/2014 normal repeat in 5 years Immunizations Name Administration Dates Next Due AMB Influenza, IIV3 (Age >=3 years)(Flu Clinic [facility]) 01/20/2008 Social History Tobacco Use Types Packs/Day Years Used Date Smoking Tobacco: Never Tobacco Cessation:Counseling Given: Yes Alcohol Use Standard Drinks/Week Comments Not Asked 0 (1 standard drink = 0.6 oz pur e alcohol) Sex and Gender Information Value Date Recorded Sex Assigned at Not on file Gender Identity Not on file Sexual Orientation Not on file Obstetrics History Last Filed [...] Health Maintenance Due Date Last Done Comments Tdap 08/13/1962 Depression screening for age 12+ 1963 BMI (ht and wt on same day) for age 18+ 08/13/1969 Hepatitis C screening for ag e 18-79 08/13/1969 Tetanus booster 1971 Lipids for age 45-75 08/13/1996 Zoster (shingles) series for age 50+ (1 of 2) 08/13/2001 Pneumococcal series for age 65+ (1 of 1 - PCV) 08/13/2016 Colonoscopy through age 75 06/20/201906/19, 06/19/2014, 12/18/2008, Additional history exists COVID-19 vaccine series ( - 2022-24 season) 2022 Influenza for age 65+ 10/17/2023 01/20/2008 Procedures Procedure Name Priority Date/Time Associated Diagnosis Comments SCAN-COLONOSCOPY 11/18/2008 12:0 0 AM CDT from Last 3 Months or Most Recently Relevant to Health Maintenance Results * SCAN-COLONOSCOPY (11/18/2008 12:00 AM CDT) Narrative Procedure Note Scanner - 11/18/2008 12:00 AM CDT Scanner OTHER from Last 3 Months or Most Recently Relevant to Health Maintenance Care Teams Pet Care Technician Relationship Specialty Start Date End Date Iam Romero MD [address] [place] [id number] PCP - General 05/01/04
--- OUTSIDE RECORDS SUMMARY | 2023-09-01 09:03 | XMS_ITS | Clinical Summary ---
Author Organization [facility] Address [address] [place] [id number] Care Team Providers Care Customer Business Manager Name Role Phone Elsewhere, Pcp Primary Care Provider Unavailabl e Source Comments Patient records contain information from all sites at [facility]. For routine questions regarding patient records, call [phone] during business hours, M-F 8:00 AM - 5:00 PM Central Time. Record requests for emergency care only can be directed to [phone] at any time.[facility] Allergies Active Allergy Reactions Criticality Noted Date Comments Amoxicillin Hives (Reselect Reaction) Medium 9 Latex Other (see comments) 08/06/2008 Penicillins Itching 08/06/2008 Sulfa (Sulfonamide Antibiotics) Other (see comments) 12/18/2008 Medications Medication Sig Dispensed Refills Start Date End Date Status finasteride (PROSCAR) 5 mg tablet Take 5 mg by mouth every evening. 5 09/23/2017 Active metFORMIN (GLUCOPHAGE) 500 mg tablet 500 mg 2 (two) times a day. Takes 2 tablets, 2 times daily 0 11/10/2017 Active rosuvastatin (CRESTOR) 10 mg tablet Take 10 mg by mouth at bedtime. 3 09/23/2017 Active potassium citrate (UROCIT-K) 10 mEq (1,080 mg) ER tablet 10 mEq 2 (two) times a day. 9 10/04/2017 Active rOPINIRole (REQUIP) 0.5 mg tablet Take 0.5 mg by mouth at bedtime. 3 09/23/2017 Active tamsulosin (FLOMAX) 0.4 mg 24 hr capsule TAKE ONE CAPSULE BY MOUTH DAILY AFTER MEAL. TAKE WITHIN 30 MINUTES AFTER THE SAME MEAL DAILY 5 09/23/2017 Active ZOLMitriptan (ZOMIG) 5 mg tablet Take by mouth as needed. Active rizatriptan ORDER TRACER (MAXALT-ORDER TRACER) 10 mg disintegrating tablet Take 10 mg by mouth as needed. Active OMEGA-3 FATTY [id number] ORAL Take by mouth. Ac tive naratriptan (AMERGE) 1 mg tablet Take 5 mg by mouth as needed. Active multivitamin chewable tablet Chew 1 tablet daily. Active naproxen sodium 220 mg capsule Take 220 mg by mouth as needed. Active metFORMIN XR (GLUCOPHAGE-XR) 500 mg 24 hr tablet Take 2,000 mg by mouth daily. 05/29/2022 Active celecoxib (CeleBREX) 200 mg capsule Take 200 mg by mouth 2 (two) times a day as needed. 03/13/2022 Active fexofenadine (TINO) 180 mg tablet Take 180 mg by mouth daily. Active Active Problems Problem Noted Date Diagnosed Date Elevated Prostate-Specific Antigen 11/24/2017 Overview: Added automatically from request for surgery [id number] Immunizations Name Administration Dates Next Due Influenza, Quadrivalent, Adj uvanted, Preservative Free 11/23/2019 PCV13 08/31/2014 PPSV23 03/25/2017 RZV (SHINGRIX) 04/18/2019,12/19/2018 SARS-COV-2 (COVID-19) - PFIZ ER (Discontinued)(12 years or older) 04/06/2020,03/16/2020 Td Preservative Free (TENIVAC, DECAVAC) 02/21/19 16 Tdap 01/16/2016,02/21/2015 influenza high dose (65 year s or older) (PF) 11/24/2018,12/01/2016 influenza vaccine quad (FLUZ ONE/FLUARIX) (6 months and older)(PF) 04/06/2018,12/01/2016,01/16/2016 Family History Medical History Relation Name Comments Alcohol abuse Father Sig Dementia Father Sig Depression Father Sig Skin cancer Father Sig Squamous cell carcinoma Father Sig Stroke Father Sig Breast cancer Mother Kit Dementia Mother Kit Relation Name Status Comments Father Sig Mother Kit Social History Tobacco Use Types Packs/Day Years Used Date Smoking Tobacco: Never Smokeless Tobacco: Never Alcohol Use Standard Drinks/Week Comments Yes 2 (1 standard drink = 0.6 oz pur e alcohol) caffeine - none Humiliation, Afraid, Rape, and Kick questionnair e Answer Date Recorded Within the last year, have y ou been afraid of your partner or ex-partner? No 01/30/2022 Within the last year, have y ou been humiliated or emotionally abused in other ways by your partner or ex-partner? No Within the last year, have y ou been kicked, hit, slapped, or otherwise physically hurt by your partner or ex-partner? No 01/30/2022 Within the last year, have y ou been raped or forced to have any kind of sexual activity by your partner or ex-partner? No 01/30/2022 Social Connection and Isolat ion Panel [NHANES] Answer Date Recorded In a typical week, how many times do you talk on the phone with family, friends, or neighbors? More than three times a week 01/30/2022 How often do you get togethe r with friends or relatives? Twice a week 01/30/2022 How often do you attend chur or confucianist services? More than 4 times per year 01/30/2022 Do you belong to any clubs o r organizations such as zoroastrian groups, unions, fraternal or athletic groups, or school groups? Yes 01/30/2022 How often do you attend meet ings of the clubs or organizations you belong to? More than 4 times per year 01/30/2022 Are you , , di vorced, , never , or living with a partner? 01/30/2022 AUDIT-C Answer Date Recorded Q1: How often do you have a drink containing alc ohol? 2-4 times a month 01/30/2022 Q2: How many drinks containi ng alcohol do you have on a typical day when you are drinking? 1 or 2 01/30/2022 Q3: How often do you have si x or more drinks on one occasion? Never 01/30/2022 Overall Financial Resource Strain (CARDIA) Answe r Date Recorded How hard is it for you to pa y for the very basics like food, housing, medical care, and heating? Not hard at all 01/30/2022 PHQ-2 Answer Date Recorded PHQ-2 Score 0 05/24/2020 [facility] - Occupational Stress Questionnaire Answer Date Recorded Do you feel stress - tense, restless, nervous, or anxious, or unable to sleep at night because your mind is troubled all the time - these days? Only a little 01/30/2022 Exercise Vital Sign Answer Date Recorde d On average, how many days pe r week do you engage in moderate to strenuous exercise (like a brisk walk)? 6 days 01/30/2022 On average, how many minutes do you engage in exercise at this level? 40 min 01/30/2022 Hunger Vital Sign Answer Date Recorded Within the past 12 months, y ou worried that your food would run out before you got the money to buy more. Never true 01/31/20 Within the past 12 months, t he food you bought just didn't last and you didn't have money to get more. Never true 01/30/2022 PRAPARE - Transportation Answer Date Re corded In the past 12 months, has l ack of transportation kept you from medical appointments or from getting medications? No 01/15 In the past 12 months, has l ack of transportation kept you from meetings, work, or from getting things needed for daily living? No 01/30/2022 Housing Stability Vital Sign Answer Eusebio e Recorded In the last 12 months, was t here a time when you were not able to pay the mortgage or rent on time? No 01/30/2022 In the last 12 months, how many places have you lived? 1 01/30/2022 In the last 12 months, was t here a time when you did not have a steady place to sleep or slept in a alf (including now)? No 01/30/2022 Nutrition Answer Date Recorded Nutrition: EVOO Fat Source Yes 01/30 On average, how many serving s of fruits and vegetables do you eat per day (serving size is equal to 1 cup or approximately the size of a tennis ball)? 0-1 01/30/2022 Dental Answer Date Recorded Dental: Regular Dentist Yes 07/18/19 Employment Answer Date Recorded Employment status Retired 01/30/2022 Education Answer Date Recorded What is the highest level of school you have completed or the highest degree you have received? Master's degree (e.g., MA, MS, Anisa, MEd, FURNACE REPAIRER, PAULA) 07/17/2021 Sex and Gender Information Value Date Recorded Sex Assigned at Male 07/17/2021 8:23 PM CDT Gender Identity Male 07/17/2021 8:23 PM CDT Sexual Orientation Straight 07/17/2021 8: 23 PM CDT Last Filed Vital Signs Vital Sign Reading Time Taken Comments Blood Pressure 128/75 07/02/2021 8:04 AM CDT Pulse 75 07/02/2021 8:04 AM CDT Temperature 36.2 ??C (97.2 ??F) 05/24/2020 11:26 AM C DT Respiratory Rate 11 12/28/2017 10:30 AM PATTERN DATA OPERATOR Oxygen Saturation 99% 05/24/2020 11:26 AM CDT Inhaled Oxygen Concentration - - Weight 114 kg (250 lb 10.6 oz) 05/24/2020 11:26 AM CDT Height 188.8 cm (6' 2.33) 12/28/2017 7:05 AM CS T Body Mass Index 31.9 12/28/2017 7:05 AM PATTERN DATA OPERATOR Plan of Treatment Upcoming Encounters Date Type Department Care Team (Late st Contact Info) Description 09/21/2023 3:15 PM CDT Office Visit Department of Dermatology in [address] [phone] Dwight Ortega M.D. [address] [place] [phone] Discharge Disposition: Home or Self Care Health Maintenance Due Date Last Done Comments CT Colonography 1950 Cologuard 1950 Colonoscopy 1950 Colorectal Cancer Surveillance 1950 Hepatitis C Screening 1950 Depression Screening (Annual PHQ-2) 02/15/2023 Fall Risk Screen (Annual) 02/15/2023 COVID-19 Vaccine (2022-03 4 season) 2023 04/23/2023, 11/03/2021, 05/22/2021, Additional history exists Influenza Vaccine (#1) 2023 3, 12/24/2021, 12/12/2020, Additional history exists Fasting Glucose for Diabetes Screening 07/07/2025 07/07/2022, 12/22/2017 DTaP,Tdap,and Td Vaccines (4 - Td or Tdap) 01/15/2026 01/16/2016, 02/21/2015, 02/21/2015 Pneumococcal vaccine (65+ years) Completed 03/25/2017, 03/25/2017, 08/31/2014 Zoster Vaccines Completed 04/18/2019, 12/19/2018 Medical Devices Implanted Type Area Residential Real Estate Agent Device Identifier Shelf Expiration Date Model / Serial / Lot Mesh Or Patch Mesh or Patch Groin Procedures Procedure Name Priority Date/Time Associated Diagnosis Comments GLUCOSE POCT, B Routine 07/07/2022 11:23 AM CDT from Last 3 Months or Most Recently Relevant to Health Maintenance Results * (ABNORMAL) Glucose, POCT (07/07/2022 11:23 AM CDT) [facility] Glucose, POCT, B 163(H) 70 - 140 mg/dL 07/07/2022 11:25 AM CDT PCMO Blood 07/07/2022 11:2 3 AM CDT 07/07/2022 11:25 AM CDT Unknown Provider LAB POCT ORDERABLES- MANUAL POC [facility]ST [facility] [address] [place] [address], [facility] PCMO [facility] POC [address] [place] [address] from Last 3 Months or Most Recently Relevant to Health Maintenance Care Teams Customer Business Manager Relationship Specialty Start Date End Date Elsewhere, Pcp PCP - General Family Medicine 05/24/20
--- OUTSIDE RECORDS SUMMARY | 2023-09-01 09:03 | XMS_ITS | Referral Summary ---
Author Organization [facility] Address [address] [place] [address] Care Team Providers Care Signal Integrity Engineer Name Role Phone Elsewhere, Pcp Primary Care Provider Unavailabl e Source Comments Patient records contain information from all sites at [facility]. For routine questions regarding patient records, call [phone] during business hours, M-F 8:00 AM - 5:00 PM Central Time. Record requests for emergency care only can be directed to [phone] at any time.[facility] Allergies Active Allergy Reactions Criticality Noted Date [...] Take by mouth as needed. Active rizatriptan CAUSTIC STRENGTH INSPECTOR (MAXALT-CAUSTIC STRENGTH INSPECTOR) 10 mg disintegrating tablet Take 10 mg by mouth as needed. Active OMEGA-3 FATTY [id number] ORAL Take by mouth. Ac tive naratriptan [...] Overview: Added automatically from request for surgery [id number] Immunizations Name Administration Dates Next Due Influenza, Quadrivalent, Adj uvanted, Preservative Free 11/23/2019 PCV13 08/31/2014 PPSV23 03/25/2017 RZV (SHINGRIX) 04/18/2019,12/19/2018 SARS-COV-2 (COVID-19) - PFIZ ER (Discontinued)(12 years or older) 04/06/2020,03/16/2020 Td Preservative Free (TENIVAC, DECAVAC) 02/21/19 16 Tdap 01/16/2016,02/21/2015 influenza high dose (65 year s or older) (PF) 11/24/2018,12/01/2016 influenza vaccine quad (FLUZ ONE/FLUARIX) (6 months and older)(PF) 04/06/2018,12/01/2016,01/16/2016 Social History Tobacco Use Types Packs/Day Years [...] week 01/30/2022 How often do you attend [facility] or faith services? More than 4 times per year 01/30/2022 Do you belong to any clubs o r organizations such as pentecostalism groups, unions, fraternal or athletic groups, or [...] Answer Date Recorded PHQ-2 Score 0 05/24/2020 [facility] - Occupational Stress Questionnaire Answer Date Recorded [...] or slept in a fci (including now)? No 01/30/2022 Nutrition Answer Date [...] Master's degree (e.g., MA, MS, Anisa, MEd, MANNEQUIN MOUNTER, PAULA) 07/17/2021 Sex and Gender Information Value [...] DT Respiratory Rate 11 12/28/2017 10:30 AM EMULSION OPERATOR Oxygen Saturation 99% 05/24/2020 11:26 AM CDT Inhaled Oxygen Concentration - - Weight 114 kg (250 lb 10.6 oz) 05/24/2020 11:26 AM CDT Height 188.8 cm (6' 2.33) 12/28/2017 7:05 AM CS T Body Mass Index 31.9 12/28/2017 7:05 AM EMULSION OPERATOR Plan of Treatment Upcoming Encounters Date Type Department Care Team (Late st Contact Info) Description 09/21/2023 3:15 PM CDT Office Visit Department of Dermatology in [address] [phone] Dwight Ortega M.D. [address] [place] [phone] Discharge Disposition: Home or Self Care Medical Devices Implanted Type Area Director University Device Identifier Shelf Expiration Date Model / Serial / Lot Mesh Or Patch Mesh or Patch Groin Procedures Procedure Name Priority Date/Time Associated Diagnosis Comments GLUCOSE POCT, B Routine 07/07/2022 11:23 AM CDT from Last 3 Months or Most Recently Relevant to Health Maintenance Results * (ABNORMAL) Glucose, POCT (07/07/2022 11:23 AM CDT) Pathologist [facility] Glucose, POCT, B 163(H) 70 - 140 mg/dL 07/07/2022 11:25 AM CDT PCMO Blood 07/07/2022 11:2 3 AM CDT 07/07/2022 11:25 AM CDT Unknown Provider LAB POCT ORDERABLES- MANUAL POC RST [facility] [address] [place] [address], [facility] PCMO [facility]OC [address] [place] [address] from Last 3 Months or Most Recently Relevant to Health Maintenance Care Teams Signal Integrity Engineer Relationship Specialty Start Date End Date Elsewhere, Pcp PCP - General Family Medicine 05/24/20
--- OUTSIDE RECORDS SUMMARY | 2023-09-01 09:03 | XMS_ITS ---
Author Organization [facility] Address [address] [place] [address] Care Team Providers Care Livestock Broker Name Role Phone Unavailable Unavailable Unavailable Surgery Details Not on file Complications Check Surgery Details section. Procedure Estimated Blood Loss Check Surgery Details section. Procedure Findings Check Surgery Details section. Procedure Specimens Taken Check Surgery Details section.
== END 2023-09-01 09:01 | disposition home or self-care (01) ==
PROVIDERS: PCP Family Medicine; Visit Provider Family Medicine
DX: Z00.00 Encounter for general adult medical examination without abnormal findings (principal); E78.2 Mixed hyperlipidemia; E11.9 Type 2 diabetes mellitus without complications; R97.20 Elevated prostate specific antigen [PSA]
CPT/HCPCS: 80053; 80061; 82043; 82570; 84153; G0103

== ENCOUNTER 2024-05-01 07:38 | Outpatient (CLI) | payer MEDICARE, SELFPAY | END 2024-05-01 07:39 | disposition home or self-care (01) | LOC: NFLDREF 05-05 01:59 | PROVIDERS: PCP Family Medicine; Referring Provider Family Medicine; Visit Provider Family Medicine | DX: R97.20 Elevated prostate specific antigen [PSA] (principal); Z12.5 Encounter for screening for malignant neoplasm of prostate | CPT/HCPCS: 84153; 84154 ==

== ENCOUNTER 2024-09-29 08:30 | Outpatient (CLI) | payer MEDICARE, SELFPAY | END 2024-09-29 08:31 | disposition home or self-care (01) | LOC: NFLDREF 10-03 17:48 | PROVIDERS: PCP Family Medicine; Referring Provider Family Medicine; Visit Provider Family Medicine | DX: E11.9 Type 2 diabetes mellitus without complications (principal); E78.2 Mixed hyperlipidemia | CPT/HCPCS: 80053; 80061; 82043; 82570 ==